=== PATIENT | male | born 1955 | race Caucasian/White ===

== ENCOUNTER 2019-04-21 07:30 | Day surgery (SDC) | payer MEDICARE ==
[2019-04-16 14:42] VITALS: BMI 31.6
[~2019-04-21 07:30] MED LIST: LACTATED RINGERS 1,000 ML IV SCH
[2019-04-21 07:46] VITALS: RESP 16; TEMP 97.2
[2019-04-21 08:01] LABS: Glucose,Whole Blood 162 mg/dL (75-99)
[2019-04-21] MEDS ORDERED: LIDOCAINE 1% 20 ML VIAL (10MG/ML) FOR IV START INTRADERMA ONE (08:01)
[2019-04-21] MEDS ORDERED: LIDOCAINE 1% INJ 10MG/ML (20 ML MDV) ONE (08:31)
[2019-04-21] MEDS ORDERED: PROPOFOL 10 MG/ML 20 ML VIAL IV ONE (08:31)
[2019-04-21 09:14] LABS: Glucose,Whole Blood 168 mg/dL (75-99)
[2019-04-21 09:20] VITALS: BP 135/84; PULSE 72
--- NOTE | 2019-04-21 09:45 | P.PCN ---
Date of Procedure: 04/21/19 Procedure(s) Performed: Procedure: Total colonoscopy. Preoperative diagnosis: Screening for neoplasia. Postoperative diagnosis: Poor preparation, otherwise, exam to the cecum within normal limits. Preparation: HalfLytely prep. Sedation: Was provided by anesthesia. Brief clinical history: The patient is a 64-year-old male who is scheduled for this evaluation for screening for neoplasia age being his risk factor. His last exam was in 2006 and he believes he may have had couple small polyps removed. The patient has no abdominal complaints, bleeding or anemia. Procedure: With the patient on his left lateral decubitus position and after informed consent and adequate sedation, the perianal area was inspected and it did not show any fissures or fistulas. There were no masses felt on digital rectal examination. The Olympus CFH 190L video colonoscope was then inserted in the rectum in the usual fashion and advanced to the cecum. Unfortunately, the preparation was less than ideal and there was significant amount of fecal material and fecal debris which I spent some time attempting to mobilize and clean. The mucosa appeared healthy. There were no obvious polyps or tumors seen, however, with his preparation, it is possible that small or medium-sized polyps or superficial pathology could have been missed. There was no obvious diverticular disease or other pathology. I retroflexed the endoscope in the rectum before the endoscope was withdrawn. The patient tolerated the procedure well. Plan: I summarized the findings to the patient. I suggested that he should have a repeat exam in 2-3 years after a two day preparation before going with a 5 year schedule because of the history of polyps. He will discuss that with you.
== END 2019-04-21 09:35 | disposition home or self-care (01) ==
LOC: ORWHC2ENDO 07:30
DX: Z12.11 Encounter for screening for malignant neoplasm of colon (principal); E11.9 Type 2 diabetes mellitus without complications; K21.9 Gastro-esophageal reflux disease without esophagitis; I10 Essential (primary) hypertension; E78.5 Hyperlipidemia, unspecified; G47.33 Obstructive sleep apnea (adult) (pediatric); G60.0 Hereditary motor and sensory neuropathy; N40.0 Benign prostatic hyperplasia without lower urinary tract symptoms; Z79.4 Long term (current) use of insulin; Z79.891 Long term (current) use of opiate analgesic; Z79.899 Other long term (current) drug therapy
CPT/HCPCS: J2001; J2704; G0121; 45378

== ENCOUNTER 2021-03-09 07:29 | Day surgery (SDC) | payer MEDICARE, OTHER ==
[2021-03-04 14:55] VITALS: BMI 32.8
[~2021-03-09 07:29] MED LIST changes: +ALPRAZolam 0.25 MG TAB PO PRN; +ALPRAZolam 0.5 MG TAB PO PRN; +ASPIRIN 325 MG TAB PO STA; +ATORVASTATIN 80 MG TAB PO STA; -LACTATED RINGERS 1,000 ML IV SCH; +NITROGLYCERIN SL TABS 0.4 MG TAB SUBLINGUAL PRN; +SODIUM CHLORIDE 0.9% 1,000 ML in EMPTY BAG 1 BAG IV ONE
[2021-03-09] MEDS ORDERED: ASPIRIN 81 MG ONE (08:13)
[2021-03-09 08:23] LABS: Glucose,Whole Blood 163 mg/dL (75-99)
[2021-03-09] MEDS ORDERED: ASPIRIN 81 MG PO ONE (08:30)
[2021-03-09 08:34] VITALS: RESP 18
[2021-03-09] MEDS ORDERED: VERAPAMIL 2.5 MG/ML 2 ML AMP ONE (09:00)
[2021-03-09] MEDS ORDERED: LIDOCAINE 1% INJ 10MG/ML (20 ML MDV) ONE (09:00)
[2021-03-09] MEDS ORDERED: HEPARIN SODIUM 1,000 UN/ML (10ML VL) ONE (09:01)
[2021-03-09] MEDS ORDERED: fentaNYL (PF) 50 MCG/ML 2 ML AMP ONE (09:01)
[2021-03-09] MEDS: MIDAZOLAM 2 MG/2 ML VIAL IVP ONE ×2 (09:19→09:24)
[2021-03-09] MEDS ORDERED: fentaNYL (PF) 50 MCG/ML 2 ML AMP IVP ONE (09:19)
[2021-03-09] MEDS ORDERED: LIDOCAINE 1% INJ 10MG/ML (20 ML MDV) SQ ONE (09:21)
[2021-03-09] MEDS ORDERED: VERAPAMIL SYRINGE (5 MG/10 ML) INTRAARTER ONE (09:30)
[2021-03-09] MEDS ORDERED: HEPARIN SODIUM 1,000 UN/ML (10ML VL) IVP ONE (09:31)
[2021-03-09] MEDS ORDERED: IOPAMIDOL-370 125ML BTL INJ ONE (09:45)
[2021-03-09] MEDS ORDERED: RX INFO: IV CONTRAST WAS GIVEN 1 EACH MISC MISCELLANE PRN (10:05)
--- NOTE | 2021-03-09 10:22 | P.CARDCATH ---
Description of Procedure: PROCEDURES PERFORMED: Bilateral coronary angiography INDICATION: Unstable angina HISTORY: Patient is a pleasant 66-year-old male with history of diabetes mellitus type 2, hypertension, hyperlipidemia who has been having new onset of chest pain worse with exertion and improved with rest which is worse over last 3 months and therefore heart catheterization was recommended. He was placed on metoprolol however did not start taking this medication. CONSENT:I have discussed the risks, benefits and alternative therapies for the above-mentioned procedure and for both sedation/analgesia as well as necessary blood product administration, if indicated, as they pertain to this patient. The patient has indicated understanding and acceptance of the risks and procedures discussed. PROCEDURE: After the risks, benefits and alternatives of the above mentioned procedure explained in detail with the patient, informed consent was obtained. Patient was taken to the catheterization lab and prepped and draped in usual fashion. 1% lidocaine was used to anesthetize the right radial artery. A 6- [place] sheath was placed in the right radial artery using modified Seldinger technique. Left coronary angiography was performed with a 5-[place] JL 3.5 catheter and right coronary angiography was performed with a 5-[place] JR5 catheter in various views. The right radial sheath was removed and a TR band was placed with hemostasis achieved. The patient tolerated the procedure well. Patient was transported back to the post catheterization holding area in stable condition. Conscious Sedation: Patient was monitored under the direct supervision of vision of myself for conscious sedation using Versed and fentanyl for a total duration of 33 minutes HEMODYNAMICS: Ao: 134/78 SELECTIVE CORONARY ARTERIOGRAPHY: LEFT MAIN: The left main is a large caliber vessel which trifurcates into the LAD, a very small caliber ramus and a circumflex. There is 20% left main stenosis. LEFT ANTERIOR DESCENDING CORONARY ARTERY: LAD is a large caliber vessel which wraps around to the apex. There is diffuse proximal 50% stenosis. There is a 95% mid LAD stenosis at the level of a moderate caliber diagonal 1 branch. There are tandem 95%, 90% stenosis of the mid to distal LAD. RAMUS INTERMEDIUS: The ramus intermedius is a very small caliber vessel without significant stenosis. LEFT CIRCUMFLEX CORONARY ARTERY: Left circumflex is a large caliber vessel which is codominant. There are 2 main aneurysmal portions of the circumflex with a 50% mid circucumflex and a 50-60% mid to distal circumflex stenosis. OM1 has a 60-70% ostial stenosis and is a moderate caliber vessel. OM2 is moderate caliber and splits into a superior and inferior branch. OM3 has no significant stenosis. RIGHT CORONARY ARTERY: The right coronary artery is a moderate caliber vessel which gives off a PDA codominant vessel. There is a proximal long 100% RCA stenosis. FINAL IMPRESSION: 1. CAD as described above with 20% left main, 50% proximal LAD, 95% mid LAD/ diagonal 1 bifurcation, mid to distal LAD 95%, circumflex 50-60% stenosis, OM1 60-70% stenosis and proximal RCA 100% stenosis. PLAN: 1. Aggressive risk factor modification per most recent ACC/AHA guidelines. 2. CABG evaluation. 3. Follow-up in the office in 1-2 weeks.
--- NOTE | 2021-03-09 13:11 | P.GSCN ---
History of Present Illness Consult date: 03/09/21 Reason for Consult: Coronary artery disease, recommendations for surgical revascularization Requesting physician: Diego Soni History of present illness: This is a 66-year-old gentleman who follows on an outpatient basis with Dr. Whitaker for primary care, as well as recently establishing cardiology care with Dr. Soni. He has a previous medical history of hypertension, hyperlipidemia, type 2 diabetes, obstructive sleep apnea with home CPAP use, Gvhlglu-Oyast-Fjxow disorder, previous tobacco dependence, occasional marijuana use, and family history of premature coronary artery disease with father having myocardial infarction in his early 60s and uncle having myocardial infarction in his early 50s. He reports 3 months symptomatology of chest tightness, shortness of breath, lightheadedness mostly with exertion and improved with rest, however upon further questioning the patient did state these symptoms occasionally occur at rest and resolve on their own. He states his symptoms have not gotten prog ressively worse, however he did establish a connection with cardiology for evaluation and treatment. He was recommended to undergo elective heart catheterization which was completed today and which demonstrated coronary artery disease with 20% left main stenosis, 50% proximal LAD stenosis, mid LAD stenosis 95% at that bifurcation of the first diagonal branch as well as 95% stenosis mid to distal LAD, circumflex stenosis 50-60%, first obtuse marginal stenosis 60- 70%, and proximal RCA stenosis 100%. Of note he did have a transthoracic echocardiogram completed at [facility] demonstrating normal systolic function and no regional wall motion abnormalities with ejection fraction 60%, moderate centrally directed aortic regurgitation, trace mitral regurgitation, and trace tricuspid regurgitation. Due to his heart catheterization findings consultation was placed to Dr. Shah for surgical revascularization recommendations. Review of Systems Review of systems was completed and was negative except as noted - Cardiovascular Reports as per HPI, Reports chest pain, Reports decreased exercise tolerance, Reports dyspnea on exertion, Reports lightheadedness, Reports shortness of breath Past Medical History Past Medical History: Coronary Artery Disease (CAD), Chest Pain / Angina, Diabetes Mellitus, GERD/Reflux, Hyperlipidemia, Hypertension, Musculoskeletal Disorder, Osteoarthritis (OA), Prostate Disorder, Sleep Apnea/CPAP/BIPAP Additional Past Medical History / Comment(s): [id number] SYNDROME, CAUSES PAIN, HAS NUMBNESS IN FEET, neuropathy, WEARS NICOLÁS LEG BRACES. USES CPAP., some recent chest pain & tightness @times History of Any Multi-Drug Resistant Organisms: None Reported Past Surgical History: No Surgical Hx Reported Additional Past Surgical History / Comment(s): COLONOSCOPY, lasik eye surg. Past Anesthesia/Blood Transfusion Reactions: No Reported Reaction Past Psychological History: No Psychological Hx Reported Smoking Status: Former smoker Past Alcohol Use History: None Reported Past Drug Use History: Marijuana Additional History: Quit smoking 25 years ago, rarely smoked prior to that; no alcohol for 22 years; occasional medical marijuana use - Past Family History Mother Family Medical History: Cancer Additional Family Medical History / Comment(s): BREAST CA Sister(s) Family Medical History: Cancer Additional Family Medical History / Comment(s): SKIN CA Father Family Medical History: Congestive Heart Failure (CHF), Coronary Artery Disease (CAD), Myocardial Infarction ([place]) Additional Family Medical History / Comment(s): Myocardial infarction in his early 60s, paternal uncle had myocardial infarction in his early 50s Medications and Allergies Home Medications Medication Instructions Recorded Confirmed Type DULoxetine HCL [Cymbalta] 60 mg PO DAILY 04/16/19 03/09/21 History Finasteride [Proscar] 5 mg PO DAILY 04/16/19 03/09/21 History Insulin Degludec [Tresiba] 64 units SQ AC-BRKFST 04/16/19 03/09/21 History Mirtazapine [Remeron] 15 mg PO DAILY 04/16/19 03/09/21 History Multivit-Min/FA/Lycopen/Lutein 1 each PO DAILY 04/16/19 03/09/21 History [Centrum Silver Tablet] Omeprazole 20 mg PO DAILY 04/16/19 03/09/21 History glipiZIDE [Glucotrol] 10 mg PO BID 04/16/19 03/09/21 History lisinopriL [Zestril] 20 mg PO DAILY 04/16/19 03/09/21 History metFORMIN HCL 1,000 mg PO BID 04/16/19 03/09/21 History Aspirin 81 mg PO DAILY 03/04/21 03/09/21 History Atorvastatin [Lipitor] 20 mg PO DAILY 03/04/21 03/09/21 History Cider Vinegar [Apple Cider Vinegar] 300 mg PO DAILY 03/04/21 03/09/21 History Diazepam [Valium] 10 mg PO DIRECTED PRN 03/04/21 03/09/21 History Pioglitazone [Actos] 30 mg PO DAILY 03/04/21 03/09/21 History Turmeric Root Extract [Turmeric] 500 mg PO DAILY 03/04/21 03/09/21 History oxyCODONE HCL/ACETAMINOPHEN 1 tab PO QID 03/04/21 03/09/21 History [Endocet 10-325 mg] Metoprolol Succinate (ER) [Toprol 25 mg PO DAILY #90 tab 03/09/21 Rx Xl] Allergies Allergy/AdvReac Type Severity Reaction Status Date / Time No Known Allergies Allergy Verified 03/04/21 14:49 Surgical - Exam Vital Signs Resp BP Pulse Ox 18 164/81 95 03/09/21 08:26 03/09/21 08:26 03/09/21 08:26 CONSTITUTIONAL: Awake and alert, appears comfortable, cooperative, well- developed, well-nourished, no pain, no acute distress EYES: Pupils equal, round, reactive to light, normal ocular movement ENT: Moist mucous membranes without oral lesions present NECK: No masses, no bruits, trachea midline RESPIRATORY: Lungs sounds clear to auscultation bilaterally. Respirations even, nonlabored. Currently on room air with oxygen saturation 97%. Strong cough. No chest wall deformities. No clubbing or cyanosis present CARDIOVASCULAR: S1, S2 present. Regular rate and rhythm, sinus rhythm on telemetry. Palpable peripheral pulses bilaterally. No edema present. No calf pain or tenderness noted. No significant lower extremity varicosities noted. GASTROINTESTINAL: Abdomen soft, nontender, nondistended without masses or organomegaly noted. There is no rebound or guarding present. Active bowel sounds present 4 quadrants. GENITOURINARY: Deferred INTEGUMENTARY: Skin is warm and dry with evidence of good perfusion. NEUROLOGIC: Cranial nerves II through XII intact, normal coordination, no obvious motor or sensory deficits, speech is normal MUSKULOSKELETAL: Able to move all extremities, strength equal bilaterally, normal posture PSYCHIATRIC: Alert and oriented to person place and time, appropriate affect, intact judgment and insight Results - Labs Abnormal Lab Results - Last 24 Hours (Table) 03/09/21 Range/Units 08:20 POC Glucose (mg/dL) 163 H (75-99) mg/dL - Imaging Chest x-ray: image reviewed Additional studies: Heart catheterization films were reviewed Assessment and Plan Assessment: 1. Triple-vessel coronary artery disease 2. Hypertension 3. Hyperlipidemia, treated 4. Type 2 diabetes 5. Obstructive sleep apnea with home CPAP use 6. Yzsapht-Bymck-Kukmf disorder 7. Previous tobacco dependence 8. Occasional marijuana use 9. Family history of premature coronary artery disease Plan: The patient was seen and examined in the extended stay unit. Chart/diagnostics reviewed. The case will be discussed in detail with Dr. Shah. The usual perioperative course of coronary artery bypass surgery was discussed in detail with the patient, risks and benefits were reviewed, all questions were answered. The patient is willing to consider surgery if that is deemed to be the best treatment option. Preoperative testing was initiated. Recommend continuing aspirin, statin, beta iesha therapy. Risk factor management encouraged. More recommendations to follow once testing completed and Dr. Shah has had the opportunity to review the patient's heart catheterization films. Thank you Dr. Soni for this consult. We will follow along with you Time with Patient: Greater than 30
[2021-03-09 13:22] LABS: ALT 39 U/L (4-49); AST 41 U/L (17-59); African American GFR (CKD) >90 (>60 ml/min/1.73 sqM); Alkaline Phosphatase 76 U/L (38-126); Anion Gap 8 mmol/L; Blood Urea Nitrogen 8 mg/dL (9-20); Calcium 9.6 mg/dL (8.4-10.2); Carbon Dioxide 27 mmol/L (22-30); Chloride 103 mmol/L (98-107); Glucose 148 mg/dL (74-99); Magnesium 1.6 mg/dL (1.6-2.3); Non-African American GFR(CKD) >90 (>60 ml/min/1.73 sqM); Potassium 4.6 mmol/L (3.5-5.1); Sodium 138 mmol/L (137-145); Total Bilirubin 0.5 mg/dL (0.2-1.3); Total Protein 6.8 g/dL (6.3-8.2)
[2021-03-09 13:35] LABS: HCT 43.9 % (39.0-53.0); HGB 14.4 gm/dL (13.0-17.5); MCH 30.2 pg (25.0-35.0); MCHC 32.8 g/dL (31.0-37.0); MCV 92.1 fL (80.0-100.0); Mean Platelet Volume 8.1; Platelet Count 190 k/uL (150-450); RBC 4.77 m/uL (4.30-5.90); RDW 13.4 % (11.5-15.5); WBC 6.8 k/uL (3.8-10.6)
[2021-03-09 14:00] LABS: Cholesterol 127 mg/dL (<200); HDL Cholesterol 38 mg/dL (40-60); LDL Cholesterol,Calculated 68 mg/dL (0-99); Triglycerides 104 mg/dL (<150)
[2021-03-09 14:09] LABS: Basophils # (M) 0.07 k/uL (0-0.2); Eosinophils # (M) 0.07 k/uL (0-0.7); Lymphocytes # (M) 1.77 k/uL (1.0-4.8); Monocytes # (M) 0.54 k/uL (0-1.0); Neutrophils # (M) 4.35 k/uL (1.3-7.7); Neutrophils % (M) 64 %; Nucleated Red Blood Cells 0 /100 WBC (0-0); Total Cells Counted 100
[2021-03-09 14:42] VITALS: BP 167/79; PULSE 80
--- NOTE | 2021-03-09 23:59 | US ---
EXAMINATION TYPE: US carotid duplex BILAT DATE OF EXAM: 03/09/2021 COMPARISON: 12/20/2011 CLINICAL HISTORY: preop cabg. PRE OP, NO H/O STROKE EXAM MEASUREMENTS: RIGHT: Peak Systolic Velocity (PSV) cm/sec ----- Right CCA: 70.2 ----- Right ICA: 83.6 ----- Right ECA: 69.8 ICA/CCA ratio: 1.1 RIGHT: End Diastole cm/sec ----- Right CCA: 7.1 ----- Right ICA: 17.4 ----- Right ECA: 0.0 LEFT: Peak Systolic Velocity (PSV) cm/sec ----- Left CCA: 108 ----- Left ICA: 78.7 ----- Left ECA: 184 ICA/CCA ratio: 0.7 LEFT: End Diastole cm/sec ----- Left CCA: 7.3 ----- Left ICA: 12.7 ----- Left ECA: 0.0 VERTEBRALS (direction of flow): Right Vertebral: Antegrade Left Vertebral: Antegrade Rhythm: Normal Mild heterogeneous plaque bilaterally with no significant stenosis IMPRESSION: There is antegrade flow in the vertebral arteries. The images and measurements suggest less than 20% stenosis in both internal carotid arteries. No adverse change compared to old exam. Criteria for Assigning % of Stenosis / Diameter reduction (Estimation based on the indirect measurements of the internal carotid artery velocities (ICA PSV). 1. Normal (no stenosis)=ICA PSV < 125 cm/s: ratio < 2.0: ICA EDV<40 cm/s. 2. Less than 50% stenosis=ICA PSV < 125 cm/s: ratio < 2.0: ICA EDV<40 cm/s. 3. 50 to 69% stenosis=ICA PSV of 125 to 230 cm/s: ration 2.0 ? 4.0: ICA EDV 40-100 cm/s. 4. Greater than 70% stenosis to near occlusion= ICA PSV > 230 cm/s: ratio > 4.0: ICA EDV > 100 cm/s. 5. Near occlusion= ICA PSV velocities may be low or undetectable: variable ratio and ICA EDV. 6. Total occlusion=unable to detect flow.
--- NOTE | 2021-03-10 | XR ---
EXAMINATION TYPE: XR chest 1V portable DATE OF EXAM: 03/09/2021 COMPARISON: NONE HISTORY: Preop heart surgery TECHNIQUE: Single view FINDINGS: There is no heart failure nor confluent pneumonic infiltrate. There is small linear density left midlung consistent with scarring or subsegmental atelectasis. There are no hilar masses. Thorac ic aorta is atheromatous. There is slight elevated left diaphragm. IMPRESSION: Mild subsegmental atelectasis left midlung field. Normal heart.
[2021-03-10 00:21] LABS: Hemoglobin A1C 8.1 % (4.0-6.0)
[2021-03-10 10:59] LABS: Hepatitis A Antibody IgM Non-Reactive (Non-Reactive); Hepatitis B Core IgM Non-Reactive (Non-Reactive); Hepatitis B Surface Antigen Non-Reactive (Non-Reactive); Hepatitis C IgG Antibody Non-Reactive (Non-Reactive)
== END 2021-03-09 14:58 | disposition home or self-care (01) ==
LOC: CATHCVL 07:29
PROVIDERS: ATTEND Internal Medicine
DX: I25.110 Atherosclerotic heart disease of native coronary artery with unstable angina pectoris (principal); I10 Essential (primary) hypertension; R94.31 Abnormal electrocardiogram [ECG] [EKG]; E78.5 Hyperlipidemia, unspecified; E11.9 Type 2 diabetes mellitus without complications; Z82.49 Family history of ischemic heart disease and other diseases of the circulatory system; Z72.0 Tobacco use; G60.0 Hereditary motor and sensory neuropathy; Z79.84 Long term (current) use of oral hypoglycemic drugs; Z79.899 Other long term (current) drug therapy
CPT/HCPCS: 93454; 80061; 80053; 80074; 84443; 83735; 85025; 85610; 83036; 87635; 71045; 93970; 93880; J2250; J2001; J3010; J1644; Q9967

== ENCOUNTER → 2021-04-06 | Outpatient (CLI) | payer MEDICARE, OTHER ==
[2021-04-06 14:18] LABS: HCT 42.9 % (39.0-53.0); MCH 30.3 pg (25.0-35.0); MCHC 32.7 g/dL (31.0-37.0); MCV 92.8 fL (80.0-100.0); Platelet Count 234 k/uL (150-450); RBC 4.62 m/uL (4.30-5.90); RDW 13.6 % (11.5-15.5); WBC 7.3 k/uL (3.8-10.6)
[2021-04-06 14:26] LABS: ALT 32 U/L (4-49); AST 35 U/L (17-59); African American GFR (CKD) >90 (>60 ml/min/1.73 sqM); Albumin 4.1 g/dL (3.5-5.0); Alkaline Phosphatase 81 U/L (38-126); Anion Gap 9 mmol/L; Blood Urea Nitrogen 10 mg/dL (9-20); Calcium 9.4 mg/dL (8.4-10.2); Carbon Dioxide 25 mmol/L (22-30); Chloride 101 mmol/L (98-107); Glucose 210 mg/dL (74-99); Non-African American GFR(CKD) >90 (>60 ml/min/1.73 sqM); Potassium 4.7 mmol/L (3.5-5.1); Sodium 135 mmol/L (137-145); Total Bilirubin 0.2 mg/dL (0.2-1.3)
[2021-04-06 14:27] LABS: INR 0.9 (<1.2); Partial Thromboplastin Time 24.6 sec (22.0-30.0); Prothrombin Time 10.2 sec (9.0-12.0)
[2021-04-06 14:35] LABS: Appearance,Urine Clear (Clear); Bilirubin,Urine Negative (Negative); Blood,Urine Negative (Negative); Color,Urine Light Yellow; Glucose,Urine (UA) Trace (Negative); Ketones,Urine Negative (Negative); Leukocyte Esterase,Urine Negative (Negative); Nitrite,Urine Negative (Negative); Protein,Urine Negative (Negative); Specific Gravity,Urine 1.006 (1.001-1.035); Urobilinogen,Urine <2.0 mg/dL (<2.0)
== END | disposition home or self-care (01) ==
LOC: LABPAT 09:48
PROVIDERS: ATTEND Surgery
DX: Z01.810 Encounter for preprocedural cardiovascular examination (principal); I25.10 Atherosclerotic heart disease of native coronary artery without angina pectoris; E11.9 Type 2 diabetes mellitus without complications; I44.0 Atrioventricular block, first degree; Z79.01 Long term (current) use of anticoagulants; Z79.899 Other long term (current) drug therapy
CPT/HCPCS: 36415; 80053; 81003; 85027; 85610; 85730; 87070; 87086; 93005

== ENCOUNTER 2021-04-13 05:32 | Inpatient (IN) | payer MEDICARE, OTHER ==
[2021-04-06 14:42] VITALS: BMI 34.2
--- NOTE | 2021-04-12 11:10 | P.PN ---
Progress Note - Text Progress Note Date: 04/06/21 5 meter walk test completed without difficulty: #1 6.88 sec #2 6.79 sec #3 5.87 sec STS risk score was calculated and discussed with the patient
[~2021-04-13 05:32] MED LIST changes: +ALBUMIN HUMAN 25% 50 ML IV ONE; +ALBUMIN HUMAN 5% 500 ML IVPB ONE; -ALPRAZolam 0.25 MG TAB PO PRN; -ALPRAZolam 0.5 MG TAB PO PRN; +ASPIRIN 325 MG TAB PO ONE; -ASPIRIN 325 MG TAB PO STA; +ATORVASTATIN 10 MG TAB PO ONE; -ATORVASTATIN 80 MG TAB PO STA; +CALCIUM CHLORIDE 100 MG/ML 10 ML SYRINGE IV ONE; +CHLORHEXIDINE GLUCONATE 15 ML CUP MUCOUS MEM ONE; +CLEVIDIPINE BUTYRATE 25 MG in EMPTY BAG 1 BAG IV ONE; +ELECTROLYTE-A SOLUTION 1,000 ML with POTASSIUM CHLORIDE 100 MEQ, MAGNESIUM SULFATE 16 M... IV ONE; +ELECTROLYTE-A SOLUTION 1,000 ML with POTASSIUM CHLORIDE 40 MEQ, MAGNESIUM SULFATE 16 ME... IV ONE; +HEPARIN SODIUM 1,000 UN/ML (10ML VL) IV ONE; +HEPARIN SODIUM,PORCINE 5,000 UNIT in SODIUM CHLORIDE 0.9% 500 ML 500 ML IV ONE; +INSULIN REGULAR 100 UNIT in SODIUM CHLORIDE 0.9% 100 ML IV ONE; +LACTATED RINGERS 1,000 ML IV ONE; +MAGNESIUM SULFATE MG 500 MG/ML IV ONE; +MANNITOL 25% 12.5 GM/50 ML VIAL IV ONE; +METOPROLOL TARTRATE 12.5 MG TAB PO ONE; +NITROGLYCERIN SL TABS 0.4 MG TAB SUBLINGUAL ONE; -NITROGLYCERIN SL TABS 0.4 MG TAB SUBLINGUAL PRN; +NITROGLYCERIN-D5W PMX 25 MG/250 ML BTL IV ONE; +NITROGLYCERIN-D5W PMX 50 MG in DEXTROSE/WATER 1 250ML.BAG IV ONE; +NOREPINEPHRINE 4 MG in SODIUM CHLORIDE 0.9% 250 ML IV ONE; +PAPAVERINE 360 MG in SODIUM CHLORIDE 0.9% 90 ML IV ONE; +PHENYLEPHRINE 10 MG/ML VIAL IV ONE; +PHENYLEPHRINE 40 MG in SODIUM CHLORIDE 0.9% 250 ML IV ONE; +PROTAMINE SULFATE 10 MG/ML 25 ML VIAL IV ONE; +PROTAMINE SULFATE 250 MG in EMPTY BAG 1 BAG IV ONE; +SODIUM BICARB 8.4% 50 ML SYR (1 MEQ/ML) IV ONE; +SODIUM CHLORIDE 0.9% 1,000 ML IV ONE; -SODIUM CHLORIDE 0.9% 1,000 ML in EMPTY BAG 1 BAG IV ONE; +TRANEXAMIC ACID 2,000 MG in SODIUM CHLORIDE 0.9% 80 ML IV ONE; +ceFAZolin 1,000 MG in SODIUM CHLORIDE 0.9% IRRIGATIO 1,000 ML IRRIGATION ONE; +ceFAZolin 3 GM in SODIUM CHLORIDE 0.9% 100 ML IVPB ONE; +propofoL 1,000 MG/100 ML VIAL IV ONE
[2021-04-13] MEDS ORDERED: LACTATED RINGERS 1,000 ML IV ONE (05:51)
[2021-04-13] MEDS ORDERED: LIDOCAINE 1% (10MG/ML) FOR IV START INTRADERMA ONE (06:15)
[2021-04-13 06:34] LABS: Glucose,Whole Blood 149 mg/dL (75-99)
[2021-04-13] MEDS ORDERED: SODIUM CHLORIDE 0.9% IRRIG 1,000 ML BTL IRRIGATION ONE (07:41)
[2021-04-13] MEDS ORDERED: VECURONIUM 10 MG VIAL IV ONE (07:41)
[2021-04-13] MEDS ORDERED: MAGNESIUM SULFATE 4 MEQ/ML 10ML VIAL ONE (07:41)
[2021-04-13] MEDS ORDERED: PROPOFOL 10 MG/ML 20 ML VIAL IV ONE (07:41)
[2021-04-13] MEDS ORDERED: fentaNYL (PF) 50 MCG/ML 50 ML VIAL ONE (07:41)
[2021-04-13] MEDS ORDERED: TRANEXAMIC ACID 1,000 MG/10 ML VIAL ONE (07:41)
[2021-04-13] MEDS ORDERED: NITROGLYCERIN-D5W PMX 50 MG/250 ML BOTTLE IV ONE (07:41)
[2021-04-13] MEDS ORDERED: SODIUM CHLORIDE 0.9% 250 ML BAG ONE (07:41)
[2021-04-13] MEDS ORDERED: HEPARIN SODIUM,PORCINE 10,000 UNIT/ML 1 ML VIAL ONE (07:41)
[2021-04-13] MEDS ORDERED: fentaNYL (PF) 50 MCG/ML 2 ML AMP ONE (07:41)
[2021-04-13] MEDS ORDERED: PROTAMINE SULFATE 10 MG/ML 25 ML VIAL IV ONE (07:41)
[2021-04-13] MEDS ORDERED: LIDOCAINE 2% SYG (PF) 100 MG/5 ML ONE (07:41)
[2021-04-13] MEDS ORDERED: INSULIN REGULAR 100 UNIT/ML VIAL ONE (07:41)
[2021-04-13] MEDS ORDERED: MIDAZOLAM 2 MG/2 ML VIAL ONE (07:41)
[2021-04-13] MEDS ORDERED: ELECTROLYTE-R (PH 7.4) 1,000 ML IV.SOLN IV ONE (07:41)
[2021-04-13 08:41] LABS: ABG Base Excess 1.9 mmol/L; ABG Glucose Whole Blood 138 mg/dL (75-99); ABG HCO3 27 mmol/L (21-25); ABG Hematocrit 40 % (34.0-46.0); ABG Ionized Calcium 4.7 mg/dL (4.5-5.3); ABG Lactic Acid Whole Blood 0.8 mmol/L (0.5-1.6); ABG Oxygen Saturation 99.7 % (94-97); ABG PCO2 43 mmHg (35-45); ABG PH 7.41 (7.35-7.45); ABG PO2 188 mmHg (83-108); ABG Potassium Whole Blood 4.1 mmol/L (3.4-4.5); ABG Sodium Whole Blood 139 mmol/L (135-146); ABG TCO2 28 mmol/L (19-24)
[2021-04-13 10:51] LABS: ABG Base Excess 0.8 mmol/L; ABG Glucose Whole Blood 132 mg/dL (75-99); ABG HCO3 27 mmol/L (21-25); ABG Hematocrit 37 % (34.0-46.0); ABG Ionized Calcium 4.8 mg/dL (4.5-5.3); ABG Lactic Acid Whole Blood 1.2 mmol/L (0.5-1.6); ABG Oxygen Saturation 99.3 % (94-97); ABG PCO2 50 mmHg (35-45); ABG PH 7.34 (7.35-7.45); ABG PO2 158 mmHg (83-108); ABG Potassium Whole Blood 4.3 mmol/L (3.4-4.5); ABG Sodium Whole Blood 139 mmol/L (135-146); ABG TCO2 29 mmol/L (19-24)
[2021-04-13 11:43] LABS: ABG Base Excess -0.9 mmol/L; ABG Glucose Whole Blood 111 mg/dL (75-99); ABG HCO3 25 mmol/L (21-25); ABG Hematocrit 29 % (34.0-46.0); ABG Ionized Calcium 4.1 mg/dL (4.5-5.3); ABG Lactic Acid Whole Blood 1.1 mmol/L (0.5-1.6); ABG PCO2 48 mmHg (35-45); ABG PH 7.33 (7.35-7.45); ABG PO2 355 mmHg (83-108); ABG Potassium Whole Blood 3.9 mmol/L (3.4-4.5); ABG Sodium Whole Blood 136 mmol/L (135-146); ABG TCO2 27 mmol/L (19-24)
[2021-04-13 12:13] LABS: ABG Base Excess 0.7 mmol/L; ABG Glucose Whole Blood 111 mg/dL (75-99); ABG HCO3 26 mmol/L (21-25); ABG Ionized Calcium 4.1 mg/dL (4.5-5.3); ABG PCO2 46 mmHg (35-45); ABG PH 7.36 (7.35-7.45); ABG PO2 419 mmHg (83-108); ABG Potassium Whole Blood 4.6 mmol/L (3.4-4.5); ABG Sodium Whole Blood 139 mmol/L (135-146); ABG TCO2 28 mmol/L (19-24)
[2021-04-13 12:50] LABS: ABG Base Excess 1.4 mmol/L; ABG Glucose Whole Blood 140 mg/dL (75-99); ABG HCO3 27 mmol/L (21-25); ABG Ionized Calcium 4.1 mg/dL (4.5-5.3); ABG Lactic Acid Whole Blood 0.8 mmol/L (0.5-1.6); ABG PCO2 45 mmHg (35-45); ABG PH 7.38 (7.35-7.45); ABG PO2 322 mmHg (83-108); ABG Potassium Whole Blood 4.7 mmol/L (3.4-4.5); ABG Sodium Whole Blood 139 mmol/L (135-146); ABG TCO2 28 mmol/L (19-24)
[2021-04-13 13:34] LABS: ABG Base Excess -0.3 mmol/L; ABG Glucose Whole Blood 172 mg/dL (75-99); ABG HCO3 25 mmol/L (21-25); ABG Hematocrit 25 % (34.0-46.0); ABG Lactic Acid Whole Blood 0.9 mmol/L (0.5-1.6); ABG PCO2 46 mmHg (35-45); ABG PH 7.35 (7.35-7.45); ABG PO2 321 mmHg (83-108); ABG Potassium Whole Blood 4.7 mmol/L (3.4-4.5); ABG Sodium Whole Blood 140 mmol/L (135-146); ABG TCO2 27 mmol/L (19-24)
[2021-04-13 13:56] LABS: ABG Hematocrit 24 % (34.0-46.0)
[2021-04-13 13:56] LABS: ABG Hematocrit 24 % (34.0-46.0)
[2021-04-13 14:25] LABS: ABG Base Excess -0.7 mmol/L; ABG Glucose Whole Blood 141 mg/dL (75-99); ABG HCO3 26 mmol/L (21-25); ABG Hematocrit 25 % (34.0-46.0); ABG Lactic Acid Whole Blood 1.2 mmol/L (0.5-1.6); ABG Oxygen Saturation 99.7 % (94-97); ABG PCO2 52 mmHg (35-45); ABG PH 7.31 (7.35-7.45); ABG PO2 188 mmHg (83-108); ABG Potassium Whole Blood 4.8 mmol/L (3.4-4.5); ABG Sodium Whole Blood 140 mmol/L (135-146); ABG TCO2 27 mmol/L (19-24)
[2021-04-13 15:19] LABS: ABG Base Excess 0.4 mmol/L; ABG Glucose Whole Blood 132 mg/dL (75-99); ABG HCO3 25 mmol/L (21-25); ABG Hematocrit 33 % (34.0-46.0); ABG Ionized Calcium 4.2 mg/dL (4.5-5.3); ABG Lactic Acid Whole Blood 1.1 mmol/L (0.5-1.6); ABG Oxygen Saturation 97.7 % (94-97); ABG PCO2 42 mmHg (35-45); ABG PH 7.39 (7.35-7.45); ABG PO2 95 mmHg (83-108); ABG Potassium Whole Blood 4.4 mmol/L (3.4-4.5); ABG Sodium Whole Blood 140 mmol/L (135-146); ABG TCO2 27 mmol/L (19-24)
[2021-04-13] MEDS ORDERED: DEXTROSE 5% IN WATER 100 ML with AMIODARONE 150 MG IV PRN (15:51)
[2021-04-13] MEDS ORDERED: CLEVIDIPINE BUTYRATE 25 MG in EMPTY BAG 1 BAG IV SCH (15:51)
[2021-04-13] MEDS ORDERED: ONDANSETRON 4 MG/2 ML VIAL IVP PRN (15:51)
[2021-04-13] MEDS ORDERED: METOCLOPRAMIDE 5 MG/ML 2 ML VIAL IVP PRN (15:51)
[2021-04-13] MEDS ORDERED: ALBUMIN HUMAN 5% 250 ML in EMPTY BAG 1 BAG IVPB PRN (15:51)
[2021-04-13] MEDS ORDERED: CALCIUM GLUCONATE 2 GM in SODIUM CHLORIDE 0.9% 100 ML IVPB PRN (15:51)
[2021-04-13] MEDS ORDERED: BENZOCAINE/MENTHOL LOZENG 1 EACH LOZENGE MUCOUS MEM PRN (15:51)
[2021-04-13] MEDS ORDERED: Phosphorus Replacement Protoco 1 EACH MISC MISCELLANE PRN (15:51)
[2021-04-13] MEDS ORDERED: AMIODARONE 360 MG in DEXTROSE 5% IN WATER 200 ML IV PRN ×2 (15:51)
[2021-04-13] MEDS ORDERED: MORPHINE SULFATE 2 MG/ML SYRINGE IVP PRN (15:51)
[2021-04-13] MEDS ORDERED: NITROGLYCERIN-D5W PMX 50 MG in DEXTROSE/WATER 1 250ML.BAG IV SCH (15:51)
[2021-04-13] MEDS ORDERED: IPRATROPIUM-ALBUTEROL 3 ML NEB INHALATION PRN (15:51)
[2021-04-13] MEDS ORDERED: AMIODARONE 450 MG in DEXTROSE 5% IN WATER 250 ML IV PRN ×2 (15:51)
[2021-04-13] MEDS ORDERED: Magnesium Replacement Protocol 1 EACH MISC MISCELLANE PRN (15:51)
[2021-04-13] MEDS ORDERED: hydrALAZINE HCL 20 MG/ML 1 ML VIAL IVP PRN (15:51)
[2021-04-13] MEDS ORDERED: Potassium Replacement Protocol 1 EACH MISC MISCELLANE PRN (15:51)
[2021-04-13 16:07] LABS: Glucose,Whole Blood 137 mg/dL (75-99)
[2021-04-13 16:30] LABS: ABG Base Excess 0.6 mmol/L; ABG HCO3 27 mmol/L (21-25); ABG Oxygen Saturation 99.5 % (94-97); ABG PCO2 54 mmHg (35-45); ABG PH 7.31 (7.35-7.45); ABG PO2 348 mmHg (83-108); ABG TCO2 29 mmol/L (19-24)
[2021-04-13] MEDS ORDERED: DEXMEDETOMIDINE/0.9% NACL(PMX) 400 MCG in EMPTY BAG 1 BAG IV SCH (16:30)
[2021-04-13 16:31] LABS: Ionized Calcium 4.7 mg/dL (4.5-5.3)
[2021-04-13 16:32] LABS: Basophils % (A) 0 %; Eosinophils # (A) 0.1 k/uL (0-0.7); Eosinophils % (A) 0 %; HCT 31.5 % (39.0-53.0); Lymphocytes # (A) 1.5 k/uL (1.0-4.8); Lymphocytes % (A) 11 %; MCH 31.9 pg (25.0-35.0); MCHC 34.5 g/dL (31.0-37.0); MCV 92.4 fL (80.0-100.0); Mean Platelet Volume 8.4; Monocytes # (A) 1.5 k/uL (0-1.0); Monocytes % (A) 11 %; Neutrophils # (A) 9.9 k/uL (1.3-7.7); Neutrophils % (A) 73 %; Platelet Count 122 k/uL (150-450); RDW 13.1 % (11.5-15.5); WBC 13.6 k/uL (3.8-10.6)
[2021-04-13 16:33] LABS: HGB 10.9 gm/dL (13.0-17.5)
[2021-04-13 16:33] LABS: Allen Test Performed? No
[2021-04-13] MEDS: IPRATROPIUM-ALBUTEROL 3 ML NEB INHALATION SCH ×2 (16:34→21:07)
[2021-04-13 16:38] LABS: ALT 17 U/L (4-49); AST 46 U/L (17-59); African American GFR (CKD) >90 (>60 ml/min/1.73 sqM); Alkaline Phosphatase 36 U/L (38-126); Anion Gap 5 mmol/L; Blood Urea Nitrogen 10 mg/dL (9-20); Calcium 7.5 mg/dL (8.4-10.2); Carbon Dioxide 26 mmol/L (22-30); Chloride 109 mmol/L (98-107); Glucose 126 mg/dL (74-99); Magnesium 2.3 mg/dL (1.6-2.3); Non-African American GFR(CKD) >90 (>60 ml/min/1.73 sqM); Potassium 4.4 mmol/L (3.5-5.1); Sodium 140 mmol/L (137-145); Total Bilirubin 0.7 mg/dL (0.2-1.3); Total Protein 3.8 g/dL (6.3-8.2)
[2021-04-13] MEDS: SODIUM CHLORIDE 0.9% 1,000 ML IV SCH (16:39)
--- NOTE | 2021-04-13 16:39 | P.CNPUL ---
History of Present Illness Consult date: 04/13/21 Requesting physician: Homar Alberto Reason for consult: other Chief complaint: ICU management, ventilator management. History of present illness: Pulmonary consultation dated 04/13/2021. 66-year-old male, status post five-vessel bypass grafting. The patient's procedure was done by Dr. Alberto. The patient has just arrived back to the intensive care unit. The patient's on the ventilator. Ventilator settings include the volume assist control mode, rate of 12, tidal volume 550, FiO2 100%, and 10. Blood gases are pending. The patient has an endotracheal tube in place, a [place] catheter, [place] catheter, and orogastric tube in place, as well as mediastinal and pleural chest tubes. Chest x-ray has yet to be done. The patient is quite large and very obese. He apparently has history of hypertension, diabetes, coronary artery disease, gastroesophageal reflux disease, hyperlipidemia, and Rtgxjeq-Aivzg-Yvzqx disease. I do not see an H&P consultation in the medical record as yet. The operative report is not yet back on the medical record. Arterial blood gases as mentioned, are pending. Review of Systems A review of systems cannot be obtained. The patient is currently sedated and intubated with mechanical ventilation. Past Medical History Past Medical History: Coronary Artery Disease (CAD), Chest Pain / Angina, Diabetes Mellitus, GERD/Reflux, Hyperlipidemia, Hypertension, Musculoskeletal Disorder, Osteoarthritis (OA), Prostate Disorder, Sleep Apnea/CPAP/BIPAP Additional Past Medical History / Comment(s): [id number] SYNDROME, CAUSES PAIN, HAS NUMBNESS IN FEET, neuropathy, WEARS NICOLÁS LEG BRACES. USES CPAP., some recent chest pain & tightness @times, fully vaccinated for covid History of Any Multi-Drug Resistant Organisms: None Reported Past Surgical History: Heart Catheterization Additional Past Surgical History / Comment(s): COLONOSCOPY, lasik eye surg. Past Anesthesia/Blood Transfusion Reactions: No Reported Reaction Smoking Status: Former smoker - Past Family History Mother Family Medical History: Cancer Additional Family Medical History / Comment(s): BREAST CA Sister(s) Family Medical History: Cancer Additional Family Medical History / Comment(s): SKIN CA Father Family Medical History: Congestive Heart Failure (CHF), Coronary Artery Disease (CAD), Myocardial Infarction ([place]) Additional Family Medical History / Comment(s): Myocardial infarction in his early 60s, paternal uncle had myocardial infarction in his early 50s Medications and Allergies Home Medications Medication Instructions Recorded Confirmed Type DULoxetine HCL [Cymbalta] 60 mg PO DAILY 04/16/19 04/13/21 History Finasteride [Proscar] 5 mg PO DAILY 04/16/19 04/13/21 History Insulin Degludec [Tresiba] 64 units SQ AC-BRKFST 04/16/19 04/13/21 History Mirtazapine [Remeron] 15 mg PO DAILY 04/16/19 04/13/21 History Multivit-Min/FA/Lycopen/Lutein 1 each PO DAILY 04/16/19 04/13/21 History [Centrum Silver Tablet] Omeprazole 20 mg PO DAILY 04/16/19 04/13/21 History glipiZIDE [Glucotrol] 10 mg PO BID 04/16/19 04/13/21 History lisinopriL [Zestril] 20 mg PO DAILY 04/16/19 04/13/21 History metFORMIN HCL 1,000 mg PO BID 04/16/19 04/13/21 History Aspirin 325 mg PO DAILY 03/04/21 04/13/21 History Atorvastatin [Lipitor] 20 mg PO DAILY 03/04/21 04/13/21 History Diazepam [Valium] 10 mg PO DIRECTED PRN 03/04/21 04/13/21 History Pioglitazone [Actos] 30 mg PO DAILY 03/04/21 04/13/21 History oxyCODONE HCL/ACETAMINOPHEN 1 tab PO QID 03/04/21 04/13/21 History [Endocet 10-325 mg] Metoprolol Succinate (ER) [Toprol 50 mg PO DAILY 04/06/21 04/13/21 History Xl] Allergies Allergy/AdvReac Type Severity Reaction Status Date / Time No Known Allergies Allergy Verified 04/13/21 06:27 Physical Exam Osteopathic Statement: *. No significant issues noted on an osteopathic structural exam other than those noted in the History and Physical/Consult. Vitals: Vital Signs Temp Pulse Resp BP BP Pulse Ox 04/13/21 06:15 97.1 F L 73 16 154/84 159/91 96 Intake and Output 04/13/21 04/13/21 04/13/21 06:59 14:59 22:59 Intake Total 100 103 Output Total 5250 Balance 100 103 -5250 Intake: IV 100 103 Output: Urine 750 Estimated Blood Loss 4500 Other: Weight 127.4 kg No acute distress, sedated, with an orally placed endotracheal tube and orogastric tube. HEENT examination is grossly unremarkable. Neck supple. Full range of motion. No adenopathy thyromegaly or neck vein distention. Cardiovascular examination reveals regular rhythm rate. S1-S2 normal. No S3 or S4. No discernible murmur noted. Heart rate 92 bpm. Lungs reveal equal bilateral breath sounds. Scattered rhonchi noted. No wheezes or crackles. Abdomen soft, without bowel sounds or masses. Extremities are intact. No cyanosis clubbing or edema. Skin is without rash or lesion. Neurologic examination cannot be adequately assessed. Results - Laboratory Findings ABG ABG pH 7.39 (7.35-7.45) 04/13/21 15:21 ABG pCO2 42 mmHg (35-45) 04/13/21 15: ABG pO2 95 mmHg (83-108) 04/13/21 15:21 ABG O2 Saturation 97.7 % (94-97) H 04/13/21 15:21 Abnormal lab findings: Abnormal Labs 04/06/21 04/13/21 04/13/21 13:00 06:23 08:43 ABG pH ABG pCO2 ABG pO2 188 H ABG HCO3 27 H ABG Total CO2 28 H ABG O2 Saturation 99.7 H ABG Hematocrit ABG Potassium ABG Ionized Calcium ABG Glucose 138 H Hemoglobin POC Glucose (mg/dL) 149 H Arterial Blood Potassium Arterial Blood Glucose 138 H Crossmatch See Detail 04/13/21 04/13/21 04/13/21 10:53 11:45 12:15 ABG pH 7.34 L 7.33 L ABG pCO2 50 H 48 H 46 H ABG pO2 158 H 355 H 419 H ABG HCO3 27 H 26 H ABG Total CO2 29 H 27 H 28 H ABG O2 Saturation 99.3 H 100.0 H 100.0 H ABG Hematocrit 29 L 24 L ABG Potassium 4.6 H ABG Ionized Calcium 4.1 L 4.1 L ABG Glucose 132 H 111 H 111 H Hemoglobin 11.9 L 9.4 L 8.0 L POC Glucose (mg/dL) Arterial Blood Potassium 4.6 H Arterial Blood Glucose 132 H 111 H 111 H Crossmatch 04/13/21 04/13/21 04/13/21 12:52 13:36 14:10 ABG pH 7.31 L ABG pCO2 46 H 52 H ABG pO2 322 H 321 H 188 H ABG HCO3 27 H 26 H ABG Total CO2 28 H 27 H 27 H ABG O2 Saturation 100.0 H 100.0 H 99.7 H ABG Hematocrit 24 L 25 L 25 L ABG Potassium 4.7 H 4.7 H 4.8 H ABG Ionized Calcium 4.1 L 4.0 L 4.0 L ABG Glucose 140 H 172 H 141 H Hemoglobin 7.9 L 8.1 L 8.2 L POC Glucose (mg/dL) Arterial Blood Potassium 4.7 H 4.7 H 4.8 H Arterial Blood Glucose 140 H 172 H 141 H Crossmatch 04/13/21 04/13/21 15:21 16:05 ABG pH ABG pCO2 ABG pO2 ABG HCO3 ABG Total CO2 27 H ABG O2 Saturation 97.7 H ABG Hematocrit 33 L ABG Potassium ABG Ionized Calcium 4.2 L ABG Glucose 132 H Hemoglobin 10.6 L POC Glucose (mg/dL) 137 H Arterial Blood Potassium Arterial Blood Glucose 132 H Crossmatch - Diagnostic Findings Chest x-ray: image reviewed Assessment and Plan Assessment: Postop day #0, status post 5 vessel bypass grafting. Routine postoperative ventilator management. History of diabetes mellitus. History of hypertension. Obstructive sleep apnea syndrome, currently on CPAP. History of gastroesophageal reflux disease. History of Bnzatyx-Suzaq-Ijxqa disease. History of hyperlipidemia. Morbid obesity. Plan: Plan dated 04/13/2021. The patient be placed on bronchodilators. We will attempt to wean the patient tonight. I did speak to the surgeon. Additional recommendations and suggestions are forthcoming. Arterial blood gases and chest x-ray currently pending. We'll adjust ventilator based on the blood gases. We will continue to follow the patient and make recommendations where appropriate. Time with Patient: Greater than 30
[2021-04-13] MEDS: INSULIN REGULAR 100 UNIT in SODIUM CHLORIDE 0.9% 100 ML IV SCH (16:40)
--- NOTE | 2021-04-13 16:41 | XR ---
EXAMINATION TYPE: XR chest 1V portable DATE OF EXAM: 04/13/2021 COMPARISON: 03/09/2021 INDICATION: Postop cardiac surgery TECHNIQUE: Single frontal view of the chest is obtained. FINDINGS: The heart size is upper limits of normal. The pulmonary vasculature is normal. Mild left lower lobe infiltrate may be present. Endotracheal tube tip is above the tobias. Nasogastric tube transverses the thorax and: Within the le ft upper quadrant of the abdomen. Right sided [place] catheter has its tip within the main pulmonar y artery. Less likely this would be within the ventricle, correlate with the waveforms. Mediastinal t ubes are present. IMPRESSION: 1. There may be a mild left lower lobe infiltrate. 2. Multiple lines and catheters discussed above
[2021-04-13 16:43] LABS: INR 1.2 (<1.2); Partial Thromboplastin Time 31.7 sec (22.0-30.0); Prothrombin Time 12.3 sec (9.0-12.0)
[2021-04-13 16:59] LABS: Glucose,Whole Blood 147 mg/dL (75-99)
[2021-04-13 18:01] LABS: Glucose,Whole Blood 159 mg/dL (75-99)
[2021-04-13] MEDS: ceFAZolin 3 GM in SODIUM CHLORIDE 0.9% 100 ML IVPB SCH ×2 (18:06→23:14)
[2021-04-13] MEDS: ACETAMINOPHEN IV (For NPO) 1,000 MG in EMPTY BAG 1 BAG IVPB SCH ×2 (18:08→23:30)
[2021-04-13 18:57] LABS: Glucose,Whole Blood 187 mg/dL (75-99)
[2021-04-13 19:19] LABS: Basophils % (A) 0 %; Eosinophils % (A) 0 %; HCT 33.3 % (39.0-53.0); HGB 10.9 gm/dL (13.0-17.5); Lymphocytes # (A) 1.6 k/uL (1.0-4.8); Lymphocytes % (A) 10 %; MCH 30.2 pg (25.0-35.0); MCHC 32.6 g/dL (31.0-37.0); MCV 92.6 fL (80.0-100.0); Mean Platelet Volume 8.7; Monocytes # (A) 1.1 k/uL (0-1.0); Monocytes % (A) 7 %; Neutrophils # (A) 12.4 k/uL (1.3-7.7); Platelet Count 165 k/uL (150-450); RDW 13.7 % (11.5-15.5); WBC 15.9 k/uL (3.8-10.6)
[2021-04-13 19:53] LABS: Neutrophils % (M) 88 %; Nucleated Red Blood Cells 0 /100 WBC (0-0); Total Cells Counted 100
[2021-04-13 19:57] LABS: Glucose,Whole Blood 167 mg/dL (75-99)
[2021-04-13 20:33] LABS: ABG Base Excess 0.6 mmol/L; ABG HCO3 25 mmol/L (21-25); ABG Oxygen Saturation 98.7 % (94-97); ABG PCO2 36 mmHg (35-45); ABG PH 7.44 (7.35-7.45); ABG PO2 118 mmHg (83-108); ABG TCO2 26 mmol/L (19-24); Allen Test Performed? Yes
[2021-04-13 21:04] LABS: Glucose,Whole Blood 152 mg/dL (75-99)
[2021-04-13] MEDS: HEPARIN SODIUM,PORCINE/PF 5,000 UNIT/0.5 ML SYRINGE SQ SCH (21:30)
[2021-04-13] MEDS ORDERED: METOPROLOL TARTRATE 12.5 MG TAB PO STA (21:49)
[2021-04-13] MEDS ORDERED: MUPIROCIN 2% OINT 22 GM TUBE NASAL ONE (22:00)
[2021-04-13 22:11] LABS: Glucose,Whole Blood 148 mg/dL (75-99)
[2021-04-13 22:33] LABS: HCT 31.5 % (39.0-53.0); HGB 10.3 gm/dL (13.0-17.5); MCH 29.9 pg (25.0-35.0); MCHC 32.7 g/dL (31.0-37.0); MCV 91.3 fL (80.0-100.0); Mean Platelet Volume 8.5; Platelet Count 158 k/uL (150-450); RBC 3.45 m/uL (4.30-5.90); RDW 13.8 % (11.5-15.5); WBC 14.3 k/uL (3.8-10.6)
--- NOTE | 2021-04-13 22:37 | CONS ---
CONSULTATION REASON FOR CONSULTATION: Advice regarding diabetes mellitus and other multiple medical issues requested by Dr. Alberto. HISTORY OF PRESENT ILLNESS: This 66-year-old gentleman with a past history of CAD, history of diabetes, GERD, hypertension, hyperlipidemia, history of Tjljjmq-Hhfpb-Vtunk, history of anxiety and depression being followed by Dr. Whitaker in the outpatient setting, underwent CABG x5 and the patient is on mechanical ventilation. The patient is sedated. The vent setting is 550 tidal volume and PEEP of 10, FiO2 100%. The patient is being closely monitored at this time. The blood sugar has been controlled by insulin 2 units/hour. PAST MEDICAL HISTORY: History of CAD, history of diabetes, history of GERD, hypertension, hyperlipidemia, history of DJD. MEDICATIONS: Home medications are reviewed and include oxycodone, metformin, Zestril, Glucotrol, Actos, omeprazole, multivitamins, Remeron, Toprol-XL, ,Proscar, Valium, Cymbalta, Lipitor and aspirin. ALLERGIES: None. FAMILY HISTORY: History of breast cancer in the family. SOCIAL HISTORY: No history of smoking. History of THC per chart. REVIEW OF SYSTEMS: Could not be taken because the patient is mechanically sedated. PHYSICAL EXAMINATION: Pulse is 73, blood pressure 150/84, respirations 16, temperature 97.2, pulse ox 98% on mechanical ventilation. Vent settings noted. HEENT: Conjunctivae normal. NECK: No jugular venous distention. CARDIOVASCULAR SYSTEM: S1, S2 muffled. RESPIRATORY SYSTEM: Breath sounds diminished at the bases. A few scattered rhonchi. ABDOMEN: Soft, nontender. NERVOUS SYSTEM: The patient is mechanically sedated. SKIN: No ulcer, rashes or bleeding. JOINTS: No active deforming arthropathy. MUSCULOSKELETAL: Right foot minimal ulcers present. LABS: WBC 13.7, hemoglobin 10.9. INR at 1.2. ABGs noted. Otherwise glucose 126. ASSESSMENT: 1. Coronary artery disease, coronary artery bypass grafting. 2. History of diabetes type 2. 3. Gastroesophageal reflux disease. 4. Hypertension. 5. Hyperlipidemia. 6. History of degenerative joint disease. 8. Sleep apnea. 9. History of Pxbtfhn-Xrbyz-Ctyxo syndrome. 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 11.Anxiety, depression. 12.History of nicotine dependence. 13.Obesity, body mass 34.2. 14.History of THC. 15.Full code. RECOMMENDATIONS AND DISCUSSION: This 66-year-old gentleman presented after surgery. At this time, I recommend to continue current management and continue insulin drip and monitor blood sugars closely. Otherwise, mechanical ventilation and other ICU management per Dr. Morales. I would also recommend to resume the p.o. home medications once the patient is p.o., and depending upon insulin requirement the patient can also be on additional insulin once the patient is stabilized on p.o. fluids. Otherwise, we will follow the patient closely. DVT prophylaxis. The patient may be asked to follow with Dr. Whitaker closely after discharge. Thank you, Dr. Alberto for letting us participate in the care of this patient. MMSURAJL / ARELYN: [id number] / MTDD
[2021-04-13 22:59] LABS: Band Neutrophils % 6 %; Monocytes # (M) 0.72 k/uL (0-1.0); Neutrophils % (M) 82 %; Nucleated Red Blood Cells 0 /100 WBC (0-0); Total Cells Counted 100
[2021-04-13 23:11] LABS: Glucose,Whole Blood 150 mg/dL (75-99)
[2021-04-14 00:28] LABS: Glucose,Whole Blood 147 mg/dL (75-99)
[2021-04-14] MEDS: HEPARIN SODIUM,PORCINE/PF 5,000 UNIT/0.5 ML SYRINGE SQ SCH ×4 (01:55→23:03)
[2021-04-14 02:02] LABS: Glucose,Whole Blood 136 mg/dL (75-99)
[2021-04-14] MEDS ORDERED: HYDROcodone/APAP 5-325MG 1 EACH TAB PO PRN (03:42)
[2021-04-14] MEDS: HYDROcodone/APAP 5-325MG 1 EACH TAB PO PRN ×5 (03:55→23:03)
[2021-04-14 04:14] LABS: Glucose,Whole Blood 126 mg/dL (75-99)
[2021-04-14 04:59] LABS: Ionized Calcium 4.6 mg/dL (4.5-5.3)
[2021-04-14 05:11] LABS: HCT 29.2 % (39.0-53.0); HGB 10.1 gm/dL (13.0-17.5); MCH 31.8 pg (25.0-35.0); MCHC 34.6 g/dL (31.0-37.0); MCV 91.8 fL (80.0-100.0); Mean Platelet Volume 8.5; Platelet Count 150 k/uL (150-450); RBC 3.18 m/uL (4.30-5.90); RDW 14.1 % (11.5-15.5); WBC 12.1 k/uL (3.8-10.6)
[2021-04-14 05:13] LABS: ALT 17 U/L (4-49); AST 43 U/L (17-59); African American GFR (CKD) >90 (>60 ml/min/1.73 sqM); Albumin 2.3 g/dL (3.5-5.0); Alkaline Phosphatase 41 U/L (38-126); Anion Gap 3 mmol/L; Blood Urea Nitrogen 13 mg/dL (9-20); Calcium 7.6 mg/dL (8.4-10.2); Carbon Dioxide 25 mmol/L (22-30); Chloride 108 mmol/L (98-107); Glucose 111 mg/dL (74-99); Magnesium 2.1 mg/dL (1.6-2.3); Non-African American GFR(CKD) >90 (>60 ml/min/1.73 sqM); Potassium 3.9 mmol/L (3.5-5.1); Sodium 136 mmol/L (137-145); Total Bilirubin 0.3 mg/dL (0.2-1.3); Total Protein 4.3 g/dL (6.3-8.2)
[2021-04-14 06:01] LABS: Band Neutrophils % 7 %; Lymphocytes # (M) 1.45 k/uL (1.0-4.8); Monocytes # (M) 0.97 k/uL (0-1.0); Neutrophils % (M) 73 %; Nucleated Red Blood Cells 0 /100 WBC (0-0); Total Cells Counted 100
[2021-04-14 06:03] LABS: Glucose,Whole Blood 123 mg/dL (75-99)
[2021-04-14 07:03] LABS: Glucose,Whole Blood 131 mg/dL (75-99)
[2021-04-14] MEDS: IPRATROPIUM-ALBUTEROL 3 ML NEB INHALATION SCH ×4 (08:08→20:51)
[2021-04-14] MEDS: ceFAZolin 3 GM in SODIUM CHLORIDE 0.9% 100 ML IVPB SCH (08:17)
[2021-04-14] MEDS: CLOPIDOGREL 75 MG TAB PO SCH (08:17)
[2021-04-14] MEDS: ATORVASTATIN 40 MG TAB PO SCH (08:17)
[2021-04-14] MEDS: ASPIRIN 325 MG TAB PO SCH (08:17)
[2021-04-14] MEDS: KETOROLAC 15 MG/ML 1 ML VIAL IVP SCH ×3 (08:18→18:18)
[2021-04-14] MEDS: DULoxetine HCL 60 MG CAPSULE.DR PO SCH (08:19)
[2021-04-14 08:36] LABS: Glucose,Whole Blood 127 mg/dL (75-99)
--- NOTE | 2021-04-14 08:57 | P.PN ---
Subjective Progress Note Date: 04/14/21 Principal diagnosis: Artery disease status post coronary artery bypass grafting 5 66-year-old male, status post five-vessel bypass grafting. The patient's procedure was done by Dr. Alberto. The patient has just arrived back to the intensive care unit. The patient's on the ventilator. Ventilator settings include the volume assist control mode, rate of 12, tidal volume 550, FiO2 100%, and 10. Blood gases are pending. The patient has an endotracheal tube in place, a Ac[place] catheter, [place] catheter, and orogastric tube in place, as well as mediastinal and pleural chest tubes. Chest x-ray has yet to be done. The patient is quite large and very obese. He apparently has history of hypertension, diabetes, coronary artery disease, gastroesophageal reflux disease, hyperlipidemia, and Vmvlrpy-Gnsfu-Evhez disease. I do not see an H&P consultation in the medical record as yet. The operative report is not yet back on the medical record. Arterial blood gases as mentioned, are pending. The patient is seen today 04/14/2021 in follow-up in the intensive care unit. This is postoperative day #1. He had undergone coronary artery bypass grafting 5 utilizing a SCOTT to the diagonal and LAD, saphenous vein grafts to the OM1, OM 2 and RCA. He was extubated at 4 hours and 40 minutes. Presently he is sitting up in bed. Awake and alert in no acute distress. Pale. He is maintaining O2 saturations in the 90s on 5 L high flow nasal cannula. Chest x- ray showing some evidence of pulmonary vascular congestion. Mediastinal and left pleural chest tubes are in place. He is pulling approximate 750 ML's on the incentive spirometer. Left calf DESIRE drainage sanguinous. He has a right sided [place] catheter in place. PA pressure 34/24 with a PA mean of 27. Cardiac output 7.5. Cardiac index 2.9. His 0.9 normal saline at 20 ML's per hour. Insulin drip at 2.5 units per hour. White count 12.1. Hemoglobin 10.1. Platelets 150,000. Sodium 136. Potassium 3.9. Creatinine 0.51. AST 43. ALT 17. He did receive albumin last evening. On cefazolin. Heparin for DVT prophylaxis. Protonix for GI prophylaxis. Objective - Vital Signs Vital signs: Vital Signs Temp 100.8 F H 04/14/21 00:00 Pulse 85 04/14/21 08:15 Resp 25 H 04/14/21 07:00 BP 118/57 04/14/21 07:00 Pulse Ox 95 04/14/21 07:00 Intake & Output 04/13/21 04/14/21 04/14/21 18:59 06:59 18:59 Intake Total 786.167 9157.235 564.055 Output Total 5820 922 20 Balance -5483.648 403.235 544.055 Intake: IV 281 1288 59 ACETAMINOPHEN IV (For NPO 100 ) 1,000 mg In Empty Bag 1 bag @ 400 mls/hr IVPB Q6HR SUE Rx#:[id number] Albumin Human 5% 250 ml 250 In Empty Bag 1 bag @ 250 mls/hr IVPB Q1HR PRN Rx#: [id number] Cardiac Index 60 160 Pressure bags 18 108 9 Sodium Chloride 0.9% 1, 100 570 50 000 ml @ 50 mls/hr IV . Q20H SUE Rx#:[id number] ceFAZolin 3 gm In Sodium 100 Chloride 0.9% 100 ml @ 100 mls/hr IVPB Q8HR SUE Rx#:[id number] Intake, IV Titration 55.352 37.235 25.055 Amount Insulin Regular 100 unit 5.538 37.235 2.155 In Sodium Chloride 0.9% 100 ml @ Per Protocol IV .Q0M SUE Rx#:[id number] Nitroglycerin-D5w Pmx 50 22.9 mg In Dextrose/Water 1 250ml.bag @ 5 MCG/MIN 1.5 mls/hr IV .Q24H SUE Rx#: [id number] propofoL 1,000 mg In 49.814 Empty Bag 1 bag @ Titrate IV .Q0M SUE Rx#: [id number] Oral 480 Output: Chest Tube Drainage 275 257 Chest Tube Left 45 37 Chest Tube Mediastinal 230 220 Drainage 50 20 Left Calf 50 20 Urine 995 645 20 Estimated Blood Loss 4500 Other: Voiding Method Indwelling Catheter Indwelling Catheter ABP, PAP, CO, CI - Last Documented Arterial Blood Pressure 101/52 Pulmonary Artery Pressure 24/12 Cardiac Output 7.5 Cardiac Index 2.9 - Exam GENERAL EXAM: Alert, pale, very pleasant 58-year-old gentleman, on 5 L nasal cannula, fairly comfortable in no apparent distress. HEAD: Normocephalic. EYES: Normal reaction of pupils, equal size. NOSE: Clear with pink turbinates. THROAT: No erythema or exudates. NECK: Right [place] catheter in place. No masses, no JVD. CHEST: Sternal dressing dry and intact. Heart hugger in place. Mediastinal and left pleural chest tubes in place LUNGS: Equal air entry with crackles in the bilateral posterior bases CVS: S1 and S2 normal with no audible murmur, regular rhythm. ABDOMEN: No hepatosplenomegaly, normal bowel sounds, no guarding or rigidity. SPINE: No scoliosis or deformity SKIN: No rashes CENTRAL NERVOUS SYSTEM: No focal deficits, tone is normal in all 4 extremities. EXTREMITIES: YULISSA hose, SCDs in place. Left lower extremity DESIRE drain in place with sanguinous fluid return. There is trace peripheral edema. No clubbing, no cyanosis. Peripheral pulses are intact. - Labs CBC & Chem 7: 04/14/21 04:10 04/14/21 04:10 Labs: Abnormal Lab Results - Last 24 Hours (Table) 04/06/21 04/13/21 04/13/21 Range/Units 13:00 08:43 10:53 WBC (3.8-10.6) k/uL RBC (4.30-5.90) m/uL Hgb (13.0-17.5) gm/dL Hct (39.0-53.0) % Plt Count (150-450) k/uL Neutrophils # (1.3-7.7) k/uL Neutrophils # (Manual) (1.3-7.7) k/uL Monocytes # (0-1.0) k/uL PT (9.0-12.0) sec INR (<1.2) APTT (22.0-30.0) sec ABG pH 7.34 L (7.35-7.45) ABG pCO2 50 H (35-45) mmHg ABG pO2 188 H 158 H (83-108) mmHg ABG HCO3 27 H 27 H (21-25) mmol/L ABG Total CO2 28 H 29 H (19-24) mmol/L ABG O2 Saturation 99.7 H 99.3 H (94-97) % ABG Hematocrit (34.0-46.0) % ABG Potassium (3.4-4.5) mmol/L ABG Ionized Calcium (4.5-5.3) mg/dL ABG Glucose 138 H 132 H (75-99) mg/dL Hemoglobin 11.9 L (13.0-17.5) gm/dL Sodium (137-145) mmol/L Chloride (98-107) mmol/L Creatinine (0.66-1.25) mg/dL Glucose (74-99) mg/dL POC Glucose (mg/dL) (75-99) mg/dL Calcium (8.4-10.2) mg/dL Alkaline Phosphatase (38-126) U/L Total Protein (6.3-8.2) g/dL Albumin (3.5-5.0) g/dL Arterial Blood Potassium (3.4-4.5) mmol/L Arterial Blood Glucose 138 H 132 H (75-99) mg/dL Crossmatch See Detail 04/13/21 04/13/21 04/13/21 Range/Units 11:45 12:15 12:52 WBC (3.8-10.6) k/uL RBC (4.30-5.90) m/uL Hgb (13.0-17.5) gm/dL Hct (39.0-53.0) % Plt Count (150-450) k/uL Neutrophils # (1.3-7.7) k/uL Neutrophils # (Manual) (1.3-7.7) k/uL Monocytes # (0-1.0) k/uL PT (9.0-12.0) sec INR (<1.2) APTT (22.0-30.0) sec ABG pH 7.33 L (7.35-7.45) ABG pCO2 48 H 46 H (35-45) mmHg ABG pO2 355 H 419 H 322 H (83-108) mmHg ABG HCO3 26 H 27 H (21-25) mmol/L ABG Total CO2 27 H 28 H 28 H (19-24) mmol/L ABG O2 Saturation 100.0 H 100.0 H 100.0 H (94-97) % ABG Hematocrit 29 L 24 L 24 L (34.0-46.0) % ABG Potassium 4.6 H 4.7 H (3.4-4.5) mmol/L ABG Ionized Calcium 4.1 L 4.1 L 4.1 L (4.5-5.3) mg/dL ABG Glucose 111 H 111 H 140 H (75-99) mg/dL Hemoglobin 9.4 L 8.0 L 7.9 L (13.0-17.5) gm/dL Sodium (137-145) mmol/L Chloride (98-107) mmol/L Creatinine (0.66-1.25) mg/dL Glucose (74-99) mg/dL POC Glucose (mg/dL) (75-99) mg/dL Calcium (8.4-10.2) mg/dL Alkaline Phosphatase (38-126) U/L Total Protein (6.3-8.2) g/dL Albumin (3.5-5.0) g/dL Arterial Blood Potassium 4.6 H 4.7 H (3.4-4.5) mmol/L Arterial Blood Glucose 111 H 111 H 140 H (75-99) mg/dL Crossmatch 04/13/21 04/13/21 04/13/21 Range/Units 13:36 14:10 15:21 WBC (3.8-10.6) k/uL RBC (4.30-5.90) m/uL Hgb (13.0-17.5) gm/dL Hct (39.0-53.0) % Plt Count (150-450) k/uL Neutrophils # (1.3-7.7) k/uL Neutrophils # (Manual) (1.3-7.7) k/uL Monocytes # (0-1.0) k/uL PT (9.0-12.0) sec INR (<1.2) APTT (22.0-30.0) sec ABG pH 7.31 L (7.35-7.45) ABG pCO2 46 H 52 H (35-45) mmHg ABG pO2 321 H 188 H (83-108) mmHg ABG HCO3 26 H (21-25) mmol/L ABG Total CO2 27 H 27 H 27 H (19-24) mmol/L ABG O2 Saturation 100.0 H 99.7 H 97.7 H (94-97) % ABG Hematocrit 25 L 25 L 33 L (34.0-46.0) % ABG Potassium 4.7 H 4.8 H (3.4-4.5) mmol/L ABG Ionized Calcium 4.0 L 4.0 L 4.2 L (4.5-5.3) mg/dL ABG Glucose 172 H 141 H 132 H (75-99) mg/dL Hemoglobin 8.1 L 8.2 L 10.6 L (13.0-17.5) gm/dL Sodium (137-145) mmol/L Chloride (98-107) mmol/L Creatinine (0.66-1.25) mg/dL Glucose (74-99) mg/dL POC Glucose (mg/dL) (75-99) mg/dL Calcium (8.4-10.2) mg/dL Alkaline Phosphatase (38-126) U/L Total Protein (6.3-8.2) g/dL Albumin (3.5-5.0) g/dL Arterial Blood Potassium 4.7 H 4.8 H (3.4-4.5) mmol/L Arterial Blood Glucose 172 H 141 H 132 H (75-99) mg/dL Crossmatch 04/13/21 04/13/21 04/13/21 Range/Units 16:00 16:00 16:00 WBC 13.6 H (3.8-10.6) k/uL RBC 3.40 L (4.30-5.90) m/uL Hgb 10.9 L D (13.0-17.5) gm/dL Hct 31.5 L (39.0-53.0) % Plt Count 122 L (150-450) k/uL Neutrophils # 9.9 H (1.3-7.7) k/uL Neutrophils # (Manual) (1.3-7.7) k/uL Monocytes # 1.5 H (0-1.0) k/uL PT 12.3 H (9.0-12.0) sec INR 1.2 H (<1.2) APTT 31.7 H (22.0-30.0) sec ABG pH (7.35-7.45) ABG pCO2 (35-45) mmHg ABG pO2 (83-108) mmHg ABG HCO3 (21-25) mmol/L ABG Total CO2 (19-24) mmol/L ABG O2 Saturation (94-97) % ABG Hematocrit (34.0-46.0) % ABG Potassium (3.4-4.5) mmol/L ABG Ionized Calcium (4.5-5.3) mg/dL ABG Glucose (75-99) mg/dL Hemoglobin (13.0-17.5) gm/dL Sodium (137-145) mmol/L Chloride 109 H (98-107) mmol/L Creatinine 0.44 L (0.66-1.25) mg/dL Glucose 126 H (74-99) mg/dL POC Glucose (mg/dL) (75-99) mg/dL Calcium 7.5 L (8.4-10.2) mg/dL Alkaline Phosphatase 36 L (38-126) U/L Total Protein 3.8 L (6.3-8.2) g/dL Albumin 2.0 L (3.5-5.0) g/dL Arterial Blood Potassium (3.4-4.5) mmol/L Arterial Blood Glucose (75-99) mg/dL Crossmatch 04/13/21 04/13/21 04/13/21 Range/Units 16:05 16:28 16:57 WBC (3.8-10.6) k/uL RBC (4.30-5.90) m/uL Hgb (13.0-17.5) gm/dL Hct (39.0-53.0) % Plt Count (150-450) k/uL Neutrophils # (1.3-7.7) k/uL Neutrophils # (Manual) (1.3-7.7) k/uL Monocytes # (0-1.0) k/uL PT (9.0-12.0) sec INR (<1.2) APTT (22.0-30.0) sec ABG pH 7.31 L (7.35-7.45) ABG pCO2 54 H (35-45) mmHg ABG pO2 348 H (83-108) mmHg ABG HCO3 27 H (21-25) mmol/L ABG Total CO2 29 H (19-24) mmol/L ABG O2 Saturation 99.5 H (94-97) % ABG Hematocrit (34.0-46.0) % ABG Potassium (3.4-4.5) mmol/L ABG Ionized Calcium (4.5-5.3) mg/dL ABG Glucose (75-99) mg/dL Hemoglobin (13.0-17.5) gm/dL Sodium (137-145) mmol/L Chloride (98-107) mmol/L Creatinine (0.66-1.25) mg/dL Glucose (74-99) mg/dL POC Glucose (mg/dL) 137 H 147 H (75-99) mg/dL Calcium (8.4-10.2) mg/dL Alkaline Phosphatase (38-126) U/L Total Protein (6.3-8.2) g/dL Albumin (3.5-5.0) g/dL Arterial Blood Potassium (3.4-4.5) mmol/L Arterial Blood Glucose (75-99) mg/dL Crossmatch 04/13/21 04/13/21 04/13/21 Range/Units 17:59 18:52 18:56 WBC 15.9 H (3.8-10.6) k/uL RBC 3.60 L (4.30-5.90) m/uL Hgb 10.9 L (13.0-17.5) gm/dL Hct 33.3 L (39.0-53.0) % Plt Count (150-450) k/uL Neutrophils # 12.4 H (1.3-7.7) k/uL Neutrophils # (Manual) (1.3-7.7) k/uL Monocytes # 1.1 H (0-1.0) k/uL PT (9.0-12.0) sec INR (<1.2) APTT (22.0-30.0) sec ABG pH (7.35-7.45) ABG pCO2 (35-45) mmHg ABG pO2 (83-108) mmHg ABG HCO3 (21-25) mmol/L ABG Total CO2 (19-24) mmol/L ABG O2 Saturation (94-97) % ABG Hematocrit (34.0-46.0) % ABG Potassium (3.4-4.5) mmol/L ABG Ionized Calcium (4.5-5.3) mg/dL ABG Glucose (75-99) mg/dL Hemoglobin (13.0-17.5) gm/dL Sodium (137-145) mmol/L Chloride (98-107) mmol/L Creatinine (0.66-1.25) mg/dL Glucose (74-99) mg/dL POC Glucose (mg/dL) 159 H 187 H (75-99) mg/dL Calcium (8.4-10.2) mg/dL Alkaline Phosphatase (38-126) U/L Total Protein (6.3-8.2) g/dL Albumin (3.5-5.0) g/dL Arterial Blood Potassium (3.4-4.5) mmol/L Arterial Blood Glucose (75-99) mg/dL Crossmatch 04/13/21 04/13/21 04/13/21 Range/Units 19:57 20:28 21:02 WBC (3.8-10.6) k/uL RBC (4.30-5.90) m/uL Hgb (13.0-17.5) gm/dL Hct (39.0-53.0) % Plt Count (150-450) k/uL Neutrophils # (1.3-7.7) k/uL Neutrophils # (Manual) (1.3-7.7) k/uL Monocytes # (0-1.0) k/uL PT (9.0-12.0) sec INR (<1.2) APTT (22.0-30.0) sec ABG pH (7.35-7.45) ABG pCO2 (35-45) mmHg ABG pO2 118 H (83-108) mmHg ABG HCO3 (21-25) mmol/L ABG Total CO2 26 H (19-24) mmol/L ABG O2 Saturation 98.7 H (94-97) % ABG Hematocrit (34.0-46.0) % ABG Potassium (3.4-4.5) mmol/L ABG Ionized Calcium (4.5-5.3) mg/dL ABG Glucose (75-99) mg/dL Hemoglobin (13.0-17.5) gm/dL Sodium (137-145) mmol/L Chloride (98-107) mmol/L Creatinine (0.66-1.25) mg/dL Glucose (74-99) mg/dL POC Glucose (mg/dL) 167 H 152 H (75-99) mg/dL Calcium (8.4-10.2) mg/dL Alkaline Phosphatase (38-126) U/L Total Protein (6.3-8.2) g/dL Albumin (3.5-5.0) g/dL Arterial Blood Potassium (3.4-4.5) mmol/L Arterial Blood Glucose (75-99) mg/dL Crossmatch 04/13/21 04/13/21 04/13/21 Range/Units 22:08 22:10 23:07 WBC 14.3 H (3.8-10.6) k/uL RBC 3.45 L (4.30-5.90) m/uL Hgb 10.3 L (13.0-17.5) gm/dL Hct 31.5 L (39.0-53.0) % Plt Count (150-450) k/uL Neutrophils # (1.3-7.7) k/uL Neutrophils # (Manual) 12.50 H (1.3-7.7) k/uL Monocytes # (0-1.0) k/uL PT (9.0-12.0) sec INR (<1.2) APTT (22.0-30.0) sec ABG pH (7.35-7.45) ABG pCO2 (35-45) mmHg ABG pO2 (83-108) mmHg ABG HCO3 (21-25) mmol/L ABG Total CO2 (19-24) mmol/L ABG O2 Saturation (94-97) % ABG Hematocrit (34.0-46.0) % ABG Potassium (3.4-4.5) mmol/L ABG Ionized Calcium (4.5-5.3) mg/dL ABG Glucose (75-99) mg/dL Hemoglobin (13.0-17.5) gm/dL Sodium (137-145) mmol/L Chloride (98-107) mmol/L Creatinine (0.66-1.25) mg/dL Glucose (74-99) mg/dL POC Glucose (mg/dL) 148 H 150 H (75-99) mg/dL Calcium (8.4-10.2) mg/dL Alkaline Phosphatase (38-126) U/L Total Protein (6.3-8.2) g/dL Albumin (3.5-5.0) g/dL Arterial Blood Potassium (3.4-4.5) mmol/L Arterial Blood Glucose (75-99) mg/dL Crossmatch 04/14/21 04/14/21 04/14/21 Range/Units 00:27 02:01 04:10 WBC 12.1 H (3.8-10.6) k/uL RBC 3.18 L (4.30-5.90) m/uL Hgb 10.1 L (13.0-17.5) gm/dL Hct 29.2 L (39.0-53.0) % Plt Count (150-450) k/uL Neutrophils # (1.3-7.7) k/uL Neutrophils # (Manual) 9.60 H (1.3-7.7) k/uL Monocytes # (0-1.0) k/uL PT (9.0-12.0) sec INR (<1.2) APTT (22.0-30.0) sec ABG pH (7.35-7.45) ABG pCO2 (35-45) mmHg ABG pO2 (83-108) mmHg ABG HCO3 (21-25) mmol/L ABG Total CO2 (19-24) mmol/L ABG O2 Saturation (94-97) % ABG Hematocrit (34.0-46.0) % ABG Potassium (3.4-4.5) mmol/L ABG Ionized Calcium (4.5-5.3) mg/dL ABG Glucose (75-99) mg/dL Hemoglobin (13.0-17.5) gm/dL Sodium (137-145) mmol/L Chloride (98-107) mmol/L Creatinine (0.66-1.25) mg/dL Glucose (74-99) mg/dL POC Glucose (mg/dL) 147 H 136 H (75-99) mg/dL Calcium (8.4-10.2) mg/dL Alkaline Phosphatase (38-126) U/L Total Protein (6.3-8.2) g/dL Albumin (3.5-5.0) g/dL Arterial Blood Potassium (3.4-4.5) mmol/L Arterial Blood Glucose (75-99) mg/dL Crossmatch 04/14/21 04/14/21 04/14/21 Range/Units 04:10 04:13 06:02 WBC (3.8-10.6) k/uL RBC (4.30-5.90) m/uL Hgb (13.0-17.5) gm/dL Hct (39.0-53.0) % Plt Count (150-450) k/uL Neutrophils # (1.3-7.7) k/uL Neutrophils # (Manual) (1.3-7.7) k/uL Monocytes # (0-1.0) k/uL PT (9.0-12.0) sec INR (<1.2) APTT (22.0-30.0) sec ABG pH (7.35-7.45) ABG pCO2 (35-45) mmHg ABG pO2 (83-108) mmHg ABG HCO3 (21-25) mmol/L ABG Total CO2 (19-24) mmol/L ABG O2 Saturation (94-97) % ABG Hematocrit (34.0-46.0) % ABG Potassium (3.4-4.5) mmol/L ABG Ionized Calcium (4.5-5.3) mg/dL ABG Glucose (75-99) mg/dL Hemoglobin (13.0-17.5) gm/dL Sodium 136 L (137-145) mmol/L Chloride 108 H (98-107) mmol/L Creatinine 0.51 L (0.66-1.25) mg/dL Glucose 111 H (74-99) mg/dL POC Glucose (mg/dL) 126 H 123 H (75-99) mg/dL Calcium 7.6 L (8.4-10.2) mg/dL Alkaline Phosphatase (38-126) U/L Total Protein 4.3 L (6.3-8.2) g/dL Albumin 2.3 L (3.5-5.0) g/dL Arterial Blood Potassium (3.4-4.5) mmol/L Arterial Blood Glucose (75-99) mg/dL Crossmatch 04/14/21 04/14/21 Range/Units 07:02 08:35 WBC (3.8-10.6) k/uL RBC (4.30-5.90) m/uL Hgb (13.0-17.5) gm/dL Hct (39.0-53.0) % Plt Count (150-450) k/uL Neutrophils # (1.3-7.7) k/uL Neutrophils # (Manual) (1.3-7.7) k/uL Monocytes # (0-1.0) k/uL PT (9.0-12.0) sec INR (<1.2) APTT (22.0-30.0) sec ABG pH (7.35-7.45) ABG pCO2 (35-45) mmHg ABG pO2 (83-108) mmHg ABG HCO3 (21-25) mmol/L ABG Total CO2 (19-24) mmol/L ABG O2 Saturation (94-97) % ABG Hematocrit (34.0-46.0) % ABG Potassium (3.4-4.5) mmol/L ABG Ionized Calcium (4.5-5.3) mg/dL ABG Glucose (75-99) mg/dL Hemoglobin (13.0-17.5) gm/dL Sodium (137-145) mmol/L Chloride (98-107) mmol/L Creatinine (0.66-1.25) mg/dL Glucose (74-99) mg/dL POC Glucose (mg/dL) 131 H 127 H (75-99) mg/dL Calcium (8.4-10.2) mg/dL Alkaline Phosphatase (38-126) U/L Total Protein (6.3-8.2) g/dL Albumin (3.5-5.0) g/dL Arterial Blood Potassium (3.4-4.5) mmol/L Arterial Blood Glucose (75-99) mg/dL Crossmatch Assessment and Plan Assessment: 1 Coronary artery disease status post coronary artery bypass grafting 5 ut ilizing a SCOTT to the diagonal, LAD. Saphenous vein grafts to the OM1, OM 2, RCA. Postoperative day #1 2 Routine postoperative ventilator management, extubated within 4 hours and 40 minutes 04/13/2021 3 Diabetes mellitus, type II 4 Obstructive sleep apnea utilizing CPAP the outpatient setting 5 History of hypertension 6 Gastroesophageal reflux disease 7 History of Chatjsy-Twzpd-Yoihg disease 8 Hyperlipidemia 9 Obesity Plan: The patient was seen and evaluated by Dr. Morales Chest x-ray, labs reviewed Encourage increased use of the incentive spirometer Increase his activity as tolerated Titrate down the FiO2 as tolerated We'll continue to follow and make further recommendations based on his clinical status I, the cosigning physician, performed a history & physical examination of the patient. Lungs sounds with crackles in the bilateral posterior bases. Maintain ing good O2 saturations in the 90s on 5 L/m per nasal cannula I discussed the assessment and plan of care with my nurse practitioner, Gabriela Castaneda. I attest to the above note as dictated by her.
[2021-04-14] MEDS ORDERED: MAGNESIUM HYDROXIDE 2,400 MG/10 ML CUP PO PRN (09:00)
[2021-04-14] MEDS ORDERED: METOPROLOL TARTRATE 12.5 MG TAB PO SCH (09:00)
[2021-04-14] MEDS ORDERED: bisacodyL 10 MG SUPP RECTAL PRN (09:00)
[2021-04-14] MEDS ORDERED: PANTOPRAZOLE 40 MG/10 ML VIAL IVP SCH (09:00)
[2021-04-14] MEDS ORDERED: METOPROLOL TARTRATE 12.5 MG TAB PO STA (09:40)
[2021-04-14] MEDS ORDERED: FUROSEMIDE 10 MG/ML 2 ML VIAL IV STA (09:41)
[2021-04-14] MEDS ORDERED: POTASSIUM CHLORIDE ER 10 MEQ TAB.ER.PRT PO STA (09:41)
--- NOTE | 2021-04-14 10:02 | XR ---
EXAMINATION TYPE: XR chest 1V portable DATE OF EXAM: 04/14/2021 COMPARISON: 04/13/2021 HISTORY: Postop cardiac surgery TECHNIQUE: Single frontal view of the chest is obtained. FINDINGS: ET and NG tube have been removed. Telferner-Troy catheter stable. Mediastinal drain and postsur gical changes noted. Diffuse interstitial pattern with bilateral infiltrate and small effusion. IMPRESSION: 1. Correlate for mild CHF with bilateral infiltrate and small effusion.
[2021-04-14 10:12] LABS: Glucose,Whole Blood 122 mg/dL (75-99)
[2021-04-14] MEDS ORDERED: CALCIUM GLUCONATE 1 GM in SODIUM CHLORIDE 0.9% 100 ML IVPB ONE (10:30)
--- NOTE | 2021-04-14 10:46 | P.PN ---
Subjective Progress Note Date: 04/14/21 Principal diagnosis: Symptomatic multivessel coronary artery disease. Past medical history significant for hypertension, hyperlipidemia, type 2 diabetes mellitus, obstructive sleep apnea with home CPAP use, Lwgaupy-Zquxa-mnkyi disorder, remote history of nicotine dependence, occasional marijuana use and family history of premature coronary artery disease with his father having a myocardial infarction in his early 60s and an uncle having myocardial infarction in his early 50s. POD #1 coronary artery bypass grafting surgery 5 vessels with his left internal mammary artery with a sequential graft to his diagonal coronary artery and to his left anterior descending coronary artery, a reverse greater saphenous vein graft off the aorta with a sequential graft to his obtuse marginal #1 coronary artery and to his obtuse marginal #2 coronary artery, and a reverse greater saph enous vein graft off the aorta to his right coronary artery. Exclusion of his left atrial appendage with a 35 mm Atriclip, endoscopic harvesting of his left greater saphenous vein, intraoperative transesophageal echocardiogram and epi- aortic scanning. Intraoperative graft flow measurements using the [employer] system. Postoperative acute blood loss anemia, expected due to cardiopulmonary bypass a nd hemodilution. The patient is seen in follow-up today at his bedside in the intensive care unit. Currently he is lying in bed, is awake, alert and oriented 3 and is in no acute apparent distress. He denies any complaints of shortness of breath although is complaining of some surgical type pain to his chest tube insertion sites rating his pain 6 out of 10 on the pain scale. He was successfully extubated at 8:45 PM and is currently on 5 L nasal cannula with oxygen saturations 96%. He is achieving 500 mL on his incentive spirometry with much encouragement. He is complaining of generalized weakness, although he says this is normal for him as he has Vcilxim-Wdtmt-Hvpti disorder. He remains hemodynamically stable and is currently on no inotropic or pressor support. Bedside telemetry showing normal sinus rhythm heart rate 84 BPM. Right IJ Cordis and [place] catheter remains in place with current hemodynamic showing cardiac output 7.5, cardiac index 2.9, PA pressures 2411 and CVP 9 mmHg. Mediastinal and left pleural chest tubes remain in place to low continuous wall suction -20 cm H2O. No air leak is present. Mediastinal chest tubes drained 100 mL output in the last 8 hours and 470 mL output since surgery. Left pleural chest tube drained 25 mL output in the last 8 hours and 120 mL output since surgery. Left lower extremity DESIRE drain remains in place draining thin sero sanguineous drainage with 5 mL output in the last 8 hours. Insulin drip infusing at 2.5 units per hour. Objective - Vital Signs Vital signs: Vital Signs Temp 101.1 F H 04/14/21 08:00 Pulse 85 04/14/21 08:15 Resp 24 04/14/21 08:00 BP 118/57 04/14/21 07:00 Pulse Ox 93 L 04/14/21 08:00 Intake & Output 04/13/21 04/14/21 04/14/21 18:59 06:59 18:59 Intake Total 865.079 5991.235 564.055 Output Total 5820 922 50 Balance -5483.648 403.235 514.055 Weight 127.4 kg Intake: IV 281 1288 59 ACETAMINOPHEN IV (For NPO 100 ) 1,000 mg In Empty Bag 1 bag @ 400 mls/hr IVPB Q6HR SUE Rx#:[id number] Albumin Human 5% 250 ml 250 In Empty Bag 1 bag @ 250 mls/hr IVPB Q1HR PRN Rx#: [id number] Cardiac Index 60 160 Pressure bags 18 108 9 Sodium Chloride 0.9% 1, 100 570 50 000 ml @ 50 mls/hr IV . Q20H SUE Rx#:[id number] ceFAZolin 3 gm In Sodium 100 Chloride 0.9% 100 ml @ 100 mls/hr IVPB Q8HR SUE Rx#:[id number] Intake, IV Titration 55.352 37.235 25.055 Amount Insulin Regular 100 unit 5.538 37.235 2.155 In Sodium Chloride 0.9% 100 ml @ Per Protocol IV .Q0M SUE Rx#:[id number] Nitroglycerin-D5w Pmx 50 22.9 mg In Dextrose/Water 1 250ml.bag @ 5 MCG/MIN 1.5 mls/hr IV .Q24H SUE Rx#: [id number] propofoL 1,000 mg In 49.814 Empty Bag 1 bag @ Titrate IV .Q0M SUE Rx#: [id number] Oral 480 Output: Chest Tube Drainage 275 257 30 Chest Tube Left 45 37 10 Chest Tube Mediastinal 230 220 20 Drainage 50 20 Left Calf 50 20 Urine 995 645 20 Estimated Blood Loss 4500 Other: Voiding Method Indwelling Catheter Indwelling Catheter Indwelling Catheter ABP, PAP, CO, CI - Last Documented Arterial Blood Pressure 110/53 Pulmonary Artery Pressure 34/24 Cardiac Output 7.5 Cardiac Index 2.9 - Exam CONSTITUTIONAL: Laying in bed in the intensive care unit, appears comfortable, cooperative, no apparent acute distress. HEENT: Neck is supple, no JVD, no lymphadenopathy. Right IJ Cordis and [place]- [place] catheter in place and functioning. RESPIRATORY: Lungs sounds essentially clear throughout, diminished to his bilateral bases. No wheezes, rhonchi or crackles. Respirations are symmetrical and nonlabored. Currently on 5 L nasal cannula with oxygen saturations 96%. Able to achieve 500 mL on his incentive spirometry. Strong cough. CARDIOVASCULAR: Regular rhythm and rate. S1 and S2 present, negative for S3, gallop or murmur. Sternum is stable. Palpable peripheral pulses bilaterally. Heart hugger in place with patient demonstrating appropriate use. Knee-high YULISSA hose and sequential compression devices in place to his bilateral lower extr emities. GASTROINTESTINAL: Abdomen soft, nontender, nondistended. Hypoactive bowel sounds present 4 quadrants. Tolerating diet. Passing flatus. No guarding or rigidity. GENITOURINARY: Acosta present draining clear, yellow urine. Output 415 mL in the last 8 hours INTEGUMENTARY: Skin is warm and dry, no clubbing or cyanosis is present. Midline sternal incision clean dry and well approximated, covered with dry intact dressing. Left lower extremity EVH sites well approximated without redn ess or drainage. NEUROLOGIC: Cranial nerves II through XII intact. No focal deficits. MUSKULOSKELETAL: Able to move all extremities, strength equal bilaterally, generalized weakness. PSYCHIATRIC: Alert and oriented to person place and time, appropriate affect, intact judgment and insight. INVASIVE LINES AND TUBES: Mediastinal/left pleural chest tubes present and connected to low continuous wall suction, no air leaks present. Mediastinal chest tubes drained 100 mL output in the last 8 hours and 470 mL output since surgery. Left pleural chest tube drained 25 mL output in the last 8 hours and 120 mL output since surgery. Left lower extremity DESIRE drain remains in place draining thin serosanguineous drainage with 5 mL output in the last 8 hours. Atrial and ventricular epicardial pacemaker wires present, connected to generator, VVI backup rate 50 bpm. Right internal jugular [place]/Cordis, right radial arterial line present. Last CO 7.5 , CI 2.9, PA 24/11 and CVP 9 mmHg. - Labs CBC & Chem 7: 04/14/21 04:10 04/14/21 04:10 Labs: Abnormal Lab Results - Last 24 Hours (Table) 04/06/21 04/13/21 04/13/21 Range/Units 13:00 08:43 10:53 WBC (3.8-10.6) k/uL RBC (4.30-5.90) m/uL Hgb (13.0-17.5) gm/dL Hct (39.0-53.0) % Plt Count (150-450) k/uL Neutrophils # (1.3-7.7) k/uL Neutrophils # (Manual) (1.3-7.7) k/uL Monocytes # (0-1.0) k/uL PT (9.0-12.0) sec INR (<1.2) APTT (22.0-30.0) sec ABG pH 7.34 L (7.35-7.45) ABG pCO2 50 H (35-45) mmHg ABG pO2 188 H 158 H (83-108) mmHg ABG HCO3 27 H 27 H (21-25) mmol/L ABG Total CO2 28 H 29 H (19-24) mmol/L ABG O2 Saturation 99.7 H 99.3 H (94-97) % ABG Hematocrit (34.0-46.0) % ABG Potassium (3.4-4.5) mmol/L ABG Ionized Calcium (4.5-5.3) mg/dL ABG Glucose 138 H 132 H (75-99) mg/dL Hemoglobin 11.9 L (13.0-17.5) gm/dL Sodium (137-145) mmol/L Chloride (98-107) mmol/L Creatinine (0.66-1.25) mg/dL Glucose (74-99) mg/dL POC Glucose (mg/dL) (75-99) mg/dL Calcium (8.4-10.2) mg/dL Alkaline Phosphatase (38-126) U/L Total Protein (6.3-8.2) g/dL Albumin (3.5-5.0) g/dL Arterial Blood Potassium (3.4-4.5) mmol/L Arterial Blood Glucose 138 H 132 H (75-99) mg/dL Crossmatch See Detail 04/13/21 04/13/21 04/13/21 Range/Units 11:45 12:15 12:52 WBC (3.8-10.6) k/uL RBC (4.30-5.90) m/uL Hgb (13.0-17.5) gm/dL Hct (39.0-53.0) % Plt Count (150-450) k/uL Neutrophils # (1.3-7.7) k/uL Neutrophils # (Manual) (1.3-7.7) k/uL Monocytes # (0-1.0) k/uL PT (9.0-12.0) sec INR (<1.2) APTT (22.0-30.0) sec ABG pH 7.33 L (7.35-7.45) ABG pCO2 48 H 46 H (35-45) mmHg ABG pO2 355 H 419 H 322 H (83-108) mmHg ABG HCO3 26 H 27 H (21-25) mmol/L ABG Total CO2 27 H 28 H 28 H (19-24) mmol/L ABG O2 Saturation 100.0 H 100.0 H 100.0 H (94-97) % ABG Hematocrit 29 L 24 L 24 L (34.0-46.0) % ABG Potassium 4.6 H 4.7 H (3.4-4.5) mmol/L ABG Ionized Calcium 4.1 L 4.1 L 4.1 L (4.5-5.3) mg/dL ABG Glucose 111 H 111 H 140 H (75-99) mg/dL Hemoglobin 9.4 L 8.0 L 7.9 L (13.0-17.5) gm/dL Sodium (137-145) mmol/L Chloride (98-107) mmol/L Creatinine (0.66-1.25) mg/dL Glucose (74-99) mg/dL POC Glucose (mg/dL) (75-99) mg/dL Calcium (8.4-10.2) mg/dL Alkaline Phosphatase (38-126) U/L Total Protein (6.3-8.2) g/dL Albumin (3.5-5.0) g/dL Arterial Blood Potassium 4.6 H 4.7 H (3.4-4.5) mmol/L Arterial Blood Glucose 111 H 111 H 140 H (75-99) mg/dL Crossmatch 04/13/21 04/13/21 04/13/21 Range/Units 13:36 14:10 15:21 WBC (3.8-10.6) k/uL RBC (4.30-5.90) m/uL Hgb (13.0-17.5) gm/dL Hct (39.0-53.0) % Plt Count (150-450) k/uL Neutrophils # (1.3-7.7) k/uL Neutrophils # (Manual) (1.3-7.7) k/uL Monocytes # (0-1.0) k/uL PT (9.0-12.0) sec INR (<1.2) APTT (22.0-30.0) sec ABG pH 7.31 L (7.35-7.45) ABG pCO2 46 H 52 H (35-45) mmHg ABG pO2 321 H 188 H (83-108) mmHg ABG HCO3 26 H (21-25) mmol/L ABG Total CO2 27 H 27 H 27 H (19-24) mmol/L ABG O2 Saturation 100.0 H 99.7 H 97.7 H (94-97) % ABG Hematocrit 25 L 25 L 33 L (34.0-46.0) % ABG Potassium 4.7 H 4.8 H (3.4-4.5) mmol/L ABG Ionized Calcium 4.0 L 4.0 L 4.2 L (4.5-5.3) mg/dL ABG Glucose 172 H 141 H 132 H (75-99) mg/dL Hemoglobin 8.1 L 8.2 L 10.6 L (13.0-17.5) gm/dL Sodium (137-145) mmol/L Chloride (98-107) mmol/L Creatinine (0.66-1.25) mg/dL Glucose (74-99) mg/dL POC Glucose (mg/dL) (75-99) mg/dL Calcium (8.4-10.2) mg/dL Alkaline Phosphatase (38-126) U/L Total Protein (6.3-8.2) g/dL Albumin (3.5-5.0) g/dL Arterial Blood Potassium 4.7 H 4.8 H (3.4-4.5) mmol/L Arterial Blood Glucose 172 H 141 H 132 H (75-99) mg/dL Crossmatch 04/13/21 04/13/21 04/13/21 Range/Units 16:00 16:00 16:00 WBC 13.6 H (3.8-10.6) k/uL RBC 3.40 L (4.30-5.90) m/uL Hgb 10.9 L D (13.0-17.5) gm/dL Hct 31.5 L (39.0-53.0) % Plt Count 122 L (150-450) k/uL Neutrophils # 9.9 H (1.3-7.7) k/uL Neutrophils # (Manual) (1.3-7.7) k/uL Monocytes # 1.5 H (0-1.0) k/uL PT 12.3 H (9.0-12.0) sec INR 1.2 H (<1.2) APTT 31.7 H (22.0-30.0) sec ABG pH (7.35-7.45) ABG pCO2 (35-45) mmHg ABG pO2 (83-108) mmHg ABG HCO3 (21-25) mmol/L ABG Total CO2 (19-24) mmol/L ABG O2 Saturation (94-97) % ABG Hematocrit (34.0-46.0) % ABG Potassium (3.4-4.5) mmol/L ABG Ionized Calcium (4.5-5.3) mg/dL ABG Glucose (75-99) mg/dL Hemoglobin (13.0-17.5) gm/dL Sodium (137-145) mmol/L Chloride 109 H (98-107) mmol/L Creatinine 0.44 L (0.66-1.25) mg/dL Glucose 126 H (74-99) mg/dL POC Glucose (mg/dL) (75-99) mg/dL Calcium 7.5 L (8.4-10.2) mg/dL Alkaline Phosphatase 36 L (38-126) U/L Total Protein 3.8 L (6.3-8.2) g/dL Albumin 2.0 L (3.5-5.0) g/dL Arterial Blood Potassium (3.4-4.5) mmol/L Arterial Blood Glucose (75-99) mg/dL Crossmatch 04/13/21 04/13/21 04/13/21 Range/Units 16:05 16:28 16:57 WBC (3.8-10.6) k/uL RBC (4.30-5.90) m/uL Hgb (13.0-17.5) gm/dL Hct (39.0-53.0) % Plt Count (150-450) k/uL Neutrophils # (1.3-7.7) k/uL Neutrophils # (Manual) (1.3-7.7) k/uL Monocytes # (0-1.0) k/uL PT (9.0-12.0) sec INR (<1.2) APTT (22.0-30.0) sec ABG pH 7.31 L (7.35-7.45) ABG pCO2 54 H (35-45) mmHg ABG pO2 348 H (83-108) mmHg ABG HCO3 27 H (21-25) mmol/L ABG Total CO2 29 H (19-24) mmol/L ABG O2 Saturation 99.5 H (94-97) % ABG Hematocrit (34.0-46.0) % ABG Potassium (3.4-4.5) mmol/L ABG Ionized Calcium (4.5-5.3) mg/dL ABG Glucose (75-99) mg/dL Hemoglobin (13.0-17.5) gm/dL Sodium (137-145) mmol/L Chloride (98-107) mmol/L Creatinine (0.66-1.25) mg/dL Glucose (74-99) mg/dL POC Glucose (mg/dL) 137 H 147 H (75-99) mg/dL Calcium (8.4-10.2) mg/dL Alkaline Phosphatase (38-126) U/L Total Protein (6.3-8.2) g/dL Albumin (3.5-5.0) g/dL Arterial Blood Potassium (3.4-4.5) mmol/L Arterial Blood Glucose (75-99) mg/dL Crossmatch 04/13/21 04/13/21 04/13/21 Range/Units 17:59 18:52 18:56 WBC 15.9 H (3.8-10.6) k/uL RBC 3.60 L (4.30-5.90) m/uL Hgb 10.9 L (13.0-17.5) gm/dL Hct 33.3 L (39.0-53.0) % Plt Count (150-450) k/uL Neutrophils # 12.4 H (1.3-7.7) k/uL Neutrophils # (Manual) (1.3-7.7) k/uL Monocytes # 1.1 H (0-1.0) k/uL PT (9.0-12.0) sec INR (<1.2) APTT (22.0-30.0) sec ABG pH (7.35-7.45) ABG pCO2 (35-45) mmHg ABG pO2 (83-108) mmHg ABG HCO3 (21-25) mmol/L ABG Total CO2 (19-24) mmol/L ABG O2 Saturation (94-97) % ABG Hematocrit (34.0-46.0) % ABG Potassium (3.4-4.5) mmol/L ABG Ionized Calcium (4.5-5.3) mg/dL ABG Glucose (75-99) mg/dL Hemoglobin (13.0-17.5) gm/dL Sodium (137-145) mmol/L Chloride (98-107) mmol/L Creatinine (0.66-1.25) mg/dL Glucose (74-99) mg/dL POC Glucose (mg/dL) 159 H 187 H (75-99) mg/dL Calcium (8.4-10.2) mg/dL Alkaline Phosphatase (38-126) U/L Total Protein (6.3-8.2) g/dL Albumin (3.5-5.0) g/dL Arterial Blood Potassium (3.4-4.5) mmol/L Arterial Blood Glucose (75-99) mg/dL Crossmatch 04/13/21 04/13/21 04/13/21 Range/Units 19:57 20:28 21:02 WBC (3.8-10.6) k/uL RBC (4.30-5.90) m/uL Hgb (13.0-17.5) gm/dL Hct (39.0-53.0) % Plt Count (150-450) k/uL Neutrophils # (1.3-7.7) k/uL Neutrophils # (Manual) (1.3-7.7) k/uL Monocytes # (0-1.0) k/uL PT (9.0-12.0) sec INR (<1.2) APTT (22.0-30.0) sec ABG pH (7.35-7.45) ABG pCO2 (35-45) mmHg ABG pO2 118 H (83-108) mmHg ABG HCO3 (21-25) mmol/L ABG Total CO2 26 H (19-24) mmol/L ABG O2 Saturation 98.7 H (94-97) % ABG Hematocrit (34.0-46.0) % ABG Potassium (3.4-4.5) mmol/L ABG Ionized Calcium (4.5-5.3) mg/dL ABG Glucose (75-99) mg/dL Hemoglobin (13.0-17.5) gm/dL Sodium (137-145) mmol/L Chloride (98-107) mmol/L Creatinine (0.66-1.25) mg/dL Glucose (74-99) mg/dL POC Glucose (mg/dL) 167 H 152 H (75-99) mg/dL Calcium (8.4-10.2) mg/dL Alkaline Phosphatase (38-126) U/L Total Protein (6.3-8.2) g/dL Albumin (3.5-5.0) g/dL Arterial Blood Potassium (3.4-4.5) mmol/L Arterial Blood Glucose (75-99) mg/dL Crossmatch 04/13/21 04/13/21 04/13/21 Range/Units 22:08 22:10 23:07 WBC 14.3 H (3.8-10.6) k/uL RBC 3.45 L (4.30-5.90) m/uL Hgb 10.3 L (13.0-17.5) gm/dL Hct 31.5 L (39.0-53.0) % Plt Count (150-450) k/uL Neutrophils # (1.3-7.7) k/uL Neutrophils # (Manual) 12.50 H (1.3-7.7) k/uL Monocytes # (0-1.0) k/uL PT (9.0-12.0) sec INR (<1.2) APTT (22.0-30.0) sec ABG pH (7.35-7.45) ABG pCO2 (35-45) mmHg ABG pO2 (83-108) mmHg ABG HCO3 (21-25) mmol/L ABG Total CO2 (19-24) mmol/L ABG O2 Saturation (94-97) % ABG Hematocrit (34.0-46.0) % ABG Potassium (3.4-4.5) mmol/L ABG Ionized Calcium (4.5-5.3) mg/dL ABG Glucose (75-99) mg/dL Hemoglobin (13.0-17.5) gm/dL Sodium (137-145) mmol/L Chloride (98-107) mmol/L Creatinine (0.66-1.25) mg/dL Glucose (74-99) mg/dL POC Glucose (mg/dL) 148 H 150 H (75-99) mg/dL Calcium (8.4-10.2) mg/dL Alkaline Phosphatase (38-126) U/L Total Protein (6.3-8.2) g/dL Albumin (3.5-5.0) g/dL Arterial Blood Potassium (3.4-4.5) mmol/L Arterial Blood Glucose (75-99) mg/dL Crossmatch 04/14/21 04/14/21 04/14/21 Range/Units 00:27 02:01 04:10 WBC 12.1 H (3.8-10.6) k/uL RBC 3.18 L (4.30-5.90) m/uL Hgb 10.1 L (13.0-17.5) gm/dL Hct 29.2 L (39.0-53.0) % Plt Count (150-450) k/uL Neutrophils # (1.3-7.7) k/uL Neutrophils # (Manual) 9.60 H (1.3-7.7) k/uL Monocytes # (0-1.0) k/uL PT (9.0-12.0) sec INR (<1.2) APTT (22.0-30.0) sec ABG pH (7.35-7.45) ABG pCO2 (35-45) mmHg ABG pO2 (83-108) mmHg ABG HCO3 (21-25) mmol/L ABG Total CO2 (19-24) mmol/L ABG O2 Saturation (94-97) % ABG Hematocrit (34.0-46.0) % ABG Potassium (3.4-4.5) mmol/L ABG Ionized Calcium (4.5-5.3) mg/dL ABG Glucose (75-99) mg/dL Hemoglobin (13.0-17.5) gm/dL Sodium (137-145) mmol/L Chloride (98-107) mmol/L Creatinine (0.66-1.25) mg/dL Glucose (74-99) mg/dL POC Glucose (mg/dL) 147 H 136 H (75-99) mg/dL Calcium (8.4-10.2) mg/dL Alkaline Phosphatase (38-126) U/L Total Protein (6.3-8.2) g/dL Albumin (3.5-5.0) g/dL Arterial Blood Potassium (3.4-4.5) mmol/L Arterial Blood Glucose (75-99) mg/dL Crossmatch 04/14/21 04/14/21 04/14/21 Range/Units 04:10 04:13 06:02 WBC (3.8-10.6) k/uL RBC (4.30-5.90) m/uL Hgb (13.0-17.5) gm/dL Hct (39.0-53.0) % Plt Count (150-450) k/uL Neutrophils # (1.3-7.7) k/uL Neutrophils # (Manual) (1.3-7.7) k/uL Monocytes # (0-1.0) k/uL PT (9.0-12.0) sec INR (<1.2) APTT (22.0-30.0) sec ABG pH (7.35-7.45) ABG pCO2 (35-45) mmHg ABG pO2 (83-108) mmHg ABG HCO3 (21-25) mmol/L ABG Total CO2 (19-24) mmol/L ABG O2 Saturation (94-97) % ABG Hematocrit (34.0-46.0) % ABG Potassium (3.4-4.5) mmol/L ABG Ionized Calcium (4.5-5.3) mg/dL ABG Glucose (75-99) mg/dL Hemoglobin (13.0-17.5) gm/dL Sodium 136 L (137-145) mmol/L Chloride 108 H (98-107) mmol/L Creatinine 0.51 L (0.66-1.25) mg/dL Glucose 111 H (74-99) mg/dL POC Glucose (mg/dL) 126 H 123 H (75-99) mg/dL Calcium 7.6 L (8.4-10.2) mg/dL Alkaline Phosphatase (38-126) U/L Total Protein 4.3 L (6.3-8.2) g/dL Albumin 2.3 L (3.5-5.0) g/dL Arterial Blood Potassium (3.4-4.5) mmol/L Arterial Blood Glucose (75-99) mg/dL Crossmatch 04/14/21 04/14/21 Range/Units 07:02 08:35 WBC (3.8-10.6) k/uL RBC (4.30-5.90) m/uL Hgb (13.0-17.5) gm/dL Hct (39.0-53.0) % Plt Count (150-450) k/uL Neutrophils # (1.3-7.7) k/uL Neutrophils # (Manual) (1.3-7.7) k/uL Monocytes # (0-1.0) k/uL PT (9.0-12.0) sec INR (<1.2) APTT (22.0-30.0) sec ABG pH (7.35-7.45) ABG pCO2 (35-45) mmHg ABG pO2 (83-108) mmHg ABG HCO3 (21-25) mmol/L ABG Total CO2 (19-24) mmol/L ABG O2 Saturation (94-97) % ABG Hematocrit (34.0-46.0) % ABG Potassium (3.4-4.5) mmol/L ABG Ionized Calcium (4.5-5.3) mg/dL ABG Glucose (75-99) mg/dL Hemoglobin (13.0-17.5) gm/dL Sodium (137-145) mmol/L Chloride (98-107) mmol/L Creatinine (0.66-1.25) mg/dL Glucose (74-99) mg/dL POC Glucose (mg/dL) 131 H 127 H (75-99) mg/dL Calcium (8.4-10.2) mg/dL Alkaline Phosphatase (38-126) U/L Total Protein (6.3-8.2) g/dL Albumin (3.5-5.0) g/dL Arterial Blood Potassium (3.4-4.5) mmol/L Arterial Blood Glucose (75-99) mg/dL Crossmatch Assessment and Plan Assessment: 1. Symptomatic multivessel coronary artery disease, status post 5 vessel coronary artery bypass grafting surgery 2. History of hypertension 3. History of hyperlipidemia 4. Type 2 diabetes mellitus, with a preoperative hemoglobin A1c of 8.1% 5. Obstructive sleep apnea with home CPAP use 6. 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 Remote history of nicotine dependence 8. Occasional marijuana use 9. History of premature coronary artery disease 10. Obesity with a BMI of 32.2 kg/m 11. GERD on omeprazole at home 12. Postoperative acute blood loss anemia, expected due to cardiopulmonary bypass and hemodilution Plan: 1. Continue aspirin, statin, Plavix, beta iesha. Will increase metoprolol ta rtrate to 25 mg by mouth twice a day. 2. Wean O2 as tolerated. Encourage incentive spirometry use 10 times every hour while awake. Bronchodilators per pulmonology. 3. Increase activity, ambulate as tolerated. PT/OT/cardiac rehab consulted. 4. Will monitor daily labs and chest x-rays. Electrolyte replacement per protocol. 5. GI/DVT prophylaxis. 6. Pain control with current medication regimen. Toradol was added for additional pain control. 7. Insulin management per primary care service. Patient is a diabetic with a Hemoglobin A1c preoperative 8.1 %, patient needs tight blood sugar control to promote's sternal union and prevent infection. 8. Discontinue [place] catheter. Connect Cordis to continuous CVP monitoring. 9. Continue mediastinal, left and right pleural chest tubes, left leg DESIRE drain, arterial line for another 24 hours. 10. Continue Acosta catheter for another 24 hours for strict accurate intake and output. Daily weights. 11. Discontinue nitroglycerin drip. 12. We will restart his lisinopril for afterload reduction been able to tolerate. 13. Cymbalta and his Proscar home medications restarted. 14. Lasix 20 mg IV 1 now. Potassium 10 mEq by mouth 1 now. 15. Calcium gluconate 1 g IV piggyback 1 now. 16. More recommendations to follow based on patient's clinical course. Time with Patient: Greater than 30
[2021-04-14] MEDS: FINASTERIDE 5 MG TAB PO SCH (11:38)
[2021-04-14] MEDS: SODIUM CHLORIDE 0.9% 1,000 ML IV SCH (11:47)
--- NOTE | 2021-04-14 11:55 | P.CRDCN ---
History of Present Illness History of present illness: HISTORY OF PRESENTING ILLNESS This is a pleasant 58-year-old male past medical history significant for hypertension, hyperlipidemia, type 2 diabetes, Indrgqt-Tezfm-vrvno disorder, obstructive sleep apnea on home CPAP, and family history of coronary disease. He follows in the office with Dr. Soni. We have been asked to see in consultation for postoperative management. Echocardiogram 03/02/2021 showing normal ejection fraction 60%, moderate LVH, moderate aortic regurgitation, trace mitral regurgitation. Left heart catheterization showed 20% left main stenosis, 50% proximal LAD, 95% mid LAD and diagonal 1 per dictation, 95% mid to distal LAD, circumflex 50-60% stenosis, OM1 and 60-70% stenosis and proximal RCA 100% stenosis. Patient was evaluated by cardiothoracic surgery and he was scheduled for CABG. 04/13/2021: Patient underwent coronary artery bypass grafting surgery 5 vessels, exclusion of his left atrial appendage, endoscopic harvesting of his left greater saphenous vein. Patient is POD #1, seen in the intensive care unit. He is sitting up in bed in no acute distress. He was extubated last night. He denies any chest pain or shortness of breath. Has some incitional pain. Also states she has a cough but feels he cannot cough up his phlegm. He is hemodynamically stable. He is using his incentive spirometer with 500mL volumes. Telemetry tracings indicate sinus mechanism HR 80s. He has a Right IJ Cordis/ Melvin-Troy catheter in place. His CVP is 9. Mediastinal chest tubes with serosangenious drainage. Left pleural chest tube. He has a tello in place. Left lower extremity DESIRE drain with serosanguineous drainage. Current drips include Insulin drip infusing at 2.5 units per hour. Currently being maintained on aspirin 325 mg daily, atorvastatin 40 mg daily, Plavix 75 mg daily, metoprolol titrate 25 mg twice a day. Laboratory reviewed W6.1, hemoglobin 10.1, platelets 150, sodium 136, potassium 3.9, BUN 13, serum creatinine 0.51, magnesium 2.1 REVIEW OF SYSTEMS At the time of my exam: CONSTITUTIONAL: Denies fever or chills. CARDIOVASCULAR: +surgical pain Denies chest pain, shortness of breath, orthopnea, PND or palpitations. RESPIRATORY: Denies cough. GASTROINTESTINAL: Denies abdominal pain, diarrhea, constipation, nausea or vomiting. MUSCULOSKELETAL: Denies myalgias. NEUROLOGIC: +some generalized weakness Denies numbness, tingling, headacbe ENDOCRINE: Denies fatigue, weight change, polydipsia or polyurina. GENITOURINARY: Denies burning, hematuria or urgency with micturation. HEMATOLOGIC: Denies history of anemia or bleeding. PHYSICAL EXAMINATION Blood pressure 143/58 heart rate 78 afebrile and maintaining oxygen saturation 96% on 5L high flow nasal cannula CONSTITUTIONAL: No apparent distress. HEENT: Head is normocephalic. Pupils are equal, round. Sclerae anicteric. Mucous membranes of the mouth are moist. No JVD. No carotid bruit. R IJ IJ Cordis/ Melvin-Troy catheter noted CHEST EXAMINATION: Lungs are clear to auscultation diminished in the bases. No chest wall tenderness is noted on palpation or with deep breathing. HEART EXAMINATION: Regular rate and rhythm. S1, S2 heard. No murmurs, gallops or rub. Mediastinal chest tubes with serosanguineous drainage. Pleural chest tubes. Epicardial pacemaker wires present ABDOMEN: Soft, nontender. Positive bowel sounds. : Tello in place with clear yellow urine EXTREMITIES: 2+ peripheral pulses, no lower extremity edema and no calf tenderness. Bilateral compression stockings and YULISSA hose in place Left lower extremity DESIRE drain with serosanguineous drainage. Right radial arterial line present NEUROLOGIC EXAMINATION: Patient is awake, alert and oriented x3. ASSESSMENT Coronary artery disease Status Post 5 vessel CABG 04/13/21 History of Hypertension History of Hyperlipidemia Type 2 diabetes Vcbofpu-Ekhcv-hgccs disorder Obstructive sleep apnea on home CPAP Anemia postoperatively Obesity BMI 34 PLAN Continue medical therapy with aspirin, statin, plavix, beta iesha Post operative management per CT surgery Encourage Incentive spirometer use every hour Increase activity as tolerated Wean O2 as tolerated Will continue to follow Nurse Practitioner note has been reviewed, I agree with a documented findings and plan of care. Patient was seen and examined. Past Medical History Past Medical History: Coronary Artery Disease (CAD), Chest Pain / Angina, Diabetes Mellitus, GERD/Reflux, Hyperlipidemia, Hypertension, Musculoskeletal Disorder, Osteoarthritis (OA), Prostate Disorder, Sleep Apnea/CPAP/BIPAP Additional Past Medical History / Comment(s): [id number] SYNDROME, CAUSES PAIN, HAS NUMBNESS IN FEET, neuropathy, WEARS NICOLÁS LEG BRACES. USES CPAP., some recent chest pain & tightness @times, fully vaccinated for covid History of Any Multi-Drug Resistant Organisms: None Reported Past Surgical History: Heart Catheterization Additional Past Surgical History / Comment(s): COLONOSCOPY, lasik eye surg. Past Anesthesia/Blood Transfusion Reactions: No Reported Reaction Smoking Status: Former smoker - Past Family History Mother Family Medical History: Cancer Additional Family Medical History / Comment(s): BREAST CA Sister(s) Family Medical History: Cancer Additional Family Medical History / Comment(s): SKIN CA Father Family Medical History: Congestive Heart Failure (CHF), Coronary Artery Disease (CAD), Myocardial Infarction ([place]) Additional Family Medical History / Comment(s): Myocardial infarction in his early 60s, paternal uncle had myocardial infarction in his early 50s Medications and Allergies Home Medications Medication Instructions Recorded Confirmed Type DULoxetine HCL [Cymbalta] 60 mg PO DAILY 04/16/19 04/13/21 History Finasteride [Proscar] 5 mg PO DAILY 04/16/19 04/13/21 History Insulin Degludec [Tresiba] 64 units SQ AC-BRKFST 04/16/19 04/13/21 History Mirtazapine [Remeron] 15 mg PO DAILY 04/16/19 04/13/21 History Multivit-Min/FA/Lycopen/Lutein 1 each PO DAILY 04/16/19 04/13/21 History [Centrum Silver Tablet] Omeprazole 20 mg PO DAILY 04/16/19 04/13/21 History glipiZIDE [Glucotrol] 10 mg PO BID 04/16/19 04/13/21 History lisinopriL [Zestril] 20 mg PO DAILY 04/16/19 04/13/21 History metFORMIN HCL 1,000 mg PO BID 04/16/19 04/13/21 History Aspirin 325 mg PO DAILY 03/04/21 04/13/21 History Atorvastatin [Lipitor] 20 mg PO DAILY 03/04/21 04/13/21 History Diazepam [Valium] 10 mg PO DIRECTED PRN 03/04/21 04/13/21 History Pioglitazone [Actos] 30 mg PO DAILY 03/04/21 04/13/21 History oxyCODONE HCL/ACETAMINOPHEN 1 tab PO QID 03/04/21 04/13/21 History [Endocet 10-325 mg] Metoprolol Succinate (ER) [Toprol 50 mg PO DAILY 04/06/21 04/13/21 History Xl] Allergies Allergy/AdvReac Type Severity Reaction Status Date / Time No Known Allergies Allergy Verified 04/13/21 06:27 Physical Exam Vitals: Vital Signs Temp Pulse Pulse Resp BP Pulse Ox 04/14/21 10:00 78 21 96 04/14/21 09:00 85 23 96 04/14/21 08:15 85 04/14/21 08:10 84 04/14/21 08:00 101.1 F H 84 73 24 93 L 04/14/21 07:00 83 25 H 118/57 95 04/14/21 06:00 82 19 91 L 04/14/21 05:00 81 23 118/57 93 L 04/14/21 04:00 87 24 93 L 04/14/21 03:00 90 23 101/64 92 L 04/14/21 02:30 89 22 101/64 93 L 04/14/21 02:00 88 15 95 04/14/21 01:30 90 21 94 L 04/14/21 01:00 89 22 94 L 04/14/21 00:30 87 21 119/62 96 04/14/21 00:00 100.8 F H 89 24 95 04/13/21 23:30 88 23 97 04/13/21 23:00 88 22 96 04/13/21 22:30 89 17 97 04/13/21 22:00 86 21 133/65 97 04/13/21 21:30 84 28 H 128/68 98 04/13/21 21:25 84 04/13/21 21:11 99 04/13/21 21:07 85 04/13/21 21:00 81 24 126/71 100 04/13/21 20:30 82 20 96 04/13/21 20:00 81 15 126/71 98 04/13/21 19:30 80 24 98 04/13/21 19:00 80 26 H 98 04/13/21 18:30 80 21 99 04/13/21 18:15 80 23 98 04/13/21 18:00 80 24 98 04/13/21 17:45 80 24 98 04/13/21 17:30 80 16 98 04/13/21 17:15 80 14 98 04/13/21 17:00 80 12 97 04/13/21 16:50 86 04/13/21 16:45 80 12 100/68 100 04/13/21 16:37 80 04/13/21 16:30 80 12 100 04/13/21 16:15 80 12 100 Intake and Output 04/13/21 04/14/21 04/14/21 22:59 06:59 14:59 Intake Total 558.863 561.834 7876.055 Output Total 6198 544 130 Balance -5639.137 029.015 9085.055 Intake: IV 494 972 346 ACETAMINOPHEN IV (For NPO 100 ) 1,000 mg In Empty Bag 1 bag @ 400 mls/hr IVPB Q6HR [facility] Rx#:[id number] Albumin Human 5% 250 ml 250 In Empty Bag 1 bag @ 250 mls/hr IVPB Q1HR PRN Rx#: [id number] Cardiac Index 140 80 10 Pressure bags 54 72 36 Sodium Chloride 0.9% 1, 300 370 200 000 ml @ 50 mls/hr IV . Q20H [facility] Rx#:[id number] ceFAZolin 3 gm In Sodium 100 100 Chloride 0.9% 100 ml @ 100 mls/hr IVPB Q8HR [facility] Rx#:[id number] Intake, IV Titration 64.863 27.724 25.055 Amount Insulin Regular 100 unit 15.049 27.724 2.155 In Sodium Chloride 0.9% 100 ml @ Per Protocol IV .Q0M [facility] Rx#:[id number] Nitroglycerin-D5w Pmx 50 22.9 mg In Dextrose/Water 1 250ml.bag @ 5 MCG/MIN 1.5 mls/hr IV .Q24H [facility] Rx#: [id number] propofoL 1,000 mg In 49.814 Empty Bag 1 bag @ Titrate IV .Q0M [facility] Rx#: [id number] Oral 840 Output: Chest Tube Drainage 408 124 30 Chest Tube Left 58 24 10 Chest Tube Mediastinal 350 100 20 Drainage 65 5 Left Calf 65 5 Urine 1225 415 100 Estimated Blood Loss 4500 Other: Voiding Method Indwelling Catheter Indwelling Catheter Indwelling Catheter Weight 127.4 kg ABP, PAP, CO, CI - Last 8 Hours Arterial Blood Pressure 130/48 Arterial Blood Pressure 143/58 Arterial Blood Pressure 110/53 Arterial Blood Pressure 101/52 Arterial Blood Pressure 107/56 Arterial Blood Pressure 146/54 Arterial Blood Pressure 119/52 Pulmonary Artery Pressure 27/12 Pulmonary Artery Pressure 31/19 Pulmonary Artery Pressure 34/24 Pulmonary Artery Pressure 24/12 Pulmonary Artery Pressure 34/19 Pulmonary Artery Pressure 27/13 Pulmonary Artery Pressure 28/14 Cardiac Output 5.6 Cardiac Output 5.6 Cardiac Output 7.5 Cardiac Output 7.5 Cardiac Output 6.5 Cardiac Index 2.2 Cardiac Index 2.2 Cardiac Index 2.9 Cardiac Index 2.9 Cardiac Index 2.5 Results 04/14/21 04:10 04/14/21 04:10 Cardiac Enzymes 04/13/21 04/14/21 Range/Units 16:00 04:10 AST 46 43 (17-59) U/L Coagulation 04/13/21 Range/Units 16:00 PT 12.3 H (9.0-12.0) sec APTT 31.7 H (22.0-30.0) sec CBC 04/13/21 04/13/21 04/13/21 Range/Units 16:00 18:52 22:10 WBC 13.6 H 15.9 H 14.3 H (3.8-10.6) k/uL RBC 3.40 L 3.60 L 3.45 L (4.30-5.90) m/uL Hgb 10.9 L D 10.9 L 10.3 L (13.0-17.5) gm/dL Hct 31.5 L 33.3 L 31.5 L (39.0-53.0) % Plt Count 122 L 165 158 (150-450) k/uL 04/14/21 Range/Units 04:10 WBC 12.1 H (3.8-10.6) k/uL RBC 3.18 L (4.30-5.90) m/uL Hgb 10.1 L (13.0-17.5) gm/dL Hct 29.2 L (39.0-53.0) % Plt Count 150 (150-450) k/uL Comprehensive Metabolic Panel 04/13/21 04/14/21 Range/Units 16:00 04:10 Sodium 140 136 L (137-145) mmol/L Potassium 4.4 3.9 (3.5-5.1) mmol/L Chloride 109 H 108 H (98-107) mmol/L Carbon Dioxide 26 25 (22-30) mmol/L BUN 10 13 (9-20) mg/dL Creatinine 0.44 L 0.51 L (0.66-1.25) mg/dL Glucose 126 H 111 H (74-99) mg/dL Calcium 7.5 L 7.6 L (8.4-10.2) mg/dL AST 46 43 (17-59) U/L ALT 17 17 (4-49) U/L Alkaline Phosphatase 36 L 41 (38-126) U/L Total Protein 3.8 L 4.3 L (6.3-8.2) g/dL Albumin 2.0 L 2.3 L (3.5-5.0) g/dL Current Medications Generic Name Dose Route Start Last Admin Trade Name Freq PRN Reason Stop Dose Admin Hydrocodone Bitart/Acetaminophen 2 each 04/14/21 03:42 04/14/21 08:18 Hydrocodone/Apap 5-325mg 1 Each Tab PO 2 each Q4HR PRN Administration Severe Pain Hydrocodone Bitart/Acetaminophen 1 each 04/14/21 03:42 Hydrocodone/Apap 5-325mg 1 Each Tab PO Q4HR PRN Moderate Pain Albuterol/Ipratropium 3 ml 04/13/21 15:51 Ipratropium-Albuterol 3 Ml Neb INHALATION RT-Q2H PRN Shortness Of Breath Or Wheezing Albuterol/Ipratropium 3 ml 04/14/21 08:00 04/14/21 08:08 Ipratropium-Albuterol 3 Ml Neb INHALATION 3 ml RT-QID SUE Administration Aspirin 325 mg 04/14/21 09:00 04/14/21 08:17 Aspirin 325 Mg Tab PO 325 mg DAILY SUE Administration Atorvastatin Calcium 40 mg 04/14/21 09:00 04/14/21 08:17 Atorvastatin 40 Mg Tab PO 40 mg DAILY SUE Administration Benzocaine/Menthol 1 each 04/13/21 15:51 Benzocaine/Menthol Lozeng 1 Each Lozenge MUCOUS MEM Q2H PRN Sore Throat Bisacodyl 10 mg 04/14/21 09:00 Bisacodyl 10 Mg Supp RECTAL DAILY PRN Constipation Clopidogrel Bisulfate 75 mg 04/14/21 09:00 04/14/21 08:17 Clopidogrel 75 Mg Tab PO 75 mg DAILY SUE Administration Duloxetine HCl 60 mg 04/14/21 09:00 04/14/21 08:19 Duloxetine Hcl 60 Mg Capsule.Dr PO 60 mg DAILY SUE Administration Finasteride 5 mg 04/14/21 09:00 Finasteride 5 Mg Tab PO DAILY SUE Heparin Sodium (Porcine) 5,000 unit 04/13/21 17:00 04/14/21 08:17 Heparin Sodium,Porcine/Pf 5,000 Unit/0.5 Ml Syringe SQ 5,000 unit Q8HR SUE Administration Amiodarone HCl 150 mg/ 103 mls @ 618 mls/hr 04/13/21 15:51 Dextrose/Water IV .Q10M PRN A.FIB/FLUTTER Protocol Amiodarone HCl 360 mg/ 207.2 mls @ 34.533 mls/hr 04/13/21 15:51 Dextrose/Water IV .Q6H PRN A.FIB/FLUTTER Protocol 1 MG/MIN Amiodarone HCl 450 mg/ 250 mls @ 16.667 mls/hr 04/13/21 15:51 Dextrose/Water IV .Q15H PRN A.FIB/FLUTTER Protocol 0.5 MG/MIN Albumin Human 250 ml/ IV 250 mls @ 250 mls/hr 04/13/21 15:51 04/13/21 21:21 Solution IVPB 04/15/21 15:52 250 mls/hr Q1HR PRN Administration For Volume Calcium Gluconate 2 gm/ Sodium 120 mls @ 100 mls/hr 04/13/21 15:51 Chloride IVPB 04/14/21 23:00 ONCE PRN Ionized Calcium less than 4.4 Sodium Chloride 1,000 mls @ 20 mls/hr 04/13/21 15:51 04/13/21 16:39 Saline 0.9% IV 50 mls/hr .Q24H SUE Administration Insulin Human Regular 100 unit 101 mls @ 0 mls/hr 04/13/21 16:45 04/14/21 07:08 / Sodium Chloride IV 2.5 units/hr .Q0M SUE 2.525 mls/hr Titration Protocol Per Protocol Calcium Gluconate 1 gm/ Sodium 110 mls @ 100 mls/hr 04/14/21 10:30 Chloride IVPB 04/14/21 11:35 ONCE ONE Ketorolac Tromethamine 15 mg 04/14/21 07:00 04/14/21 08:18 Ketorolac 15 Mg/Ml 1 Ml Vial IVP 04/19/21 07:01 15 mg Q6H SUE Administration Magnesium Hydroxide 2,400 mg 04/14/21 09:00 Magnesium Hydroxide 2,400 Mg/10 Ml Cup PO BID PRN Constipation Metoclopramide HCl 10 mg 04/13/21 15:51 Metoclopramide 5 Mg/Ml 2 Ml Vial IVP Q4H PRN Nausea And Vomiting Metoprolol Tartrate 25 mg 04/14/21 21:00 Metoprolol Tartrate 25 Mg Tab PO BID SUE Miscellaneous Information 1 each 04/13/21 15:51 Potassium Replacement Protocol 1 Each Misc MISCELLANE DAILY PRN Per Protocol Protocol Miscellaneous Information 1 each 04/13/21 15:51 Magnesium Replacement Protocol 1 Each Misc MISCELLANE DAILY PRN Per Protocol Protocol Miscellaneous Information 1 each 04/13/21 15:51 Phosphorus Replacement Protoco 1 Each Misc MISCELLANE DAILY PRN Per Protocol Protocol Ondansetron HCl 4 mg 04/13/21 15:51 Ondansetron 4 Mg/2 Ml Vial IVP Q6HR PRN Nausea And Vomiting Pantoprazole Sodium 40 mg 04/15/21 07:30 Pantoprazole 40 Mg Tablet PO AC-BRKFST SUE Senna/Docusate Sodium 2 each 04/14/21 21:00 Sennosides-Docusate Sodium 1 Each Tab PO HS SUE Sodium Chloride 10 ml 04/13/21 21:00 04/13/21 21:28 Sodium Chloride 0.9% Flush 10 Ml Syringe IV 10 ml BID SUE Administration Intake and Output 04/13/21 04/14/21 04/14/21 22:59 06:59 14:59 Intake Total 558.863 561.460 6455.055 Output Total 6198 544 130 Balance -5639.137 809.562 5496.055 Intake: IV 494 972 346 ACETAMINOPHEN IV (For NPO 100 ) 1,000 mg In Empty Bag 1 bag @ 400 mls/hr IVPB Q6HR SUE Rx#:[id number] Albumin Human 5% 250 ml 250 In Empty Bag 1 bag @ 250 mls/hr IVPB Q1HR PRN Rx#: [id number] Cardiac Index 140 80 10 Pressure bags 54 72 36 Sodium Chloride 0.9% 1, 300 370 200 000 ml @ 50 mls/hr IV . Q20H [facility] Rx#:[id number] ceFAZolin 3 gm In Sodium 100 100 Chloride 0.9% 100 ml @ 100 mls/hr IVPB Q8HR SUE Rx#:[id number] Intake, IV Titration 64.863 27.724 25.055 Amount Insulin Regular 100 unit 15.049 27.724 2.155 In Sodium Chloride 0.9% 100 ml @ Per Protocol IV .Q0M [facility] Rx#:[id number] Nitroglycerin-D5w Pmx 50 22.9 mg In Dextrose/Water 1 250ml.bag @ 5 MCG/MIN 1.5 mls/hr IV .Q24H [facility] Rx#: [id number] propofoL 1,000 mg In 49.814 Empty Bag 1 bag @ Titrate IV .Q0M [facility] Rx#: [id number] Oral 840 Output: Chest Tube Drainage 408 124 30 Chest Tube Left 58 24 10 Chest Tube Mediastinal 350 100 20 Drainage 65 5 Left Calf 65 5 Urine 1225 415 100 Estimated Blood Loss 4500 Other: Voiding Method Indwelling Catheter Indwelling Catheter Indwelling Catheter Weight 127.4 kg Patient Weight 04/15/21 06:59 Weight 127.4 kg 04/14/21 04:10 04/14/21 04:10
[2021-04-14 12:58] LABS: Glucose,Whole Blood 105 mg/dL (75-99)
[2021-04-14 15:03] LABS: Glucose,Whole Blood 123 mg/dL (75-99)
[2021-04-14 16:59] LABS: Glucose,Whole Blood 111 mg/dL (75-99)
--- NOTE | 2021-04-14 17:28 | PN ---
PROGRESS NOTE DATE OF SERVICE: 04/14/2021 This 66-year-old gentleman who was admitted after CAD, CABG is improving significantly. Patient extubated. The blood sugars are running between 131 and 123. No chest pain. No palpitations. No fever. PHYSICAL EXAMINATION: Alert and oriented x3. Pulse is 76, blood pressure 96/54, respiration 20, temperature 98.1, pulse ox 94% on 5 L nasal cannula. HEENT: Conjunctivae normal. Oral mucosa moist. NECK: No jugular venous distention. No lymph node enlargement. CARDIOVASCULAR: S1, S2, muffled. No S3, no S4, RESPIRATORY: Diminished breath sounds at the bases. A few scattered rhonchi. ABDOMEN: Soft. NERVOUS SYSTEM: No focal deficits. LABS: Accu-Cheks noted. Other labs are WBC 12.2, hemoglobin 10.1, sodium 136. ASSESSMENT: 1. Coronary artery disease, status post CABG. 2. History of diabetes mellitus type 2. 3. Gastroesophageal reflux disease. 4. Hypertension. 5. Hyperlipidemia. 6. History of degenerative joint disease. 7. History of sleep apnea. 8. History of Qwvbeua-Vbqnm-Fhejk syndrome. 9. 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 10.Anxiety, depression. 11.History of nicotine dependence. 12.Obesity with body mass index of 34.2. 13.History of THC. 14.FULL CODE. RECOMMENDATIONS AND DISCUSSION: I recommend to continue current management and symptomatic treatment. Otherwise, monitor blood sugars closely. The patient will be started on the p.o. medications and home medication for diabetes mellitus once the patient is p.o. in addition to the sliding scale also. Further recommendations to follow. MMODL / IJN: [id number] /
[2021-04-14 18:40] LABS: Glucose,Whole Blood 166 mg/dL (75-99)
[2021-04-14] MEDS: SENNOSIDES-DOCUSATE SODIUM 1 EACH TAB PO SCH (20:04)
[2021-04-14] MEDS: METOPROLOL TARTRATE 25 MG TAB PO SCH (20:05)
[2021-04-14 20:10] LABS: Glucose,Whole Blood 200 mg/dL (75-99)
[2021-04-14 21:52] LABS: Glucose,Whole Blood 161 mg/dL (75-99)
[2021-04-14 23:59] LABS: Glucose,Whole Blood 145 mg/dL (75-99)
[2021-04-15] MEDS: KETOROLAC 15 MG/ML 1 ML VIAL IVP SCH ×4 (01:00→19:10)
[2021-04-15] MEDS ORDERED: ACETAMINOPHEN TAB 325 MG TAB PO PRN (01:45)
[2021-04-15 01:56] LABS: Glucose,Whole Blood 117 mg/dL (75-99)
[2021-04-15] MEDS: INSULIN REGULAR 100 UNIT in SODIUM CHLORIDE 0.9% 100 ML IV SCH (03:30)
[2021-04-15 03:42] LABS: Glucose,Whole Blood 104 mg/dL (75-99)
[2021-04-15 05:11] LABS: Glucose,Whole Blood 131 mg/dL (75-99)
[2021-04-15] MEDS: HYDROcodone/APAP 5-325MG 1 EACH TAB PO PRN (05:20)
[2021-04-15 05:59] LABS: Ionized Calcium 4.8 mg/dL (4.5-5.3)
[2021-04-15 06:06] LABS: ALT 15 U/L (4-49); AST 35 U/L (17-59); African American GFR (CKD) >90 (>60 ml/min/1.73 sqM); Albumin 2.2 g/dL (3.5-5.0); Alkaline Phosphatase 47 U/L (38-126); Anion Gap 3 mmol/L; Blood Urea Nitrogen 24 mg/dL (9-20); Calcium 7.8 mg/dL (8.4-10.2); Carbon Dioxide 26 mmol/L (22-30); Chloride 107 mmol/L (98-107); Glucose 116 mg/dL (74-99); Non-African American GFR(CKD) >90 (>60 ml/min/1.73 sqM); Potassium 4.3 mmol/L (3.5-5.1); Sodium 136 mmol/L (137-145); Total Bilirubin 0.4 mg/dL (0.2-1.3); Total Protein 4.2 g/dL (6.3-8.2)
--- NOTE | 2021-04-15 06:40 | P.PN ---
Subjective Progress Note Date: 04/15/21 Principal diagnosis: Status post bypass grafting. CAD, status post coronary artery bypass grafting 5 66-year-old male, status post five-vessel bypass grafting. The patient's p rocedure was done by Dr. Alberto. The patient has just arrived back to the intensive care unit. The patient's on the ventilator. Ventilator settings include the volume assist control mode, rate of 12, tidal volume 550, FiO2 100%, and 10. Blood gases are pending. The patient has an endotracheal tube in place, a Acosta catheter, [place] catheter, and orogastric tube in place, as well as mediastinal and pleural chest tubes. Chest x-ray has yet to be done. The patient is quite large and very obese. He apparently has history of hypertension, diabetes, coronary artery disease, gastroesophageal reflux disease, hyperlipidemia, and Xocuvxc-Nvyyp-Lktqs disease. I do not see an H&P consultation in the medical record as yet. The operative report is not yet back on the medical record. Arterial blood gases as mentioned, are pending. The patient is seen today 04/14/2021 in follow-up in the intensive care unit. This is postoperative day #1. He had undergone coronary artery bypass grafting 5 utilizing a SCOTT to the diagonal and LAD, saphenous vein grafts to the OM1, OM 2 and RCA. He was extubated at 4 hours and 40 minutes. Presently he is sitting up in bed. Awake and alert in no acute distress. Pale. He is maintaining O2 saturations in the 90s on 5 L high flow nasal cannula. Chest x- ray showing some evidence of pulmonary vascular congestion. Mediastinal and left pleural chest tubes are in place. He is pulling approximate 750 ML's on the incentive spirometer. Left calf DESIRE drainage sanguinous. He has a right sided [place] catheter in place. PA pressure 34/24 with a PA mean of 27. Cardiac output 7.5. Cardiac index 2.9. His 0.9 normal saline at 20 ML's per hour. Insulin drip at 2.5 units per hour. White count 12.1. Hemoglobin 10.1. Platelets 150,000. Sodium 136. Potassium 3.9. Creatinine 0.51. AST 43. ALT 17. He did receive albumin last evening. On cefazolin. Heparin for DVT prophylaxis. Protonix for GI prophylaxis. Progress note dated 04/15/2021. Currently, the patient seemed be doing relatively well. He is again seen in room 267. He is on 3 L nasal cannula. He has no respiratory issues. He is getting saline at 30 mL an hour. He is also on insulin drip at 2 units per hour. Sodium 136, potassium 4.3, chlorides 107, CO2 26, anion gap 3, BUN 24, and creatinine 0.78. Chest x-ray show some postoperative changes. There is some atelectasis particularly at the left base. In addition to CAD, the patient has a history of hypertension, diabetes, gastroesophageal reflux disease, hyperlipidemia, and Xdxztif-Dgtme-Ogvlq disease. Objective - Vital Signs Vital signs: Vital Signs Temp 97.6 F 04/15/21 04:00 Pulse 75 04/15/21 06:00 Resp 20 04/15/21 06:00 BP 117/51 04/15/21 06:00 Pulse Ox 92 L 04/15/21 06:00 Intake & Output 04/14/21 04/14/21 04/15/21 06:59 18:59 06:59 Intake Total 3588.153 7086.231 666.401 Output Total 922 520 430 Balance 926.231 6829.231 236.401 Weight 127.4 kg 112.8 kg Intake: IV 1288 697 396 ACETAMINOPHEN IV (For NPO 100 ) 1,000 mg In Empty Bag 1 bag @ 400 mls/hr IVPB Q6HR SUE Rx#:[id number] Albumin Human 5% 250 ml 250 In Empty Bag 1 bag @ 250 mls/hr IVPB Q1HR PRN Rx#: [id number] Cardiac Index 160 10 Pressure bags 108 117 66 Sodium Chloride 0.9% 1, 570 470 330 000 ml @ 20 mls/hr IV . Q24H SUE Rx#:[id number] ceFAZolin 3 gm In Sodium 100 100 Chloride 0.9% 100 ml @ 100 mls/hr IVPB Q8HR SUE Rx#:[id number] Intake, IV Titration 37.235 151.231 30.401 Amount Calcium Gluconate 1 gm In 100 Sodium Chloride 0.9% 100 ml @ 100 mls/hr IVPB ONCE ONE Rx#:[id number] Insulin Regular 100 unit 37.235 28.331 30.401 In Sodium Chloride 0.9% 100 ml @ Per Protocol IV .Q0M SUE Rx#:[id number] Nitroglycerin-D5w Pmx 50 22.9 mg In Dextrose/Water 1 250ml.bag @ 5 MCG/MIN 1.5 mls/hr IV .Q24H SUE Rx#: [id number] Oral 1320 240 Output: Chest Tube Drainage 257 130 120 Chest Tube Left 37 60 60 Chest Tube Mediastinal 220 70 60 Drainage 20 20 20 Left Calf 20 20 20 Urine 645 370 290 Other: Voiding Method Indwelling Catheter Indwelling Catheter Indwelling Catheter ABP, PAP, CO, CI - Last Documented Arterial Blood Pressure 144/57 Pulmonary Artery Pressure 27/12 Cardiac Output 5.6 Cardiac Index 2.2 - Exam No acute distress, oriented 3. Currently on 3 L nasal cannula. No evidence of any respiratory distress, use of accessory muscles, or conversational dyspnea. HEENT examination is grossly unremarkable. Neck supple. Full range of motion. No adenopathy thyromegaly or neck vein distention. Cardiovascular examination reveals regular rhythm rate. S1-S2 normal. No S3 or S4. No discernible murmur noted. Heart sounds are distant. Heart rate 75 bpm. Lungs reveal scattered bilateral rhonchi. No wheezes or crackles. Breath sounds equal bilaterally. Abdomen soft bowel sounds are heard. No masses or tenderness. Extremities are intact. No cyanosis clubbing or edema. Skin is without rash or lesion. Neurologic examination is brief but nonfocal. - Labs CBC & Chem 7: 04/14/21 04:10 04/15/21 05:12 Labs: Abnormal Lab Results - Last 24 Hours (Table) 04/14/21 04/14/21 04/14/21 Range/Units 07:02 08:35 10:11 Sodium (137-145) mmol/L BUN (9-20) mg/dL Glucose (74-99) mg/dL POC Glucose (mg/dL) 131 H 127 H 122 H (75-99) mg/dL Calcium (8.4-10.2) mg/dL Total Protein (6.3-8.2) g/dL Albumin (3.5-5.0) g/dL 04/14/21 04/14/21 04/14/21 Range/Units 12:56 15:01 16:57 Sodium (137-145) mmol/L BUN (9-20) mg/dL Glucose (74-99) mg/dL POC Glucose (mg/dL) 105 H 123 H 111 H (75-99) mg/dL Calcium (8.4-10.2) mg/dL Total Protein (6.3-8.2) g/dL Albumin (3.5-5.0) g/dL 04/14/21 04/14/21 04/14/21 Range/Units 18:39 20:09 21:51 Sodium (137-145) mmol/L BUN (9-20) mg/dL Glucose (74-99) mg/dL POC Glucose (mg/dL) 166 H 200 H 161 H (75-99) mg/dL Calcium (8.4-10.2) mg/dL Total Protein (6.3-8.2) g/dL Albumin (3.5-5.0) g/dL 04/14/21 04/15/21 04/15/21 Range/Units 23:58 01:54 03:40 Sodium (137-145) mmol/L BUN (9-20) mg/dL Glucose (74-99) mg/dL POC Glucose (mg/dL) 145 H 117 H 104 H (75-99) mg/dL Calcium (8.4-10.2) mg/dL Total Protein (6.3-8.2) g/dL Albumin (3.5-5.0) g/dL 04/15/21 04/15/21 Range/Units 05:10 05:12 Sodium 136 L (137-145) mmol/L BUN 24 H (9-20) mg/dL Glucose 116 H (74-99) mg/dL POC Glucose (mg/dL) 131 H (75-99) mg/dL Calcium 7.8 L (8.4-10.2) mg/dL Total Protein 4.2 L (6.3-8.2) g/dL Albumin 2.2 L (3.5-5.0) g/dL Assessment and Plan Assessment: Postop day #2, status post 5 vessel bypass grafting. Routine postoperative ventilator management, with extubation and 4 hours and 40 minutes, on 04/13/2021. History of diabetes mellitus. History of hypertension. Obstructive sleep apnea syndrome, currently on CPAP. History of gastroesophageal reflux disease. History of Hrgodzs-Hsxix-Cmqxo disease. History of hyperlipidemia. Morbid obesity. Plan: Plan dated 04/13/2021. The patient be placed on bronchodilators. We will attempt to wean the patient tonight. I did speak to the surgeon. Additional recommendations and suggestions are forthcoming. Arterial blood gases and chest x-ray currently pe nding. We'll adjust ventilator based on the blood gases. We will continue to follow the patient and make recommendations where appropriate. Plan dated 04/15/2021. Currently, the patient's doing well. The patient is on 3 L nasal cannula. The patient's getting saline at 30 mL an hour. In addition, the patient remains on an insulin drip at 2 units an hour. We encourage deep breathing, coughing, clearing of secretions. We also recommend the patient use incentive spirometer every hour while awake. We will continue to follow make recommendations were appropriate. Prognosis is thought to be generally good. Time with Patient: Less than 30
[2021-04-15 06:41] LABS: HCT 23.6 % (39.0-53.0); HGB 7.4 gm/dL (13.0-17.5); MCH 29.4 pg (25.0-35.0); MCHC 31.5 g/dL (31.0-37.0); MCV 93.4 fL (80.0-100.0); Mean Platelet Volume 8.5; Platelet Count 123 k/uL (150-450); RBC 2.52 m/uL (4.30-5.90); RDW 13.9 % (11.5-15.5)
[2021-04-15] MEDS: PANTOPRAZOLE 40 MG TABLET PO SCH (07:06)
[2021-04-15 07:12] LABS: Glucose,Whole Blood 118 mg/dL (75-99)
[2021-04-15 08:03] LABS: Glucose,Whole Blood 243 mg/dL (75-99)
--- NOTE | 2021-04-15 08:18 | OP ---
OPERATIVE REPORT DATE OF SURGERY: 04/13/2021. SURGEON: Dr. Homar Alberto. 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 PROCEDURE: 1. Quintuple coronary artery bypass grafting using the left internal mammary artery in a sequential fashion to the diagonal artery, then to the left anterior descending artery, reverse saphenous vein graft from the aorta in a sequential fashion to the first obtuse marginal artery, then to the second obtuse marginal artery, reverse saphenous vein graft from the aorta to the right coronary artery. 2. Exclusion of left atrial appendage using a 35 mm AtriClip. 3. Endoscopic harvesting the left greater saphenous vein. 4. Intraoperative transesophageal echocardiogram and epiaortic scanning. 5. Intraoperative graft flow measurements using the link bird-Stim system. INDICATION FOR SURGERY: The patient is a 66-year-old gentleman with the above comorbidities who was seen in the hospital after a routine cardiac catheterization, in view of positive stress test, that showed triple-vessel disease. He is brought in today for elective coronary artery bypass grafting. The STS risk was discussed with him and his family. They understood it and agreed to proceed. Patient has large vessel and for that reason, a radial artery would not be used fearing a competitive flow situation. DESCRIPTION OF THE PROCEDURE: The patient had a right internal jugular [place] catheter and right radial arterial line placed in the preoperative holding area. He had normal PA pressure and good cardiac index. Subsequently he was brought to the operating room where general endotracheal anesthesia was induced uneventfully. Acosta catheter was inserted. The chest, abdomen and both lower extremities were prepped and draped using ChloraPrep. Ioban was used to cover the skin. Patient received 2 g of cefazolin intravenously. Transesophageal echocardiogram confirmed the preoperative finding of mild aortic valve regurgitation and preserved systolic function. Midline sternotomy was performed and Ostene was used. The left hemisternum was elevated and left internal mammary artery was harvested in a somewhat skeletonized fashion. The left pleura was intentionally opened in this process and was drained with a 19-[place] John drain. The right pleura remained grossly intact. In the same setting, the left greater saphenous vein was harvested endoscopically from groin to above ankle level after administration of 2500 units of heparin. The vein appeared to be of reasonable quality with 2 good segments. The leg incisions were closed over a drain, which was profusely bleeding. That blood had been sent to the Cell Saver as soon as the bulb filled up throughout the case and a total of around 1.2 L were recovered from the leg. The very thick mediastinal fat was transected between several silk ties. Epiaortic scanning revealed no protruding atheroma in the ascending aorta. Pericardium was opened in an inverted T-fashion and a pericardial cradle was created. Findings included a short soft aorta and good size heart. However, there was obviously visible and palpable calcific coronary artery disease. The mid to distal left anterior descending artery was severely calcified and diseased as predicted from his cardiac catheterization. Cardiopulmonary bypass was initiated and with the heart empty and beating we looked at the target. The mid LAD before the distal disease segment was selected for bypass. The 1st, the 2nd obtuse marginal artery and the right coronary artery would be the other site for bypass. Looking at the diagonal artery it also appeared to be suitable for bypass. Aorta was clamped and during aortic clamping myocardial protection was achieved with initial dose of 1 L of antegrade cold blood cardioplegia followed by 300 cc of retrograde cold blood cardioplegia. All subsequent doses were given retrograde at 15 minute intervals. We started by excluding the left atrial appendage by deploying a 35 mm AtriClip deployed at its base. The 1st distal anastomosis was between a good segment of vein and the 2nd obtuse marginal artery which was around 1.75 mm in diameter had diffuse disease, however, in a soft spot using Prolene 7-0 in continuous fashion. That same vein graft was anastomosed in a liaj-zx-hjix Sequential Parallel fashion to the 1st obtuse marginal artery which was also around 1.75 mm in diameter diffusely diseased using Prolene 7-0 in a continuous fashion. The 3rd distal anastomosis was between a segment of vein of reasonable quality and the main right coronary artery before its bifurcation in a soft spot between 2 diseased segments. That artery was around 2 mm in diameter and the anastomosis was completed using Prolene 7-0 in a continuous fashion. The 4th distal anastomosis was between the in situ left internal mammary artery that had been clipped and transected distally and had an excellent flow in it and the diagonal artery in a lyhe-ia-gxqq parallel fashion using Prolene 7-0 in continuous fashion. The distal end of the mammary artery was anastomosed in an end-to-side fashion to the mid aspect of the LAD before the diseased distal segment where it was around 1.7 mm in diameter with a posterior plaque using Prolene 7-0 in continuous fashion. Satisfied with the distal anastomosis, rewarming was started as we punched out 2 buttons of the ascending aorta and performed the 2 proximal anastomosis of the 2 vein grafts using Prolene 6-0 in a continuous fashion. Patient was given lidocaine and magnesium and de-airing maneuvers were done. He was given around 1 L of warm blood via the retrograde route before unclamping the aorta. The patient regained spontaneous sinus rhythm on his own. Preliminary graft flow measurements revealed excellent signal. After a period of reperfusion, we were able to wean off cardiac bypass without the need of any inotropic or vasopressor support. At this point, we selected a 4 mm probe and proceeded at a formal graft flow measurement. The flow into the vein to the RCA was 88 mL/minute, pulsatility index of 1.1, diastolic filling of 60% showing excellent functioning graft. The flow into the vein graft going to the 1st and the 2nd obtuse marginal artery in a sequential fashion was 94 mL/minute, pulsatility index of 1.6, diastolic filling of 70%, showing excellent functioning graft. The flow into the mammary artery that is going to the diagonal artery and the left anterior descending artery was 81 mL/minute, pulsatility index of 1.5, diastolic filling of 72% showing excellent functioning graft. With that, all pump suckers were stopped. Test dose and full dose protamine was given. Decannulation followed. Two monopolar atrial pacing wires were affixed to the respective pursestring on the right atrium and one ventricular pacing wires, bipolar, was driven via the inferior aspect of the right ventricle. Two 19-[place] John drains were left substernally. A groove was made in the left pleuropericardial fat to accommodate the mammary artery medial to the lung and away from the posterior sternal table. Pericardial fat was approximated over the heart and the aorta and the graft. After ensuring adequate hemostasis and hemodynamics and after correct sponge, instrument, and needle count, the sternum was closed using 5 joitag-bg-zfihp [place] cable. The bone was of good quality and we had a wide sternum precluding the need in my mind for sternal plating in this large BSA gentleman. The rest of the incision was closed in layers. Skin glue was applied. Patient did not receive any blood bank product but received 1.5 L of Cell Saver and as mentioned above, mainly from the drain in the lower extremity. After wrapping the leg and with reversal of the anticoagulation, the drain output was dramatically improved. The patient was transferred to the ICU in stable condition on low-dose nitroglycerin with excellent hemodynamics and normal EKG. GREGORIA / GENEVIEVE: [id number] / MTDD
[2021-04-15] MEDS ORDERED: INSULN ASP PRT/INSULIN ASPART 100 UNIT/ML 10 ML VIAL SQ SCH (08:30)
[2021-04-15] MEDS: DULoxetine HCL 60 MG CAPSULE.DR PO SCH (08:39)
[2021-04-15] MEDS: ATORVASTATIN 40 MG TAB PO SCH (08:39)
[2021-04-15] MEDS: FINASTERIDE 5 MG TAB PO SCH (08:39)
[2021-04-15] MEDS: ASPIRIN 325 MG TAB PO SCH (08:39)
[2021-04-15] MEDS: CLOPIDOGREL 75 MG TAB PO SCH (08:39)
[2021-04-15] MEDS: HEPARIN SODIUM,PORCINE/PF 5,000 UNIT/0.5 ML SYRINGE SQ SCH ×3 (08:39→23:37)
[2021-04-15] MEDS: METOPROLOL TARTRATE 25 MG TAB PO SCH ×2 (08:39→20:25)
[2021-04-15] MEDS: INSULIN ASPART (NovoLOG) 100 UNIT/ML VIAL SQ SCH ×4 (08:44→20:25)
--- NOTE | 2021-04-15 09:01 | XR ---
EXAMINATION TYPE: XR chest 1V portable DATE OF EXAM: 04/15/2021 COMPARISON: 04/14/2021 HISTORY: Postop cardiac surgery TECHNIQUE: Single frontal view of the chest is obtained. FINDINGS: Postsurgical changes. Left-sided chest tube noted there is bilateral infiltrate and small effusion. No sizable pneumothorax. Heart size stable. [place] catheter has been removed. IMPRESSION: Bilateral infiltrate stable.
[2021-04-15] MEDS ORDERED: FUROSEMIDE 10 MG/ML 2 ML VIAL IV STA (09:03)
[2021-04-15] MEDS: IPRATROPIUM-ALBUTEROL 3 ML NEB INHALATION SCH ×4 (09:06→20:47)
[2021-04-15] MEDS: oxyCODONE-APAP 10-325MG 1 EACH TAB PO PRN ×4 (10:17→23:37)
--- NOTE | 2021-04-15 11:26 | P.PN ---
Subjective Progress Note Date: 04/15/21 Principal diagnosis: Symptomatic multivessel coronary artery disease. Previous medical history of hypertension, hyperlipidemia, type 2 diabetes mellitus, obstructive sleep apnea with home CPAP use, Tyyxkhs-Pdeqx-vvidy disorder, previous tobacco dependence, occasional marijuana use and family history of premature coronary artery disease with his father having a myocardial infarction in his early 60s and an uncle having myocardial infarction in his early 50s. POD #2 coronary artery bypass grafting surgery 5 vessels with his left internal mammary artery with a sequential graft to his diagonal coronary artery and to his left anterior descending coronary artery, a reverse greater saphenous vein graft off the aorta with a sequential graft to his obtuse marginal #1 coronary artery and to his obtuse marginal #2 coronary artery, and a reverse greater saphenous vein graft off the aorta to his right coronary artery. Exclusion of his left atrial appendage with a 35 mm Atriclip, endoscopic harvesting of his left greater saphenous vein, intraoperative transesophageal echocardiogram and epi-aortic scanning. Intraoperative graft flow measurements using the [employer] display [employer]stim system. Postoperative acute blood loss anemia, expected due to cardiopulmonary bypass and hemodilution. The patient's currently sitting up in a recliner in the intensive care unit in no acute distress. He states pain is controlled on current medication regimen, denies shortness of breath. He has been ambulatory with his leg braces on, however he does require much assistance. Epicardial pacemaker wires and mediastinal/left pleural chest tubes all discontinued, Acosta catheter to be discontinued soon. Remains in normal sinus rhythm and hemodynamically stable on no inotropes or pressors. He is oxygenating well on 3 L nasal cannula and is able to pull 1000 mL on his incentive spirometry. No other new concerns. Objective - Vital Signs Vital signs: Vital Signs Temp 98.5 F 04/15/21 08:00 Pulse 75 04/15/21 11:00 Resp 21 04/15/21 11:00 BP 120/61 04/15/21 11:00 Pulse Ox 96 04/15/21 11:00 Intake & Output 04/14/21 04/15/21 04/15/21 18:59 06:59 18:59 Intake Total 2168.231 666.401 360.347 Output Total 520 430 170 Balance 1648.231 236.401 190.347 Weight 127.4 kg 112.8 kg Intake: IV 697 396 114 Cardiac Index 10 Pressure bags 117 66 24 Sodium Chloride 0.9% 1, 470 330 90 000 ml @ 20 mls/hr IV . Q24H [facility] Rx#:[id number] ceFAZolin 3 gm In Sodium 100 Chloride 0.9% 100 ml @ 100 mls/hr IVPB Q8HR [facility] Rx#:[id number] Intake, IV Titration 151.231 30.401 6.347 Amount Calcium Gluconate 1 gm In 100 Sodium Chloride 0.9% 100 ml @ 100 mls/hr IVPB ONCE ONE Rx#:[id number] Insulin Regular 100 unit 28.331 30.401 6.347 In Sodium Chloride 0.9% 100 ml @ Per Protocol IV .Q0M [facility] Rx#:[id number] Nitroglycerin-D5w Pmx 50 22.9 mg In Dextrose/Water 1 250ml.bag @ 5 MCG/MIN 1.5 mls/hr IV .Q24H [facility] Rx#: [id number] Oral 1320 240 240 Output: Chest Tube Drainage 130 120 0 Chest Tube Left 60 60 0 Chest Tube Mediastinal 70 60 0 Drainage 20 20 Left Calf 20 20 Urine 370 290 170 Other: Voiding Method Indwelling Catheter Indwelling Catheter Indwelling Catheter ABP, PAP, CO, CI - Last Documented Arterial Blood Pressure 120/42 Pulmonary Artery Pressure 27/12 Cardiac Output 5.6 Cardiac Index 2.2 - Exam CONSTITUTIONAL: Appears comfortable, cooperative, no acute distress RESPIRATORY: Lungs sounds diminished bilaterally. Respirations even, nonlabored. Currently on 3 L nasal cannula with oxygen saturation 93%. Able to achieve 1000 mL on incentive spirometry. Strong cough. CARDIOVASCULAR: S1, S2 present. Regular rate and rhythm, sinus rhythm on telemetry. Sternum stable. Palpable peripheral pulses bilaterally. No edema present. No calf pain or tenderness noted. Heart hugger in place with patient demonstrating appropriate use. Antiembolism stockings, SCDs present. GASTROINTESTINAL: Abdomen soft, nontender, nondistended. Active bowel sounds present 4 quadrants. Tolerating diet. Positive bowel movement. GENITOURINARY: Acosta present draining clear, yellow urine. Output overnight 1 5-40 mL per hour, currently diuresing well after IV Lasix INTEGUMENTARY: Skin is warm and dry with evidence of good perfusion. Anterior chest incision well approximated and covered with dry intact dressing. EVH site well approximated without redness or drainage. NEUROLOGIC: Cranial nerves II through XII intact MUSKULOSKELETAL: Able to move all extremities, strength equal bilaterally, gait normal PSYCHIATRIC: Alert and oriented to person place and time, appropriate affect, intact judgment and insight INVASIVE LINES AND TUBES: Right internal jugular Cordis, right radial arterial line present. - Allied health notes Allied health notes reviewed: nursing - Labs CBC & Chem 7: 04/15/21 05:12 04/15/21 05:12 Labs: Abnormal Lab Results - Last 24 Hours (Table) 04/14/21 04/14/21 04/14/21 Range/Units 12:56 15:01 16:57 WBC (3.8-10.6) k/uL RBC (4.30-5.90) m/uL Hgb (13.0-17.5) gm/dL Hct (39.0-53.0) % Plt Count (150-450) k/uL Sodium (137-145) mmol/L BUN (9-20) mg/dL Glucose (74-99) mg/dL POC Glucose (mg/dL) 105 H 123 H 111 H (75-99) mg/dL Calcium (8.4-10.2) mg/dL Total Protein (6.3-8.2) g/dL Albumin (3.5-5.0) g/dL 04/14/21 04/14/21 04/14/21 Range/Units 18:39 20:09 21:51 WBC (3.8-10.6) k/uL RBC (4.30-5.90) m/uL Hgb (13.0-17.5) gm/dL Hct (39.0-53.0) % Plt Count (150-450) k/uL Sodium (137-145) mmol/L BUN (9-20) mg/dL Glucose (74-99) mg/dL POC Glucose (mg/dL) 166 H 200 H 161 H (75-99) mg/dL Calcium (8.4-10.2) mg/dL Total Protein (6.3-8.2) g/dL Albumin (3.5-5.0) g/dL 04/14/21 04/15/21 04/15/21 Range/Units 23:58 01:54 03:40 WBC (3.8-10.6) k/uL RBC (4.30-5.90) m/uL Hgb (13.0-17.5) gm/dL Hct (39.0-53.0) % Plt Count (150-450) k/uL Sodium (137-145) mmol/L BUN (9-20) mg/dL Glucose (74-99) mg/dL POC Glucose (mg/dL) 145 H 117 H 104 H (75-99) mg/dL Calcium (8.4-10.2) mg/dL Total Protein (6.3-8.2) g/dL Albumin (3.5-5.0) g/dL 04/15/21 04/15/21 04/15/21 Range/Units 05:10 05:12 05:12 WBC 11.0 H (3.8-10.6) k/uL RBC 2.52 L (4.30-5.90) m/uL Hgb 7.4 L D (13.0-17.5) gm/dL Hct 23.6 L (39.0-53.0) % Plt Count 123 L (150-450) k/uL Sodium 136 L (137-145) mmol/L BUN 24 H (9-20) mg/dL Glucose 116 H (74-99) mg/dL POC Glucose (mg/dL) 131 H (75-99) mg/dL Calcium 7.8 L (8.4-10.2) mg/dL Total Protein 4.2 L (6.3-8.2) g/dL Albumin 2.2 L (3.5-5.0) g/dL 04/15/21 04/15/21 Range/Units 07:11 08:02 WBC (3.8-10.6) k/uL RBC (4.30-5.90) m/uL Hgb (13.0-17.5) gm/dL Hct (39.0-53.0) % Plt Count (150-450) k/uL Sodium (137-145) mmol/L BUN (9-20) mg/dL Glucose (74-99) mg/dL POC Glucose (mg/dL) 118 H 243 H (75-99) mg/dL Calcium (8.4-10.2) mg/dL Total Protein (6.3-8.2) g/dL Albumin (3.5-5.0) g/dL - Imaging and Cardiology Chest x-ray: report reviewed, image reviewed Assessment and Plan Assessment: 1. Symptomatic multivessel coronary artery disease, status post 5 vessel CABG 2. Hypertension 3. Hyperlipidemia 4. Type 2 diabetes mellitus, with a preoperative hemoglobin A1c of 8.1% 5. 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 Previous tobacco dependence 8. Occasional marijuana use 9. History of premature coronary artery disease 10. Obesity with a BMI of 32.2 kg/m 11. GERD 12. Postoperative acute blood loss anemia, expected due to cardiopulmonary bypass and hemodilution Plan: 1. Continue aspirin, statin, Plavix, beta iesha. Will increase beta iesha therapy as tolerated. Will restart EVERARDO inhibitor for afterload reduction when able to tolerate 2. Wean O2 as tolerated. Encourage incentive spirometry use 10 times every hour while awake. Bronchodilators per pulmonology. 3. Increase activity, ambulate as tolerated. PT/OT/cardiac rehab consulted. Patient needs to wear leg braces when ambulating 4. Will monitor daily labs and chest x-rays. Electrolyte replacement per protocol. 20 mg IV push Lasix given today 5. GI/DVT prophylaxis. 6. Pain control with current medication regimen. 7. Insulin management per primary care service. Patient is a diabetic with a Hemoglobin A1c preoperative 8.1 %, patient needs tight blood sugar control to promote's sternal union and prevent infection. 8. Discontinue Cordis 9. Discontinue Acosta. May bladder scan and straight cath for greater then 300 mL residual 10. Strict accurate intake and output, daily weights 11. Transfer orders placed for 3 S. cardiac stepdown unit. May discontinue arterial line and transfer when bed available 12. Will consult Dr. Padilla. Anticipate discharge to [facility] Sunday for close monitoring and aggressive physical therapy 13. More recommendations to follow based on patient's clinical course. Time with Patient: Greater than 30
--- NOTE | 2021-04-15 11:40 | PN ---
PROGRESS NOTE HISTORY: This is a 66-year-old gentleman who is status post CABG with SCOTT to LAD and diag, venous graft to OM and 2nd OM and RCA with exclusion of the left atrial appendage with 35 mm atrial clip. Today is postop day #1. Patient is awake, alert, sitting up and is free of significant symptoms. PHYSICAL EXAMINATION: On exam heart rate 74 beats a minute, blood pressure is 110/50. Respiratory rate is 18, O2 saturation is 95% on 3 L. Chest exam reveals diminished air entry at the bases. Heart exam reveals first and second heart sounds. No gallop. Examination of extremities did not reveal any edema. Peripheral pulses are palpable. LABORATORY DATA: Lab show a hemoglobin of 7.4, platelet count is 123. Creatinine is 0.78. ASSESSMENT: 1. Coronary artery disease status post coronary artery bypass grafting. 2. Anemia. 3. Chronic obstructive pulmonary disease. PLAN: Continue aspirin, Lipitor, Plavix, Lopressor. MMODL / IJN: [id number] /
[2021-04-15 12:25] LABS: Glucose,Whole Blood 310 mg/dL (75-99)
[2021-04-15 13:43] LABS: Band Neutrophils % 1 %; Basophils # (M) 0.11 k/uL (0-0.2); Eosinophils # (M) 0.11 k/uL (0-0.7); Lymphocytes # (M) 1.43 k/uL (1.0-4.8); Neutrophils % (M) 74 %; Nucleated Red Blood Cells 0 /100 WBC (0-0); Total Cells Counted 100
[2021-04-15] MEDS: INSULN ASP PRT/INSULIN ASPART 100 UNIT/ML 10 ML VIAL SQ SCH (13:59)
--- NOTE | 2021-04-15 14:33 | P.CONS ---
History of Present Illness - Chief Complaint Cardiac debility - History of Present Illness I had the opportunity to see patient for inpatient rehab consultation with regard to cardiac debility. Patient admitted to [facility] April 13 for CABG 5 vessel, Dr. Alberto. Seen in ICU by Dr. Morales and cardiology. Chest x-rays followed for bilateral infiltrate. PT reports two-person total assistance for standing and unable take steps. OT reports total assistance for upper dressing and 3 person total assistance for lower dressing and bathing and two-person total assistance for toileting. Previous functional history as elicited from patient: 66-year-old right-handed white male who is single lives in one floor home alone. Retired. Describes independent with own cooking, laundry, driving, sitdown shower and gait without device. He said out frequently. PCP Dr. Whitaker. Denies tobacco or alcohol. Patient known to me chronic pain management for CMT. Review of Systems Review of systems: ENT: Denies sneezes or discharge. Eyes: Denies discharge or photophobia. Cardiac: Mild sternal discomfort. Pulmonary: Mild shortness of breath. Gastrointestinal: Denies nausea, emesis, constipation, diarrhea. Genitourinary: Denies discharge or frequency. Musculoskeletal: Denies muscle or bone aches. Neurologic: General weakness that is long-standing but made worse acutely. Endocrine: Denies shakes or sweats. Oncology: Denies cancers. Dermatologic: Denies rash, itching, pruritus. ALLERGY/immunology: Denies sneezes, rashes. Past Medical History Past Medical History: Coronary Artery Disease (CAD), Chest Pain / Angina, Diabetes Mellitus, GERD/Reflux, Hyperlipidemia, Hypertension, Musculoskeletal Disorder, Osteoarthritis (OA), Prostate Disorder, Sleep Apnea/CPAP/BIPAP Additional Past Medical History / Comment(s): [id number] SYNDROME, CAUSES PAIN, HAS NUMBNESS IN FEET, neuropathy, WEARS NICOLÁS LEG BRACES. USES CPAP., some recent chest pain & tightness @times, fully vaccinated for covid History of Any Multi-Drug Resistant Organisms: None Reported Past Surgical History: Heart Catheterization Additional Past Surgical History / Comment(s): COLONOSCOPY, lasik eye surg. Past Anesthesia/Blood Transfusion Reactions: No Reported Reaction Smoking Status: Former smoker - Past Family History Mother Family Medical History: Cancer Additional Family Medical History / Comment(s): BREAST CA Sister(s) Family Medical History: Cancer Additional Family Medical History / Comment(s): SKIN CA Father Family Medical History: Congestive Heart Failure (CHF), Coronary Artery Disease (CAD), Myocardial Infarction ([place]) Additional Family Medical History / Comment(s): Myocardial infarction in his early 60s, paternal uncle had myocardial infarction in his early 50s Medications and Allergies Home Medications Medication Instructions Recorded Confirmed Type DULoxetine HCL [Cymbalta] 60 mg PO DAILY 04/16/19 04/13/21 History Finasteride [Proscar] 5 mg PO DAILY 04/16/19 04/13/21 History Insulin Degludec [Tresiba] 64 units SQ AC-BRKFST 04/16/19 04/13/21 History Mirtazapine [Remeron] 15 mg PO DAILY 04/16/19 04/13/21 History Multivit-Min/FA/Lycopen/Lutein 1 each PO DAILY 04/16/19 04/13/21 History [Centrum Silver Tablet] Omeprazole 20 mg PO DAILY 04/16/19 04/13/21 History glipiZIDE [Glucotrol] 10 mg PO BID 04/16/19 04/13/21 History lisinopriL [Zestril] 20 mg PO DAILY 04/16/19 04/13/21 History metFORMIN HCL 1,000 mg PO BID 04/16/19 04/13/21 History Aspirin 325 mg PO DAILY 03/04/21 04/13/21 History Atorvastatin [Lipitor] 20 mg PO DAILY 03/04/21 04/13/21 History Diazepam [Valium] 10 mg PO DIRECTED PRN 03/04/21 04/13/21 History Pioglitazone [Actos] 30 mg PO DAILY 03/04/21 04/13/21 History oxyCODONE HCL/ACETAMINOPHEN 1 tab PO QID 03/04/21 04/13/21 History [Endocet 10-325 mg] Metoprolol Succinate (ER) [Toprol 50 mg PO DAILY 04/06/21 04/13/21 History Xl] Allergies Allergy/AdvReac Type Severity Reaction Status Date / Time No Known Allergies Allergy Verified 04/13/21 06:27 Physical Exam Vitals: Vital Signs Temp Pulse Resp BP Pulse Ox 04/15/21 12:00 80 20 120/61 95 04/15/21 11:43 80 04/15/21 11:30 79 04/15/21 11:00 75 21 120/61 96 04/15/21 10:00 74 26 H 109/59 95 04/15/21 09:14 82 04/15/21 09:06 80 04/15/21 09:00 84 22 109/59 93 L 04/15/21 08:00 98.5 F 86 16 117/51 94 L 04/15/21 07:00 76 20 117/51 93 L 04/15/21 06:00 75 20 117/51 92 L 04/15/21 05:29 96 04/15/21 05:00 68 18 97 04/15/21 04:00 97.6 F 69 18 83/50 97 04/15/21 03:00 67 17 83/50 98 04/15/21 02:00 72 12 100/48 96 04/15/21 01:00 75 14 100/48 92 L 04/15/21 00:00 98.5 F 73 22 113/51 95 04/14/21 23:02 73 23 97 04/14/21 23:00 73 22 113/51 98 04/14/21 22:00 84 12 121/61 94 L 04/14/21 21:10 83 04/14/21 21:00 81 21 121/61 98 04/14/21 20:51 84 92 L 04/14/21 20:00 98.5 F 80 21 98/42 95 04/14/21 19:00 82 27 H 98/42 92 L 04/14/21 18:00 85 23 99/60 91 L 04/14/21 17:00 79 19 99/60 95 04/14/21 16:00 98.5 F 80 22 97/50 94 L 04/14/21 15:39 75 04/14/21 15:32 76 04/14/21 15:00 77 7 L 97/50 94 L Intake and Output 04/14/21 04/15/21 04/15/21 22:59 06:59 14:59 Intake Total 572.803 543.075 612.347 Output Total 370 270 370 Balance 202.803 273.075 242.347 Intake: IV 303 288 126 Pressure bags 63 48 36 Sodium Chloride 0.9% 1, 240 240 90 000 ml @ 20 mls/hr IV . Q24H [facility] Rx#:[id number] Intake, IV Titration 29.803 15.075 6.347 Amount Insulin Regular 100 unit 29.803 15.075 6.347 In Sodium Chloride 0.9% 100 ml @ Per Protocol IV .Q0M [facility] Rx#:[id number] Oral 240 240 480 Output: Chest Tube Drainage 100 50 0 Chest Tube Left 60 20 0 Chest Tube Mediastinal 40 30 0 Drainage 20 20 Left Calf 20 20 Urine 250 200 370 Other: Voiding Method Indwelling Catheter Indwelling Catheter Indwelling Catheter Weight 112.8 kg ABP, PAP, CO, CI - Last 8 Hours Arterial Blood Pressure 113/51 Arterial Blood Pressure 120/42 Arterial Blood Pressure 129/47 Arterial Blood Pressure 133/43 Arterial Blood Pressure 111/41 Arterial Blood Pressure 133/45 Skin: Mildly atrophic, intact. General: Medium build and comfortable appearance. Head: Normocephalic, atraumatic. Eyes: Symmetric. Pupils equal round. Ears: Symmetric. Hearing within normal limits. Mouth: Clear. Neck: Supple. Carotid without bruit. Cardiac: Regular rate and rhythm. Lungs: Clear anteriorly and posteriorly. Abdomen: Soft active nontender. Extremities: Normal tone. Neurological: Mental status: Alert, cooperative, pleasant. Cranial nerves: Symmetric facial tone and trapezius. Motor: Active movement all 4 limbs but arms are at best antigravity in legs are less than antigravity. Sensation: Intact throughout. DTRs: Symmetric and equal throughout. Mobility: Did not attempt to sit up or stand on my own. Sitting in Perlita chair.. Results CBC & Chem 7: 04/15/21 05:12 04/15/21 05:12 Labs: Abnormal Lab Results - Last 24 Hours (Table) 04/14/21 04/14/21 04/14/21 Range/Units 15:01 16:57 18:39 WBC (3.8-10.6) k/uL RBC (4.30-5.90) m/uL Hgb (13.0-17.5) gm/dL Hct (39.0-53.0) % Plt Count (150-450) k/uL Neutrophils # (Manual) (1.3-7.7) k/uL Monocytes # (Manual) (0-1.0) k/uL Sodium (137-145) mmol/L BUN (9-20) mg/dL Glucose (74-99) mg/dL POC Glucose (mg/dL) 123 H 111 H 166 H (75-99) mg/dL Calcium (8.4-10.2) mg/dL Total Protein (6.3-8.2) g/dL Albumin (3.5-5.0) g/dL 04/14/21 04/14/21 04/14/21 Range/Units 20:09 21:51 23:58 WBC (3.8-10.6) k/uL RBC (4.30-5.90) m/uL Hgb (13.0-17.5) gm/dL Hct (39.0-53.0) % Plt Count (150-450) k/uL Neutrophils # (Manual) (1.3-7.7) k/uL Monocytes # (Manual) (0-1.0) k/uL Sodium (137-145) mmol/L BUN (9-20) mg/dL Glucose (74-99) mg/dL POC Glucose (mg/dL) 200 H 161 H 145 H (75-99) mg/dL Calcium (8.4-10.2) mg/dL Total Protein (6.3-8.2) g/dL Albumin (3.5-5.0) g/dL 04/15/21 04/15/21 04/15/21 Range/Units 01:54 03:40 05:10 WBC (3.8-10.6) k/uL RBC (4.30-5.90) m/uL Hgb (13.0-17.5) gm/dL Hct (39.0-53.0) % Plt Count (150-450) k/uL Neutrophils # (Manual) (1.3-7.7) k/uL Monocytes # (Manual) (0-1.0) k/uL Sodium (137-145) mmol/L BUN (9-20) mg/dL Glucose (74-99) mg/dL POC Glucose (mg/dL) 117 H 104 H 131 H (75-99) mg/dL Calcium (8.4-10.2) mg/dL Total Protein (6.3-8.2) g/dL Albumin (3.5-5.0) g/dL 04/15/21 04/15/21 04/15/21 Range/Units 05:12 05:12 07:11 WBC 11.0 H (3.8-10.6) k/uL RBC 2.52 L (4.30-5.90) m/uL Hgb 7.4 L D (13.0-17.5) gm/dL Hct 23.6 L (39.0-53.0) % Plt Count 123 L (150-450) k/uL Neutrophils # (Manual) 8.20 H (1.3-7.7) k/uL Monocytes # (Manual) 1.10 H (0-1.0) k/uL Sodium 136 L (137-145) mmol/L BUN 24 H (9-20) mg/dL Glucose 116 H (74-99) mg/dL POC Glucose (mg/dL) 118 H (75-99) mg/dL Calcium 7.8 L (8.4-10.2) mg/dL Total Protein 4.2 L (6.3-8.2) g/dL Albumin 2.2 L (3.5-5.0) g/dL 04/15/21 04/15/21 Range/Units 08:02 12:23 WBC (3.8-10.6) k/uL RBC (4.30-5.90) m/uL Hgb (13.0-17.5) gm/dL Hct (39.0-53.0) % Plt Count (150-450) k/uL Neutrophils # (Manual) (1.3-7.7) k/uL Monocytes # (Manual) (0-1.0) k/uL Sodium (137-145) mmol/L BUN (9-20) mg/dL Glucose (74-99) mg/dL POC Glucose (mg/dL) 243 H 310 H (75-99) mg/dL Calcium (8.4-10.2) mg/dL Total Protein (6.3-8.2) g/dL Albumin (3.5-5.0) g/dL Assessment and Plan Plan: Impression: 1. Cardiac debility with CAD and recent 5 vessel CABG. 2. [place]-Cyxmv-[id number] 3. Chronic pain syndrome. 4. Katia arthritis. 5. Hypertension. 6. Dyslipidemia. 7. Diabetes. 8. Sleep apnea. 9. Reflux. Comments and plan: At this time safety concerns noted. Note patient does a little alone but has some support available intermittently of for discharge. Have discussed patient not ready to return to home and should begin to consider inpatient rehab placement. The patient willing to consider this.
[2021-04-15 17:02] LABS: Glucose,Whole Blood 249 mg/dL (75-99)
[2021-04-15 19:46] LABS: Glucose,Whole Blood 303 mg/dL (75-99)
[2021-04-15] MEDS: SENNOSIDES-DOCUSATE SODIUM 1 EACH TAB PO SCH (20:25)
[2021-04-15] MEDS ORDERED: INSULIN NPH 300 UNIT/3 ML VIAL SQ SCH (21:00)
[2021-04-16] MEDS: KETOROLAC 15 MG/ML 1 ML VIAL IVP SCH ×4 (03:14→19:14)
[2021-04-16] MEDS: oxyCODONE-APAP 10-325MG 1 EACH TAB PO PRN ×4 (03:51→21:15)
--- NOTE | 2021-04-16 05:39 | P.PN ---
Subjective Progress Note Date: 04/16/21 Principal diagnosis: Status post bypass grafting. CAD, status post coronary artery bypass grafting 5 66-year-old male, status post five-vessel bypass grafting. The patient's p rocedure was done by Dr. Alberto. The patient has just arrived back to the intensive care unit. The patient's on the ventilator. Ventilator settings include the volume assist control mode, rate of 12, tidal volume 550, FiO2 100%, and 10. Blood gases are pending. The patient has an endotracheal tube in place, a Acosta catheter, [place]-T[place] catheter, and orogastric tube in place, as well as mediastinal and pleural chest tubes. Chest x-ray has yet to be done. The patient is quite large and very obese. He apparently has history of hypertension, diabetes, coronary artery disease, gastroesophageal reflux disease, hyperlipidemia, and Koawtuz-Elsdk-Vfwcv disease. I do not see an H&P consultation in the medical record as yet. The operative report is not yet back on the medical record. Arterial blood gases as mentioned, are pending. The patient is seen today 04/14/2021 in follow-up in the intensive care unit. This is postoperative day #1. He had undergone coronary artery bypass grafting 5 utilizing a SCOTT to the diagonal and LAD, saphenous vein grafts to the OM1, OM 2 and RCA. He was extubated at 4 hours and 40 minutes. Presently he is sitting up in bed. Awake and alert in no acute distress. Pale. He is maintaining O2 saturations in the 90s on 5 L high flow nasal cannula. Chest x- ray showing some evidence of pulmonary vascular congestion. Mediastinal and left pleural chest tubes are in place. He is pulling approximate 750 ML's on the incentive spirometer. Left calf DESIRE drainage sanguinous. He has a right sided [place]-T[place] catheter in place. PA pressure 34/24 with a PA mean of 27. Cardiac output 7.5. Cardiac index 2.9. His 0.9 normal saline at 20 ML's per hour. Insulin drip at 2.5 units per hour. White count 12.1. Hemoglobin 10.1. Platelets 150,000. Sodium 136. Potassium 3.9. Creatinine 0.51. AST 43. ALT 17. He did receive albumin last evening. On cefazolin. Heparin for DVT prophylaxis. Protonix for GI prophylaxis. Progress note dated 04/15/2021. Currently, the patient seemed be doing relatively well. He is again seen in room 267. He is on 3 L nasal cannula. He has no respiratory issues. He is getting saline at 30 mL an hour. He is also on insulin drip at 2 units per hour. Sodium 136, potassium 4.3, chlorides 107, CO2 26, anion gap 3, BUN 24, and creatinine 0.78. Chest x-ray show some postoperative changes. There is some atelectasis particularly at the left base. In addition to CAD, the patient has a history of hypertension, diabetes, gastroesophageal reflux disease, hyperlipidemia, and Afhcard-Etlie-Wjvsq disease. Progress note dated 04/16/2021. 66-year-old male, doing well. Currently, he's on 2 L nasal cannula. Is not receiving any IV fluids. He is postop day #3, status post five-vessel bypass grafting. He was extubated in 4 hours and 40 minutes from exiting the operating room. He has no major complaints today. He feels well. He denies any chest pain or chest discomfort. He's not having any shortness of breath. He is not coughing. There is no fever or chills. He's not receiving any IV fluids. C urrently labs are pending. From yesterday, his white count was 11, hemoglobin 7.4, and sodium 136. Chest x-ray from yesterday showed bilateral atelectasis or infiltrates at the bases. Objective - Vital Signs Vital signs: Vital Signs Temp 97.7 F 04/16/21 04:00 Pulse 75 04/16/21 04:00 Resp 18 04/16/21 04:00 BP 136/67 04/16/21 04:00 Pulse Ox 91 L 04/16/21 04:00 Intake & Output 04/15/21 04/15/21 04/16/21 06:59 18:59 06:59 Intake Total 666.401 864.347 3 Output Total 430 390 48 Balance 236.401 474.347 -45 Weight 112.8 kg Intake: IV 396 138 3 Pressure bags 66 48 3 Sodium Chloride 0.9% 1, 330 90 000 ml @ 20 mls/hr IV . Q24H [facility] Rx#:[id number] Intake, IV Titration 30.401 6.347 Amount Insulin Regular 100 unit 30.401 6.347 In Sodium Chloride 0.9% 100 ml @ Per Protocol IV .Q0M [facility] Rx#:[id number] Oral 240 720 Output: Chest Tube Drainage 120 0 Chest Tube Left 60 0 Chest Tube Mediastinal 60 0 Drainage 20 20 Left Calf 20 20 Urine 290 370 0 Post Void Residual 48 Other: Voiding Method Indwelling Catheter Indwelling Catheter Indwelling Catheter ABP, PAP, CO, CI - Last Documented Arterial Blood Pressure 117/46 Pulmonary Artery Pressure 27/12 Cardiac Output 5.6 Cardiac Index 2.2 - Exam No acute distress, oriented 3. Currently on 3 L nasal cannula. No evidence of any respiratory distress, use of accessory muscles, or conversational dyspnea. Saturations are 92-93%. HEENT examination is grossly unremarkable. Neck supple. Full range of motion. No adenopathy thyromegaly or neck vein distention. Cardiovascular examination reveals regular rhythm rate. S1-S2 normal. No S3 or S4. No discernible murmur noted. Heart sounds are distant. Heart rate 73 bpm. Lungs reveal scattered bilateral rhonchi. No wheezes or crackles. Breath sounds equal bilaterally. Abdomen soft bowel sounds are heard. No masses or tenderness. Extremities are intact. No cyanosis clubbing or edema. Skin is without rash or lesion. Neurologic examination is brief but nonfocal. - Labs CBC & Chem 7: 04/15/21 05:12 04/15/21 05:12 Labs: Abnormal Lab Results - Last 24 Hours (Table) 04/15/21 04/15/21 04/15/21 Range/Units 05:12 05:12 07:11 WBC 11.0 H (3.8-10.6) k/uL RBC 2.52 L (4.30-5.90) m/uL Hgb 7.4 L D (13.0-17.5) gm/dL Hct 23.6 L (39.0-53.0) % Plt Count 123 L (150-450) k/uL Neutrophils # (Manual) 8.20 H (1.3-7.7) k/uL Monocytes # (Manual) 1.10 H (0-1.0) k/uL Sodium 136 L (137-145) mmol/L BUN 24 H (9-20) mg/dL Glucose 116 H (74-99) mg/dL POC Glucose (mg/dL) 118 H (75-99) mg/dL Calcium 7.8 L (8.4-10.2) mg/dL Total Protein 4.2 L (6.3-8.2) g/dL Albumin 2.2 L (3.5-5.0) g/dL 04/15/21 04/15/21 04/15/21 Range/Units 08:02 12:23 17:01 WBC (3.8-10.6) k/uL RBC (4.30-5.90) m/uL Hgb (13.0-17.5) gm/dL Hct (39.0-53.0) % Plt Count (150-450) k/uL Neutrophils # (Manual) (1.3-7.7) k/uL Monocytes # (Manual) (0-1.0) k/uL Sodium (137-145) mmol/L BUN (9-20) mg/dL Glucose (74-99) mg/dL POC Glucose (mg/dL) 243 H 310 H 249 H (75-99) mg/dL Calcium (8.4-10.2) mg/dL Total Protein (6.3-8.2) g/dL Albumin (3.5-5.0) g/dL 04/15/21 Range/Units 19:45 WBC (3.8-10.6) k/uL RBC (4.30-5.90) m/uL Hgb (13.0-17.5) gm/dL Hct (39.0-53.0) % Plt Count (150-450) k/uL Neutrophils # (Manual) (1.3-7.7) k/uL Monocytes # (Manual) (0-1.0) k/uL Sodium (137-145) mmol/L BUN (9-20) mg/dL Glucose (74-99) mg/dL POC Glucose (mg/dL) 303 H (75-99) mg/dL Calcium (8.4-10.2) mg/dL Total Protein (6.3-8.2) g/dL Albumin (3.5-5.0) g/dL Assessment and Plan Assessment: Postop day #3, status post 5 vessel bypass grafting. Routine postoperative ventilator management, with extubation and 4 hours and 40 minutes, on 04/13/2021. History of diabetes mellitus. History of hypertension. Obstructive sleep apnea syndrome, currently on CPAP. History of gastroesophageal reflux disease. History of Bfosvri-Dvdhf-Tbkro disease. History of hyperlipidemia. Morbid obesity. Plan: Plan dated 04/13/2021. The patient be placed on bronchodilators. We will attempt to wean the patient tonight. I did speak to the surgeon. Additional recommendations and suggestions are forthcoming. Arterial blood gases and chest x-ray currently pending. We'll adjust ventilator based on the blood gases. We will continue to follow the patient and make recommendations where appropriate. Plan dated 04/15/2021. Currently, the patient's doing well. The patient is on 3 L nasal cannula. The patient's getting saline at 30 mL an hour. In addition, the patient remains on an insulin drip at 2 units an hour. We encourage deep breathing, coughing, clearing of secretions. We also recommend the patient use incentive spirometer every hour while awake. We will continue to follow make recommendations were appropriate. Prognosis is thought to be generally good. Plan dated 04/16/2021. The patient's doing well. He remains on 3 L nasal cannula. He's not receiving any IV fluids. Labs from today and chest x-ray from today, have yet to be done. Labs and x-rays from yesterday are reviewed. The patient continues to do well on incentive spirometer. Deep breathing, coughing, and clearing of secretions. We will continue to follow and make recommendations where appropriate. Time with Patient: Less than 30
[2021-04-16 06:40] LABS: Glucose,Whole Blood 211 mg/dL (75-99)
[2021-04-16] MEDS: INSULN ASP PRT/INSULIN ASPART 100 UNIT/ML 10 ML VIAL SQ SCH (07:06)
[2021-04-16] MEDS: INSULIN ASPART (NovoLOG) 100 UNIT/ML VIAL SQ SCH ×4 (07:06→21:14)
[2021-04-16] MEDS: PANTOPRAZOLE 40 MG TABLET PO SCH (07:07)
--- NOTE | 2021-04-16 08:07 | XR ---
EXAMINATION TYPE: XR chest 1V portable DATE OF EXAM: 04/16/2021 Comparison: 04/15/2021 Clinical History: 66-year-old male post open heart Findings: Median sternotomy wires with post CABG clips. Low lung volumes. Heart mildly enlarged. Interstitial p rominence. Some patchy retrocardiac left basilar opacity. Left chest tube removed. Impression: Hypoventilatory changes. Mild cardiomegaly. There is similar volume loss and opacity at the left base , probably atelectasis.
[2021-04-16] MEDS: IPRATROPIUM-ALBUTEROL 3 ML NEB INHALATION SCH ×4 (08:29→19:09)
[2021-04-16 08:48] LABS: HCT 23.2 % (39.0-53.0); HGB 7.8 gm/dL (13.0-17.5); MCH 31.9 pg (25.0-35.0); MCHC 33.7 g/dL (31.0-37.0); MCV 94.6 fL (80.0-100.0); Mean Platelet Volume 9.4; Platelet Count 141 k/uL (150-450); RBC 2.46 m/uL (4.30-5.90); RDW 13.2 % (11.5-15.5); WBC 8.6 k/uL (3.8-10.6)
[2021-04-16] MEDS: CLOPIDOGREL 75 MG TAB PO SCH (08:59)
[2021-04-16] MEDS: DULoxetine HCL 60 MG CAPSULE.DR PO SCH (08:59)
[2021-04-16] MEDS: FINASTERIDE 5 MG TAB PO SCH (08:59)
[2021-04-16] MEDS: METOPROLOL TARTRATE 25 MG TAB PO SCH ×2 (08:59→21:14)
[2021-04-16] MEDS: HEPARIN SODIUM,PORCINE/PF 5,000 UNIT/0.5 ML SYRINGE SQ SCH ×3 (08:59→23:36)
[2021-04-16] MEDS: ASPIRIN 325 MG TAB PO SCH (08:59)
[2021-04-16] MEDS: ATORVASTATIN 40 MG TAB PO SCH (08:59)
[2021-04-16 09:00] LABS: African American GFR (CKD) >90 (>60 ml/min/1.73 sqM); Anion Gap 3 mmol/L; Blood Urea Nitrogen 29 mg/dL (9-20); Calcium 7.9 mg/dL (8.4-10.2); Carbon Dioxide 29 mmol/L (22-30); Chloride 104 mmol/L (98-107); Glucose 181 mg/dL (74-99); Non-African American GFR(CKD) >90 (>60 ml/min/1.73 sqM); Potassium 4.3 mmol/L (3.5-5.1); Sodium 136 mmol/L (137-145)
--- NOTE | 2021-04-16 11:58 | P.PN ---
Subjective Progress Note Date: 04/15/21 Principal diagnosis: CAD, status post coronary artery bypass grafting 5 History of diabetes mellitus. History of hypertension History of hyperlipidemia 66-year-old male, status post five-vessel bypass grafting. The patient's procedure was done by Dr. Alberto; POD # 2 04/15/2021 Patient is seen and evaluated in room at bedside; remains in ICU; denies any specific complaints at this time He is on 3 L nasal cannula. He has no respiratory issues. He is getting saline at 30 mL an hour. He is also on insulin drip at 2 units per hour. Sodium 136, potassium 4.3, chlorides 107, CO2 26, anion gap 3, BUN 24, and creatinine 0.78. Chest x-ray show some postoperative changes. There is some atelectasis particularly at the left base. In addition to CAD, the patient has a history of hypertension, diabetes, gastroesophageal reflux disease, hyperlipidemia, and Uqwedkd-Oicyf-Zkdrr disease. [employer] service is following along with cardiothoracic surgery; blood glucose remains elevated; patient is currently on IV insulin infusion at 2 units per hour Patient is encouraged to continue with deep breathing and coughing, incentive spirometry every 1 hour while awake and aggressive clearing of secretions Patient is to be transferred to selective care unit if remains stable Objective - Vital Signs Vital signs: Vital Signs Temp 98.5 F 04/15/21 08:00 Pulse 74 04/15/21 10:00 Resp 26 H 04/15/21 10:00 BP 109/59 04/15/21 10:00 Pulse Ox 95 04/15/21 10:00 Intake & Output 04/14/21 04/15/21 04/15/21 18:59 06:59 18:59 Intake Total 2168.231 666.401 360.347 Output Total 520 430 170 Balance 1648.231 236.401 190.347 Weight 127.4 kg 112.8 kg Intake: IV 697 396 114 Cardiac Index 10 Pressure bags 117 66 24 Sodium Chloride 0.9% 1, 470 330 90 000 ml @ 20 mls/hr IV . Q24H [facility] Rx#:[id number] ceFAZolin 3 gm In Sodium 100 Chloride 0.9% 100 ml @ 100 mls/hr IVPB Q8HR [facility] Rx#:[id number] Intake, IV Titration 151.231 30.401 6.347 Amount Calcium Gluconate 1 gm In 100 Sodium Chloride 0.9% 100 ml @ 100 mls/hr IVPB ONCE ONE Rx#:[id number] Insulin Regular 100 unit 28.331 30.401 6.347 In Sodium Chloride 0.9% 100 ml @ Per Protocol IV .Q0M [facility] Rx#:[id number] Nitroglycerin-D5w Pmx 50 22.9 mg In Dextrose/Water 1 250ml.bag @ 5 MCG/MIN 1.5 mls/hr IV .Q24H [facility] Rx#: [id number] Oral 1320 240 240 Output: Chest Tube Drainage 130 120 0 Chest Tube Left 60 60 0 Chest Tube Mediastinal 70 60 0 Drainage 20 20 Left Calf 20 20 Urine 370 290 170 Other: Voiding Method Indwelling Catheter Indwelling Catheter Indwelling Catheter ABP, PAP, CO, CI - Last Documented Arterial Blood Pressure 129/47 Pulmonary Artery Pressure 27/12 Cardiac Output 5.6 Cardiac Index 2.2 - Exam General appearance: Present: average body habitus, cooperative, no acute distress Neck: Present: normal ROM. Absent: lymphadenopathy, rigidity, thyromegaly Carotids: negative: bruit present Thyroid: bilateral: normal size, negative: enlarged, nodule Respiratory: bilateral: CTA, negative: rales, rhonchi, wheezing - Cardiovascular Rhythm: regular Heart sounds: normal: S1, S2 Abnormal Heart Sounds: Absent: systolic murmur, diastolic murmur General gastrointestinal: Present: normal bowel sounds, soft. Absent: distended, organomegaly, tenderness Neurologic: Present: CNII-XII intact. Absent: focal deficits Musculoskeletal: Present: gait normal, strength equal bilaterally Psychiatric: Present: A&O x's 3, appropriate affect, intact judgment & insight - Labs CBC & Chem 7: 04/16/21 08:30 04/16/21 08:30 Labs: Abnormal Lab Results - Last 24 Hours (Table) 04/14/21 04/14/21 04/14/21 Range/Units 12:56 15:01 16:57 WBC (3.8-10.6) k/uL RBC (4.30-5.90) m/uL Hgb (13.0-17.5) gm/dL Hct (39.0-53.0) % Plt Count (150-450) k/uL Sodium (137-145) mmol/L BUN (9-20) mg/dL Glucose (74-99) mg/dL POC Glucose (mg/dL) 105 H 123 H 111 H (75-99) mg/dL Calcium (8.4-10.2) mg/dL Total Protein (6.3-8.2) g/dL Albumin (3.5-5.0) g/dL 04/14/21 04/14/21 04/14/21 Range/Units 18:39 20:09 21:51 WBC (3.8-10.6) k/uL RBC (4.30-5.90) m/uL Hgb (13.0-17.5) gm/dL Hct (39.0-53.0) % Plt Count (150-450) k/uL Sodium (137-145) mmol/L BUN (9-20) mg/dL Glucose (74-99) mg/dL POC Glucose (mg/dL) 166 H 200 H 161 H (75-99) mg/dL Calcium (8.4-10.2) mg/dL Total Protein (6.3-8.2) g/dL Albumin (3.5-5.0) g/dL 04/14/21 04/15/21 04/15/21 Range/Units 23:58 01:54 03:40 WBC (3.8-10.6) k/uL RBC (4.30-5.90) m/uL Hgb (13.0-17.5) gm/dL Hct (39.0-53.0) % Plt Count (150-450) k/uL Sodium (137-145) mmol/L BUN (9-20) mg/dL Glucose (74-99) mg/dL POC Glucose (mg/dL) 145 H 117 H 104 H (75-99) mg/dL Calcium (8.4-10.2) mg/dL Total Protein (6.3-8.2) g/dL Albumin (3.5-5.0) g/dL 04/15/21 04/15/21 04/15/21 Range/Units 05:10 05:12 05:12 WBC 11.0 H (3.8-10.6) k/uL RBC 2.52 L (4.30-5.90) m/uL Hgb 7.4 L D (13.0-17.5) gm/dL Hct 23.6 L (39.0-53.0) % Plt Count 123 L (150-450) k/uL Sodium 136 L (137-145) mmol/L BUN 24 H (9-20) mg/dL Glucose 116 H (74-99) mg/dL POC Glucose (mg/dL) 131 H (75-99) mg/dL Calcium 7.8 L (8.4-10.2) mg/dL Total Protein 4.2 L (6.3-8.2) g/dL Albumin 2.2 L (3.5-5.0) g/dL 04/15/21 04/15/21 Range/Units 07:11 08:02 WBC (3.8-10.6) k/uL RBC (4.30-5.90) m/uL Hgb (13.0-17.5) gm/dL Hct (39.0-53.0) % Plt Count (150-450) k/uL Sodium (137-145) mmol/L BUN (9-20) mg/dL Glucose (74-99) mg/dL POC Glucose (mg/dL) 118 H 243 H (75-99) mg/dL Calcium (8.4-10.2) mg/dL Total Protein (6.3-8.2) g/dL Albumin (3.5-5.0) g/dL Assessment and Plan Assessment: 1. CAD; Postop 5 vessel bypass grafting with routine postoperative ventilator management, with extubation and 4 hours and 40 minutes, on 04/13/2021. Pulmonary service is following and recommending to continue with deep breathing, coughing, and clearing secretions; incentive spirometry every hour while awake - Remains on aspirin, Plavix and statin therapy 2. Atrial fibrillation/flutter; patient remains on IV amiodarone infusion and metoprolol 25 mg twice a day; Plavix 75 mg daily; heparin 5000 units subcu every 8 hours 3. History of diabetes mellitus; monitor Accu-Cheks before meals and at bedtime with insulin sliding scale; patient is currently on insulin 7030 at 23 units subcu before meals breakfast. 4. History of hypertension; metoprolol 25 mg twice a day. 5. Obstructive sleep apnea syndrome, currently on CPAP. 6. History of gastroesophageal reflux disease; 40 mg by mouth daily. 7. History of hyperlipidemia; remains on Protonix 40 mg daily 8. Morbid obesity; counseling done. 9. Charcot Jennyfer tooth disease DVT prophylaxis; SCDs/subcu heparin CODE STATUS; full code
[2021-04-16 12:02] LABS: Glucose,Whole Blood 230 mg/dL (75-99)
--- NOTE | 2021-04-16 12:16 | P.PN ---
Subjective Progress Note Date: 04/16/21 HISTORY OF PRESENT ILLNESS: 66-year-old male, patient Dr. Soni, who underwent CABG 5: left internal mammary artery with a sequential graft to his diagonal coronary artery and to his left anterior descending coronary artery, a reverse greater saphenous vein graft off the aorta with a sequential graft to his obtuse marginal #1 coronary artery and to his obtuse marginal #2 coronary artery, and a reverse greater saphenous vein graft off the aorta to his right coronary artery. Patient examined this morning. Patient is sitting in the chair. Patient denies chest pain or pressure. He denies shortness of breath. He states he has been using his incentive spirometer. He reports he is tired this morning because he was transferred from the ICU to the cardiac stepdown unit in the middle of the night. Vital signs stable. PHYSICAL EXAM: VITAL SIGNS: Reviewed. GENERAL: Well-developed in no acute distress. NECK: Supple. No JVD or thyromegaly LUNGS: Respirations even and unlabored. Lungs diminished bilaterally. HEART: Regular rate and rhythm. S1 and S2 heard. Heart hugger noted. EXTREMITIES: Normal range of motion. No clubbing or cyanosis. Peripheral pulses intact. 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 Signing provider agrees with the documented findings, assessment, and plan of care. Objective - Vital Signs Vital signs: Vital Signs Temp 98.3 F 04/16/21 08:55 Pulse 72 04/16/21 12:03 Resp 18 04/16/21 08:55 BP 130/71 04/16/21 08:55 Pulse Ox 92 L 04/16/21 08:55 Intake & Output 04/15/21 04/16/21 04/16/21 18:59 06:59 18:59 Intake Total 864.347 3 118 Output Total 390 48 Balance 474.347 -45 118 Weight 139.5 kg Intake: IV 138 3 Pressure bags 48 3 Sodium Chloride 0.9% 1, 90 000 ml @ 20 mls/hr IV . Q24H [facility] Rx#:[id number] Intake, IV Titration 6.347 Amount Insulin Regular 100 unit 6.347 In Sodium Chloride 0.9% 100 ml @ Per Protocol IV .Q0M [facility] Rx#:[id number] Oral 720 118 Output: Chest Tube Drainage 0 Chest Tube Left 0 Chest Tube Mediastinal 0 Drainage 20 Left Calf 20 Urine 370 0 Post Void Residual 48 Other: Voiding Method Indwelling Catheter Indwelling Catheter Urinal ABP, PAP, CO, CI - Last Documented Arterial Blood Pressure 117/46 Pulmonary Artery Pressure 27/12 Cardiac Output 5.6 Cardiac Index 2.2 - Labs CBC & Chem 7: 04/16/21 08:30 04/16/21 08:30 Labs: Abnormal Lab Results - Last 24 Hours (Table) 04/15/21 04/15/21 04/15/21 Range/Units 05:12 12:23 17:01 RBC (4.30-5.90) m/uL Hgb (13.0-17.5) gm/dL Hct (39.0-53.0) % Plt Count (150-450) k/uL Neutrophils # (Manual) 8.20 H (1.3-7.7) k/uL Monocytes # (Manual) 1.10 H (0-1.0) k/uL Sodium (137-145) mmol/L BUN (9-20) mg/dL Glucose (74-99) mg/dL POC Glucose (mg/dL) 310 H 249 H (75-99) mg/dL Calcium (8.4-10.2) mg/dL 04/15/21 04/16/21 04/16/21 Range/Units 19:45 06:38 08:30 RBC 2.46 L (4.30-5.90) m/uL Hgb 7.8 L (13.0-17.5) gm/dL Hct 23.2 L (39.0-53.0) % Plt Count 141 L (150-450) k/uL Neutrophils # (Manual) (1.3-7.7) k/uL Monocytes # (Manual) (0-1.0) k/uL Sodium (137-145) mmol/L BUN (9-20) mg/dL Glucose (74-99) mg/dL POC Glucose (mg/dL) 303 H 211 H (75-99) mg/dL Calcium (8.4-10.2) mg/dL 04/16/21 04/16/21 Range/Units 08:30 12:01 RBC (4.30-5.90) m/uL Hgb (13.0-17.5) gm/dL Hct (39.0-53.0) % Plt Count (150-450) k/uL Neutrophils # (Manual) (1.3-7.7) k/uL Monocytes # (Manual) (0-1.0) k/uL Sodium 136 L (137-145) mmol/L BUN 29 H (9-20) mg/dL Glucose 181 H (74-99) mg/dL POC Glucose (mg/dL) 230 H (75-99) mg/dL Calcium 7.9 L (8.4-10.2) mg/dL
--- NOTE | 2021-04-16 12:59 | P.PN ---
Subjective Progress Note Date: 04/16/21 Principal diagnosis: Symptomatic multivessel coronary artery disease. Past medical history significant for hypertension, hyperlipidemia, type 2 diabetes mellitus, obstructive sleep apnea with home CPAP use, Ivvjyuj-Kjsct-tbrwu disorder, remote history of nicotine dependence, occasional marijuana use and family history of premature coronary artery disease with his father having a myocardial infarction in his early 60s and an uncle having myocardial infarction in his early 50s. POD #3 coronary artery bypass grafting surgery 5 vessels with his left internal mammary artery with a sequential graft to his diagonal coronary artery and to his left anterior descending coronary artery, a reverse greater saphenous vein graft off the aorta with a sequential graft to his obtuse marginal #1 coronary artery and to his obtuse marginal #2 coronary artery, and a reverse greater saph enous vein graft off the aorta to his right coronary artery. Exclusion of his left atrial appendage with a 35 mm Atriclip, endoscopic harvesting of his left greater saphenous vein, intraoperative transesophageal echocardiogram and epi- aortic scanning. Intraoperative graft flow measurements using the [employer] system. Postoperative acute blood loss anemia, expected due to cardiopulmonary bypass a nd hemodilution. The patient is seen in follow-up today 04/16/2021 at his bedside on the cardiac stepdown unit. Currently sitting up to the bedside chair, is awake, alert and oriented 3. He is in no acute apparent distress. Denies any complaints of shortness of breath at this time although is complaining of some surgical type pain rating his pain 3 out of 10 on pain scale. Epicardial pacemaker wires and chest tubes were removed yesterday without incident. Oxygen saturation are 92% on room air and he is achieving 1500 mL on his incentive spirometry with encouragement. Remote telemetry showing normal sinus rhythm heart rate 63 BPM. Laboratory results this morning show hemoglobin 7.8, platelets 141, BUN 29 and creatinine 0.81. He has been afebrile the last 24 hours. Objective - Vital Signs Vital signs: Vital Signs Temp 98.3 F 04/16/21 08:55 Pulse 66 04/16/21 08:55 Resp 18 04/16/21 08:55 BP 130/71 04/16/21 08:55 Pulse Ox 92 L 04/16/21 08:55 Intake & Output 04/15/21 04/16/21 04/16/21 18:59 06:59 18:59 Intake Total 864.347 3 118 Output Total 390 48 Balance 474.347 -45 118 Weight 139.5 kg Intake: IV 138 3 Pressure bags 48 3 Sodium Chloride 0.9% 1, 90 000 ml @ 20 mls/hr IV . Q24H SUE Rx#:[id number] Intake, IV Titration 6.347 Amount Insulin Regular 100 unit 6.347 In Sodium Chloride 0.9% 100 ml @ Per Protocol IV .Q0M SUE Rx#:[id number] Oral 720 118 Output: Chest Tube Drainage 0 Chest Tube Left 0 Chest Tube Mediastinal 0 Drainage 20 Left Calf 20 Urine 370 0 Post Void Residual 48 Other: Voiding Method Indwelling Catheter Indwelling Catheter Urinal ABP, PAP, CO, CI - Last Documented Arterial Blood Pressure 117/46 Pulmonary Artery Pressure 27/12 Cardiac Output 5.6 Cardiac Index 2.2 - Exam CONSTITUTIONAL: Currently sitting up to the bedside chair on the cardiac stepdown unit, appears comfortable, cooperative, no apparent acute distress. HEENT: Neck is supple, no JVD, no lymphadenopathy. RESPIRATORY: Lungs sounds essentially clear throughout, diminished to his bilateral bases. No wheezes, rhonchi or crackles. Respirations are symmetrical and nonlabored. Currently on room air with oxygen saturations 92%. Able to achieve 1500 mL on his incentive spirometry. Strong cough. CARDIOVASCULAR: Regular rhythm and rate. S1 and S2 present, negative for S3, gallop or murmur. Sternum is stable. Remote telemetry showing normal sinus rhythm heart rate 63 BPM. Palpable peripheral pulses bilaterally. Heart hugger in place with patient demonstrating appropriate use. Knee-high YULISSA hose and sequential compression devices in place to his bilateral lower extremities. GASTROINTESTINAL: Abdomen soft, nontender, nondistended. Active bowel sounds present 4 quadrants. Tolerating diet. Passing flatus. No guarding or rigidity. GENITOURINARY: Urine retention with bladder scan this morning showing 430 mL of urine. INTEGUMENTARY: Skin is warm and dry, no clubbing or cyanosis is present. Midline sternal incision clean dry and well approximated, covered with dry intact dressing. Left lower extremity EVH sites well approximated without redness or drainage. NEUROLOGIC: Cranial nerves II through XII intact. No focal deficits. MUSKULOSKELETAL: Able to move all extremities, strength equal bilaterally, generalized weakness. Bilateral lower extremity leg braces in place. PSYCHIATRIC: Alert and oriented to person place and time, appropriate affect, intact judgment and insight. - Labs CBC & Chem 7: 04/16/21 08:30 04/16/21 08:30 Labs: Abnormal Lab Results - Last 24 Hours (Table) 04/15/21 04/15/21 04/15/21 Range/Units 05:12 12:23 17:01 RBC (4.30-5.90) m/uL Hgb (13.0-17.5) gm/dL Hct (39.0-53.0) % Plt Count (150-450) k/uL Neutrophils # (Manual) 8.20 H (1.3-7.7) k/uL Monocytes # (Manual) 1.10 H (0-1.0) k/uL Sodium (137-145) mmol/L BUN (9-20) mg/dL Glucose (74-99) mg/dL POC Glucose (mg/dL) 310 H 249 H (75-99) mg/dL Calcium (8.4-10.2) mg/dL 04/15/21 04/16/21 04/16/21 Range/Units 19:45 06:38 08:30 RBC 2.46 L (4.30-5.90) m/uL Hgb 7.8 L (13.0-17.5) gm/dL Hct 23.2 L (39.0-53.0) % Plt Count 141 L (150-450) k/uL Neutrophils # (Manual) (1.3-7.7) k/uL Monocytes # (Manual) (0-1.0) k/uL Sodium (137-145) mmol/L BUN (9-20) mg/dL Glucose (74-99) mg/dL POC Glucose (mg/dL) 303 H 211 H (75-99) mg/dL Calcium (8.4-10.2) mg/dL 04/16/21 Range/Units 08:30 RBC (4.30-5.90) m/uL Hgb (13.0-17.5) gm/dL Hct (39.0-53.0) % Plt Count (150-450) k/uL Neutrophils # (Manual) (1.3-7.7) k/uL Monocytes # (Manual) (0-1.0) k/uL Sodium 136 L (137-145) mmol/L BUN 29 H (9-20) mg/dL Glucose 181 H (74-99) mg/dL POC Glucose (mg/dL) (75-99) mg/dL Calcium 7.9 L (8.4-10.2) mg/dL Assessment and Plan Assessment: 1. Symptomatic multivessel coronary artery disease, status post 5 vessel era nary artery bypass grafting surgery 2. History of hypertension 3. History of hyperlipidemia 4. Type 2 diabetes mellitus, with a preoperative hemoglobin A1c of 8.1% 5. Obstructive sleep apnea with home CPAP use 6. 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 Remote history of nicotine dependence 8. Occasional marijuana use 9. History of premature coronary artery disease 10. Obesity with a BMI of 32.2 kg/m 11. GERD on omeprazole at home 12. Postoperative acute blood loss anemia, expected due to cardiopulmonary bypass and hemodilution Plan: 1. Continue aspirin, statin, Plavix, beta iesha. Will increase metoprolol as tolerated. 2. Encourage incentive spirometry use 10 times every hour while awake. Bronchodilators per pulmonology. 3. Increase activity, ambulate as tolerated. PT/OT/cardiac rehab following. Patient needs to continue to wear his leg braces when ambulating. 4. Will monitor daily labs and chest x-rays. Electrolyte replacement per protocol. 5. GI/DVT prophylaxis. 6. Pain control with current medication regimen. 7. Insulin management per primary care service. Patient is a diabetic with a Hemoglobin A1c preoperative 8.1 %, patient needs tight blood sugar control to promote's sternal union and prevent infection. 8. Continue to bladder scan every 6 hours and when necessary for urinary retention and postvoid residual. May straight cath for greater than 300 mL of residual. Continue home dose of Proscar. 9. We will restart his lisinopril for afterload reduction been able to tolerate. 10. Will start Flomax 0.4 mg by mouth daily. 11. Dr. Padilla's consult noted and appreciated. Anticipate the need for inpatient rehab upon discharge. 12. More recommendations to follow based on patient's clinical course. Time with Patient: Greater than 30
[2021-04-16] MEDS: TAMSULOSIN 0.4 MG CAP.ER.24H PO SCH (16:20)
[2021-04-16 17:12] LABS: Glucose,Whole Blood 249 mg/dL (75-99)
--- NOTE | 2021-04-16 18:24 | P.PN ---
Subjective Progress Note Date: 04/16/21 Principal diagnosis: CAD, status post coronary artery bypass grafting 5 History of diabetes mellitus. History of hypertension History of hyperlipidemia 66-year-old male, status post five-vessel bypass grafting. The patient's procedure was done by Dr. Alberto; POD # 2 04/15/2021 Patient is seen and evaluated in room at bedside; remains in ICU; denies any specific complaints at this time He is on 3 L nasal cannula. He has no respiratory issues. He is getting saline at 30 mL an hour. He is also on insulin drip at 2 units per hour. Sodium 136, potassium 4.3, chlorides 107, CO2 26, anion gap 3, BUN 24, and creatinine 0.78. Chest x-ray show some postoperative changes. There is some atelectasis particularly at the left base. In addition to CAD, the patient has a history of hypertension, diabetes, gastroesophageal reflux disease, hyperlipidemia, and Jzjeirf-Abebe-Yjrtf disease. [facility] service is following along with cardiothoracic surgery; blood glucose remains elevated; patient is currently on IV insulin infusion at 2 units per hour Patient is encouraged to continue with deep breathing and coughing, incentive spirometry every 1 hour while awake and aggressive clearing of secretions Patient is to be transferred to selective care unit if remains stable 04/16/2021 Patient is seen and evaluated in room at bedside sitting comfortably in bed; 66-year-old male patient underwent CABG 5; denies any complaint of chest pain or shortness of breath Vital signs are reviewed and stable with a temperature of 98.3 pulse 72, respiration 18, blood pressure 130/71 with O2 saturation 92% Postop management per cardiothoracic surgery; cardiology on board and recommending to continue current cardiac medications; patient has been evaluated by inpatient rehab; patient will continue with aspirin, statin, Plavix and beta blockers with PT/OT/cardiac rehab and clinically stable Objective - Vital Signs Vital signs: Vital Signs Temp 98.3 F 04/16/21 08:55 Pulse 66 04/16/21 08:55 Resp 18 04/16/21 08:55 BP 130/71 04/16/21 08:55 Pulse Ox 92 L 04/16/21 08:55 Intake & Output 04/15/21 04/16/21 04/16/21 18:59 06:59 18:59 Intake Total 864.347 3 118 Output Total 390 48 Balance 474.347 -45 118 Weight 139.5 kg Intake: IV 138 3 Pressure bags 48 3 Sodium Chloride 0.9% 1, 90 000 ml @ 20 mls/hr IV . Q24H SUE Rx#:[id number] Intake, IV Titration 6.347 Amount Insulin Regular 100 unit 6.347 In Sodium Chloride 0.9% 100 ml @ Per Protocol IV .Q0M SUE Rx#:[id number] Oral 720 118 Output: Chest Tube Drainage 0 Chest Tube Left 0 Chest Tube Mediastinal 0 Drainage 20 Left Calf 20 Urine 370 0 Post Void Residual 48 Other: Voiding Method Indwelling Catheter Indwelling Catheter Urinal ABP, PAP, CO, CI - Last Documented Arterial Blood Pressure 117/46 Pulmonary Artery Pressure 27/12 Cardiac Output 5.6 Cardiac Index 2.2 - Exam General appearance: Present: average body habitus, cooperative, no acute distress Neck: Present: normal ROM. Absent: lymphadenopathy, rigidity, thyromegaly Carotids: negative: bruit present Thyroid: bilateral: normal size, negative: enlarged, nodule Respiratory: bilateral: CTA, negative: rales, rhonchi, wheezing - Cardiovascular Rhythm: regular Heart sounds: normal: S1, S2 Abnormal Heart Sounds: Absent: systolic murmur, diastolic murmur General gastrointestinal: Present: normal bowel sounds, soft. Absent: distended, organomegaly, tenderness Neurologic: Present: CNII-XII intact. Absent: focal deficits Musculoskeletal: Present: gait normal, strength equal bilaterally Psychiatric: Present: A&O x's 3, appropriate affect, intact judgment & insight - Labs CBC & Chem 7: 04/16/21 08:30 04/16/21 08:30 Labs: Abnormal Lab Results - Last 24 Hours (Table) 04/15/21 04/15/21 04/15/21 Range/Units 05:12 12:23 17:01 RBC (4.30-5.90) m/uL Hgb (13.0-17.5) gm/dL Hct (39.0-53.0) % Plt Count (150-450) k/uL Neutrophils # (Manual) 8.20 H (1.3-7.7) k/uL Monocytes # (Manual) 1.10 H (0-1.0) k/uL Sodium (137-145) mmol/L BUN (9-20) mg/dL Glucose (74-99) mg/dL POC Glucose (mg/dL) 310 H 249 H (75-99) mg/dL Calcium (8.4-10.2) mg/dL 04/15/21 04/16/21 04/16/21 Range/Units 19:45 06:38 08:30 RBC 2.46 L (4.30-5.90) m/uL Hgb 7.8 L (13.0-17.5) gm/dL Hct 23.2 L (39.0-53.0) % Plt Count 141 L (150-450) k/uL Neutrophils # (Manual) (1.3-7.7) k/uL Monocytes # (Manual) (0-1.0) k/uL Sodium (137-145) mmol/L BUN (9-20) mg/dL Glucose (74-99) mg/dL POC Glucose (mg/dL) 303 H 211 H (75-99) mg/dL Calcium (8.4-10.2) mg/dL 04/16/21 Range/Units 08:30 RBC (4.30-5.90) m/uL Hgb (13.0-17.5) gm/dL Hct (39.0-53.0) % Plt Count (150-450) k/uL Neutrophils # (Manual) (1.3-7.7) k/uL Monocytes # (Manual) (0-1.0) k/uL Sodium 136 L (137-145) mmol/L BUN 29 H (9-20) mg/dL Glucose 181 H (74-99) mg/dL POC Glucose (mg/dL) (75-99) mg/dL Calcium 7.9 L (8.4-10.2) mg/dL Assessment and Plan Assessment: 1. CAD; Postop 5 vessel bypass grafting with routine postoperative ventilator management, with extubation and 4 hours and 40 minutes, on 04/13/2021. Pulmonary service is following and recommending to continue with deep breathing, coughing, and clearing secretions; incentive spirometry every hour while awake - Remains on aspirin, Plavix and statin therapy 2. Atrial fibrillation/flutter; patient remains on IV amiodarone infusion and metoprolol 25 mg twice a day; Plavix 75 mg daily; heparin 5000 units subcu every 8 hours 3. History of diabetes mellitus; monitor Accu-Cheks before meals and at bedtime with insulin sliding scale; patient is currently on insulin 7030 at 23 units subcu before meals breakfast. 4. History of hypertension; metoprolol 25 mg twice a day. 5. Obstructive sleep apnea syndrome, currently on CPAP. 6. History of gastroesophageal reflux disease; 40 mg by mouth daily. 7. History of hyperlipidemia; remains on Protonix 40 mg daily 8. Morbid obesity; counseling done. 9. Charcot Jennyfer tooth disease DVT prophylaxis; SCDs/subcu heparin CODE STATUS; full code
[2021-04-16 20:23] LABS: Glucose,Whole Blood 209 mg/dL (75-99)
[2021-04-16] MEDS: SENNOSIDES-DOCUSATE SODIUM 1 EACH TAB PO SCH (21:14)
[2021-04-17] MEDS: oxyCODONE-APAP 10-325MG 1 EACH TAB PO PRN ×5 (01:48→22:55)
[2021-04-17 06:38] LABS: Glucose,Whole Blood 214 mg/dL (75-99)
[2021-04-17] MEDS: INSULIN ASPART (NovoLOG) 100 UNIT/ML VIAL SQ SCH ×4 (06:38→21:45)
[2021-04-17] MEDS: INSULN ASP PRT/INSULIN ASPART 100 UNIT/ML 10 ML VIAL SQ SCH (06:39)
[2021-04-17] MEDS: PANTOPRAZOLE 40 MG TABLET PO SCH (06:40)
[2021-04-17] MEDS: IPRATROPIUM-ALBUTEROL 3 ML NEB INHALATION SCH ×4 (07:55→20:02)
--- NOTE | 2021-04-17 08:45 | XR ---
EXAMINATION TYPE: XR chest 2V DATE OF EXAM: 04/17/2021 COMPARISON: 04/16/2021 and 03/30/2021 HISTORY: 66-year-old male postoperative CABG TECHNIQUE: AP and lateral views FINDINGS: Median sternotomy wires. Patient is decentered casting hazy density preferentially over the left murtaza thorax. Asymmetrical elevated left hemidiaphragm. Patchy left basilar opacity. Heart remains mildly e nlarged. Small effusions suggested on lateral view. IMPRESSION: 1. Mild cardiomegaly. Median sternotomy wires. 2. Limited, decentered exam. Left basilar atelectasis. Small effusions on the lateral view. Focal rou nded density posterior base on the lateral view probably combination of effusion and atelectasis. Charmaine ssess at follow-up.
[2021-04-17] MEDS: KETOROLAC 15 MG/ML 1 ML VIAL IVP SCH ×4 (08:55→17:55)
[2021-04-17] MEDS: HEPARIN SODIUM,PORCINE/PF 5,000 UNIT/0.5 ML SYRINGE SQ SCH ×3 (08:56→22:55)
[2021-04-17] MEDS: METOPROLOL TARTRATE 25 MG TAB PO SCH ×2 (08:57→21:45)
[2021-04-17] MEDS: FINASTERIDE 5 MG TAB PO SCH (08:57)
[2021-04-17] MEDS: DULoxetine HCL 60 MG CAPSULE.DR PO SCH (08:57)
[2021-04-17] MEDS: ASPIRIN 325 MG TAB PO SCH (08:57)
[2021-04-17] MEDS: ATORVASTATIN 40 MG TAB PO SCH (08:57)
[2021-04-17] MEDS: TAMSULOSIN 0.4 MG CAP.ER.24H PO SCH (08:57)
[2021-04-17] MEDS: CLOPIDOGREL 75 MG TAB PO SCH (08:57)
[2021-04-17 08:58] LABS: HCT 23.1 % (39.0-53.0); HGB 7.8 gm/dL (13.0-17.5); MCHC 33.8 g/dL (31.0-37.0); MCV 94.7 fL (80.0-100.0); Mean Platelet Volume 8.2; Platelet Count 194 k/uL (150-450); RBC 2.44 m/uL (4.30-5.90); RDW 13.2 % (11.5-15.5); WBC 7.3 k/uL (3.8-10.6)
[2021-04-17 09:09] LABS: African American GFR (CKD) >90 (>60 ml/min/1.73 sqM); Anion Gap 4 mmol/L; Blood Urea Nitrogen 21 mg/dL (9-20); Carbon Dioxide 29 mmol/L (22-30); Chloride 102 mmol/L (98-107); Glucose 206 mg/dL (74-99); Non-African American GFR(CKD) >90 (>60 ml/min/1.73 sqM); Potassium 4.1 mmol/L (3.5-5.1); Sodium 135 mmol/L (137-145)
--- NOTE | 2021-04-17 09:42 | P.PN ---
Subjective Progress Note Date: 04/17/21 HISTORY OF PRESENT ILLNESS: 66-year-old male, patient Dr. Soni, who underwent CABG 5: left internal mammary artery with a sequential graft to his diagonal coronary artery and to his left anterior descending coronary artery, a reverse greater saphenous vein graft off the aorta with a sequential graft to his obtuse marginal #1 coronary artery and to his obtuse marginal #2 coronary artery, and a reverse greater saphenous vein graft off the aorta to his right coronary artery. Patient examined this morning. Patient is sitting in the chair. Patient denies chest pain or pressure. He denies shortness of breath. He states he has been using his incentive spirometer. He reports he is tired this morning because he was transferred from the ICU to the cardiac stepdown unit in the middle of the night. Vital signs stable. 04/17/2021 Patient examined this morning. He is sitting up in the chair. He reports he is using his incentive spirometer. He denies chest pain or pressure. He denies shortness of breath. Patient did ambulate yesterday to the door and back with his braces on. Telemetry reveals sinus mechanism. Vital signs are stable. PHYSICAL EXAM: VITAL SIGNS: Reviewed. GENERAL: Well-developed in no acute distress. NECK: Supple. No JVD or thyromegaly LUNGS: Respirations even and unlabored. Lungs diminished bilaterally. HEART: Regular rate and rhythm. S1 and S2 heard. Heart hugger noted. EXTREMITIES: Normal range of motion. No clubbing or cyanosis. Peripheral pulses intact. 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 Signing provider agrees with the documented findings, assessment, and plan of care. Objective - Vital Signs Vital signs: Vital Signs Temp 98.5 F 04/17/21 08:55 Pulse 78 04/17/21 08:55 Resp 18 04/17/21 08:55 BP 138/73 04/17/21 08:55 Pulse Ox 95 04/17/21 08:55 Intake & Output 04/16/21 04/17/21 04/17/21 18:59 06:59 18:59 Intake Total 838 Output Total 550 2250 Balance 288 -2250 Weight 137.8 kg Intake: Oral 838 Output: Urine 550 2250 Other: Voiding Method Urinal Urinal # Voids 1 1 ABP, PAP, CO, CI - Last Documented Arterial Blood Pressure 117/46 Pulmonary Artery Pressure 27/12 Cardiac Output 5.6 Cardiac Index 2.2 - Labs CBC & Chem 7: 04/17/21 07:45 04/17/21 07:45 Labs: Abnormal Lab Results - Last 24 Hours (Table) 04/16/21 04/16/21 04/16/21 Range/Units 12:01 17:10 20:21 RBC (4.30-5.90) m/uL Hgb (13.0-17.5) gm/dL Hct (39.0-53.0) % Sodium (137-145) mmol/L BUN (9-20) mg/dL Creatinine (0.66-1.25) mg/dL Glucose (74-99) mg/dL POC Glucose (mg/dL) 230 H 249 H 209 H (75-99) mg/dL Calcium (8.4-10.2) mg/dL 04/17/21 04/17/21 04/17/21 Range/Units 06:26 07:45 07:45 RBC 2.44 L (4.30-5.90) m/uL Hgb 7.8 L (13.0-17.5) gm/dL Hct 23.1 L (39.0-53.0) % Sodium 135 L (137-145) mmol/L BUN 21 H (9-20) mg/dL Creatinine 0.64 L (0.66-1.25) mg/dL Glucose 206 H (74-99) mg/dL POC Glucose (mg/dL) 214 H (75-99) mg/dL Calcium 8.0 L (8.4-10.2) mg/dL
--- NOTE | 2021-04-17 10:34 | P.PN ---
Subjective Progress Note Date: 04/17/21 Principal diagnosis: Symptomatic multivessel coronary artery disease. Past medical history significant for hypertension, hyperlipidemia, type 2 diabetes mellitus, obstructive sleep apnea with home CPAP use, Iagdhdp-Bicdd-orfts disorder, remote history of nicotine dependence, occasional marijuana use and family history of premature coronary artery disease with his father having a myocardial infarction in his early 60s and an uncle having myocardial infarction in his early 50s. POD #4 coronary artery bypass grafting surgery 5 vessels with his left internal mammary artery with a sequential graft to his diagonal coronary artery and to his left anterior descending coronary artery, a reverse greater saphenous vein graft off the aorta with a sequential graft to his obtuse marginal #1 coronary artery and to his obtuse marginal #2 coronary artery, and a reverse greater saph enous vein graft off the aorta to his right coronary artery. Exclusion of his left atrial appendage with a 35 mm Atriclip, endoscopic harvesting of his left greater saphenous vein, intraoperative transesophageal echocardiogram and epi- aortic scanning. Intraoperative graft flow measurements using the Kadientstim system. Postoperative acute blood loss anemia, expected due to cardiopulmonary bypass a nd hemodilution. The patient is seen in follow-up today 04/17/2021 at his bedside on the cardiac stepdown unit. Currently sitting up to the bedside chair, is awake, alert and oriented 3. He is in no acute apparent distress. Denies any complaints of shortness of breath or pain at this time. No further complaints of urinary retention, he was started on Flomax 0.4 mg by mouth daily yesterday and has had 900 mL of urine output in the last 8 hours. Oxygen saturations are 95% on 2 L nasal cannula and he is achieving 1500 mL on his incentive spirometry. The patient reports he ambulated once with nursing staff yesterday up to the doorway of his room and back to his chair. He is complaining of some generalized weakness and related due to his medical history of CharcotMarietooth disorder. He received a first postoperative shower yesterday. Remote telemetry showing normal sinus rhythm heart rate 73 BPM. He remains hemodynamically stable and is currently no inotropic or pressor support. Laboratory results this morning show a WBC count 7.3, hemoglobin 7.8, hematocrit 23.1, platelets 194, BUN 21, and creatinine 0.64. His sister Polina was updated on his care yesterday and her questions were answered to the best of my ability. Objective - Vital Signs Vital signs: Vital Signs Temp 98.5 F 04/17/21 08:55 Pulse 78 04/17/21 08:55 Resp 18 04/17/21 08:55 BP 138/73 04/17/21 08:55 Pulse Ox 95 04/17/21 08:55 Intake & Output 04/16/21 04/17/21 04/17/21 18:59 06:59 18:59 Intake Total 838 Output Total 550 2250 Balance 288 -2250 Weight 137.8 kg Intake: Oral 838 Output: Urine 550 2250 Other: Voiding Method Urinal Urinal # Voids 1 1 ABP, PAP, CO, CI - Last Documented Arterial Blood Pressure 117/46 Pulmonary Artery Pressure 27/12 Cardiac Output 5.6 Cardiac Index 2.2 - Exam CONSTITUTIONAL: Currently sitting up to the bedside chair on the cardiac stepdown unit, appears comfortable, cooperative, no apparent acute distress. HEENT: Neck is supple, no JVD, no lymphadenopathy. RESPIRATORY: Lungs sounds essentially clear throughout, diminished to his bilateral bases. No wheezes, rhonchi or crackles. Respirations are symmetrical and nonlabored. Currently on 2 L nasal cannula oxygen saturations 95%. Able to achieve 1500 mL on his incentive spirometry. Strong cough. CARDIOVASCULAR: Regular rhythm and rate. S1 and S2 present, negative for S3, gallop or murmur. Sternum is stable. Remote telemetry showing normal sinus rhythm heart rate 73 BPM. Palpable peripheral pulses bilaterally. Heart hugger in place with patient demonstrating appropriate use. Knee-high YULISSA hose and sequential compression devices in place to his bilateral lower extremities. GASTROINTESTINAL: Abdomen soft, nontender, nondistended. Active bowel sounds present 4 quadrants. Tolerating diet. Passing flatus. No guarding or rigidity. GENITOURINARY: Continues to void. 900 mL of urine output in the last 8 hours. INTEGUMENTARY: Skin is warm and dry, no clubbing or cyanosis is present. Midline sternal incision clean dry and well approximated, covered with dry intact dressing. Left lower extremity EVH sites well approximated without redness or drainage. NEUROLOGIC: Cranial nerves II through XII intact. No focal deficits. MUSKULOSKELETAL: Able to move all extremities, strength equal bilaterally, generalized weakness. Bilateral lower extremity leg braces in place. PSYCHIATRIC: Alert and oriented to person place and time, appropriate affect, intact judgment and insight. - Labs CBC & Chem 7: 04/17/21 07:45 04/17/21 07:45 Labs: Abnormal Lab Results - Last 24 Hours (Table) 04/16/21 04/16/21 04/16/21 Range/Units 12:01 17:10 20:21 RBC (4.30-5.90) m/uL Hgb (13.0-17.5) gm/dL Hct (39.0-53.0) % Sodium (137-145) mmol/L BUN (9-20) mg/dL Creatinine (0.66-1.25) mg/dL Glucose (74-99) mg/dL POC Glucose (mg/dL) 230 H 249 H 209 H (75-99) mg/dL Calcium (8.4-10.2) mg/dL 04/17/21 04/17/21 04/17/21 Range/Units 06:26 07:45 07:45 RBC 2.44 L (4.30-5.90) m/uL Hgb 7.8 L (13.0-17.5) gm/dL Hct 23.1 L (39.0-53.0) % Sodium 135 L (137-145) mmol/L BUN 21 H (9-20) mg/dL Creatinine 0.64 L (0.66-1.25) mg/dL Glucose 206 H (74-99) mg/dL POC Glucose (mg/dL) 214 H (75-99) mg/dL Calcium 8.0 L (8.4-10.2) mg/dL Assessment and Plan Assessment: 1. Symptomatic multivessel coronary artery disease, status post 5 vessel coronary artery bypass grafting surgery 2. History of hypertension 3. History of hyperlipidemia 4. Type 2 diabetes mellitus, with a preoperative hemoglobin A1c of 8.1% 5. Obstructive sleep apnea with home CPAP use 6. 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 Remote history of nicotine dependence 8. Occasional marijuana use 9. History of premature coronary artery disease 10. Obesity with a BMI of 32.2 kg/m 11. GERD on omeprazole at home 12. Postoperative acute blood loss anemia, expected due to cardiopulmonary bypass and hemodilution Plan: 1. Continue aspirin, statin, Plavix, beta iesha. Will increase metoprolol as tolerated. 2. Wean oxygen as tolerated. Encourage incentive spirometry use 10 times every hour while awake. Bronchodilators per pulmonology. 3. Increase activity, ambulate as tolerated. PT/OT/cardiac rehab following. Patient needs to continue to wear his leg braces when ambulating. 4. Will monitor daily labs and chest x-rays. Electrolyte replacement per protocol. 5. GI/DVT prophylaxis. 6. Pain control with current medication regimen. 7. Insulin management per primary care service. Patient is a diabetic with a Hemoglobin A1c preoperative 8.1 %, patient needs tight blood sugar control to promote's sternal union and prevent infection. 8. Continue to bladder scan every 6 hours and when necessary for urinary retention and postvoid residual. May straight cath for greater than 300 mL of residual. Continue home dose of Proscar. 9. We will lisinopril 5 mg by mouth daily at noon for afterload reduction. His home dose of lisinopril is 20 mg by mouth daily. 10. Continue Flomax 0.4 mg by mouth daily. 11. Dr. Padilla's consult noted and appreciated. Anticipate the need for inpatient rehab upon discharge, possible discharged within the next 24-48 hours. 12. More recommendations to follow based on patient's clinical course. Time with Patient: Greater than 30
--- NOTE | 2021-04-17 11:43 | P.PN ---
Subjective Progress Note Date: 04/17/21 Principal diagnosis: Artery disease status post coronary artery bypass grafting 5 66-year-old male, status post five-vessel bypass grafting. The patient's procedure was done by Dr. Alberto. The patient has just arrived back to the intensive care unit. The patient's on the ventilator. Ventilator settings include the volume assist control mode, rate of 12, tidal volume 550, FiO2 100%, and 10. Blood gases are pending. The patient has an endotracheal tube in place, a Acosta catheter, [place] catheter, and orogastric tube in place, as well as mediastinal and pleural chest tubes. Chest x-ray has yet to be done. The patient is quite large and very obese. He apparently has history of hypertension, diabetes, coronary artery disease, gastroesophageal reflux disease, hyperlipidemia, and Lrsxzmo-Hektm-Bjhvf disease. I do not see an H&P consultation in the medical record as yet. The operative report is not yet back on the medical record. Arterial blood gases as mentioned, are pending. The patient is seen today 04/14/2021 in follow-up in the intensive care unit. This is postoperative day #1. He had undergone coronary artery bypass grafting 5 utilizing a SCOTT to the diagonal and LAD, saphenous vein grafts to the OM1, OM 2 and RCA. He was extubated at 4 hours and 40 minutes. Presently he is sitting up in bed. Awake and alert in no acute distress. Pale. He is maintaining O2 saturations in the 90s on 5 L high flow nasal cannula. Chest x- ray showing some evidence of pulmonary vascular congestion. Mediastinal and left pleural chest tubes are in place. He is pulling approximate 750 ML's on the incentive spirometer. Left calf DESIRE drainage sanguinous. He has a right sided [place] catheter in place. PA pressure 34/24 with a PA mean of 27. Cardiac output 7.5. Cardiac index 2.9. His 0.9 normal saline at 20 ML's per hour. Insulin drip at 2.5 units per hour. White count 12.1. Hemoglobin 10.1. Platelets 150,000. Sodium 136. Potassium 3.9. Creatinine 0.51. AST 43. ALT 17. He did receive albumin last evening. On cefazolin. Heparin for DVT prophylaxis. Protonix for GI prophylaxis. Progress note dated 04/15/2021. Currently, the patient seemed be doing relatively well. He is again seen in room 267. He is on 3 L nasal cannula. He has no respiratory issues. He is getting saline at 30 mL an hour. He is also on insulin drip at 2 units per hour. Sodium 136, potassium 4.3, chlorides 107, CO2 26, anion gap 3, BUN 24, and creatinine 0.78. Chest x-ray show some postoperative changes. There is some atelectasis particularly at the left base. In addition to CAD, the patient has a history of hypertension, diabetes, gastroesophageal reflux disease, hyperlipidemia, and Upnkqht-Lvoll-Wmreb disease. Progress note dated 04/16/2021. 66-year-old male, doing well. Currently, he's on 2 L nasal cannula. Is not receiving any IV fluids. He is postop day #3, status post five-vessel bypass grafting. He was extubated in 4 hours and 40 minutes from exiting the operating room. He has no major complaints today. He feels well. He denies any chest pain or chest discomfort. He's not having any shortness of breath. He is not coughing. There is no fever or chills. He's not receiving any IV fluids. Currently labs are pending. From yesterday, his white count was 11, hemoglobin 7.4, and sodium 136. Chest x-ray from yesterday showed bilateral atelectasis or infiltrates at the bases. The patient is seen today 04/17/2021 in follow-up on the selective care unit. He is currently sitting up in a chair at the bedside. Awake and alert in no acute distress. Maintaining good O2 saturations in the mid 90s on 2 L/m per n maulik cannula. He is afebrile. Hemodynamically stable. White count 7.3. Hemoglobin 7.8. Sodium 135. Potassium 4.1. Creatinine 0.64. Glucose 206. Chest x-ray shows mild cardiomegaly. Left basilar atelectasis. Small effusions. He continues to work well with the incentive spirometer. Remains on bronchodilators. No further issues with urinary retention. Objective - Vital Signs Vital signs: Vital Signs Temp 98.5 F 04/17/21 08:55 Pulse 78 04/17/21 08:55 Resp 18 04/17/21 08:55 BP 138/73 04/17/21 08:55 Pulse Ox 95 04/17/21 08:55 Intake & Output 04/16/21 04/17/21 04/17/21 18:59 06:59 18:59 Intake Total 838 Output Total 550 2250 Balance 288 -2250 Weight 137.8 kg Intake: Oral 838 Output: Urine 550 2250 Other: Voiding Method Urinal Urinal Urinal # Voids 1 1 ABP, PAP, CO, CI - Last Documented Arterial Blood Pressure 117/46 Pulmonary Artery Pressure 27/12 Cardiac Output 5.6 Cardiac Index 2.2 - Exam GENERAL EXAM: Alert, very pleasant 58-year-old gentleman, on 2 L nasal cannula, fairly comfortable in no apparent distress. HEAD: Normocephalic. EYES: Normal reaction of pupils, equal size. NOSE: Clear with pink turbinates. THROAT: No erythema or exudates. NECK: No masses, no JVD. CHEST: Sternal dressing dry and intact. Heart hugger in place. Mediastinal and left pleural chest tubes in place LUNGS: Equal air entry with crackles in the left base CVS: S1 and S2 normal with no audible murmur, regular rhythm. ABDOMEN: No hepatosplenomegaly, normal bowel sounds, no guarding or rigidity. SPINE: No scoliosis or deformity SKIN: No rashes CENTRAL NERVOUS SYSTEM: No focal deficits, tone is normal in all 4 extremities. EXTREMITIES: YULISSA hose, SCDs in place. There is trace peripheral edema. No clubbing, no cyanosis. Peripheral pulses are intact. - Labs CBC & Chem 7: 04/17/21 07:45 04/17/21 07:45 Labs: Abnormal Lab Results - Last 24 Hours (Table) 04/16/21 04/16/21 04/16/21 Range/Units 12:01 17:10 20:21 RBC (4.30-5.90) m/uL Hgb (13.0-17.5) gm/dL Hct (39.0-53.0) % Sodium (137-145) mmol/L BUN (9-20) mg/dL Creatinine (0.66-1.25) mg/dL Glucose (74-99) mg/dL POC Glucose (mg/dL) 230 H 249 H 209 H (75-99) mg/dL Calcium (8.4-10.2) mg/dL 04/17/21 04/17/21 04/17/21 Range/Units 06:26 07:45 07:45 RBC 2.44 L (4.30-5.90) m/uL Hgb 7.8 L (13.0-17.5) gm/dL Hct 23.1 L (39.0-53.0) % Sodium 135 L (137-145) mmol/L BUN 21 H (9-20) mg/dL Creatinine 0.64 L (0.66-1.25) mg/dL Glucose 206 H (74-99) mg/dL POC Glucose (mg/dL) 214 H (75-99) mg/dL Calcium 8.0 L (8.4-10.2) mg/dL Assessment and Plan Assessment: 1 Coronary artery disease status post coronary artery bypass grafting 5 utilizing a SCOTT to the diagonal, LAD. Saphenous vein grafts to the OM1, OM 2, RCA. 2 Routine postoperative ventilator management, extubated within 4 hours and 40 minutes 04/13/2021 3 Diabetes mellitus, type II 4 Obstructive sleep apnea utilizing CPAP the outpatient setting 5 History of hypertension 6 Gastroesophageal reflux disease 7 History of Kyrsvnt-Icjqe-Cnmzc disease 8 Hyperlipidemia 9 Obesity Plan: The patient was seen and evaluated by Dr. Morales Chest x-ray, labs reviewed Encourage increased use of the incentive spirometer Increase his activity as tolerated Titrate down the FiO2 as tolerated Plan is for possible inpatient rehabilitation upon discharge We'll continue to follow I, the cosigning physician, performed a history & physical examination of the patient. Lungs sounds with crackles in the left base. Maintaining good O2 saturations in the 90s on 2 L/m per nasal cannula I discussed the assessment and plan of care with my nurse practitioner, Gabriela Castaneda. I attest to the above note as dictated by her.
[2021-04-17] MEDS ORDERED: lisinopriL 5 MG TAB PO SCH ×2 (12:00)
[2021-04-17 12:11] LABS: Glucose,Whole Blood 252 mg/dL (75-99)
[2021-04-17 17:14] LABS: Glucose,Whole Blood 253 mg/dL (75-99)
[2021-04-17] MEDS ORDERED: diazePAM 5 MG TAB PO PRN (20:58)
[2021-04-17 21:20] LABS: Glucose,Whole Blood 131 mg/dL (75-99)
[2021-04-17] MEDS: SENNOSIDES-DOCUSATE SODIUM 1 EACH TAB PO SCH (21:45)
--- NOTE | 2021-04-18 00:28 | P.PN ---
Subjective Progress Note Date: 04/17/21 Principal diagnosis: CAD, status post coronary artery bypass grafting 5 History of diabetes mellitus. History of hypertension History of hyperlipidemia 66-year-old male, status post five-vessel bypass grafting. The patient's procedure was done by Dr. Alberto; POD # 2 04/15/2021 Patient is seen and evaluated in room at bedside; remains in ICU; denies any specific complaints at this time He is on 3 L nasal cannula. He has no respiratory issues. He is getting saline at 30 mL an hour. He is also on insulin drip at 2 units per hour. Sodium 136, potassium 4.3, chlorides 107, CO2 26, anion gap 3, BUN 24, and creatinine 0.78. Chest x-ray show some postoperative changes. There is some atelectasis particularly at the left base. In addition to CAD, the patient has a history of hypertension, diabetes, gastroesophageal reflux disease, hyperlipidemia, and Zqtrtlo-Arqto-Jpqgl disease. Tier Over service is following along with cardiothoracic surgery; blood glucose remains elevated; patient is currently on IV insulin infusion at 2 units per hour Patient is encouraged to continue with deep breathing and coughing, incentive spirometry every 1 hour while awake and aggressive clearing of secretions Patient is to be transferred to selective care unit if remains stable 04/16/2021 Patient is seen and evaluated in room at bedside sitting comfortably in bed; 66-year-old male patient underwent CABG 5; denies any complaint of chest pain or shortness of breath Vital signs are reviewed and stable with a temperature of 98.3 pulse 72, respiration 18, blood pressure 130/71 with O2 saturation 92% Postop management per cardiothoracic surgery; cardiology on board and recommending to continue current cardiac medications; patient has been evaluated by inpatient rehab; patient will continue with aspirin, statin, Plavix and beta blockers with PT/OT/cardiac rehab and clinically stable 04/17/2021 Patient is seen and evaluated in follow-up on the selective care unit. He is currently sitting up in a chair at the bedside. Awake and alert in no acute distress. Maintaining good O2 saturations in the mid 90s on 2 L/m per nasal cannula. He is afebrile. Hemodynamically stable. Lab review reveals White count 7.3. Hemoglobin 7.8. Sodium 135. Potassium 4.1. Creatinine 0.64. Glucose 206. Chest x-ray shows mild cardiomegaly. Left basilar atelectasis. Small effusions. He continues to work well with the incentive spirometer. Remains on bronchodilators. No further issues with urinary retention Encourage increased use of the incentive spirometer; Increase his activity as tolerated; Titrate down the FiO2 as tolerated Plan is for possible inpatient rehabilitation upon discharge Objective - Vital Signs Vital signs: Vital Signs Temp 98.5 F 04/17/21 08:55 Pulse 78 04/17/21 08:55 Resp 18 04/17/21 08:55 BP 138/73 04/17/21 08:55 Pulse Ox 95 04/17/21 08:55 Intake & Output 04/16/21 04/17/21 04/17/21 18:59 06:59 18:59 Intake Total 838 Output Total 550 2250 Balance 288 -2250 Weight 137.8 kg Intake: Oral 838 Output: Urine 550 2250 Other: Voiding Method Urinal Urinal # Voids 1 1 ABP, PAP, CO, CI - Last Documented Arterial Blood Pressure 117/46 Pulmonary Artery Pressure 27/12 Cardiac Output 5.6 Cardiac Index 2.2 - Exam General appearance: Present: average body habitus, cooperative, no acute distress Neck: Present: normal ROM. Absent: lymphadenopathy, rigidity, thyromegaly Carotids: negative: bruit present Thyroid: bilateral: normal size, negative: enlarged, nodule Respiratory: bilateral: CTA, negative: rales, rhonchi, wheezing - Cardiovascular Rhythm: regular Heart sounds: normal: S1, S2 Abnormal Heart Sounds: Absent: systolic murmur, diastolic murmur General gastrointestinal: Present: normal bowel sounds, soft. Absent: distended, organomegaly, tenderness Neurologic: Present: CNII-XII intact. Absent: focal deficits Musculoskeletal: Present: gait normal, strength equal bilaterally Psychiatric: Present: A&O x's 3, appropriate affect, intact judgment & insight - Labs CBC & Chem 7: 04/17/21 07:45 04/17/21 07:45 Labs: Abnormal Lab Results - Last 24 Hours (Table) 04/16/21 04/16/21 04/16/21 Range/Units 12:01 17:10 20:21 RBC (4.30-5.90) m/uL Hgb (13.0-17.5) gm/dL Hct (39.0-53.0) % Sodium (137-145) mmol/L BUN (9-20) mg/dL Creatinine (0.66-1.25) mg/dL Glucose (74-99) mg/dL POC Glucose (mg/dL) 230 H 249 H 209 H (75-99) mg/dL Calcium (8.4-10.2) mg/dL 04/17/21 04/17/21 04/17/21 Range/Units 06:26 07:45 07:45 RBC 2.44 L (4.30-5.90) m/uL Hgb 7.8 L (13.0-17.5) gm/dL Hct 23.1 L (39.0-53.0) % Sodium 135 L (137-145) mmol/L BUN 21 H (9-20) mg/dL Creatinine 0.64 L (0.66-1.25) mg/dL Glucose 206 H (74-99) mg/dL POC Glucose (mg/dL) 214 H (75-99) mg/dL Calcium 8.0 L (8.4-10.2) mg/dL Assessment and Plan Assessment: 1. CAD; Postop 5 vessel bypass grafting with routine postoperative ventilator management, with extubation and 4 hours and 40 minutes, on 04/13/2021. Pulmonary service is following and recommending to continue with deep breathing, coughing, and clearing secretions; incentive spirometry every hour while awake - Remains on aspirin, Plavix and statin therapy 2. Atrial fibrillation/flutter; patient remains on IV amiodarone infusion and metoprolol 25 mg twice a day; Plavix 75 mg daily; heparin 5000 units subcu every 8 hours 3. History of diabetes mellitus; monitor Accu-Cheks before meals and at bedtime with insulin sliding scale; patient is currently on insulin 7030 at 23 units subcu before meals breakfast. 4. History of hypertension; metoprolol 25 mg twice a day. 5. Obstructive sleep apnea syndrome, currently on CPAP. 6. History of gastroesophageal reflux disease; 40 mg by mouth daily. 7. History of hyperlipidemia; remains on Protonix 40 mg daily 8. Morbid obesity; counseling done. 9. Charcot Jennyfer tooth disease DVT prophylaxis; SCDs/subcu heparin CODE STATUS; full code
[2021-04-18] MEDS: KETOROLAC 15 MG/ML 1 ML VIAL IVP SCH ×3 (01:38→12:19)
[2021-04-18] MEDS: oxyCODONE-APAP 10-325MG 1 EACH TAB PO PRN ×2 (05:11→12:17)
[2021-04-18 06:36] LABS: Glucose,Whole Blood 264 mg/dL (75-99)
[2021-04-18] MEDS: INSULIN ASPART (NovoLOG) 100 UNIT/ML VIAL SQ SCH ×2 (06:55→12:19)
[2021-04-18] MEDS: PANTOPRAZOLE 40 MG TABLET PO SCH (06:55)
[2021-04-18] MEDS: INSULN ASP PRT/INSULIN ASPART 100 UNIT/ML 10 ML VIAL SQ SCH (06:56)
[2021-04-18 08:13] LABS: HCT 20.8 % (39.0-53.0); MCH 31.8 pg (25.0-35.0); MCHC 33.5 g/dL (31.0-37.0); MCV 94.9 fL (80.0-100.0); Mean Platelet Volume 7.5; Platelet Count 221 k/uL (150-450); RBC 2.19 m/uL (4.30-5.90); RDW 13.4 % (11.5-15.5); WBC 5.7 k/uL (3.8-10.6)
[2021-04-18 08:18] LABS: African American GFR (CKD) >90 (>60 ml/min/1.73 sqM); Anion Gap 3 mmol/L; Blood Urea Nitrogen 20 mg/dL (9-20); Carbon Dioxide 28 mmol/L (22-30); Chloride 103 mmol/L (98-107); Glucose 229 mg/dL (74-99); Non-African American GFR(CKD) >90 (>60 ml/min/1.73 sqM); Potassium 4.7 mmol/L (3.5-5.1); Sodium 134 mmol/L (137-145)
[2021-04-18] MEDS ORDERED: FUROSEMIDE 10 MG/ML 2 ML VIAL IV ONE (08:50)
[2021-04-18] MEDS: ASPIRIN 325 MG TAB PO SCH (08:52)
[2021-04-18] MEDS: DULoxetine HCL 60 MG CAPSULE.DR PO SCH (08:52)
[2021-04-18] MEDS: HEPARIN SODIUM,PORCINE/PF 5,000 UNIT/0.5 ML SYRINGE SQ SCH (08:52)
[2021-04-18] MEDS: CLOPIDOGREL 75 MG TAB PO SCH (08:52)
[2021-04-18] MEDS: METOPROLOL TARTRATE 25 MG TAB PO SCH (08:52)
[2021-04-18] MEDS: FINASTERIDE 5 MG TAB PO SCH (08:52)
[2021-04-18] MEDS: TAMSULOSIN 0.4 MG CAP.ER.24H PO SCH (08:52)
[2021-04-18] MEDS: ATORVASTATIN 40 MG TAB PO SCH (08:52)
[2021-04-18] MEDS: IPRATROPIUM-ALBUTEROL 3 ML NEB INHALATION SCH ×2 (08:59→11:46)
[2021-04-18] MEDS ORDERED: bisacodyL 10 MG SUPP RECTAL SCH (09:00)
[2021-04-18] MEDS ORDERED: polyethylene glycoL 3350 17 GM POWD.PACK PO SCH (09:00)
--- NOTE | 2021-04-18 09:01 | XR ---
EXAMINATION TYPE: XR chest 1V portable DATE OF EXAM: 04/18/2021 COMPARISON: 04/17/2021 HISTORY: Postop CABG TECHNIQUE: Single frontal view of the chest is obtained. FINDINGS: Heart is enlarged and there is postsurgical change with lower lobe infiltrate. No pneumoth orax. Hyperinflation suggests COPD. No interstitial edema. IMPRESSION: Lower lobe infiltrate stable. Correlate for COPD.
--- NOTE | 2021-04-18 11:36 | P.PN ---
Subjective Progress Note Date: 04/18/21 On today's evaluation of 04/18/2021, seeing the patient for a follow-up. The patient continues to use the incentive spirometer. The patient has postop day #5 following coronary artery bypass surgery. The patient underwent 5 vessel bypass surgery. The patient is doing well and the patient remains on oxygen at 2 L per minute nasal cannula. 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 He is using incentive spirometer. He was having issues with urinary retention and the patient is currently on Flomax 0.4 mg on a daily basis. Adequate urine output. Chest x- ray showing some atelectatic changes in the lung bases bilaterally. Sternum is stable clean and intact. Atelectasis is more so on the left. Nevertheless, the patient is not having any major stroke distress. Pain is under good control. He is known to have hypertension and hyperlipidemia and diabetes mellitus and obstructive sleep apnea and uses CPAP machine at home. Creatinine stable at 0.7. Hb is down to 7.0. No signs of any acute bleeding. Objective - Vital Signs Vital signs: Vital Signs Temp 97.8 F 04/18/21 08:10 Pulse 74 04/18/21 09:08 Resp 16 04/18/21 09:08 BP 161/81 04/18/21 08:10 Pulse Ox 97 04/18/21 08:59 Intake & Output 04/17/21 04/18/21 04/18/21 18:59 06:59 18:59 Intake Total 480 118 120 Output Total 650 250 Balance -170 -132 120 Weight 137.9 kg Intake: Oral 480 118 120 Output: Urine 650 250 Other: Voiding Method Urinal Urinal Urinal # Voids 1 1 # Bowel Movements 1 ABP, PAP, CO, CI - Last Documented Arterial Blood Pressure 117/46 Pulmonary Artery Pressure 27/12 Cardiac Output 5.6 Cardiac Index 2.2 - Exam GENERAL EXAM: Alert, very pleasant 58-year-old gentleman, on 2 L nasal cannula, fairly comfortable in no apparent distress. HEAD: Normocephalic. EYES: Normal reaction of pupils, equal size. NOSE: Clear with pink turbinates. THROAT: No erythema or exudates. NECK: No masses, no JVD. CHEST: Sternal dressing dry and intact. Heart hugger in place. Mediastinal and left pleural chest tubes in place LUNGS: Equal air entry with crackles in the left base CVS: S1 and S2 normal with no audible murmur, regular rhythm. ABDOMEN: No hepatosplenomegaly, normal bowel sounds, no guarding or rigidity. SPINE: No scoliosis or deformity SKIN: No rashes CENTRAL NERVOUS SYSTEM: No focal deficits, the patient has muscle weakness and atrophy in all 4 extremities related to his underlying neuropathic disease. EXTREMITIES: YULISSA hose, SCDs in place. There is trace peripheral edema. No clubbing, no cyanosis. Peripheral pulses are intact. - Labs CBC & Chem 7: 04/18/21 06:56 04/18/21 06:56 Labs: Abnormal Lab Results - Last 24 Hours (Table) 04/17/21 04/17/21 04/17/21 Range/Units 12:09 17:12 21:18 RBC (4.30-5.90) m/uL Hgb (13.0-17.5) gm/dL Hct (39.0-53.0) % Sodium (137-145) mmol/L Glucose (74-99) mg/dL POC Glucose (mg/dL) 252 H 253 H 131 H (75-99) mg/dL Calcium (8.4-10.2) mg/dL 04/18/21 04/18/21 04/18/21 Range/Units 06:33 06:56 06:56 RBC 2.19 L (4.30-5.90) m/uL Hgb 7.0 L (13.0-17.5) gm/dL Hct 20.8 L (39.0-53.0) % Sodium 134 L (137-145) mmol/L Glucose 229 H (74-99) mg/dL POC Glucose (mg/dL) 264 H (75-99) mg/dL Calcium 8.0 L (8.4-10.2) mg/dL Assessment and Plan Plan: 1 Coronary artery disease status post coronary artery bypass grafting 5 utilizing a SCOTT to the diagonal, LAD. Saphenous vein grafts to the OM1, OM 2, RCA. Patient is postop day #5. The patient is doing well. Hemodynamically stable. 2 Routine postoperative ventilator management, extubated within 4 hours and 40 minutes 04/13/2021, currently has some atelectatic changes and left lung base. 3 Diabetes mellitus, type II 4 Obstructive sleep apnea utilizing CPAP the outpatient setting 5 History of hypertension 6 Gastroesophageal reflux disease 7 History of Ginmwoc-Jhpmu-Mnady disease 8 Hyperlipidemia 9 Obesity Plan: Aggressive pulmonary toileting Wean down the FiO2 as tolerated to maintain a saturation above 90%. Allow the patient utilizes CPAP machine from home. He does have an underlying obstructive sleep apnea and he has a CPAP machine. Encourage increased use of the incentive spirometer Increase his activity as tolerated Titrate down the FiO2 as tolerated Plan is for possible inpatient rehabilitation upon discharge, the patient is looking to go to [facility] We'll continue to follow
[2021-04-18] MEDS ORDERED: lisinopriL 10 MG TAB PO SCH (12:00)
[2021-04-18 12:08] LABS: Glucose,Whole Blood 220 mg/dL (75-99)
[2021-04-18 12:31] VITALS: BP 156/70; PULSE 76; RESP 18; TEMP 96.4
--- NOTE | 2021-04-18 13:14 | P.PN ---
Subjective This is a pleasant 58-year-old male past medical history significant for hypertension, hyperlipidemia, type 2 diabetes, Ayzhurq-Btgvk-ixiny disorder, obstructive sleep apnea on home CPAP, and family history of coronary disease. He follows in the office with Dr. Soni. We have been asked to see in consultation for postoperative management. Echocardiogram 03/02/2021 showing normal ejection fraction 60%, moderate LVH, moderate aortic regurgitation, trace mitral regurgitation. Left heart catheterization showed 20% left main stenosis, 50% proximal LAD, 95% mid LAD and diagonal 1 per dictation, 95% mid to distal LAD, circumflex 50-60% stenosis, OM1 and 60-70% stenosis and proximal RCA 100% stenosis. Patient was evaluated by cardiothoracic surgery and he was scheduled for CABG. 04/13/2021: Patient underwent coronary artery bypass grafting surgery 5 vessels, exclusion of his left atrial appendage, endoscopic harvesting of his left great er saphenous vein. 04/18/2021: Patient is seen and examined at bedside. No acute distress. He is sitting in the bedside chair. Hemodynamically stable. He has been constipated, has not had a bowel movement since 04/12. He is passing flatus. He is using his incentive spirometer with 2500mL volumes. Telemetry tracings indicate sinus mechanism 70- 80s. Currently being maintained on aspirin 325 mg daily, atorvastatin 40 mg daily, Plavix 75 mg daily, metoprolol titrate 25 mg twice a day, lisinopril 5mg daily. Laboratory reviewed WBC 5.7, hemoglobin 7.0, platelets 221, sodium 134, potassium 4.7, BUN 20, serum creatinine 0.67, Denies blood in urine, no BM today. PHYSICAL EXAMINATION Blood pressure 156/70 heart rate 76 afebrile and maintaining oxygen saturation 98% on 3L high flow nasal cannula CONSTITUTIONAL: No apparent distress. HEENT: Head is normocephalic. Neck supple No JVD. No carotid bruit. CHEST EXAMINATION: Lungs are clear to auscultation diminished in the bases. No chest wall tenderness is noted on palpation or with deep breathing. HEART EXAMINATION: Regular rate and rhythm. S1, S2 heard. No murmurs, gallops or rub. ABDOMEN: Soft, nontender. Positive bowel sounds. : Acosta in place with clear yellow urine EXTREMITIES: 2+ peripheral pulses, no lower extremity edema and no calf tenderness. Bilateral compression stockings and YULISSA hose NEUROLOGIC EXAMINATION: Patient is awake, alert and oriented x3. ASSESSMENT Coronary artery disease Status Post 5 vessel CABG 04/13/21 History of Hypertension History of Hyperlipidemia Type 2 diabetes Pvnczdi-Fcwca-xngbg disorder Obstructive sleep apnea on home CPAP Anemia postoperatively Obesity BMI 34 PLAN Continue medical therapy with aspirin, statin, plavix, beta iesha Will increase lisinopril 10mg daily Post operative management per CT surgery Encourage Incentive spirometer use every hour Bowel regimen - patient on miralax and senna Wean O2 as tolerated Increase activity as tolerated Will continue to follow Plan for discharge in the next 24-48 hours to inpatient rehab Nurse Practitioner note has been reviewed, I agree with a documented findings and plan of care. Patient was seen and examined. Objective - Vital Signs Vital signs: Vital Signs Temp 96.4 F L 04/18/21 11:50 Pulse 76 04/18/21 11:50 Resp 18 04/18/21 11:50 BP 156/70 04/18/21 11:50 Pulse Ox 98 04/18/21 11:50 Intake & Output 04/17/21 04/18/21 04/18/21 18:59 06:59 18:59 Intake Total 480 118 120 Output Total 650 250 Balance -170 -132 120 Weight 137.9 kg Intake: Oral 480 118 120 Output: Urine 650 250 Other: Voiding Method Urinal Urinal Urinal # Voids 1 1 # Bowel Movements 1 ABP, PAP, CO, CI - Last Documented Arterial Blood Pressure 117/46 Pulmonary Artery Pressure 27/12 Cardiac Output 5.6 Cardiac Index 2.2 - Labs CBC & Chem 7: 04/18/21 06:56 04/18/21 06:56 Labs: Abnormal Lab Results - Last 24 Hours (Table) 04/17/21 04/17/21 04/18/21 Range/Units 17:12 21:18 06:33 RBC (4.30-5.90) m/uL Hgb (13.0-17.5) gm/dL Hct (39.0-53.0) % Sodium (137-145) mmol/L Glucose (74-99) mg/dL POC Glucose (mg/dL) 253 H 131 H 264 H (75-99) mg/dL Calcium (8.4-10.2) mg/dL 04/18/21 04/18/2121 Range/Units 06:56 06:56 12:07 RBC 2.19 L (4.30-5.90) m/uL Hgb 7.0 L (13.0-17.5) gm/dL Hct 20.8 L (39.0-53.0) % Sodium 134 L (137-145) mmol/L Glucose 229 H (74-99) mg/dL POC Glucose (mg/dL) 220 H (75-99) mg/dL Calcium 8.0 L (8.4-10.2) mg/dL
--- NOTE | 2021-04-18 13:35 | P.PN ---
Subjective Progress Note Date: 04/18/21 Principal diagnosis: Symptomatic multivessel coronary artery disease. Previous medical history of hypertension, hyperlipidemia, type 2 diabetes mellitus, obstructive sleep apnea with home CPAP use, Zvkwuzj-Dakal-njkqx disorder, previous tobacco dependence, occasional marijuana use and family history of premature coronary artery disease with his father having a myocardial infarction in his early 60s and an uncle having myocardial infarction in his early 50s. POD #5 coronary artery bypass grafting surgery 5 vessels with his left internal mammary artery with a sequential graft to his diagonal coronary artery and to his left anterior descending coronary artery, a reverse greater saphenous vein graft off the aorta with a sequential graft to his obtuse marginal #1 coronary artery and to his obtuse marginal #2 coronary artery, and a reverse greater saphenous vein graft off the aorta to his right coronary artery. Exclusion of his left atrial appendage with a 35 mm Atriclip, endoscopic harvesting of his left greater saphenous vein, intraoperative transesophageal echocardiogram and epi-aortic scanning. Intraoperative graft flow measurements using the [employer] system. Postoperative acute blood loss anemia, expected due to cardiopulmonary bypass and hemodilution. Patient's currently sitting up in a recliner on the cardiac stepdown unit in no acute distress. Does complain of post surgical pain mostly controlled on current medication regimen, denies shortness of breath. Remains in normal sinus rhythm and hemodynamically stable. Able to pull 2000 mL on his incentive spirometry. He has been ambulatory with assist 2, even while wearing his leg braces. He was seen this morning by Dr. Alberto with plans for discharge this afternoon to inpatient rehab. Objective - Vital Signs Vital signs: Vital Signs Temp 96.4 F L 04/18/21 11:50 Pulse 76 04/18/21 11:50 Resp 18 04/18/21 11:50 BP 156/70 04/18/21 11:50 Pulse Ox 98 04/18/21 11:50 Intake & Output 04/17/21 04/18/21 04/18/21 18:59 06:59 18:59 Intake Total 480 118 120 Output Total 650 250 Balance -170 -132 120 Weight 137.9 kg Intake: Oral 480 118 120 Output: Urine 650 250 Other: Voiding Method Urinal Urinal Urinal # Voids 1 1 # Bowel Movements 1 ABP, PAP, CO, CI - Last Documented Arterial Blood Pressure 117/46 Pulmonary Artery Pressure 27/12 Cardiac Output 5.6 Cardiac Index 2.2 - Exam CONSTITUTIONAL: Appears comfortable, cooperative, no acute distress RESPIRATORY: Lungs sounds diminished bilaterally. Respirations even, nonlabored. Currently on 3 L nasal cannula with oxygen saturation 93%. Able to achieve 2000 mL on incentive spirometry. Strong cough. CARDIOVASCULAR: S1, S2 present. Regular rate and rhythm, sinus rhythm on telemetry. Sternum stable. Palpable peripheral pulses bilaterally. No edema present. No calf pain or tenderness noted. Heart hugger in place with patient demonstrating appropriate use. Antiembolism stockings, SCDs present. GASTROINTESTINAL: Abdomen soft, nontender, nondistended. Active bowel sounds present 4 quadrants. Tolerating diet. Positive bowel movement. GENITOURINARY: Continues to void INTEGUMENTARY: Skin is warm and dry with evidence of good perfusion. Anterior chest incision well approximated and covered with dry intact dressing. EVH site well approximated without redness or drainage. NEUROLOGIC: Cranial nerves II through XII intact MUSKULOSKELETAL: Able to move all extremities, strength equal bilaterally, gait normal PSYCHIATRIC: Alert and oriented to person place and time, appropriate affect, intact judgment and insight - Allied health notes Allied health notes reviewed: nursing - Labs CBC & Chem 7: 04/18/21 06:56 04/18/21 06:56 Labs: Abnormal Lab Results - Last 24 Hours (Table) 04/17/21 04/17/21 04/18/21 Range/Units 17:12 21:18 06:33 RBC (4.30-5.90) m/uL Hgb (13.0-17.5) gm/dL Hct (39.0-53.0) % Sodium (137-145) mmol/L Glucose (74-99) mg/dL POC Glucose (mg/dL) 253 H 131 H 264 H (75-99) mg/dL Calcium (8.4-10.2) mg/dL 04/18/21 04/18/21 04/18/21 Range/Units 06:56 06:56 12:07 RBC 2.19 L (4.30-5.90) m/uL Hgb 7.0 L (13.0-17.5) gm/dL Hct 20.8 L (39.0-53.0) % Sodium 134 L (137-145) mmol/L Glucose 229 H (74-99) mg/dL POC Glucose (mg/dL) 220 H (75-99) mg/dL Calcium 8.0 L (8.4-10.2) mg/dL - Imaging and Cardiology Chest x-ray: report reviewed, image reviewed Assessment and Plan Assessment: 1. Symptomatic multivessel coronary artery disease, status post 5 vessel CABG 2. Hypertension 3. Hyperlipidemia 4. Type 2 diabetes mellitus, with a preoperative hemoglobin A1c of 8.1% 5. 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 Previous tobacco dependence 8. Occasional marijuana use 9. History of premature coronary artery disease 10. Obesity with a BMI of 32.2 kg/m 11. GERD 12. Postoperative acute blood loss anemia, expected due to cardiopulmonary bypass and hemodilution Plan: 1. Continue aspirin, statin, Plavix, EVERARDO inhibitor, beta iesha. 2. Wean O2 as tolerated. Encourage incentive spirometry use 10 times every hour while awake. Bronchodilators per pulmonology. 3. Increase activity, ambulate as tolerated. PT/OT/cardiac rehab consulted. Patient needs to wear leg braces when ambulating 4. Will monitor labs and chest x-rays. Electrolyte replacement per protocol. 20 mg IV push Lasix given today 5. GI/DVT prophylaxis. 6. Pain control with current medication regimen. 7. Insulin management per primary care service. Patient is a diabetic with a Hemoglobin A1c preoperative 8.1 %, patient needs tight blood sugar control to promote's sternal union and prevent infection. 8. Strict accurate intake and output, daily weights 9. Discharge planning in progress. Anticipate discharge to inpatient rehab this afternoon 10. More recommendations to follow based on patient's clinical course. Time with Patient: Greater than 30
--- NOTE | 2021-04-18 13:51 | P.DS ---
Providers Date of admission: 04/13/21 05:32 Expected date of discharge: 04/18/21 Attending physician: Homar Alberto Consults: 04/13/21 15:51 Consult Physician Routine Consulting Provider: Sebas Morales Consult Reason/Comments: Secondary Art Teacher Consult: post cardiac surgery Do you want consulting provider notified?: Yes Consult Physician Routine Consulting Provider: Diego Soni Consult Reason/Comments: Hairspring Setter Consult: post cardiac surgery Do you want consulting provider notified?: Yes Consult Physician Routine Consulting Provider: Homer Katz Consult Reason/Comments: med mgmt; Julianne patient Do you want consulting provider notified?: Yes 04/15/21 11:25 Consult Physician Routine Consulting Provider: Markus Padilla Consult Reason/Comments: IPR at discharge Do you want consulting provider notified?: Yes Primary care physician: Ilsa Whitaker [facility] Course: FINAL DIAGNOSIS: 1. Symptomatic multivessel coronary artery disease 2. Hypertension 3. Hyperlipidemia 4. Type 2 diabetes mellitus, preoperative hemoglobin A1c 8.1% 5. Obstructive sleep apnea with home CPAP use 6. Ifpuqod-Cojwk-Ozrfz disorder with history of drop foot and frequent falls at home, wears leg braces 7. Previous tobacco dependence 8. Occasional marijuana use 9. Family history of premature coronary artery disease 10. Obesity 11. GERD 12. Postoperative acute blood loss anemia, expected to cardiopulmonary bypass pump and hemodilution PRINCIPAL PROCEDURE: 1. Coronary artery bypass grafting 5 vessels with left internal mammary artery sequentialled graft to diagonal artery and to left anterior descending coronary artery, reverse greater saphenous vein graft off the aorta with sequential graft to first obtuse marginal coronary artery and second obtuse marginal coronary artery, and reverse greater saphenous vein graft off the aorta to the right coronary artery 2. Exclusion of the left atrial appendage with 35 mm AtriClip 3. Endoscopic harvesting of the left greater saphenous vein 4. Intraoperative transesophageal echocardiogram and epi-aortic scanning 5. Intraoperative graft flow measurements using the [employer] system HISTORY OF PRESENT ILLNESS: This is a 66-year-old gentleman who follows an outpatient basis with Dr. Whitaker for primary care as well as Dr. Soni for cardiology. He reported a 3 month symptomatology of chest tightness, shortness of breath, and exertional lightheadedness. His symptoms were not getting significantly worse, however he did establish connection with cardiology for evaluation and treatment. Due to his symptoms he was recommended to undergo heart catheterization which demonstrated coronary artery disease with 20% left main stenosis, 50% proximal LAD stenosis, 95% mid LAD stenosis at the bifur cation of the first diagonal branch as well as 95% stenosis mid to distal LAD, 50-60% circumflex stenosis, first obtuse marginal artery stenosis 60s 100%, and proximal RCA stenosis 100%. Transthoracic echocardiogram demonstrated normal systolic function and no regional wall motion abnormalities, ejection fraction 60%, moderate centrally directed aortic regurgitation, trace mitral regurgitation, and trace tricuspid regurgitation. The patient was referred to Dr. Alberto from cardiothoracic surgery. He was recommended to undergo coronary artery bypass surgery. The usual perioperative course was discussed in detail with the patient, all risks and benefits were explained, all questions were answered, and consent was obtained to proceed with surgery. The patient was scheduled for elective surgery at the earliest possible date. HOSPITAL COURSE: The patient was brought to the hospital on 04/13/2021, taken to the preoperative area, prepared in the usual fashion, and subsequently taken to the operating room where Dr. Alberto performed 5 vessel CABG. Upon completion of surgery the patient was transferred to the cardiovascular intensive care unit where he was recovered and monitored hemodynamically. He was extubated, all lines, tubes, and drips were discontinued when appropriate, and he was transferred to 3 S cardiac stepdown unit for further monitoring and rehabilitation. His oxygen was titrated down although he will be discharged on 3 L nasal cannula as he is 88% on room air while sleeping, he continued to work with physical and occupational therapy, he was tolerating oral diet, his pain was controlled, and he was ready to be discharged to [facility] inpatient rehab on postoperative day #5. He received written and verbal instruction regarding his medications, activity restrictions, signs and symptoms requiring physician notification, and follow-up appointments. COMPLICATIONS: The patient experienced no postoperative complications. Patient Condition at Discharge: Stable Plan - Discharge Summary Discharge Rx Participant: Yes New Discharge Prescriptions: New Aspirin 325 mg PO DAILY tab Benzocaine/Menthol Lozeng [Cepacol lozenge] 1 each MUCOUS MEM Q2H PRN lozenge PRN Reason: Sore Throat Ipratropium-Albuterol Nebulize [Duoneb 0.5 mg-3 mg/3 ml Soln] 3 ml INHALATION RT-QID ml Tamsulosin [Flomax] 0.4 mg PO PC-BRKFST cap.er.24h Atorvastatin [Lipitor] 40 mg PO DAILY tab Magnesium Hydroxide [Milk of Magnesia Concentrate] 2,400 mg PO BID PRN ml PRN Reason: Constipation INSULIN ASPART (NovoLOG) [NovoLOG (formulary)] 0 unit SQ ACHS vial Pantoprazole [Protonix] 40 mg PO AC-BRKFST tablet.dr lisinopriL [Zestril] 10 mg PO DAILY@1200 tab Ipratropium-Albuterol Nebulize [Duoneb 0.5 mg-3 mg/3 ml Soln] 3 ml INHALATION RT-Q2H PRN ml PRN Reason: Shortness Of Breath Or Wheezing Metoprolol Tartrate [Lopressor] 25 mg PO BID tab Clopidogrel [Plavix] 75 mg PO DAILY tab Sennosides-Docusate Sodium [Senokot-S] 2 each PO HS tab Acetaminophen Tab [Tylenol] 650 mg PO Q6HR PRN tab PRN Reason: Fever And/ Or Pain diazePAM [Valium] 10 mg PO TID PRN tab PRN Reason: Anxiety Continue Multivit-Min/FA/Lycopen/Lutein [Centrum Silver Tablet] 1 each PO DAILY Insulin Degludec [Tresiba] 64 units SQ AC-BRKFST DULoxetine HCL [Cymbalta] 60 mg PO DAILY metFORMIN HCL 1,000 mg PO BID Mirtazapine [Remeron] 15 mg PO DAILY Finasteride [Proscar] 5 mg PO DAILY glipiZIDE [Glucotrol] 10 mg PO BID Pioglitazone [Actos] 30 mg PO DAILY Changed oxyCODONE HCL/ACETAMINOPHEN [Endocet 10-325 mg] 1 tab PO Q4HR #0 Discontinued lisinopriL [Zestril] 20 mg PO DAILY Omeprazole 20 mg PO DAILY Atorvastatin [Lipitor] 20 mg PO DAILY Metoprolol Succinate (ER) [Toprol Xl] 50 mg PO DAILY Diazepam [Valium] 10 mg PO DIRECTED PRN PRN Reason: Anxiety Aspirin 325 mg PO DAILY Discharge Medication List DULoxetine HCL [Cymbalta] 60 mg PO DAILY 04/16/19 [History] Finasteride [Proscar] 5 mg PO DAILY 04/16/19 [History] Insulin Degludec [Tresiba] 64 units SQ AC-BRKFST 04/16/19 [History] Mirtazapine [Remeron] 15 mg PO DAILY 04/16/19 [History] Multivit-Min/FA/Lycopen/Lutein [Centrum Silver Tablet] 1 each PO DAILY 04/16/19 [History] glipiZIDE [Glucotrol] 10 mg PO BID 04/16/19 [History] metFORMIN HCL 1,000 mg PO BID 04/16/19 [History] Pioglitazone [Actos] 30 mg PO DAILY 03/04/21 [History] Acetaminophen Tab [Tylenol] 650 mg PO Q6HR PRN tab 04/18/21 [Rx] Aspirin 325 mg PO DAILY tab 04/18/21 [Rx] Atorvastatin [Lipitor] 40 mg PO DAILY tab 04/18/21 [Rx] Benzocaine/Menthol Lozeng [Cepacol lozenge] 1 each MUCOUS MEM Q2H PRN lozenge 04/18/21 [Rx] Clopidogrel [Plavix] 75 mg PO DAILY tab 04/18/21 [Rx] INSULIN ASPART (NovoLOG) [NovoLOG (formulary)] 0 unit SQ ACHS vial 04/18/21 [Rx] Ipratropium-Albuterol Nebulize [Duoneb 0.5 mg-3 mg/3 ml Soln] 3 ml INHALATION RT-Q2H PRN ml 04/18/21 [Rx] Ipratropium-Albuterol Nebulize [Duoneb 0.5 mg-3 mg/3 ml Soln] 3 ml INHALATION RT-QID ml 04/18/21 [Rx] Magnesium Hydroxide [Milk of Magnesia Concentrate] 2,400 mg PO BID PRN ml 04/18/21 [Rx] Metoprolol Tartrate [Lopressor] 25 mg PO BID tab 04/18/21 [Rx] Pantoprazole [Protonix] 40 mg PO AC-BRKFST tablet. 04/18/21 [Rx] Sennosides-Docusate Sodium [Senokot-S] 2 each PO HS tab 04/18/21 [Rx] Tamsulosin [Flomax] 0.4 mg PO PC-BRKFST cap.er.24h 04/18/21 [Rx] diazePAM [Valium] 10 mg PO TID PRN tab 04/18/21 [Rx] lisinopriL [Zestril] 10 mg PO DAILY@1200 tab 04/18/21 [Rx] oxyCODONE HCL/ACETAMINOPHEN [Endocet 10-325 mg] 1 tab PO Q4HR #0 04/18/21 [Rx] Follow up Appointment(s)/Referral(s): Song Rico MD [STAFF PHYSICIAN] - 1 Week (Please call to make a follow-up appointment upon discharge from inpatient rehab) [facility],Cardiac [NON-STAFF] - 4 Weeks (You will be called in 4-6 weeks for evaluation for cardiac rehab) A[facility],[place] [NON-STAFF] - As Needed Homar Alberto MD [STAFF PHYSICIAN] - 05/13/21 10:30 am Diego Soni DO [STAFF PHYSICIAN] - 1 Week (Please call to make a follow-up appointment upon discharge from inpatient rehab) Ilsa Whitaker III, MD [Primary Care Provider] - 1 Week (Please call to make a follow-up appointment upon discharge from inpatient rehab) Ambulatory/Diagnostic Orders: Complete Blood Count w/diff [LAB.AMB] Time Frame: 3 Days, Location: None Selected Comprehensive Metabolic Panel [LAB.AMB] Time Frame: 3 Days, Location: None Selected Activity/Diet/Wound Care/Special Instructions: CONSULTS AT IPR: Dr. Soni for cardiology Dr. Rico for pulmonology DISCHARGE INSTRUCTIONS: 1. No driving for 4 weeks, or until physician gives their ok. 2. The patient should sleep in their own bed, no medical bed needed. 3. Stairs are not an issue. If the bedroom is upstairs, it is advised that the patient go up at night and down in the morning for the first week. Go slowly, using handrail and take 1 step at a time. 4. YULISSA hose are to be worn for 30 days or until physician discontinues. 5. Heart hugger is to be worn 100% of the time until physician discontinues.(except when showering) 6. No lifting, pushing, or pulling more than 10 pounds for 12 weeks. The physician will advise of any restriction changes. 7. The patient is expected to continue the prescribed walking program. 8. Continue pain control per as needed orders. 9. Continue with incentive spirometry and splinting/heart hugger until otherwise directed by the physician. 10. Must shower daily using liquid antibacterial soap and a separate white washcloth for each individual incision. 11. Routine sternal incision care. No powders, lotions, ointments on incisions. No dressings are necessary on incisions unless they are draining. Dermabond tape is to remain on sternal incision until surgeon follow-up. 12. Please call surgeon/OPTICAL MANUFACTURING TECHNICIAN for temp greater than 101 F or purulent drainage from incisions. 13. A Red armband has been placed on the patient. It should be worn for 30 days post surgery and will be removed by the cardiac surgeons. If an ER visit is necessary, please make sure the number on the Red armband is called. 14. You have been referred to and are expected to begin Cardiac Rehab in approximately 4-6 weeks. HOME HEALTH SERVICES TO PROVIDE: RN SKILLED HOME CARE SERVICES FOR POST-OP SURGICAL PATIENTS WITH THE FOLLOW ING: Coronary Artery Bypass Surgery (CABG), Mitral Valve Replacement/Repair ( MVR), Aortic Valve Replacement/Repair (AVR) RN TO CONTINUE EDUCATION FROM ``ROAD TO A [facility] HEART PATIENT EDUCATION MAN UAL (GIVEN TO PATIENT IN THE HOSPITAL) MEDICATION RECONCILIATION WITH EDUCATION NEEDED ON FIRST HOME VISIT EMPHASIZE IMPORTANCE OF WEARING BREAST SUPPORT/HEART HUGGER ENCOURAGE USE OF INCENTIVE SPIROMETER 10 X EVERY HOUR WHILE AWAKE ENCOURAGE UTILIZATION OF LOWER EXTREMITY COMPRESSION STOCKINGS/YULISSA HOSE and ELEVATE LEGS ABOVE LEVEL OF HEART WHILE AT REST. ENCOURAGE AMBULATION 3-5x/day INCREASING TOLERATES, WHILE AVOIDING EXTREMES IN TEMPERATURE FREQUENCY: RN TO OPEN THE PATIENT WITHIN 24 HOURS OF DISCHARGE FROM THE HOSPITAL WITH TELEHEALTH INSTALLED AT [facility], RN TO VISIT 2-3 X A WEEK FOR 4 WEEKS ESTABLISHED BY PATIENT NEEDS. LABORATORY: CBC, CMP TO BE DRAWN ON THE THIRD DAY HOME, (RAN STAT) FAX RESULTS TO [phone]. TELEHEALTH PARAMETERS: WEIGHT: NOTIFY MD OF WEIGHT GAIN OF 2 LBS IN 24 HOURS OR 5 LBS IN ONE WEEK HR: NOTIFY MD OF HR <55 BPM OR HR>100 BPM BP: NOTIFY MD IF BP <90/55 OR BP>140/100 O2 SAT: NOTIFY MD IF PO2<93% ON ROOM AIR SEND TELEHEALTH REPORT TO THIRD RIGGER AND CARDIOVASCULAR SURGEON THE FIRST WEEK OF CARE AND THEN BI-WEEKLY. PLEASE ADDITIONALLY COMMUNICATE ANY ABNORMALS AND NEW FINDINGS TO THE SURGEONS OFFICE. For any questions or concerns please call research biostatistician Nasreen @ or Perry @ Discharge/Stand Alone Forms: Who Do I Call?, Help In The Home Discharge Disposition: DC/TRNS INTERMEDIATE CARE FAC
--- NOTE | 2021-04-18 15:31 | P.PN ---
Subjective Progress Note Date: 04/18/21 CAD, status post coronary artery bypass grafting 5 History of diabetes mellitus. History of hypertension History of hyperlipidemia 66-year-old male, status post five-vessel bypass grafting. The patient's procedure was done by Dr. Alberto; POD # 2 04/15/2021 Patient is seen and evaluated in room at bedside; remains in ICU; denies any specific complaints at this time He is on 3 L nasal cannula. He has no respiratory issues. He is getting saline at 30 mL an hour. He is also on insulin drip at 2 units per hour. Sodium 136, potassium 4.3, chlorides 107, CO2 26, anion gap 3, BUN 24, and creatinine 0.78. Chest x-ray show some postoperative changes. There is some atelectasis particularly at the left base. In addition to CAD, the patient has a history of hypertension, diabetes, gastroesophageal reflux disease, hyperlipidemia, and Svplywe-Uhvup-Rckqc disease. Poultry Inseminator service is following along with cardiothoracic surgery; blood glucose remains elevated; patient is currently on IV insulin infusion at 2 units per hour Patient is encouraged to continue with deep breathing and coughing, incentive spirometry every 1 hour while awake and aggressive clearing of secretions Patient is to be transferred to selective care unit if remains stable 04/16/2021 Patient is seen and evaluated in room at bedside sitting comfortably in bed; 66-year-old male patient underwent CABG 5; denies any complaint of chest pain or shortness of breath Vital signs are reviewed and stable with a temperature of 98.3 pulse 72, respiration 18, blood pressure 130/71 with O2 saturation 92% Postop management per cardiothoracic surgery; cardiology on board and recommending to continue current cardiac medications; patient has been evaluated by inpatient rehab; patient will continue with aspirin, statin, Plavix and beta blockers with PT/OT/cardiac rehab and clinically stable 04/17/2021 Patient is seen and evaluated in follow-up on the selective care unit. He is currently sitting up in a chair at the bedside. Awake and alert in no acute distress. Maintaining good O2 saturations in the mid 90s on 2 L/m per nasal cannula. He is afebrile. Hemodynamically stable. Lab review reveals White count 7.3. Hemoglobin 7.8. Sodium 135. Potassium 4.1. Creatinine 0.64. Glucose 206. Chest x-ray shows mild cardiomegaly. Left basilar atelectasis. Small effusions. He continues to work well with the inc Prospectvision[employer] spirometer. Remains on bronchodilators. No further issues with urinary retention Encourage increased use of the incentive spirometer; Increase his activity as tolerated; Titrate down the FiO2 as tolerated Plan is for possible inpatient rehabilitation upon discharge 04/18/2021 Patient is seen in follow-up this morning currently up in the bathroom with assistance and has been using a walker. Patient's hemoglobin is 7.0 and this was discussed with vascular surgery most likely hemodilution and recent surgery and will monitor closely. No plans for PRBC transfusions today. Patient felipe ho using incentive spirometer and is tolerating diet with no reports of nausea or vomiting noted. Plan is for the patient to go to [facility] inpatient rehab today. Review of systems: Constitutional: No reports of fatigue, fever, or chills Cardiovascular: reports of chest wall pain and using heart hugger Respiratory: Reports mild shortness of breath with exertion GI: No reports of nausea, vomiting, or diarrhea : No reports of dysuria or retention Neurovascular: reports generalized weakness All medications have been reviewed Objective - Vital Signs Vital signs: Vital Signs Temp 98.3 F 04/18/21 04:00 Pulse 74 04/18/21 09:08 Resp 16 04/18/21 09:08 BP 151/76 04/18/21 04:00 Pulse Ox 97 04/18/21 08:59 Intake & Output 04/17/21 04/18/21 04/18/21 18:59 06:59 18:59 Intake Total 480 118 120 Output Total 650 250 Balance -170 -132 120 Weight 137.9 kg Intake: Oral 480 118 120 Output: Urine 650 250 Other: Voiding Method Urinal Urinal # Voids 1 ABP, PAP, CO, CI - Last Documented Arterial Blood Pressure 117/46 Pulmonary Artery Pressure 27/12 Cardiac Output 5.6 Cardiac Index 2.2 - Exam Gen: This is a 66-year-old male awake, alert and oriented 3, well-developed, well-nourished, obese. Currently up in the bathroom with help HEENT: Head is atraumatic, normocephalic. Pupils equal, round. Sclerae is anicteric. NECK: Supple. No JVD. No lymphadenopathy. No thyromegaly. LUNGS: Diminished breath sounds bilaterally with no wheezing or rhonchi noted. No intercostal retractions. HEART: S1, S2 are muffled ABDOMEN: Soft. Bowel sounds are present. No masses. No tenderness. EXTREMITIES: No pedal edema. No calf tenderness. NEUROLOGICAL: Patient is awake, alert and oriented x3. Diffusely weak - Labs CBC & Chem 7: 04/18/21 06:56 04/18/21 06:56 Labs: Abnormal Lab Results - Last 24 Hours (Table) 04/17/21 04/17/21 04/17/21 Range/Units 12:09 17:12 21:18 RBC (4.30-5.90) m/uL Hgb (13.0-17.5) gm/dL Hct (39.0-53.0) % Sodium (137-145) mmol/L Glucose (74-99) mg/dL POC Glucose (mg/dL) 252 H 253 H 131 H (75-99) mg/dL Calcium (8.4-10.2) mg/dL 04/18/21 04/18/21 04/18/21 Range/Units 06:33 06:56 06:56 RBC 2.19 L (4.30-5.90) m/uL Hgb 7.0 L (13.0-17.5) gm/dL Hct 20.8 L (39.0-53.0) % Sodium 134 L (137-145) mmol/L Glucose 229 H (74-99) mg/dL POC Glucose (mg/dL) 264 H (75-99) mg/dL Calcium 8.0 L (8.4-10.2) mg/dL Assessment and Plan Assessment: Coronary artery disease with 5 vessel bypass grafting postop day #6 Acute blood loss anemia secondary to recent surgery and hemodilution Atrial fibrillation/flutter History of diabetes mellitus History of hypertension Obstructive sleep apnea syndrome History of gastroesophageal reflux disease history of hyperlipidemia Morbid obesity Jvcvqhx-Hlfoz-Plmki disease DVT prophylaxis GI prophylaxis Full code Plan: Recommend to continue with current medications and current management. Multiple medical consultations including pulmonary and cardiology following closely. Patient was also seen and evaluated by Dr. Padilla is being accepted at [facility] for inpatient rehab and will be going today. Patient's hemoglobin was found to be 7.0 and asymptomatic which is most likely secondary to hemodilution and recent surgery. Cardio thoracic surgery is aware and no plans for PRBC transfusion at this time and will continue monitor closely. Encouraged and instructed the patient to continue using incentive spirometer and continue to increase activity as tolerated. Will continue to follow during hos pitalization. [facility] today.
--- NOTE | 2021-04-19 08:03 | CDI ---
Documentation Clarification Form Date: 04/18/2021 02:44:49 PM From: Taylor Marcum RN CCDS Admit Date: 04/13/2021 05:32:00 AM Patient Name: Cuate Gamez Visit Number: [id number] Discharge Date: ATTENTION: The Clinical Documentation Specialists (CDI) and [facility] Coding Staff appreciate your assistance in clarifying documentation. Please respond to the clarification below the line at the bottom and electronically sign. The CDI & [facility] Coding staff will review the response and follow-up if needed. Please note: Queries are made part of the Legal Health Record. If you have any questions, please contact the author of this message via ITS. Dr. Mercedez Morales, Atrial fibrillation/flutter is documented 04/15, 04/16, 04/17 Internal Medicine progress notes, which may lack sufficient clinical evidence/support in the medical record. Additional clarification is requested. History/Risk Factors: 66-year-old male presents to [facility] for elective CABG after having a three-month history of chest tightness, shortness of breath an exertional lightheadedness and getting worse. CTS 04/18 DCS Medical history: CAD, DM, GERD, HTN and HLD. Pulmonary consult 04/13 Clinical Indicators: Amiodarone HCL 450mg in Dextrose/Water 0.5MB/MIN Q15H PRN A.FIB/FLUTTER. Standard order, not administered. Remains in normal sinus rhythm and hemodynamically stable on no inotropes or pressors. Cardiothoracic Progress note 04/15 Remote telemetry showing normal sinus rhythm heart rate 63 bpm. Cardiothoracic progress note 04/16. Telemetry reveals sinus mechanism. Cardiology progress note 04/17. Remote telemetry showing normal sinus rhythm heart rate 73 BPM. He remains hemodynamically stable and is currently no inotropic or pressor support. Cardiothoracic progress note 04/17. Treatment: 04/13 Lopressor 12.5mg PO X 1; 04/13 Lopressor 12.5mg PO X 1; 04/14 Lopressor 12.5mg PO BID SUE D/C 04/14. 04/14 12.5mg PO X 1; 04/14 Lopressor 25mg PO BID SUE to current. Please clarify if [insert diagnosis] is a valid diagnosis? [ ] Yes, Atrial fibrillation/flutter is present as evidence by (additional clinical support): [ ] No, Atrial fibrillation/flutter is ruled out [ ] Other (please specify diagnosis) [ ] Unable to determine (Template Last Revised: January 2021) NO, Atrial fib/flutter is ruled out MTDD
== END 2021-04-18 15:20 | DRG 236 ==
LOC: 2ORMAIN 05:32 → 2SICU 16:17 → 3SCARD 04-16 00:24
PROVIDERS: ADMIT Surgery; ATTEND Surgery
PROC: 02L70CK Occlusion of Left Atrial Appendage with Extraluminal Device, Open Approach (ICD-10-PCS; 2021-04-13)
PROC: 5A1221Z Performance of Cardiac Output, Continuous (ICD-10-PCS; 2021-04-13)
PROC: B246ZZ4 Ultrasonography of Right and Left Heart, Transesophageal (ICD-10-PCS; 2021-04-13)
PROC: 02110Z9 Bypass Coronary Artery, Two Arteries from Left Internal Mammary, Open Approach (ICD-10-PCS; principal; 2021-04-13 08:00)
PROC: 021209W Bypass Coronary Artery, Three Arteries from Aorta with Autologous Venous Tissue, Open Approach (ICD-10-PCS; 2021-04-13 08:00)
PROC: 06BQ4ZZ Excision of Left Saphenous Vein, Percutaneous Endoscopic Approach (ICD-10-PCS; 2021-04-13 08:00)
DX: I25.10 Atherosclerotic heart disease of native coronary artery without angina pectoris (principal); D62 Acute posthemorrhagic anemia; J98.11 Atelectasis; E78.5 Hyperlipidemia, unspecified; G47.33 Obstructive sleep apnea (adult) (pediatric); G60.0 Hereditary motor and sensory neuropathy; Z87.891 Personal history of nicotine dependence; Z80.3 Family history of malignant neoplasm of breast; Z82.49 Family history of ischemic heart disease and other diseases of the circulatory system; Z80.8 Family history of malignant neoplasm of other organs or systems; I10 Essential (primary) hypertension; K21.9 Gastro-esophageal reflux disease without esophagitis; F41.9 Anxiety disorder, unspecified; F32.9 Major depressive disorder, single episode, unspecified; Z79.4 Long term (current) use of insulin; G89.4 Chronic pain syndrome; E11.42 Type 2 diabetes mellitus with diabetic polyneuropathy; R29.6 Repeated falls; M21.379 Foot drop, unspecified foot; Z79.02 Long term (current) use of antithrombotics/antiplatelets; Z79.82 Long term (current) use of aspirin; M19.90 Unspecified osteoarthritis, unspecified site; J44.9 Chronic obstructive pulmonary disease, unspecified; K59.00 Constipation, unspecified; Z79.899 Other long term (current) drug therapy; Z68.34 Body mass index [BMI] 34.0-34.9, adult; E66.9 Obesity, unspecified
CPT/HCPCS: 71045; 71046; 80048; 80053; 82330; 82805; 83735; 85025; 85027; 85520; 85610; 85730; 86850; 86891; 86900; 86901; 86920; 94002; 94640; 94760

== ENCOUNTER 2022-03-04 15:43 | Emergency (ER) | payer MEDICARE, OTHER ==
[2022-03-04 15:49] VITALS: RESP 18; TEMP 98
[2022-03-04] MEDS ORDERED: DIPH,PERTUS(ACELL)TETVAC-LF 0.5 ML VIAL IM ONE (15:58)
--- NOTE | 2022-03-04 16:01 | ED ---
General Adult HPI - General Chief complaint: Fall Stated complaint: Fall-Arm/leg lac Time Seen by Provider: 03/04/22 15:54 Source: patient, RN notes reviewed Mode of arrival: ambulatory Limitations: no limitations - History of Present Illness Initial comments: Patient is a pleasant [age]-year-old male presenting to the emergency department following a fall. Incident occurred prior to arrival. Patient was outside doing some yard work when he tripped. Patient sustained multiple skin abrasions/tears. Patient complains of some discomfort of his right wrist as well. No head injury or loss of consciousness. No neck or back pain. No chest pain or dyspnea. No abdominal pain. Unclear last tetanus history - Related Data Home Medications Medication Instructions Recorded Confirmed DULoxetine HCL [Cymbalta] 60 mg PO DAILY 04/16/19 04/13/21 Finasteride [Proscar] 5 mg PO DAILY 04/16/19 04/13/21 Insulin Degludec [Tresiba] 64 units SQ AC-BRKFST 04/16/19 04/13/21 Mirtazapine [Remeron] 15 mg PO DAILY 04/16/19 04/13/21 Multivit-Min/FA/Lycopen/Lutein 1 each PO DAILY 04/16/19 04/13/21 [Centrum Silver Tablet] glipiZIDE [Glucotrol] 10 mg PO BID 04/16/19 04/13/21 metFORMIN HCL [Glucophage] 1,000 mg PO BID 04/16/19 04/13/21 Pioglitazone [Actos] 30 mg PO DAILY 03/04/21 04/13/21 Previous Rx's Medication Instructions Recorded Acetaminophen Tab [Tylenol] 650 mg PO Q6HR PRN tab 04/18/21 Aspirin 325 mg PO DAILY tab 04/18/21 Atorvastatin [Lipitor] 40 mg PO DAILY tab 04/18/21 Benzocaine/Menthol Lozeng [Cepacol 1 each MUCOUS MEM Q2H PRN lozenge 04/18/21 lozenge] Clopidogrel [Plavix] 75 mg PO DAILY tab 04/18/21 INSULIN ASPART (NovoLOG) [NovoLOG 0 unit SQ ACHS vial 04/18/21 (formulary)] Ipratropium-Albuterol Nebulize 3 ml INHALATION RT-Q2H PRN ml 04/18/21 [Duoneb 0.5 mg-3 mg/3 ml Soln] Ipratropium-Albuterol Nebulize 3 ml INHALATION RT-QID ml 04/18/21 [Duoneb 0.5 mg-3 mg/3 ml Soln] Magnesium Hydroxide [Milk of 2,400 mg PO BID PRN ml 04/18/21 Magnesia Concentrate] Metoprolol Tartrate [Lopressor] 25 mg PO BID tab 04/18/21 Pantoprazole [Protonix] 40 mg PO AC-BRKFST tablet. 04/18/21 Sennosides-Docusate Sodium 2 each PO HS tab 04/18/21 [Senokot-S] Tamsulosin [Flomax] 0.4 mg PO PC-BRKFST cap.er.24h 04/18/21 diazePAM [Valium] 10 mg PO TID PRN tab 04/18/21 lisinopriL [Zestril] 10 mg PO DAILY@1200 tab 04/18/21 oxyCODONE HCL/ACETAMINOPHEN 1 tab PO Q4HR #0 04/18/21 [Endocet 10-325 mg] Allergies Allergy/AdvReac Type Severity Reaction Status Date / Time No Known Allergies Allergy Verified 03/04/22 15:45 Review of Systems ROS Statement: Those systems with pertinent positive or pertinent negative responses have been documented in the HPI. ROS Other: All systems not noted in ROS Statement are negative. Constitutional: Denies: fever Eyes: Denies: eye pain ENT: Denies: ear pain Respiratory: Denies: cough Cardiovascular: Denies: chest pain Endocrine: Denies: fatigue Gastrointestinal: Denies: abdominal pain Genitourinary: Denies: dysuria Musculoskeletal: Denies: back pain Skin: Reports: as per HPI Neurological: Denies: weakness Past Medical History Past Medical History: Coronary Artery Disease (CAD), Chest Pain / Angina, Diabetes Mellitus, GERD/Reflux, Hyperlipidemia, Hypertension, Musculoskeletal Disorder, Osteoarthritis (OA), Prostate Disorder, Sleep Apnea/CPAP/BIPAP Additional Past Medical History / Comment(s): [id number] SYNDROME, CAUSES PAIN, HAS NUMBNESS IN FEET, neuropathy, WEARS NICOLÁS LEG BRACES. USES CPAP., some recent chest pain & tightness @times History of Any Multi-Drug Resistant Organisms: None Reported Past Surgical History: No Surgical Hx Reported Additional Past Surgical History / Comment(s): open heart Past Anesthesia/Blood Transfusion Reactions: No Reported Reaction Past Psychological History: No Psychological Hx Reported Smoking Status: Former smoker Past Alcohol Use History: None Reported Past Drug Use History: None Reported - Past Family History Mother Family Medical History: Cancer Additional Family Medical History / Comment(s): BREAST CA Sister(s) Family Medical History: Cancer Additional Family Medical History / Comment(s): SKIN CA Father Family Medical History: Congestive Heart Failure (CHF), Coronary Artery Disease (CAD), Myocardial Infarction ([place]) Additional Family Medical History / Comment(s): Myocardial infarction in his early 60s, paternal uncle had myocardial infarction in his early 50s General Exam Limitations: no limitations General appearance: alert, in no apparent distress Head exam: Present: atraumatic, normocephalic Eye exam: Present: normal appearance Neck exam: Present: normal inspection. Absent: tenderness Respiratory exam: Present: normal lung sounds bilaterally Cardiovascular Exam: Present: regular rate, normal rhythm GI/Abdominal exam: Present: soft. Absent: tenderness Extremities exam: Present: tenderness (Right wrist tenderness and swelling. Right anterior tibia mid region with swelling and tenderness) Back exam: Present: normal inspection. Absent: tenderness, vertebral tenderness Neurological exam: Present: alert. Absent: motor sensory deficit Psychiatric exam: Present: normal affect, normal mood Skin exam: Present: abrasion (Multiple skin tears and abrasions. No significant laceration needing suturing) Course Vital Signs 03/04/22 15:45 Temperature 98 F Pulse Rate 103 H Respiratory 18 Rate Blood Pressure 187/89 O2 Sat by Pulse 96 Oximetry Procedures - Orthopedic Splinting/Casting Injury #1 Side: right Upper Extremity Injury Location: short arm, wrist Upper Extremity Immobilizer: volar splint Medical Decision Making - Radiology Data Radiology results: image reviewed (X-ray right tib-fib and right wrist do not reveal acute abnormality) Disposition Clinical Impression: Fall, Wrist injury, Abrasion Disposition: HOME SELF-CARE Condition: Stable Instructions (If sedation given, give patient instructions): Fall Prevention (ED), Abrasion (ED) Additional Instructions: Please follow-up with primary care physician or orthopedic doctor within the next week for recheck. If pain or swelling continue you will need repeat x- rays. Please wash all abrasions with soap and water and apply bandages for the next week. Ice to affected area, rest and leg as needed. [id number] Tylenol as needed. Is patient prescribed a controlled substance at d/c from ED?: No Referrals: Ilsa Whitaker III, MD [Primary Care Provider] - 1-2 days Lauri Beebe MD [STAFF PHYSICIAN] - 1-2 days Time of Disposition: 17:03
--- NOTE | 2022-03-04 16:52 | XR ---
Right wrist. HISTORY: Pain following trauma. COMPARISON: None TECHNIQUE: 4 views the right wrist are obtained. FINDINGS: There is diffuse osteopenia. No acute fracture or dislocation. There is mild reticular change of the first metacarpophalangeal joint. There is marked degenerative c hange of the capitate/lunate articulation with marked narrowing. There is an increased density of the lunate raising the question of lunate necrosis. There are small osseous loose bodies in the ulnar as pect of the wrist as well. MRI of the wrist be useful for further evaluation. IMPRESSION: 1. No evidence of acute trauma or dislocation. 2. Moderate diffuse osteopenia. 3. Marked degenerative changes as described above. MRI of the wrist be useful for further evaluation.
--- NOTE | 2022-03-04 16:53 | XR ---
Right tibia-fibula HISTORY: Pain following trauma. COMPARISON: None. TECHNIQUE: 4 views the right tibia and fibula were obtained FINDINGS: Tibia and fibula are intact without evidence of fracture or focal intraosseous abnormality. There is no cortical destruction or periosteal reaction. There are no abnormal soft tissue calcifications. IMPRESSION: Intact right tibia and fibula.
[2022-03-04 17:26] VITALS: BP 181/106; PULSE 98
== END 2022-03-04 17:24 | disposition home or self-care (01) ==
LOC: EC 15:43
DX: S69.91XA Unspecified injury of right wrist, hand and finger(s), initial encounter (principal); S80.811A Abrasion, right lower leg, initial encounter; S40.812A Abrasion of left upper arm, initial encounter; S40.811A Abrasion of right upper arm, initial encounter; E11.9 Type 2 diabetes mellitus without complications; I10 Essential (primary) hypertension; I25.10 Atherosclerotic heart disease of native coronary artery without angina pectoris; K21.9 Gastro-esophageal reflux disease without esophagitis; E78.5 Hyperlipidemia, unspecified; Z79.4 Long term (current) use of insulin; Z79.02 Long term (current) use of antithrombotics/antiplatelets; Z79.82 Long term (current) use of aspirin; Z87.891 Personal history of nicotine dependence; Z79.899 Other long term (current) drug therapy; W01.0XXA Fall on same level from slipping, tripping and stumbling without subsequent striking against object, initial encounter; Y92.096 Garden or yard of other non-institutional residence as the place of occurrence of the external cause
CPT/HCPCS: 29125; 90471; 90715; 99284

== ENCOUNTER 2023-06-26 15:50 | Inpatient (IN) | payer MEDICARE, OTHER ==
--- NOTE | 2023-06-26 16:11 | ED ---
General Adult HPI - General Chief complaint: Syncope Stated complaint: Syncope Time Seen by Provider: 06/26/23 15:57 Source: patient, EMS, RN notes reviewed Mode of arrival: EMS Limitations: no limitations - History of Present Illness Initial comments: Patient is a pleasant 68-year-old male presenting to the emergency department following syncopal episode. Episode occurred at the doctor's office. Patient did have his blood drawn and just following this study up. Patient then had a syncopal episode. Patient did tell nursing staff that he has been feeling a little bit dizzy with standing up recently. Patient otherwise feels normal. No chest pain. No dyspnea. Patient has [id number]-Osgwo-Bjjkp with chronic weakness, no new weakness or change in this. No abdominal or back pain. No confusion. - Related Data Home Medications Medication Instructions Recorded Confirmed DULoxetine HCL [Cymbalta] 60 mg PO DAILY 04/16/19 04/13/21 Finasteride [Proscar] 5 mg PO DAILY 04/16/19 04/13/21 Insulin Degludec [Tresiba] 64 units SQ AC-BRKFST 04/16/19 04/13/21 Mirtazapine [Remeron] 15 mg PO DAILY 04/16/19 04/13/21 Multivit-Min/FA/Lycopen/Lutein 1 each PO DAILY 04/16/19 04/13/21 [Centrum Silver Tablet] glipiZIDE [Glucotrol] 10 mg PO BID 04/16/19 04/13/21 metFORMIN HCL [Glucophage] 1,000 mg PO BID 04/16/19 04/13/21 Pioglitazone [Actos] 30 mg PO DAILY 03/04/21 04/13/21 Previous Rx's Medication Instructions Recorded Acetaminophen Tab [Tylenol] 650 mg PO Q6HR PRN tab 04/18/21 Aspirin 325 mg PO DAILY tab 04/18/21 Atorvastatin [Lipitor] 40 mg PO DAILY tab 04/18/21 Benzocaine/Menthol Lozeng [Cepacol 1 each MUCOUS MEM Q2H PRN lozenge 04/18/21 lozenge] Clopidogrel [Plavix] 75 mg PO DAILY tab 04/18/21 INSULIN ASPART (NovoLOG) [NovoLOG 0 unit SQ ACHS vial 04/18/21 (formulary)] Ipratropium-Albuterol Nebulize 3 ml INHALATION RT-Q2H PRN ml 04/18/21 [Duoneb 0.5 mg-3 mg/3 ml Soln] Ipratropium-Albuterol Nebulize 3 ml INHALATION RT-QID ml 04/18/21 [Duoneb 0.5 mg-3 mg/3 ml Soln] Magnesium Hydroxide [Milk of 2,400 mg PO BID PRN ml 04/18/21 Magnesia Concentrate] Metoprolol Tartrate [Lopressor] 25 mg PO BID tab 04/18/21 Pantoprazole [Protonix] 40 mg PO AC-BRKFST tablet. 04/18/21 Sennosides-Docusate Sodium 2 each PO HS tab 04/18/21 [Senokot-S] Tamsulosin [Flomax] 0.4 mg PO PC-BRKFST cap.er.24h 04/18/21 diazePAM [Valium] 10 mg PO TID PRN tab 04/18/21 lisinopriL [Zestril] 10 mg PO DAILY@1200 tab 04/18/21 oxyCODONE HCL/ACETAMINOPHEN 1 tab PO Q4HR #0 04/18/21 [Endocet 10-325 mg] Allergies Allergy/AdvReac Type Severity Reaction Status Date / Time No Known Allergies Allergy Verified 03/04/22 15:45 Review of Systems ROS Statement: Those systems with pertinent positive or pertinent negative responses have been documented in the HPI. ROS Other: All systems not noted in ROS Statement are negative. Constitutional: Denies: fever Eyes: Denies: eye pain ENT: Denies: ear pain Respiratory: Denies: cough Cardiovascular: Denies: chest pain Endocrine: Denies: fatigue Gastrointestinal: Denies: abdominal pain Musculoskeletal: Denies: back pain Neurological: Reports: as per HPI Past Medical History Past Medical History: Coronary Artery Disease (CAD), Chest Pain / Angina, Diabetes Mellitus, GERD/Reflux, Hyperlipidemia, Hypertension, Musculoskeletal Disorder, Osteoarthritis (OA), Prostate Disorder, Sleep Apnea/CPAP/BIPAP Additional Past Medical History / Comment(s): [id number] SYNDROME, CAUSES PAIN, HAS NUMBNESS IN FEET, neuropathy, WEARS NICOLÁS LEG BRACES. USES CPAP., some recent chest pain & tightness @times History of Any Multi-Drug Resistant Organisms: None Reported Past Surgical History: No Surgical Hx Reported, Cardiac Valve Replacement Additional Past Surgical History / Comment(s): open heart Past Anesthesia/Blood Transfusion Reactions: No Reported Reaction Past Psychological History: No Psychological Hx Reported Smoking Status: Former smoker Past Alcohol Use History: None Reported Past Drug Use History: None Reported - Past Family History Mother Family Medical History: Cancer Additional Family Medical History / Comment(s): BREAST CA Sister(s) Family Medical History: Cancer Additional Family Medical History / Comment(s): SKIN CA Father Family Medical History: Congestive Heart Failure (CHF), Coronary Artery Disease (CAD), Myocardial Infarction ([place]) Additional Family Medical History / Comment(s): Myocardial infarction in his early 60s, paternal uncle had myocardial infarction in his early 50s General Exam Limitations: no limitations General appearance: alert, in no apparent distress Head exam: Present: atraumatic Eye exam: Present: normal appearance, PERRL, EOMI Neck exam: Present: normal inspection. Absent: tenderness Respiratory exam: Present: normal lung sounds bilaterally Cardiovascular Exam: Present: regular rate, normal rhythm GI/Abdominal exam: Present: soft. Absent: tenderness Extremities exam: Present: other (Contracted extremities. Braces on the legs.) Neurological exam: Present: alert, oriented X3, CN II-XII intact Expanded Motor strength exam: RUE: 4, LUE: 4, RLE: 4, LLE: 4 Eye Response: (4) open spontaneously Motor Response: (6) obeys commands Verbal Response: (5) oriented Psychiatric exam: Present: normal affect, normal mood Skin exam: Present: normal color Course Vital Signs 06/26/23 06/26/23 15:52 18:22 Temperature 98.1 F Pulse Rate 86 Pulse Rate [ 88 Bilateral Sitting Early Childhood Specialist] Pulse Rate [ 102 H Bilateral Standing Early Childhood Specialist ] Pulse Rate [ 87 Bilateral Supine Early Childhood Specialist] Respiratory 16 Rate Blood Pressure 135/104 Blood Pressure 141/78 [Right Arm Sitting] Blood Pressure 103/39 [Right Arm Standing] Blood Pressure 162/84 [Right Arm Supine] O2 Sat by Pulse 96 Oximetry EKG Findings - EKG Results: EKG: interpreted by DEMI (First degree AV block), sinus rhythm, normal axis, normal QRS, normal ST/T Medical Decision Making - Medical Decision Making Was pt. sent in by a medical professional or institution (, PA, GUEST RELATIONS OFFICER, urgent care, hospital, or group home...) When possible be specific @ -Patient was sent in by Dr. Kasper office Did you speak to anyone other than the patient for history (EMS, parent, family, police, friend...)? What history was obtained from this source @ -No Did you review nursing and triage notes (agree or disagree)? Why? @ -I reviewed and agree with nursing and triage notes Were old charts reviewed (outside hosp., previous admission, EMS record, old EKG, old radiological studies, urgent care reports/EKG's, group home records)? Report findings @ -No old charts were reviewed Differential Diagnosis (chest pain, altered mental status, abdominal pain women, abdominal pain men, vaginal bleeding, weakness, fever, dyspnea, syncope, headach e, dizziness, GI bleed, back pain, seizure, CVA, palpatations, mental health, musculoskeletal)? @ -Differential Syncope: Valvular disease, hypertrophic cardiomyopathy, pulmonary embolism, tamponade, tachycardia, bradycardia, [place], hypovolemia, hemorrhage, dissection, anemia, intra cranial hemorrhage, seizure, hypoglycemia, carbon monoxide poisoning, this is not meant to be an all-inclusive list. EKG interpreted by me (3pts min.). @ -As above X-rays interpreted by me (1pt min.). @ -Chest x-ray shows no acute process. Chronic changes CT interpreted by me (1pt min.). @ -Report reviewed showing no pulmonary embolism U/S interpreted by me (1pt. min.). @ -None done What testing was considered but not performed or refused? (CT, X-rays, U/S, labs)? Why? @ -None What meds were considered but not given or refused? Why? @ -None Did you discuss the management of the patient with other professionals (professionals i.e. , PA, GUEST RELATIONS OFFICER, lab, RT, psych nurse, social media project manager, music librarian, teacher, guest relations officer, manager case management)? Give summary @ -Case discussed with Dr. Kasper, who will admit his patient. Was smoking cessation discussed for >3mins.? @ -No Was critical care preformed (if so, how long)? @ -No Were there social determinants of health that impacted care today? How? (Homelessness, low income, unemployed, alcoholism, drug addiction, transportation, low edu. Level, literacy, decrease access to med. care, detention, rehab)? @ -No Was there de-escalation of care discussed even if they declined (Discuss DNR or withdrawal of care, Hospice)? DNR status @ -No What co-morbidities impacted this encounter? (DM, HTN, Smoking, COPD, CAD, Cancer, CVA, ARF, Chemo, Hep., AIDS, mental health diagnosis, sleep apnea, morbid obesity)? @ -None Was patient admitted / discharged? Hospital course, mention meds given and ro [place], prescriptions, significant lab abnormalities, going to OR and other pertinent info. @ -Patient reevaluated. Patient updated. Patient has positive orthostatics. Patient can benefit from IV fluids. Patient also has hyperglycemia. Serum acetone is positive. Clinically patient does not appear to have diabetic ketoacidosis and CO2 was within normal limits. Patient will receive fluids and supplemental insulin. Patient will be admitted. Admission orders written. Undiagnosed new problem with uncertain prognosis? @ -No Drug Therapy requiring intensive monitoring for toxicity (Heparin, Nitro, Insulin, Cardizem)? @ -No Were any procedures done? @ -No Diagnosis/symptom? @ -Syncope, orthostatic hypotension, hyperglycemia Acute, or Chronic, or Acute on Chronic? @ -Acute, acute, acute on chronic Uncomplicated (without systemic symptoms) or Complicated (systemic symptoms)? @ -default Side effects of treatment? @ -No Exacerbation, Progression, or Severe Exacerbation? @ -No Poses a threat to life or bodily function? How? (Chest pain, [place], [place], pneumonia, PE, COPD, DKA, ARF, appy, cholecystitis, CVA, Diverticulitis, Homicidal, Suicidal, threat to staff... and all critical care pts) @ -No - Lab Data Result diagrams: 06/26/23 16:38 06/26/23 16:10 Lab Results 06/26/23 06/26/23 06/26/23 Range/Units 16:10 16:10 16:10 WBC (3.8-10.6) k/uL RBC (4.30-5.90) m/uL Hgb (13.0-17.5) gm/dL Hct (39.0-53.0) % MCV (80.0-100.0) fL MCH (25.0-35.0) pg MCHC (31.0-37.0) g/dL RDW (11.5-15.5) % Plt Count (150-450) k/uL MPV Neutrophils % % Lymphocytes % % Monocytes % % Eosinophils % % Basophils % % Neutrophils # (1.3-7.7) k/uL Lymphocytes # (1.0-4.8) k/uL Monocytes # (0-1.0) k/uL Eosinophils # (0-0.7) k/uL Basophils # (0-0.2) k/uL PT 10.2 (9.0-12.0) sec INR 1.0 (<1.2) APTT 18.6 L (22.0-30.0) sec D-Dimer 2.46 H (<0.60) mg/L FEU Sodium 130 L (137-145) mmol/L Potassium 5.1 (3.5-5.1) mmol/L Chloride 96 L (98-107) mmol/L Carbon Dioxide 23 (22-30) mmol/L Anion Gap 11 mmol/L BUN 13 (9-20) mg/dL Creatinine 0.63 L (0.66-1.25) mg/dL Est GFR (CKD-EPI)AfAm >90 (>60 ml/min/1.73 sqM) Est GFR (CKD-EPI)NonAf >90 (>60 ml/min/1.73 sqM) Glucose 468 H (74-99) mg/dL POC Glucose (mg/dL) (70-110) mg/dL POC Glu Interlocking And Signal Mechanic ID Calcium 9.2 (8.4-10.2) mg/dL Magnesium 1.7 (1.6-2.3) mg/dL Total Bilirubin 0.9 (0.2-1.3) mg/dL AST 45 (17-59) U/L ALT 28 (4-49) U/L Alkaline Phosphatase 88 (38-126) U/L Troponin I <0.012 (0.000-0.034) ng/mL Total Protein 7.6 (6.3-8.2) g/dL Albumin 4.1 (3.5-5.0) g/dL Acetone, Qual Positive (Negative) 06/26/23 06/26/23 Range/Units 16:21 16:38 WBC 8.5 (3.8-10.6) k/uL RBC 4.81 (4.30-5.90) m/uL Hgb 14.6 (13.0-17.5) gm/dL Hct 43.7 (39.0-53.0) % MCV 90.9 (80.0-100.0) fL MCH 30.4 (25.0-35.0) pg MCHC 33.4 (31.0-37.0) g/dL RDW 13.1 (11.5-15.5) % Plt Count 204 (150-450) k/uL MPV 9.1 Neutrophils % 69 % Lymphocytes % 21 % Monocytes % 5 % Eosinophils % 1 % Basophils % 1 % Neutrophils # 5.8 (1.3-7.7) k/uL Lymphocytes # 1.8 (1.0-4.8) k/uL Monocytes # 0.4 (0-1.0) k/uL Eosinophils # 0.1 (0-0.7) k/uL Basophils # 0.0 (0-0.2) k/uL PT (9.0-12.0) sec INR (<1.2) APTT (22.0-30.0) sec D-Dimer (<0.60) mg/L FEU Sodium (137-145) mmol/L Potassium (3.5-5.1) mmol/L Chloride (98-107) mmol/L Carbon Dioxide (22-30) mmol/L Anion Gap mmol/L BUN (9-20) mg/dL Creatinine (0.66-1.25) mg/dL Est GFR (CKD-EPI)AfAm (>60 ml/min/1.73 sqM) Est GFR (CKD-EPI)NonAf (>60 ml/min/1.73 sqM) Glucose (74-99) mg/dL POC Glucose (mg/dL) 445 H (70-110) mg/dL POC Glu Interlocking And Signal Mechanic ID Aj, [facility] Calcium (8.4-10.2) mg/dL Magnesium (1.6-2.3) mg/dL Total Bilirubin (0.2-1.3) mg/dL AST (17-59) U/L ALT (4-49) U/L Alkaline Phosphatase (38-126) U/L Troponin I (0.000-0.034) ng/mL Total Protein (6.3-8.2) g/dL Albumin (3.5-5.0) g/dL Acetone, Qual (Negative) Disposition Clinical Impression: Syncope due to orthostatic hypotension, Hyperglycemia Disposition: ADMITTED IP TO THIS HOSP Is patient prescribed a controlled substance at d/c from ED?: No Referrals: Ilsa Whitaker III, MD [STAFF PHYSICIAN] - 1-2 days Time of Disposition: 19:30
[2023-06-26 16:23] LABS: Glucose,Whole Blood 445 mg/dL (70-110)
[2023-06-26 16:50] LABS: Basophils % (A) 1 %; Eosinophils # (A) 0.1 k/uL (0-0.7); Eosinophils % (A) 1 %; HCT 43.7 % (39.0-53.0); HGB 14.6 gm/dL (13.0-17.5); Lymphocytes # (A) 1.8 k/uL (1.0-4.8); Lymphocytes % (A) 21 %; MCH 30.4 pg (25.0-35.0); MCHC 33.4 g/dL (31.0-37.0); MCV 90.9 fL (80.0-100.0); Mean Platelet Volume 9.1; Monocytes # (A) 0.4 k/uL (0-1.0); Monocytes % (A) 5 %; Neutrophils # (A) 5.8 k/uL (1.3-7.7); Neutrophils % (A) 69 %; Platelet Count 204 k/uL (150-450); RBC 4.81 m/uL (4.30-5.90); RDW 13.1 % (11.5-15.5); WBC 8.5 k/uL (3.8-10.6)
[2023-06-26 17:06] LABS: ALT 28 U/L (4-49); AST 45 U/L (17-59); African American GFR (CKD) >90 (>60 ml/min/1.73 sqM); Albumin 4.1 g/dL (3.5-5.0); Alkaline Phosphatase 88 U/L (38-126); Anion Gap 11 mmol/L; Blood Urea Nitrogen 13 mg/dL (9-20); Calcium 9.2 mg/dL (8.4-10.2); Carbon Dioxide 23 mmol/L (22-30); Chloride 96 mmol/L (98-107); Glucose 468 mg/dL (74-99); Magnesium 1.7 mg/dL (1.6-2.3); Non-African American GFR(CKD) >90 (>60 ml/min/1.73 sqM); Sodium 130 mmol/L (137-145); Total Bilirubin 0.9 mg/dL (0.2-1.3); Total Protein 7.6 g/dL (6.3-8.2)
[2023-06-26] MEDS: SODIUM CHLORIDE 0.9% 1,000 ML IV SCH ×3 (17:06→21:36)
[2023-06-26 17:14] LABS: Prothrombin Time 10.2 sec (9.0-12.0)
--- NOTE | 2023-06-26 17:26 | XR ---
EXAMINATION TYPE: XR chest 2V DATE OF EXAM: 06/26/2023 COMPARISON: 04/18/2021 HISTORY: Shortness of breath TECHNIQUE: Frontal and lateral views of the chest are obtained. FINDINGS: Scattered senescent parenchymal changes noted. Chronic elevation left hemidiaphragm. No evidence for infiltrate. No evidence for atelectasis. Heart size is stable. Mediastinal structures are stable and grossly unremarkable. No evidence for hilar prominence. Degenerative changes dorsal spine. IMPRESSION: 1. No evidence for acute pulmonary disease.
[2023-06-26 17:27] LABS: Partial Thromboplastin Time 18.6 sec (22.0-30.0)
[2023-06-26 17:33] LABS: Potassium 5.1 mmol/L (3.5-5.1)
[2023-06-26] MEDS ORDERED: INSULIN REGULAR 100 UNIT/ML VIAL (IM/SQ) SQ ONE (17:42)
[2023-06-26] MEDS ORDERED: SODIUM CHLORIDE 0.9% 500 ML 500 ML IV STA (18:24)
--- NOTE | 2023-06-26 18:39 | CT ---
EXAMINATION TYPE: CT angio chest DATE OF EXAM: 06/26/2023 COMPARISON: None HISTORY: Syncopal episode. CT DLP: 738.3 mGycm CONTRAST: CT chest with contrast and 3D reconstruction with MIP imaging is performed with IV Contrast, patient injected with 100 ml mL of Isovue 370. Contrast-enhanced CT of the chest was performed through the course of the pulmonary arteries with catrina g and mediastinal window settings submitted. 3D reconstruction with MIP imaging was also performed. PULMONARY ARTERIES: The pulmonary arteries and their major tributaries are patent. I do not see ulysses dence for sizable filling defect to suggest pulmonary embolic process. LUNGS: The lungs are clear and free of infiltrate. No evidence for atelectasis. No pulmonary nodule or mass is detected. No pleural effusion. MEDIASTINUM: Thoracic aorta is of normal caliber.. Changes of CABG. Left atrial clip is noted to be in place. Elevation left hemidiaphragm. No evidence for mediastinal mass. No mediastinal lymph nodes greater than 1cm. HILAR STRUCTURES: No evidence for mass. No hilar lymph nodes greater than 1 cm. UPPER ABDOMEN: No significant abnormality is seen. IMPRESSION: 1. No evidence for Pulmonary embolism at this time.
[2023-06-26] MEDS ORDERED: ACETAMINOPHEN TAB 325 MG TAB PO PRN (19:30)
[2023-06-26] MEDS ORDERED: NALOXONE 0.4 MG/ML 1 ML VIAL IV PRN (19:30)
[2023-06-26] MEDS ORDERED: INSULIN REGULAR 100 UNIT in SODIUM CHLORIDE 0.9% 100 ML IV SCH (19:45)
[2023-06-26 20:10] LABS: Glucose,Whole Blood 375 mg/dL (70-110)
[2023-06-26 21:14] LABS: Glucose,Whole Blood 358 mg/dL (70-110)
[2023-06-26 22:38] LABS: Glucose,Whole Blood 220 mg/dL (70-110)
[2023-06-26] MEDS: D5-0.45% NACL WITH KCL 20MEQ/L 1,000 ML IV SCH (23:08)
[2023-06-26] MEDS ORDERED: diazePAM 5 MG TAB PO PRN (23:11)
[2023-06-27] MEDS: MIRTAZAPINE 15 MG TAB PO SCH ×2 (00:13→21:04)
[2023-06-27 00:38] LABS: Glucose,Whole Blood 158 mg/dL (70-110)
[2023-06-27] MEDS: SODIUM CHLORIDE 0.9% 1,000 ML IV SCH ×4 (01:02→06:34)
[2023-06-27] MEDS: D5-0.45% NACL WITH KCL 20MEQ/L 1,000 ML IV SCH (01:03)
[2023-06-27 01:32] LABS: African American GFR (CKD) >90 (>60 ml/min/1.73 sqM); Anion Gap 9 mmol/L; Blood Urea Nitrogen 11 mg/dL (9-20); Carbon Dioxide 23 mmol/L (22-30); Chloride 103 mmol/L (98-107); Glucose 136 mg/dL (74-99); Non-African American GFR(CKD) >90 (>60 ml/min/1.73 sqM); Phosphorus 2.8 mg/dL (2.5-4.5); Potassium 3.9 mmol/L (3.5-5.1); Sodium 135 mmol/L (137-145)
[2023-06-27 01:40] LABS: Glucose,Whole Blood 91 mg/dL (70-110)
[2023-06-27 02:50] LABS: Glucose,Whole Blood 111 mg/dL (70-110)
[2023-06-27 04:17] LABS: Glucose,Whole Blood 128 mg/dL (70-110)
[2023-06-27 05:00] LABS: ALT 22 U/L (4-49); AST 22 U/L (17-59); African American GFR (CKD) >90 (>60 ml/min/1.73 sqM); Albumin 3.4 g/dL (3.5-5.0); Alkaline Phosphatase 79 U/L (38-126); Anion Gap 8 mmol/L; Blood Urea Nitrogen 11 mg/dL (9-20); Calcium 8.8 mg/dL (8.4-10.2); Carbon Dioxide 23 mmol/L (22-30); Chloride 103 mmol/L (98-107); Glucose 132 mg/dL (74-99); Non-African American GFR(CKD) >90 (>60 ml/min/1.73 sqM); Phosphorus 3.6 mg/dL (2.5-4.5); Potassium 3.6 mmol/L (3.5-5.1); Sodium 134 mmol/L (137-145); Total Bilirubin 0.6 mg/dL (0.2-1.3); Total Protein 6.3 g/dL (6.3-8.2)
[2023-06-27 05:13] LABS: HCT 37.7 % (39.0-53.0); HGB 12.8 gm/dL (13.0-17.5); MCH 30.6 pg (25.0-35.0); MCHC 33.8 g/dL (31.0-37.0); MCV 90.5 fL (80.0-100.0); Platelet Count 180 k/uL (150-450); RBC 4.17 m/uL (4.30-5.90); RDW 13.2 % (11.5-15.5); WBC 8.2 k/uL (3.8-10.6)
[2023-06-27 06:05] LABS: Glucose,Whole Blood 139 mg/dL (70-110)
[2023-06-27] MEDS ORDERED: SODIUM CHLORIDE 0.9% 1,000 ML IV STA (06:30)
[2023-06-27] MEDS ORDERED: NON FORMULARY DRUG (Omeprazole [Omeprazole] 20 MG Capsule.Dr) PO SCH (09:00)
[2023-06-27 09:15] LABS: Monocytes # (M) 0.33 k/uL (0-1.0); Neutrophils # (M) 4.67 k/uL (1.3-7.7); Neutrophils % (M) 57 %; Nucleated Red Blood Cells 0 /100 WBC (0-0); Total Cells Counted 100
[2023-06-27] MEDS: DULoxetine HCL 60 MG CAPSULE.DR PO SCH ×2 (10:51→10:55)
[2023-06-27 10:52] LABS: Glucose,Whole Blood 184 mg/dL (70-110)
[2023-06-27] MEDS: PANTOPRAZOLE 40 MG TABLET PO SCH ×2 (10:52→10:53)
[2023-06-27] MEDS: METOPROLOL TARTRATE 25 MG TAB PO SCH (10:52)
[2023-06-27] MEDS: lisinopriL 5 MG TAB PO SCH (10:52)
[2023-06-27] MEDS: ATORVASTATIN 20 MG TAB PO SCH (10:53)
[2023-06-27] MEDS: PIOGLITAZONE 30 MG TAB PO SCH (10:55)
[2023-06-27] MEDS: FINASTERIDE 5 MG TAB PO SCH (10:55)
[2023-06-27] MEDS: TAMSULOSIN 0.4 MG CAP.ER.24H PO SCH ×2 (11:04→21:04)
[2023-06-27] MEDS: INSULIN ASPART (NovoLOG) 100 UNIT/ML VIAL SQ SCH ×4 (11:04→21:04)
[2023-06-27 12:21] LABS: Glucose,Whole Blood 330 mg/dL (70-110)
[2023-06-27 17:32] LABS: Glucose,Whole Blood 340 mg/dL (70-110)
--- NOTE | 2023-06-27 18:27 | P.HPIM ---
History of Present Illness H&P Date: 06/27/23 Chief Complaint: Syncope, hyperglycemic This is a pleasant 68-year-old gentleman passed out at PCPs office after having blood drawn, upon standing up and was incontinent of urine . Blood sugars significantly elevated reported around 500 accompanied by orthostatic hypotension. Patient was sent to the ER. Patient states he has not been checking his blood sugars regularly and "they're usually around 300". States he has not been following his consistent carb diet nor does he eat 3 meals a day, sometimes only 1 meal a day. Does have Meals on Wheels. Minimal water intak e.blood sugar on admission 468 .Acetone positive. Bicarb 23 ,Anion gap 8, BUN 11, creatinine 0.5 to .sodium on admission 1:30 currently 134 , potassium 3.6, magnesium 1.7 Denies chest pain, palpitations or shortness of breath. Reports lightheadedness/dizziness upon standing up. Denies any recent medication changes. Patient has a medical history significant for CAD, CABG, diabetes mellitus, hypertension, [id number]-[id number] with chronic weakness, unchanged and multiple other medical issues. No abdominal or back pain. No confusion. Denies nausea vomiting or diarrhea. Denies abdominal pain. Patient was positive for orthostatic hypotension in the ER and received IV fluid hydration, diabetic ketoacidosis protocol/insulin drip. Review of Systems ROS Statement: Those systems with pertinent positive or pertinent negative responses have been documented in the HPI. ROS Other: All systems not noted in ROS Statement are negative. Past Medical History Past Medical History: Coronary Artery Disease (CAD), Chest Pain / Angina, Diabetes Mellitus, GERD/Reflux, Hyperlipidemia, Hypertension, Musculoskeletal Disorder, Osteoarthritis (OA), Prostate Disorder, Sleep Apnea/CPAP/BIPAP Additional Past Medical History / Comment(s): [id number] SYNDROME, CAU SES PAIN, HAS NUMBNESS IN FEET, neuropathy, WEARS NICOLÁS LEG BRACES. USES CPAP., some recent chest pain & tightness @times History of Any Multi-Drug Resistant Organisms: None Reported Past Surgical History: No Surgical Hx Reported, Cardiac Valve Replacement Additional Past Surgical History / Comment(s): open heart Past Anesthesia/Blood Transfusion Reactions: No Reported Reaction Past Psychological History: No Psychological Hx Reported Smoking Status: Former smoker Past Alcohol Use History: None Reported Past Drug Use History: None Reported - Past Family History Mother Family Medical History: Cancer Additional Family Medical History / Comment(s): BREAST CA Sister(s) Family Medical History: Cancer Additional Family Medical History / Comment(s): SKIN CA Father Family Medical History: Congestive Heart Failure (CHF), Coronary Artery Disease (CAD), Myocardial Infarction (MS) Additional Family Medical History / Comment(s): Myocardial infarction in his early 60s, paternal uncle had myocardial infarction in his early 50s Medications and Allergies Home Medications Medication Instructions Recorded Confirmed Type DULoxetine HCL [Cymbalta] 60 mg PO DAILY 04/16/19 06/26/23 History Finasteride [Proscar] 5 mg PO DAILY 04/16/19 06/26/23 History Insulin Degludec [Tresiba] 64 units SQ DIRECTED 04/16/19 06/26/23 History Mirtazapine [Remeron] 15 mg PO HS 04/16/19 06/26/23 History metFORMIN HCL [Glucophage] 1,000 mg PO BID 04/16/19 06/26/23 History Pioglitazone [Actos] 30 mg PO DAILY 03/04/21 06/26/23 History Atorvastatin [Lipitor] 20 mg PO DAILY 06/26/23 06/26/23 History Metoprolol Tartrate [Lopressor] 25 mg PO DAILY 06/26/23 06/26/23 History Omeprazole 20 mg PO DAILY 06/26/23 06/26/23 History Pantoprazole [Protonix] 40 mg PO DAILY 06/26/23 06/26/23 History Tamsulosin [Flomax] 0.4 mg PO BID 06/26/23 06/26/23 History diazePAM 10 mg PO BID PRN 06/26/23 06/26/23 History lisinopriL [Zestril] 5 mg PO DAILY 06/26/23 06/26/23 History oxyCODONE HCL [oxyCODONE HCL (IR)] 15 mg PO QID 06/26/23 06/26/23 History Allergies Allergy/AdvReac Type Severity Reaction Status Date / Time No Known Allergies Allergy Verified 06/26/23 19:54 Physical Exam Vitals: Vital Signs Temp Pulse Pulse Pulse Pulse Resp BP 06/27/23 10:31 76 16 106/61 06/27/23 09:13 98.2 F 78 16 129/70 06/27/23 06:02 98.4 F 79 18 136/78 06/26/23 20:21 91 16 143/75 06/26/23 18:22 88 102 H 87 BP BP BP Pulse Ox 06/27/23 10:31 97 06/27/23 09:13 98 06/27/23 06:02 98 06/26/23 20:21 96 06/26/23 18:22 141/78 103/39 162/84 Intake and Output 06/27/23 06/27/23 06/27/23 06:59 14:59 22:59 Intake Total 32.981 Balance 32.981 Intake: Intake, IV Titration 32.981 Amount Insulin Regular 100 unit 32.981 In Sodium Chloride 0.9% 100 ml @ 0.05 UNITS/KG/HR 6.185 mls/hr IV .[id number] [facility] Rx#:[id number] PHYSICAL EXAM: VITAL SIGNS: As above GENERAL: Sitting up in bed, no acute distress HEENT: Conjunctivae normal. eyes normal. NECK: Supple, No JVD. No thyroid enlargement. No LNs CARDIOVASCULAR: S1, S2 regular. No murmur RESPIRATION: Unlabored, equal air entry, Breath sounds diminished in the bases. No rhonchi or crackles. No bronchial breathing. ABDOMEN: Soft, nontender . No guarding. no masses noted. Bowel sounds heard. Extremities: Contractures of bilateral hands, No cyanosis, clubbing or edema PSYCHIATRY: Alert and oriented X3, mood and affect normal. NERVOUS SYSTEM: Cranial N 2-12 grossly normal. No focal deficits. Atrophy/muscle weakness of all 4 extremities related to underlying neuropathic disease. Skin: Warm and dry, no rash Results CBC & Chem 7: 06/27/23 04:21 06/27/23 19:11 Labs: Abnormal Lab Results - Last 24 Hours (Table) 06/26/23 06/26/23 06/26/23 Range/Units 20:09 21:12 22:37 RBC (4.30-5.90) m/uL Hgb (13.0-17.5) gm/dL Hct (39.0-53.0) % Sodium (137-145) mmol/L Creatinine (0.66-1.25) mg/dL Glucose (74-99) mg/dL POC Glucose (mg/dL) 375 H 358 H 220 H (70-110) mg/dL Albumin (3.5-5.0) g/dL 06/27/23 06/27/23 06/27/23 Range/Units 00:34 00:37 02:48 RBC (4.30-5.90) m/uL Hgb (13.0-17.5) gm/dL Hct (39.0-53.0) % Sodium 135 L (137-145) mmol/L Creatinine 0.54 L (0.66-1.25) mg/dL Glucose 136 H (74-99) mg/dL POC Glucose (mg/dL) 158 H 111 H (70-110) mg/dL Albumin (3.5-5.0) g/dL 06/27/23 06/27/23 06/27/23 Range/Units 04:11 04:21 04:21 RBC 4.17 L (4.30-5.90) m/uL Hgb 12.8 L (13.0-17.5) gm/dL Hct 37.7 L (39.0-53.0) % Sodium 134 L (137-145) mmol/L Creatinine 0.52 L (0.66-1.25) mg/dL Glucose 132 H (74-99) mg/dL POC Glucose (mg/dL) 128 H (70-110) mg/dL Albumin 3.4 L (3.5-5.0) g/dL 06/27/23 06/27/23 06/27/23 Range/Units 06:04 10:50 12:15 RBC (4.30-5.90) m/uL Hgb (13.0-17.5) gm/dL Hct (39.0-53.0) % Sodium (137-145) mmol/L Creatinine (0.66-1.25) mg/dL Glucose (74-99) mg/dL POC Glucose (mg/dL) 139 H 184 H 330 H (70-110) mg/dL Albumin (3.5-5.0) g/dL 06/27/23 Range/Units 17:30 RBC (4.30-5.90) m/uL Hgb (13.0-17.5) gm/dL Hct (39.0-53.0) % Sodium (137-145) mmol/L Creatinine (0.66-1.25) mg/dL Glucose (74-99) mg/dL POC Glucose (mg/dL) 340 H (70-110) mg/dL Albumin (3.5-5.0) g/dL Assessment and Plan Assessment: Acute DKA Diabetes mellitus type 2, hemoglobin A1c pending Dehydration Syncope, orthostatic hypotensive secondary to the above CAD, history of CABG 2020 Hypertension hyperlipidemia Obstructive sleep apnea syndrome 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 IV fluid hydration.Transitioned to NovoLog sliding scale. Resume tresiba/long-acting insulin .Close monitoring of Accu-Cheks. Hemoglobin A1c ordered. Dietitian consult in place. Orthostatic vital signs every shift ordered. The impression and plan of care has been dictated as directed. : I performed a history and examination of this patient, discussed the same with the dictator. I agree with the dictator's note ,documented as a scribe. Any additional findings or plans will be noted.
[2023-06-27 19:41] LABS: African American GFR (CKD) >90 (>60 ml/min/1.73 sqM); Anion Gap 8 mmol/L; Blood Urea Nitrogen 9 mg/dL (9-20); Carbon Dioxide 27 mmol/L (22-30); Chloride 101 mmol/L (98-107); Glucose 331 mg/dL (74-99); Magnesium 1.8 mg/dL (1.6-2.3); Non-African American GFR(CKD) >90 (>60 ml/min/1.73 sqM); Phosphorus 3.3 mg/dL (2.5-4.5); Potassium 4.5 mmol/L (3.5-5.1); Sodium 136 mmol/L (137-145)
[2023-06-27 21:01] LABS: Glucose,Whole Blood 301 mg/dL (70-110)
[2023-06-27] MEDS: INSULIN DETEMIR (LEVEMIR) 100 UNIT/ML SYR SQ SCH (21:04)
[2023-06-28 05:53] LABS: Glucose,Whole Blood 168 mg/dL (70-110)
[2023-06-28] MEDS: INSULIN ASPART (NovoLOG) 100 UNIT/ML VIAL SQ SCH ×4 (06:30→20:42)
[2023-06-28] MEDS: TAMSULOSIN 0.4 MG CAP.ER.24H PO SCH ×2 (07:48→20:41)
[2023-06-28] MEDS: DULoxetine HCL 60 MG CAPSULE.DR PO SCH (07:48)
[2023-06-28] MEDS: PIOGLITAZONE 30 MG TAB PO SCH (07:48)
[2023-06-28] MEDS: FINASTERIDE 5 MG TAB PO SCH (07:48)
[2023-06-28] MEDS: ATORVASTATIN 20 MG TAB PO SCH (07:49)
[2023-06-28] MEDS: METOPROLOL TARTRATE 25 MG TAB PO SCH (07:52)
[2023-06-28] MEDS: lisinopriL 5 MG TAB PO SCH (07:52)
[2023-06-28] MEDS ORDERED: SODIUM CHLORIDE 0.9% 1,000 ML IV ONE (08:56)
[2023-06-28 10:55] VITALS: BMI 32.8
--- NOTE | 2023-06-28 11:16 | P.PN ---
Subjective Progress Note Date: 06/28/23 H&P Date: 06/27/23 Chief Complaint: Syncope, hyperglycemic This is a pleasant 68-year-old gentleman passed out at PCPs office after having blood drawn, upon standing up and was incontinent of urine . Blood sugars significantly elevated reported around 500 accompanied by orthostatic hypotension. Patient was sent to the ER. Patient states he has not been checking his blood sugars regularly and "they're usually around 300". States he has not been following his consistent carb diet nor does he eat 3 meals a day, sometimes only 1 meal a day. Does have Meals on Wheels. Minimal water intake.blood sugar on admission 468 .Acetone positive. Bicarb 23 ,Anion gap 8, BUN 11, creatinine 0.5 to .sodium on admission 1:30 currently 134 , potassium 3.6, magnesium 1.7 Denies chest pain, palpitations or shortness of breath. Reports lightheadedness/dizziness upon standing up. Denies any recent medication changes. Patient has a medical history significant for CAD, CABG, diabetes mellitus, hypertension, [id number]-Mmydi with chronic weakness, unchanged and multiple other medical issues. No abdominal or back pain. No confusion. Denies nausea vomiting or diarrhea. Denies abdominal pain. Patient was positive for orthostatic hypotension in the ER and received IV fluid hydration, diabetic ketoacidosis protocol/insulin drip. 06/28/2023 transitioned yesterday to sliding scale plus long-acting insulin .blood sugars controlled this morning. Magnesium 1.8, anion gap 8, bicarb 27, phosphorus 3.3, creatinine 0.62. Patient reports he forgot to take his to [facility] for 3-4 days. "Reports he is thirsty and can't get enough water". Orthostatic vital signs pending /Blood pressures soft. Denies chest pain, palpitations or shortness of breath. Denies nausea, vomiting or diarrhea. Denies abdominal pain. Denies lightheadedness or dizziness or focal deficits. Reports he has been up to the bathroom, tolerated exertion well. Objective - Vital Signs Vital signs: Vital Signs Temp 97.5 F L 06/28/23 07:33 Pulse 86 06/28/23 07:33 Resp 16 06/28/23 07:33 BP 131/69 06/28/23 07:33 Pulse Ox 99 06/28/23 07:33 FiO2 Intake & Output 06/27/23 06/28/23 06/28/23 18:59 06:59 18:59 Other: Voiding Method Toilet # Voids 1 - Exam PHYSICAL EXAM: VITAL SIGNS: As above GENERAL: Sitting up in chair, no acute distress HEENT: Conjunctivae normal. eyes normal. NECK: Supple, No JVD. CARDIOVASCULAR: S1, S2 regular. No murmur RESPIRATION: Unlabored, equal air entry, bilateral bases diminished. ABDOMEN: Soft, nontender . No guarding. no masses noted. Bowel sounds heard. Extremities: Contractures of bilateral hands, No cyanosis, clubbing or edema PSYCHIATRY: Alert and oriented X3, mood and affect normal. NERVOUS SYSTEM: Cranial N 2-12 grossly normal. No focal deficits. Atrophy/muscle weakness of all 4 extremities related to underlying neuropathic disease. Skin: Warm and dry, no rash - Labs CBC & Chem 7: 06/27/23 04:21 06/27/23 19:11 Labs: Abnormal Lab Results - Last 24 Hours (Table) 06/27/23 06/27/23 06/27/23 Range/Units 10:50 12:15 17:30 Sodium (137-145) mmol/L Creatinine (0.66-1.25) mg/dL Glucose (74-99) mg/dL POC Glucose (mg/dL) 184 H 330 H 340 H (70-110) mg/dL 06/27/23 06/27/23 06/28/23 Range/Units 19:11 20:59 05:52 Sodium 136 L (137-145) mmol/L Creatinine 0.62 L (0.66-1.25) mg/dL Glucose 331 H (74-99) mg/dL POC Glucose (mg/dL) 301 H 168 H (70-110) mg/dL Assessment and Plan Assessment: Acute DKA, resolved Diabetes mellitus type 2, hemoglobin A1c 13, further diabetic education out patient in clinic with PCP Dehydration Syncope, orthostatic hypotensive secondary to the above CAD, history of CABG 2020 Hypertension hyperlipidemia Obstructive sleep apnea syndrome 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 IV fluid bolus , orthostatic vital signs pending. Reeducated on tresiba/long-acting insulin and the associated risks of missing doses. Diabetic diet education pending as per RD.Close monitoring of Accu-Cheks. Potential discharge later this afternoon or tomorrow pending improvement in blood pressures. The impression and plan of care has been dictated as directed. : I performed a history and examination of this patient, discussed the same with the dictator. I agree with the dictator's note ,documented as a scribe. Any additional findings or plans will be noted.
[2023-06-28 11:40] LABS: Glucose,Whole Blood 219 mg/dL (70-110)
[2023-06-28 14:37] LABS: Basophils # (A) 0.06 X 10*3/uL (0.00-0.10); Basophils % (A) 0.9 %; Eosinophils # (A) 0.21 X 10*3/uL (0.04-0.35); Eosinophils % (A) 3.2 %; HCT 37.6 % (39.6-50.0); HGB 12.3 d/dL (13.0-17.0); Lymphocytes # (A) 2.55 X 10*3/uL (0.90-5.00); Lymphocytes % (A) 39.1 %; MCH 29.6 pg (27.0-32.0); MCHC 32.7 d/dL (32.0-37.0); MCV 90.4 FL (80.0-97.0); Mean Platelet Volume 11.6 FL (9.5-12.2); Monocytes # (A) 0.59 X 10*3/uL (0.20-1.00); NRBC Per 100 WBC 0 X 10*3/uL (0.00-0.01); Neutrophils # (A) 3.06 X 10*3/uL (1.80-7.70); Platelet Count 187 X 10*3/uL (140-440); RBC 4.16 X 10*6/uL (4.40-5.60); RDW 13.4 % (11.5-14.5); WBC 6.52 X 10*3/uL (4.50-10.00)
[2023-06-28 16:34] LABS: Glucose,Whole Blood 223 mg/dL (70-110)
[2023-06-28 20:37] LABS: Glucose,Whole Blood 250 mg/dL (70-110)
[2023-06-28] MEDS: INSULIN DETEMIR (LEVEMIR) 100 UNIT/ML SYR SQ SCH (20:41)
[2023-06-28] MEDS: MIRTAZAPINE 15 MG TAB PO SCH (20:41)
[2023-06-29 00:50] LABS: BUN/Creat Ratio 13.29 Ratio (12.00-20.00); Blood Urea Nitrogen 9.3 mg/dL (9.0-27.0); Carbon Dioxide 24.2 mmol/L (21.6-31.8); Chloride 103 mmol/L (96-109); Glucose 186 mg/dL (70-110); Magnesium 1.9 mg/dL (1.5-2.4); Potassium 3.9 mmol/L (3.5-5.5); Sodium 139 mmol/L (135-145)
[2023-06-29 05:52] LABS: Glucose,Whole Blood 141 mg/dL (70-110)
[2023-06-29] MEDS: INSULIN ASPART (NovoLOG) 100 UNIT/ML VIAL SQ SCH ×2 (06:34→11:30)
[2023-06-29 08:10] VITALS: BP 158/72; PULSE 94; RESP 16; TEMP 97.8
[2023-06-29] MEDS: PANTOPRAZOLE 40 MG TABLET PO SCH (08:17)
[2023-06-29] MEDS: PIOGLITAZONE 30 MG TAB PO SCH (08:17)
[2023-06-29] MEDS: TAMSULOSIN 0.4 MG CAP.ER.24H PO SCH (08:17)
[2023-06-29] MEDS: METOPROLOL TARTRATE 25 MG TAB PO SCH (08:17)
[2023-06-29] MEDS: FINASTERIDE 5 MG TAB PO SCH (08:17)
[2023-06-29] MEDS: lisinopriL 5 MG TAB PO SCH (08:18)
[2023-06-29] MEDS: DULoxetine HCL 60 MG CAPSULE.DR PO SCH (08:18)
[2023-06-29] MEDS: ATORVASTATIN 20 MG TAB PO SCH (08:18)
[2023-06-29 11:25] LABS: Glucose,Whole Blood 281 mg/dL (70-110)
== END 2023-06-29 13:30 | disposition home or self-care (01) | DRG 639 ==
LOC: EC 15:50 → 3SCARD 19:30 → 4SSUR 06-27 07:18
PROVIDERS: ADMIT Family Medicine; ATTEND Family Medicine
DX: E11.10 Type 2 diabetes mellitus with ketoacidosis without coma (principal); G60.0 Hereditary motor and sensory neuropathy; E11.42 Type 2 diabetes mellitus with diabetic polyneuropathy; Z79.4 Long term (current) use of insulin; E66.9 Obesity, unspecified; I10 Essential (primary) hypertension; E78.5 Hyperlipidemia, unspecified; E86.0 Dehydration; I25.10 Atherosclerotic heart disease of native coronary artery without angina pectoris; I95.1 Orthostatic hypotension; M21.379 Foot drop, unspecified foot; M24.549 Contracture, unspecified hand; K21.9 Gastro-esophageal reflux disease without esophagitis; M19.90 Unspecified osteoarthritis, unspecified site; I44.0 Atrioventricular block, first degree; G47.33 Obstructive sleep apnea (adult) (pediatric); Z95.2 Presence of prosthetic heart valve; Z68.33 Body mass index [BMI] 33.0-33.9, adult; Z95.1 Presence of aortocoronary bypass graft; Z79.899 Other long term (current) drug therapy; Z79.84 Long term (current) use of oral hypoglycemic drugs; Z79.82 Long term (current) use of aspirin; Z79.02 Long term (current) use of antithrombotics/antiplatelets; Z87.891 Personal history of nicotine dependence
CPT/HCPCS: 36415; 71046; 71275; 80048; 80051; 80053; 82009; 82565; 82947; 83036; 83735; 84100; 84484; 84520; 85025; 85379; 85610; 85730; 93005; 96360; 96361; 99291

== ENCOUNTER → 2023-12-26 | Outpatient (CLI) | payer MEDICARE ==
--- NOTE | 2023-12-26 15:47 | XR ---
EXAMINATION TYPE: XR abdomen 2V DATE OF EXAM: 12/26/2023 COMPARISON: NONE HISTORY: Pain TECHNIQUE: One view abdominal series FINDINGS: The osseous structures are intact. The bowel gas pattern is nonspecific. Multilevel severe degenerat john disc disease with scoliotic curvature. Retained fecal debris. Bilateral severe hip arthropathy. IMPRESSION: 1. Elevated left hemidiaphragm with dilated bowel loops and retained debris. Pattern is nonspecific p ossibly related to constipation with ileus or partial obstruction.
--- NOTE | 2023-12-26 15:54 | XR ---
EXAMINATION TYPE: XR thoracic spine 2V DATE OF EXAM: 12/26/2023 COMPARISON: NONE HISTORY: Pain TECHNIQUE: 3 views submitted FINDINGS: Alignment is anatomic. There is no compression deformities. Post median sternotomy changes are seen and there is moderate to severe multilevel hypertrophic and degenerative disc disease. Atrial appenda ge clip noted. IMPRESSION: 1. Moderate to severe hypertrophic and degenerative disc disease.
== END | disposition home or self-care (01) ==
LOC: RADXRMAIN 14:38
PROVIDERS: ATTEND Family Medicine
DX: Q79.1 Other congenital malformations of diaphragm (principal); M51.34 Other intervertebral disc degeneration, thoracic region
CPT/HCPCS: 72070; 74019

== ENCOUNTER 2024-09-23 13:29 | Inpatient (IN) | payer MEDICARE ==
--- NOTE | 2024-09-23 14:08 | ED ---
Skin/Abscess/FB HPI - General Chief complaint: Skin/Abscess/Foreign Body Stated complaint: POSS INFECTION Time Seen by Provider: 09/23/24 13:41 Source: patient, RN notes reviewed Mode of arrival: wheelchair Limitations: physical limitation - History of Present Illness Initial comments: This is a 69-year-old male with history of Aqaew[place]-Rfvbg-Yxlxf and diabetes who is presenting to the emergency department with referral from foot and ankle specialist with concern for cellulitis and concern for possible osteomyelitis of the left lateral dorsal foot. Patient states that over the past proximately 1 to 2 months he has noticed that there is a wound to the bottom of his left foot that has been worsening in regard to size and pain. Patient states he has pain with ambulation. He denies recent antibiotic use. Denies fevers, chills, nausea, vomiting, weakness. Patient states that evaluation today by Dr. No was wrist evaluation he had for wound. - Related Data Home Medications Medication Instructions Recorded Confirmed DULoxetine HCL [Cymbalta] 60 mg PO DAILY 04/16/19 06/26/23 Finasteride [Proscar] 5 mg PO DAILY 04/16/19 06/26/23 Insulin Degludec [Tresiba] 64 units SQ DIRECTED 04/16/19 06/26/23 Mirtazapine [Remeron] 15 mg PO HS 04/16/19 06/26/23 metFORMIN HCL [Glucophage] 1,000 mg PO BID 04/16/19 06/26/23 Pioglitazone [Actos] 30 mg PO DAILY 03/04/21 06/26/23 Atorvastatin [Lipitor] 20 mg PO DAILY 06/26/23 06/26/23 Metoprolol Tartrate [Lopressor] 25 mg PO DAILY 06/26/23 06/26/23 Omeprazole 20 mg PO DAILY 06/26/23 06/26/23 Pantoprazole [Protonix] 40 mg PO DAILY 06/26/23 06/26/23 Tamsulosin [Flomax] 0.4 mg PO BID 06/26/23 06/26/23 diazePAM 10 mg PO BID PRN 06/26/23 06/26/23 lisinopriL [Zestril] 5 mg PO DAILY 06/26/23 06/26/23 oxyCODONE HCL [oxyCODONE HCL (IR)] 15 mg PO QID 06/26/23 06/26/23 Allergies Allergy/AdvReac Type Severity Reaction Status Date / Time No Known Allergies Allergy Verified 09/23/24 14:02 Review of Systems ROS Statement: Those systems with pertinent positive or pertinent negative responses have been documented in the HPI. ROS Other: All systems not noted in ROS Statement are negative. Past Medical History Past Medical History: Coronary Artery Disease (CAD), Chest Pain / Angina, Diabetes Mellitus, GERD/Reflux, Hyperlipidemia, Hypertension, Musculoskeletal Disorder, Osteoarthritis (OA), Prostate Disorder, Sleep Apnea/CPAP/BIPAP Additional Past Medical History / Comment(s): [id number] SYNDROME, CAUSES PAIN, HAS NUMBNESS IN FEET, neuropathy, WEARS NICOLÁS LEG BRACES. USES CPAP., some recent chest pain & tightness @times History of Any Multi-Drug Resistant Organisms: None Reported Past Surgical History: No Surgical Hx Reported, Cardiac Valve Replacement Additional Past Surgical History / Comment(s): open heart Past Anesthesia/Blood Transfusion Reactions: No Reported Reaction Past Psychological History: No Psychological Hx Reported Smoking Status: Former smoker Past Alcohol Use History: None Reported Past Drug Use History: None Reported - Past Family History Mother Family Medical History: Cancer Additional Family Medical History / Comment(s): BREAST CA Sister(s) Family Medical History: Cancer Additional Family Medical History / Comment(s): SKIN CA Father Family Medical History: Congestive Heart Failure (CHF), Coronary Artery Disease (CAD), Myocardial Infarction (SD) Additional Family Medical History / Comment(s): Myocardial infarction in his ea rly 60s, paternal uncle had myocardial infarction in his early 50s General Exam Limitations: physical limitation General appearance: alert, in no apparent distress, obese Eye exam: Present: normal appearance, PERRL, EOMI. Absent: scleral icterus, conjunctival injection, periorbital swelling ENT exam: Present: normal exam, mucous membranes moist Respiratory exam: Present: normal lung sounds bilaterally. Absent: respiratory distress, wheezes, rales, rhonchi, stridor Cardiovascular Exam: Present: regular rate, normal rhythm, normal heart sounds. Absent: systolic murmur, diastolic murmur, rubs, gallop, clicks GI/Abdominal exam: Present: soft, normal bowel sounds. Absent: distended, tenderness, guarding, rebound, rigid Extremities exam: Present: normal inspection, full ROM, normal capillary refill, other (right sided upper extremity weakness due to chronic disease). Absent: tenderness, pedal edema, joint swelling, calf tenderness Left Foot/Toe exam: Present: tenderness, swelling, erythema Back exam: Present: normal inspection Expanded Type of lesion: Present: other (ulcer) Distribution of rash: LLE (dorsum of foot) Description of rash: Present: size (0.5 cm), tenderness, erythematous, swelling Course Vital Signs 09/23/24 09/23/24 09/23/24 14:02 14:45 15:58 Temperature 98.4 F Pulse Rate 94 82 77 Respiratory 20 16 18 Rate Blood Pressure 154/78 154/70 O2 Sat by Pulse 94 L 95 96 Oximetry Medical Decision Making - Medical Decision Making Was pt. sent in by a medical professional or institution (, PA, PROSPECT MANAGER, urgent care, hospital, or halfway...) When possible be specific @ -patient was advised by foot and ankle physician specialist to report to the [facility] for concern of possible ostetomyelitis Did you speak to anyone other than the patient for history (EMS, parent, family, police, friend...)? What history was obtained from this source @ -No Did you review nursing and triage notes (agree or disagree)? Why? @ -I reviewed and agree with nursing and triage notes Were old charts reviewed (outside hosp., previous admission, EMS record, old EKG, old radiological studies, urgent care reports/EKG's, halfway records)? Report findings @ -No old charts were reviewed Differential Diagnosis (chest pain, altered mental status, abdominal pain women, abdominal pain men, vaginal bleeding, weakness, fever, dyspnea, syncope, headache, dizziness, GI bleed, back pain, seizure, CVA, palpatations, mental health, musculoskeletal)? @ -Cellulitis, osteomyelitis, venous insufficiency, this list is not all inclusive EKG interpreted by me (3pts min.). @ -none X-rays interpreted by me (1pt min.). @ -XR left foot reveals soft tissue wound without evidence for osteomyelitis with no evidence of acute fracture multifocal degeneration changes of the joints of the foot CT interpreted by me (1pt min.). @ -None done U/S interpreted by me (1pt. min.). @ -None done What testing was considered but not performed or refused? (CT, X-rays, U/S, labs)? Why? @ -None What meds were considered but not given or refused? Why? @ -None Did you discuss the management of the patient with other professionals (professionals i.e. , PA, PROSPECT MANAGER, lab, RT, psych nurse, licensed social worker, electrical laboratory technician, teacher, chief merchandising officer, oil field caser)? Give summary @ -i spoke with internal medicine physician, Dr. Kasper, in regard to the patient's presentation and concern for severe osteomyelitis. She will be admitted to internal medicine with infectious disease on consult and started on IV antibiotics. Was smoking cessation discussed for >3mins.? @ -No Was critical care preformed (if so, how long)? @ -No Were there social determinants of health that impacted care today? How? (Homelessness, low income, unemployed, alcoholism, drug addiction, transportation, low edu. Level, literacy, decrease access to med. care, long term, rehab)? @ -No Was there de-escalation of care discussed even if they declined (Discuss DNR or withdrawal of care, Hospice)? DNR status @ -No What co-morbidities impacted this encounter? (DM, HTN, Smoking, COPD, CAD, Cancer, CVA, ARF, Chemo, Hep., AIDS, mental health diagnosis, sleep apnea, mo rbid obesity)? @ -diabetes, obesity Was patient admitted / discharged? Hospital course, mention meds given and route, prescriptions, significant lab abnormalities, going to OR and other pertinent info. @ -Admitted. 69-year-old male with left dorsal foot wound. Patient's vitals are stable. On my evaluation the patient is noted to have 2+ pitting edema of the left foot with erythema spreading proximally to the ankle. There is a noted approximately 0.5 cm ulceration to the dorsum lateral left foot that is tender to palpation. Pedal pulse intact with Doppler. Patient is provided with dose of pain medication. Labs remarkable for mild leukocytosis with a white count of 11.3, elevated neutrophils 8.6. Mildly elevated lactic acid at 2.2. X-ray unremarkable for osteomyelitis, concern for soft tissue swelling. With clinical concern for severe cellulitis patient will be admitted to internal medicine and started on IV antibiotics with infectious disease on consult. Blood cultures ordered prior to antibiotic initiation. Undiagnosed new problem with uncertain prognosis? @ -No Drug Therapy requiring intensive monitoring for toxicity (Heparin, Nitro, Insulin, Cardizem)? @ -No Were any procedures done? @ -No Diagnosis/symptom? @ -cellulitis, wound Acute, or Chronic, or Acute on Chronic? @ -Default Uncomplicated (without systemic symptoms) or Complicated (systemic symptoms)? @ -Default Side effects of treatment? @ -No Exacerbation, Progression, or Severe Exacerbation? @ -No Poses a threat to life or bodily function? How? (Chest pain, USA, SD, pneumonia, PE, COPD, DKA, ARF, appy, cholecystitis, CVA, Diverticulitis, Homicidal, Suicidal, threat to staff... and all critical care pts) @ -No - Lab Data Result diagrams: 09/23/24 14:38 09/23/24 14:38 Lab Results 09/23/24 09/23/24 09/23/24 Range/Units 14:38 14:38 14:38 WBC 11.3 H (3.8-10.6) k/uL RBC 4.08 L (4.30-5.90) m/uL Hgb 11.8 L (13.0-17.5) gm/dL Hct 36.2 L (39.0-53.0) % MCV 88.7 (80.0-100.0) fL MCH 28.9 (25.0-35.0) pg MCHC 32.6 (31.0-37.0) g/dL RDW 13.6 (11.5-15.5) % Plt Count 270 (150-450) k/uL MPV 8.0 Neutrophils % 76 % Lymphocytes % 13 % Monocytes % 7 % Eosinophils % 0 % Basophils % 0 % Neutrophils # 8.6 H (1.3-7.7) k/uL Lymphocytes # 1.4 (1.0-4.8) k/uL Monocytes # 0.8 (0-1.0) k/uL Eosinophils # 0.0 (0-0.7) k/uL Basophils # 0.0 (0-0.2) k/uL Sodium 134 L (137-145) mmol/L Potassium 5.0 (3.5-5.1) mmol/L Chloride 101 (98-107) mmol/L Carbon Dioxide 28 (22-30) mmol/L Anion Gap 5 mmol/L BUN 13 (9-20) mg/dL Creatinine 0.65 L (0.66-1.25) mg/dL Est GFR (CKD-EPI)AfAm >90 (>60 ml/min/1.73 sqM) Est GFR (CKD-EPI)NonAf >90 (>60 ml/min/1.73 sqM) Glucose 153 H (74-99) mg/dL Lactic Ac Sepsis Rflx Plasma Lactic Acid Chirag 2.2 H* (0.7-2.0) mmol/L Calcium 9.0 (8.4-10.2) mg/dL Total Bilirubin 0.7 (0.2-1.3) mg/dL AST 32 (17-59) U/L ALT 24 (4-49) U/L Alkaline Phosphatase 100 (38-126) U/L C-Reactive Protein 7.2 H (<1.0) mg/dL Total Protein 6.8 (6.3-8.2) g/dL Albumin 3.5 (3.5-5.0) g/dL 09/23/24 Range/Units 15:18 WBC (3.8-10.6) k/uL RBC (4.30-5.90) m/uL Hgb (13.0-17.5) gm/dL Hct (39.0-53.0) % MCV (80.0-100.0) fL MCH (25.0-35.0) pg MCHC (31.0-37.0) g/dL RDW (11.5-15.5) % Plt Count (150-450) k/uL MPV Neutrophils % % Lymphocytes % % Monocytes % % Eosinophils % % Basophils % % Neutrophils # (1.3-7.7) k/uL Lymphocytes # (1.0-4.8) k/uL Monocytes # (0-1.0) k/uL Eosinophils # (0-0.7) k/uL Basophils # (0-0.2) k/uL Sodium (137-145) mmol/L Potassium (3.5-5.1) mmol/L Chloride (98-107) mmol/L Carbon Dioxide (22-30) mmol/L Anion Gap mmol/L BUN (9-20) mg/dL Creatinine (0.66-1.25) mg/dL Est GFR (CKD-EPI)AfAm (>60 ml/min/1.73 sqM) Est GFR (CKD-EPI)NonAf (>60 ml/min/1.73 sqM) Glucose (74-99) mg/dL Lactic Ac Sepsis Rflx Y Plasma Lactic Acid Chirag (0.7-2.0) mmol/L Calcium (8.4-10.2) mg/dL Total Bilirubin (0.2-1.3) mg/dL AST (17-59) U/L ALT (4-49) U/L Alkaline Phosphatase (38-126) U/L C-Reactive Protein (<1.0) mg/dL Total Protein (6.3-8.2) g/dL Albumin (3.5-5.0) g/dL Disposition Clinical Impression: Cellulitis, Wound of foot Disposition: ADMITTED IP TO THIS [facility] Condition: Serious Referrals: Amadeo Kasper DO [Primary Care Provider] - 1-2 days Decision to Admit Reason: Admit from [facility] Decision Date: 09/23/24 Decision Time: 17:30
[2024-09-23] MEDS: HYDROmorphone 1 MG/ML 1 ML SYRINGE IVP STA (14:49)
[2024-09-23 14:56] LABS: Basophils % (A) 0 %; Eosinophils % (A) 0 %; HCT 36.2 % (39.0-53.0); HGB 11.8 gm/dL (13.0-17.5); Lymphocytes # (A) 1.4 k/uL (1.0-4.8); Lymphocytes % (A) 13 %; MCH 28.9 pg (25.0-35.0); MCHC 32.6 g/dL (31.0-37.0); MCV 88.7 fL (80.0-100.0); Monocytes # (A) 0.8 k/uL (0-1.0); Monocytes % (A) 7 %; Neutrophils # (A) 8.6 k/uL (1.3-7.7); Neutrophils % (A) 76 %; Platelet Count 270 k/uL (150-450); RBC 4.08 m/uL (4.30-5.90); RDW 13.6 % (11.5-15.5); WBC 11.3 k/uL (3.8-10.6)
[2024-09-23 15:08] LABS: ALT 24 U/L (4-49); AST 32 U/L (17-59); African American GFR (CKD) >90 (>60 ml/min/1.73 sqM); Albumin 3.5 g/dL (3.5-5.0); Alkaline Phosphatase 100 U/L (38-126); Anion Gap 5 mmol/L; Blood Urea Nitrogen 13 mg/dL (9-20); C Reactive Protein 7.2 mg/dL (<1.0); Carbon Dioxide 28 mmol/L (22-30); Chloride 101 mmol/L (98-107); Glucose 153 mg/dL (74-99); Non-African American GFR(CKD) >90 (>60 ml/min/1.73 sqM); Sodium 134 mmol/L (137-145); Total Bilirubin 0.7 mg/dL (0.2-1.3); Total Protein 6.8 g/dL (6.3-8.2)
--- NOTE | 2024-09-23 15:37 | XR ---
EXAMINATION TYPE: XR foot complete LT DATE OF EXAM: 09/23/2024 3:03 PM COMPARISON: None CLINICAL INDICATION: Male, 69 years old with history of wound, erythema, pain; [facility] TECHNIQUE: XR foot complete LT examined in the AP, oblique, and lateral projections. FINDINGS: No evidence of any acute osseous pathology. Soft tissue swelling present near the fifth metatarsophal angeal joint without evidence for saphenous gas. Wound is present. No evidence of osseous erosion to suggest osteomyelitis. Calcaneal plantar spurring is present. Calcaneal Achilles enthesophyte. Multif ocal degeneration changes throughout the joints of the foot with osteophyte formation and joint space narrowing. IMPRESSION: 1. Soft tissue wound without evidence for osteomyelitis. 2. No evidence of acute fracture. 3. Multifocal degeneration changes throughout the joints of the foot. 4. [facility], , 09/23/2024 3:34 PM
[2024-09-23] MEDS: SODIUM CHLORIDE 0.9% 1,000 ML IV STA (16:01)
[2024-09-23] MEDS ORDERED: VANCOMYCIN IV PER PHARMACY 1 EACH MISC MISCELLANE PRN (17:25)
[2024-09-23] MEDS ORDERED: NALOXONE 0.4 MG/ML 1 ML VIAL IV PRN (17:26)
[2024-09-23] MEDS ORDERED: ONDANSETRON 4 MG/2 ML VIAL IVP PRN (17:26)
[2024-09-23] MEDS: cefTRIAXone IN SWFI 1,000 MG/10 ML SYRINGE IVP STA (18:03)
[2024-09-23] MEDS: MORPHINE SULFATE 4 MG/ML SYRINGE IV PRN (18:04)
[2024-09-23 18:36] LABS: Erythrocyte Sedimentation Rate 103 mm/Hr (0-20)
[2024-09-23 18:48] LABS: Glucose,Whole Blood 108 mg/dL (70-110)
[2024-09-23] MEDS: VANCOMYCIN 2,000 MG in SODIUM CHLORIDE 0.9% 500 ML 500 ML IVPB STA (19:39)
[2024-09-24] MEDS: VANCOMYCIN 2,000 MG in SODIUM CHLORIDE 0.9% 500 ML 500 ML IVPB SCH (07:43)
--- NOTE | 2024-09-24 10:12 | P.CONS ---
History of Present Illness - Reason for Consult Consult date: 09/24/24 wound care - History of Present Illness This is a 69-year-old patient being seen in the emergency room for nonhealing ulceration to the left plantar foot lateral foot. Patient stated that he had noticed some swelling and redness to his foot for approximately 1 month he is seeing his foot and ankle specialist who advised him to go to the emergency department to rule out osteomyelitis. Patient had a x-ray of the foot that did not show signs of osteomyelitis. Patient does have history of diabetes and Charcot foot. Patient has a nonhealing ulceration measuring approximately 0.4 x 0.3 x 1 cm to the left foot plantar aspect lateral. Significant amount of callus noted to the site serosanguineous drainage noted. Review Of Systems: Constitutional: No fever, no chills, no night sweats. No weight change. No weakness, fatigue or lethargy. No daytime sleepiness. Integumentary:reports wounds, no lesions. No rash or pruritus. No unusual bruising. No change in hair or nails. Physical exam: General Appearance: Alert, cooperative, no distress, appears stated age. Skin: See HPI all other Skin color, texture, tugor normal, no rashes or lesions. Neurologic: Alert oriented x3 Assessment: 1. Nonhealing ulceration with muscle involvement without necrosis 2. Diabetic foot ulcer Plan: 1. Apply honey gel dry gauze rolled gauze and secure with paper tape. Nonweight bearing to the left forefoot, may use heel to transfer. Patient would benefit from advanced wound care and wound care setting. We would be happy to see him upon discharge. Patient is agreeable to follow-up and wound care. Thank you for the consultation any questions please contact the wound care center DNP note has been reviewed and discussed with Dr. Amato and the impression and plan of care has been directed as dictated. Past Medical History Past Medical History: Coronary Artery Disease (CAD), Chest Pain / Angina, Diabetes Mellitus, GERD/Reflux, Hyperlipidemia, Hypertension, Musculoskeletal Disorder, Osteoarthritis (OA), Prostate Disorder, Sleep Apnea/CPAP/BIPAP Additional Past Medical History / Comment(s): [id number] SYNDROME, CAUSES PAIN, HAS NUMBNESS IN FEET, neuropathy, WEARS NICOLÁS LEG BRACES. USES CPAP., some recent chest pain & tightness @times History of Any Multi-Drug Resistant Organisms: None Reported Past Surgical History: No Surgical Hx Reported, Cardiac Valve Replacement Additional Past Surgical History / Comment(s): open heart Past Anesthesia/Blood Transfusion Reactions: No Reported Reaction Past Psychological History: No Psychological Hx Reported Smoking Status: Former smoker Past Alcohol Use History: None Reported Additional Past Alcohol Use History / Comment(s): SOBER 22 YEARS, quit smoked 30 yrs. ago-didn't smoke much or for long Past Drug Use History: None Reported Additional Drug Use History / Comment(s): occasional use in past but not anymore - Past Family History Mother Family Medical History: Cancer Additional Family Medical History / Comment(s): BREAST CA Sister(s) Family Medical History: Cancer Additional Family Medical History / Comment(s): SKIN CA Father Family Medical History: Congestive Heart Failure (CHF), Coronary Artery Disease (CAD), Myocardial Infarction (ND) Additional Family Medical History / Comment(s): Myocardial infarction in his early 60s, paternal uncle had myocardial infarction in his early 50s Medications and Allergies Home Medications Medication Instructions Recorded Confirmed Type DULoxetine HCL [Cymbalta] 60 mg PO DAILY 04/16/19 09/23/24 History Finasteride [Proscar] 5 mg PO DAILY 04/16/19 09/23/24 History metFORMIN HCL [Glucophage] 1,000 mg PO BID 04/16/19 09/23/24 History Pioglitazone [Actos] 30 mg PO DAILY 03/04/21 09/23/24 History Omeprazole 20 mg PO DAILY 06/26/23 09/23/24 History Tamsulosin [Flomax] 0.4 mg PO DAILY 06/26/23 09/23/24 History oxyCODONE HCL [oxyCODONE HCL (IR)] 15 mg PO Q6H 06/26/23 09/23/24 History Atorvastatin [Lipitor] 40 mg PO DAILY 09/23/24 09/23/24 History Baclofen 10 mg PO BID 09/23/24 09/23/24 History Celecoxib [CeleBREX] 200 mg PO BID 09/23/24 09/23/24 History lisinopriL [Zestril] 5 mg PO DAILY 09/23/24 09/23/24 History modafiniL [Provigil] 200 mg PO BID 11/19/24 11/19/24 History Insulin Degludec [Tresiba 80 units SQ DAILY 09/24/24 09/24/24 History Flextouch U-200 Pen] Allergies Allergy/AdvReac Type Severity Reaction Status Date / Time No Known Allergies Allergy Verified 09/23/24 18:23 Physical Exam Vitals: Vital Signs Temp Pulse Resp BP Pulse Ox 09/23/24 18:01 99.5 F 79 17 125/73 94 L 09/23/24 15:58 77 18 96 09/23/24 14:45 82 16 154/70 95 09/23/24 14:02 98.4 F 94 20 154/78 94 L Intake and Output 09/23/24 09/24/24 09/24/24 22:59 06:59 14:59 Output Total 200 Balance -200 Output: Urine 200 Other: # Voids 1 Weight 125.191 kg Results CBC & Chem 7: 09/23/24 14:38 09/23/24 14:38 Labs: Abnormal Lab Results - Last 24 Hours (Table) 09/23/24 09/23/24 09/23/24 Range/Units 14:38 14:38 14:38 WBC 11.3 H (3.8-10.6) k/uL RBC 4.08 L (4.30-5.90) m/uL Hgb 11.8 L (13.0-17.5) gm/dL Hct 36.2 L (39.0-53.0) % Neutrophils # 8.6 H (1.3-7.7) k/uL ESR 103 H (0-20) mm/Hr Sodium 134 L (137-145) mmol/L Creatinine 0.65 L (0.66-1.25) mg/dL Glucose 153 H (74-99) mg/dL Plasma Lactic Acid Chirag 2.2 H* (0.7-2.0) mmol/L C-Reactive Protein 7.2 H (<1.0) mg/dL Assessment and Plan (1) 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
[2024-09-24 10:14] LABS: Basophils # (A) 0.05 X 10*3/uL (0.00-0.10); Basophils % (A) 0.5 %; Eosinophils # (A) 0.09 X 10*3/uL (0.04-0.35); Eosinophils % (A) 0.9 %; HCT 35.6 % (39.6-50.0); HGB 11.4 g/dL (13.0-17.0); Lymphocytes # (A) 1.96 X 10*3/uL (0.90-5.00); Lymphocytes % (A) 18.6 %; MCH 28.4 pg (27.0-32.0); MCV 88.8 FL (80.0-97.0); Mean Platelet Volume 10.3 FL (9.5-12.2); Monocytes # (A) 0.87 X 10*3/uL (0.20-1.00); Monocytes % (A) 8.3 %; NRBC Per 100 WBC 0 X 10*3/uL (0.00-0.01); Neutrophils # (A) 7.51 X 10*3/uL (1.80-7.70); Neutrophils % (A) 71.3 %; Platelet Count 298 X 10*3/uL (140-440); RBC 4.01 X 10*6/uL (4.40-5.60); RDW 13.5 % (11.5-14.5); WBC 10.52 X 10*3/uL (4.50-10.00)
[2024-09-24 10:29] LABS: ALT 20 U/L (10-49); AST 20 U/L (14-35); Albumin 3.2 g/dL (3.8-4.9); Albumin/Globulin Ratio 1.03 Ratio (1.60-3.17); Alkaline Phosphatase 95 U/L (41-126); BUN/Creat Ratio 11.83 Ratio (12.00-20.00); Blood Urea Nitrogen 7.1 mg/dL (9.0-27.0); Calcium 8.9 mg/dL (8.7-10.3); Carbon Dioxide 25.2 mmol/L (21.6-31.8); Chloride 102 mmol/L (96-109); Globulin 3.1 g/dL (1.6-3.3); Glucose 136 mg/dL (70-110); Potassium 4.2 mmol/L (3.5-5.5); Sodium 137 mmol/L (135-145); Total Bilirubin 0.4 mg/dL (0.3-1.2); Total Protein 6.3 g/dL (6.2-8.2)
[2024-09-24] MEDS: ACETAMINOPHEN TAB 325 MG TAB PO PRN (10:47)
[2024-09-24] MEDS: TAMSULOSIN 0.4 MG CAP.ER.24H PO SCH (17:54)
[2024-09-24] MEDS: lisinopriL 5 MG TAB PO SCH (17:55)
[2024-09-24] MEDS: FINASTERIDE 5 MG TAB PO SCH (17:55)
[2024-09-24] MEDS: CEFEPIME 2 GM in SODIUM CHLORIDE 0.9% 100 ML IVPB SCH (17:55)
[2024-09-24] MEDS: DULoxetine HCL 60 MG CAPSULE.DR PO SCH (17:55)
[2024-09-24] MEDS: BACLOFEN 10 MG TAB PO SCH (20:01)
[2024-09-24 21:03] LABS: Glucose,Whole Blood 268 mg/dL (70-110)
--- NOTE | 2024-09-24 21:35 | P.CONS ---
History of Present Illness - Reason for Consult Consult date: 09/24/24 Cellulitis of the left foot/wound Requesting physician: Maryellen Sandoval - Chief Complaint Left foot swelling and redness x days - History of Present Illness Patient is a 69-year-old male with a past medical history significant for diabetes mellitus hypertension hyperlipidemia coronary artery disease osteoarthritis presenting to the hospital for evaluation of increasing swelling redness to the right foot area apparently the patient was evaluated in the outpatient setting by his pipe stripper and the patient noted to have significant swelling and redness of the left foot with infected callus on the plantar aspect concern for possible abscess and osteomyelitis for the patient was sent via patient has been complaining of problem with the left foot about 1 to 2 months patient noticed to have increasing swelling of the redness over the last few days patient did have diabetic neuropathy has denies significant pain he did have minimal drainage denies high-grade fever on presentation to the hospital patient was afebrile he did have low-grade fever of 99.5 F last night patient was not tachycardic or hypotensive not hypoxic or need for supplemental oxygen patient did have a white count of 11.3 with a left shift creatinine 0.65 sed rate is 103 CRP 7.2 patient was started on vancomycin and Rocephin infectious disease was consulted for further management of antibiotic therapy Review of Systems Positive point and negatives has been mentioned in the HPI, complete review of systems was performed and all other systems are negative Past Medical History Past Medical History: Coronary Artery Disease (CAD), Chest Pain / Angina, Diabetes Mellitus, GERD/Reflux, Hyperlipidemia, Hypertension, Musculoskeletal Disorder, Osteoarthritis (OA), Prostate Disorder, Sleep Apnea/CPAP/BIPAP Additional Past Medical History / Comment(s): [id number] SYNDROME, CAUSES PAIN, HAS NUMBNESS IN FEET, neuropathy, WEARS NICOLÁS LEG BRACES. USES CPAP., some recent chest pain & tightness @times History of Any Multi-Drug Resistant Organisms: None Reported Past Surgical History: No Surgical Hx Reported, Cardiac Valve Replacement Additional Past Surgical History / Comment(s): open heart Past Anesthesia/Blood Transfusion Reactions: No Reported Reaction Past Psychological History: No Psychological Hx Reported Smoking Status: Former smoker Past Alcohol Use History: None Reported Additional Past Alcohol Use History / Comment(s): SOBER 22 YEARS, quit smoked 30 yrs. ago-didn't smoke much or for long Past Drug Use History: None Reported Additional Drug Use History / Comment(s): occasional use in past but not anymore - Past Family History Mother Family Medical History: Cancer Additional Family Medical History / Comment(s): BREAST CA Sister(s) Family Medical History: Cancer Additional Family Medical History / Comment(s): SKIN CA Father Family Medical History: Congestive Heart Failure (CHF), Coronary Artery Disease (CAD), Myocardial Infarction ([place]) Additional Family Medical History / Comment(s): Myocardial infarction in his early 60s, paternal uncle had myocardial infarction in his early 50s Medications and Allergies Home Medications Medication Instructions Recorded Confirmed Type DULoxetine HCL [Cymbalta] 60 mg PO DAILY 04/16/19 09/23/24 History Finasteride [Proscar] 5 mg PO DAILY 04/16/19 09/23/24 History metFORMIN HCL [Glucophage] 1,000 mg PO BID 04/16/19 09/23/24 History Pioglitazone [Actos] 30 mg PO DAILY 03/04/21 09/23/24 History Omeprazole 20 mg PO DAILY 06/26/23 09/23/24 History Tamsulosin [Flomax] 0.4 mg PO DAILY 06/26/23 09/23/24 History oxyCODONE HCL [oxyCODONE HCL (IR)] 15 mg PO Q6H 06/26/23 09/23/24 History Atorvastatin [Lipitor] 40 mg PO DAILY 09/23/24 09/23/24 History Baclofen 10 mg PO BID 09/23/24 09/23/24 History Celecoxib [CeleBREX] 200 mg PO BID 09/23/24 09/23/24 History lisinopriL [Zestril] 5 mg PO DAILY 09/23/24 09/23/24 History modafiniL [Provigil] 200 mg PO BID 09/23/24 09/23/24 History Insulin Degludec [Tresiba 80 units SQ DAILY 09/24/24 09/24/24 History Flextouch U-200 Pen] Allergies Allergy/AdvReac Type Severity Reaction Status Date / Time No Known Allergies Allergy Verified 09/23/24 18:23 Physical Exam Vitals: Vital Signs Temp Pulse Resp BP Pulse Ox 09/23/24 18:01 99.5 F 79 17 125/73 94 L 09/23/24 15:58 77 18 96 09/23/24 14:45 82 16 154/70 95 09/23/24 14:02 98.4 F 94 20 154/78 94 L Intake and Output 09/23/24 09/24/24 09/24/24 22:59 06:59 14:59 Output Total 200 Balance -200 Output: Urine 200 Other: # Voids 1 Weight 125.191 kg GENERAL DESCRIPTION: Elderly male lying in bed, no distress. No tachypnea or acc essory muscle of respiration use. HEENT: Shows Pallor , no scleral icterus. Oral mucous membrane is dry. No pharyngeal erythema or thrush NECK: Trachea central, no thyromegaly. LUNGS: Unlabored breathing. Clear to auscultation anteriorly. No wheeze or crackle. HEART: S1, S2, regular rate and rhythm. No loud murmur ABDOMEN: Soft, no tenderness , guarding or rigidity, no organomegaly EXTREMITIES: Left foot did have diffuse swelling redness the patient did have wound on the plantar aspect at the base of the fifth toe with some purulent drainage has been cultured wound seems to be deep probing all the way down to the wound SKIN: No rash, no masses palpable. NEUROLOGICAL: The patient is awake, alert, oriented x3, mood and affect normal. Results CBC & Chem 7: 09/24/24 07:06 09/24/24 07:06 Labs: Abnormal Lab Results - Last 24 Hours (Table) 09/23/24 09/23/24 09/23/24 Range/Units 14:38 14:38 14:38 WBC 11.3 H (3.8-10.6) k/uL RBC 4.08 L (4.30-5.90) m/uL Hgb 11.8 L (13.0-17.5) gm/dL Hct 36.2 L (39.0-53.0) % Neutrophils # 8.6 H (1.3-7.7) k/uL ESR 103 H (0-20) mm/Hr Sodium 134 L (137-145) mmol/L Creatinine 0.65 L (0.66-1.25) mg/dL Glucose 153 H (74-99) mg/dL Plasma Lactic Acid Chirag 2.2 H* (0.7-2.0) mmol/L C-Reactive Protein 7.2 H (<1.0) mg/dL 09/24/24 Range/Units 07:06 WBC 10.52 H (3.8-10.6) k/uL RBC 4.01 L (4.30-5.90) m/uL Hgb 11.4 L (13.0-17.5) gm/dL Hct 35.6 L (39.0-53.0) % Neutrophils # (1.3-7.7) k/uL ESR (0-20) mm/Hr Sodium (137-145) mmol/L Creatinine (0.66-1.25) mg/dL Glucose (74-99) mg/dL Plasma Lactic Acid Chirag (0.7-2.0) mmol/L C-Reactive Protein (<1.0) mg/dL Assessment and Plan (1) Diabetic infection of left foot Current Visit: Yes Status: Acute Code(s): E11.628 - TYPE 2 DIABETES MELLITUS WITH OTHER SKIN COMPLICATIONS; L08.9 - LOCAL INFECTION OF THE SKIN AND SUBCUTANEOUS TISSUE, UNSP SNOMED Code(s): 513421223 (2) Type 2 diabetes mellitus with foot ulcer Current Visit: Yes Status: Acute Code(s): E11.621 - TYPE 2 DIABETES MELLITUS WITH FOOT ULCER; L97.509 - NON-PRESSURE CHRONIC ULCER OTH PRT UNSP FOOT W UNSP SEVERITY SNOMED Code(s): 9818057101641 Plan: 1patient presented to hospital with extensive left diabetic foot infection in this patient who did have extensive cellulitis of the left foot likely from an infected callus on the plantar aspect and will need to cover for gram-positive as well as gram-negative pathogen 2-wound culture has been completed they will guide further antibiotic therapy 3-we will check an MRI of the left foot to rule out abscess and osteomyelitis 4-vancomycin pharmacy to dose target trough of 15 while watching kidney fun ction and Vanco trough closely we will switch Rocephin to cefepime for better gram-negative coverage We will follow on clinical condition and cultures to further adjust medication if needed Thank you for this consultation we will follow the patient along with you Dictation was produced using [employer] dictation software. please excuse any grammatical, word or spelling errors. Time with Patient: Greater than 30
[2024-09-24 22:38] LABS: Glucose,Whole Blood 224 mg/dL (70-110)
[2024-09-24] MEDS: INSULIN ASPART (NovoLOG) 100 UNIT/ML VIAL SQ SCH (22:40)
[2024-09-25 06:29] LABS: Glucose,Whole Blood 152 mg/dL (70-110)
[2024-09-25] MEDS ORDERED: INSULIN ASPART (NovoLOG) 100 UNIT/ML VIAL SQ SCH (07:30)
[2024-09-25] MEDS: PIOGLITAZONE 30 MG TAB PO SCH (08:19)
[2024-09-25] MEDS: ATORVASTATIN 40 MG TAB PO SCH (08:19)
[2024-09-25 11:24] LABS: Glucose,Whole Blood 228 mg/dL (70-110)
--- NOTE | 2024-09-25 13:02 | MR ---
EXAMINATION TYPE: MR foot LT wo/w con DATE OF EXAM: 09/25/2024 10:21 AM COMPARISON: CLINICAL INDICATION: Male, 69 years old with history of Diabetic foot infection, abscess, osteomyelit is, Diabetic foot infection, abscess, osteomyelitis. TECHNIQUE: Multiplanar, multisequence MR imaging of the left forefoot was performed administration o f IV gadolinium contrast. MR contrast: IV Contrast: 12.5 mL Gadobutrol FINDINGS: Soft tissue wound near the fifth digit metatarsal head. Intrinsic T1 bone signal is maintai nelson. Streaky edema seen throughout the foot. There is mild reactive edema on T2-weighted sequences ne ar the site of soft tissue wound series 411 image 4. Bony fragments are seen anterior to the ankle mami int somewhat medially possibly representing prior bone injury. Mild degeneration changes throughout t he joints of the foot with osteophyte formation and joint space narrowing. Musculature demonstrates age-appropriate signal and volume. There is no evidence of a joint effusion. There is no evidence of synovitis. There is no evidence of intermetatarsal bursitis. Flexor tendons are intact. Extensor tendons are intact. No evidence of tenosynovitis. Lisfranc ligament proper is intact. Capsular ligaments are intact. IMPRESSION: Cellulitis changes with wound near the fifth digit metatarsal head. No evidence for osteomyelitis or organizing fluid collection. [facility], , 09/25/2024 1:00 PM
--- NOTE | 2024-09-25 13:38 | P.PN ---
Subjective Progress Note Date: 09/25/24 Principal diagnosis: Reason for follow-up is left diabetic foot infection/cellulitis Patient is a 69-year-old male with a past medical history significant for diabetes mellitus hypertension hyperlipidemia coronary artery disease osteoarthritis presenting to the hospital for evaluation of increasing swelling redness to the right foot, patient be diagnosed with infected callus with secondary cellulitis. On today's evaluation that is 09/25/2024, Patient is afebrile this morning patient denies having any chest pain shortness of breath or cough, the patient is currently on room air, patient denies any abdominal pain no diarrhea no nausea no vomiting patient denies pain to the left foot area. No new lab has been repeated today culture from yesterday is growing presumptive MRSA and Enterobacter blood cultures are pending, MRI did shows cellulitic changes no organizing fluid collection or osteomyelitis Objective - Vital Signs Vital signs: Vital Signs Temp 98.4 F 09/25/24 07:53 Pulse 74 09/25/24 07:53 Resp 15 09/25/24 07:53 BP 154/71 09/25/24 07:53 Pulse Ox 98 09/25/24 07:53 FiO2 Intake & Output 09/24/24 09/25/24 09/25/24 18:59 06:59 18:59 Intake Total 240 Output Total 800 Balance -800 240 Intake: Oral 240 Output: Urine 800 Other: Voiding Method Urinal # Voids 1 - Exam GENERAL DESCRIPTION: An elderly male lying in bed in no distress RESPIRATORY SYSTEM: Unlabored breathing , decreased breath sounds at bases HEART: S1 S2 regular rate and rhythm , ABDOMEN: Soft , no tenderness EXTREMITIES: Left foot did have persistent swelling redness with no drainage - Labs CBC & Chem 7: 09/24/24 07:06 09/24/24 07:06 Labs: Abnormal Lab Results - Last 24 Hours (Table) 09/24/24 09/24/24 09/25/24 Range/Units 21:02 22:34 06:28 POC Glucose (mg/dL) 268 H 224 H 152 H (70-110) mg/dL Microbiology - Last 24 Hours (Table) 09/23/24 17:35 Blood Culture - Preliminary Blood 09/23/24 17:43 Blood Culture - Preliminary Blood 09/24/24 11:30 Gram Stain - Preliminary Foot - Left Assessment and Plan (1) Diabetic infection of left foot Current Visit: Yes Status: Acute Code(s): E11.628 - TYPE 2 DIABETES MELLITUS WITH OTHER SKIN COMPLICATIONS; L08.9 - LOCAL INFECTION OF THE SKIN AND SUBCUTANEOUS TISSUE, UNSP SNOMED Code(s): 214860079 (2) Type 2 diabetes mellitus with foot ulcer Current Visit: Yes Status: Acute Code(s): E11.621 - TYPE 2 DIABETES MELLITUS WITH FOOT ULCER; L97.509 - NON-PRESSURE CHRONIC ULCER OTH PRT UNSP FOOT W UNSP SEVERITY SNOMED Code(s): 3125199107986 Plan: 1patient presented to hospital with extensive left diabetic foot infection in this patient who did have extensive cellulitis of the left foot likely from an infected callus on the plantar aspect and will need to cover for gram-positive as well as gram-negative pathogen 2-wound culture has been obtained which is currently growing a presumed MRSA Enterobacter 3-MRI of the left foot with no evidence of abscess and osteomyelitis 4-patient to continue with vancomycin pharmacy to dose target trough of 15 and cefepime while waiting for the culture to finalize Dictation was produced using [employer] dictation software. please excuse any grammatical, word or spelling errors. Time with Patient: Less than 30
[2024-09-25] MEDS: metroNIDAZOLE 500 MG TAB PO SCH (15:52)
[2024-09-25 16:18] LABS: Glucose,Whole Blood 310 mg/dL (70-110)
--- NOTE | 2024-09-25 19:12 | P.HPIM ---
History of Present Illness H&P Date: 09/24/24 This is a 69-year-old male who was admitted for an ulcer on his left heel and midfoot with deep penetration huge eschar was initially seen in the office by his calender let off helper and immediately sent into the hospital for diabetic foot ulceration with cellulitis. He has known to be diabetic at times uncontrolled. He denies any fever nausea or vomiting denies any night sweats and did not know the extent of his foot ulceration. He has had a previous right foot ulceration that had just healed. Review of Systems GENERAL: Patient denies fever. Denies chills. EYES: Denies blurred vision. Denies vision changes. Denies eye pain. EARS, NOSE, MOUTH, & THROAT: Denies headache. Denies sore throat. Denies ear pain. RESPIRATORY: Denies cough. Denies shortness of breath. Denies sputum production. Denies hemoptysis. CARDIOVASCULAR: Denies chest pain or pressure. Denies palpitations. Denies arrhythmias. GASTROINTESTINAL: Denies abdominal pain. Denies diarrhea. Denies constipation. Denies nausea. Denies vomiting. Denies heartburn. Denies blood in the stool. GENITOURINARY: Denies urinary frequency. Denies burning. Denies dysuria. Denies cloudy urine. Denies blood in the urine. MUSCULOSKELETAL: Denies myalgias. Denies joint swelling. Denies decreased range of motion beyond patients baseline. INTEGUMENTARY: Admits to left foot plantar surface ulceration callus and abscess . PSYCHIATRIC: Denies suicidal or homicial ideations. ENDOCRINE: Denies weight change. Denies polydipsia. Denies polyuria. HEMATOLOGIC: Denies bleeding disorders. Past Medical History Past Medical History: Coronary Artery Disease (CAD), Chest Pain / Angina, Di abetes Mellitus, GERD/Reflux, Hyperlipidemia, Hypertension, Musculoskeletal Disorder, Osteoarthritis (OA), Prostate Disorder, Sleep Apnea/CPAP/BIPAP Additional Past Medical History / Comment(s): [id number] SYNDROME, CAUSES PAIN, HAS NUMBNESS IN FEET, neuropathy, WEARS NICOLÁS LEG BRACES. USES CPAP., some recent chest pain & tightness @times History of Any Multi-Drug Resistant Organisms: None Reported Past Surgical History: No Surgical Hx Reported, Cardiac Valve Replacement Additional Past Surgical History / Comment(s): open heart Past Anesthesia/Blood Transfusion Reactions: No Reported Reaction Past Psychological History: No Psychological Hx Reported Smoking Status: Former smoker Past Alcohol Use History: None Reported Additional Past Alcohol Use History / Comment(s): SOBER 22 YEARS, quit smoked 30 yrs. ago-didn't smoke much or for long Past Drug Use History: None Reported Additional Drug Use History / Comment(s): occasional use in past but not anymore - Past Family History Mother Family Medical History: Cancer Additional Family Medical History / Comment(s): BREAST CA Sister(s) Family Medical History: Cancer Additional Family Medical History / Comment(s): SKIN CA Father Family Medical History: Congestive Heart Failure (CHF), Coronary Artery Disease (CAD), Myocardial Infarction ([place]) Additional Family Medical History / Comment(s): Myocardial infarction in his early 60s, paternal uncle had myocardial infarction in his early 50s Medications and Allergies Home Medications Medication Instructions Recorded Confirmed Type DULoxetine HCL [Cymbalta] 60 mg PO DAILY 04/16/19 09/23/24 History Finasteride [Proscar] 5 mg PO DAILY 04/16/19 09/23/24 History metFORMIN HCL [Glucophage] 1,000 mg PO BID 04/16/19 09/23/24 History Pioglitazone [Actos] 30 mg PO DAILY 03/04/21 09/23/24 History Omeprazole 20 mg PO DAILY 06/26/23 09/23/24 History Tamsulosin [Flomax] 0.4 mg PO DAILY 06/26/23 09/23/24 History oxyCODONE HCL [oxyCODONE HCL (IR)] 15 mg PO Q6H 06/26/23 09/23/24 History Atorvastatin [Lipitor] 40 mg PO DAILY 09/23/24 09/23/24 History Baclofen 10 mg PO BID 09/23/24 09/23/24 History Celecoxib [CeleBREX] 200 mg PO BID 09/23/24 09/23/24 History lisinopriL [Zestril] 5 mg PO DAILY 09/23/24 09/23/24 History modafiniL [Provigil] 200 mg PO BID 09/23/24 09/23/24 History Insulin Degludec [Tresiba 80 units SQ DAILY 09/24/24 09/24/24 History Flextouch U-200 Pen] Allergies Allergy/AdvReac Type Severity Reaction Status Date / Time No Known Allergies Allergy Verified 09/23/24 18:23 Physical Exam Vitals: Vital Signs Temp Pulse Resp BP Pulse Ox 09/24/24 19:38 98.3 F 84 18 171/99 95 09/24/24 14:00 75 16 156/83 97 Intake and Output 09/24/24 09/24/24 09/25/24 14:59 22:59 06:59 Output Total 800 Balance -800 Output: Urine 800 Other: Voiding Method Urinal GENERAL: This is a 69-year-old in no apparent distress at the time of examination. Pleasant and cooperative. HEENT: Head is atraumatic, normocephalic. Pupils are equal, round, and reactive to light. Sclerae anicteric. Conjunctivae are clear. Mucus membranes of the mouth are moist. Neck is supple. RESPIRATORY: Clear to auscultation. No wheezes, rales, or rhonchi. No use of accessory muscles. CARDIOVASCULAR: Regular rate and rhythm. S1 and S2 noted. No systolic or diastolic murmur auscultated. No JVD noted. No S3 or S4 noted. GASTROINTESTINAL: No distention noted. Abdomen soft and round. Normal active bowel sounds auscultated x 4 quadrants. No pain or tenderness noted upon palpation. INTEGUMENTARY: Silver dollar size callus abscess to his mid plantar foot with cellulitis noted. EXTREMITIES: 2+ peripheral pulses. No evidence of peripheral edema. No calf tenderness noted. NEUROLOGIC: Cranial nerves II-XII intact. PSYCHIATRIC: Awake, alert, and oriented X 3. Appropriate affect. Intact judgement and insight. Results CBC & Chem 7: 09/24/24 07:06 09/24/24 07:06 Labs: Abnormal Lab Results - Last 24 Hours (Table) 09/24/24 09/24/24 09/24/24 Range/Units 07:06 07:06 21:02 WBC 10.52 H (4.50-10.00) X 10*3/uL RBC 4.01 L (4.40-5.60) X 10*6/uL Hgb 11.4 L (13.0-17.0) g/dL Hct 35.6 L (39.6-50.0) % BUN 7.1 L (9.0-27.0) mg/dL BUN/Creatinine Ratio 11.83 L (12.00-20.00) Ratio Glucose 136 H (70-110) mg/dL POC Glucose (mg/dL) 268 H (70-110) mg/dL Albumin 3.2 L (3.8-4.9) g/dL Albumin/Globulin Ratio 1.03 L (1.60-3.17) Ratio 09/24/24 Range/Units 22:34 WBC (4.50-10.00) X 10*3/uL RBC (4.40-5.60) X 10*6/uL Hgb (13.0-17.0) g/dL Hct (39.6-50.0) % BUN (9.0-27.0) mg/dL BUN/Creatinine Ratio (12.00-20.00) Ratio Glucose (70-110) mg/dL POC Glucose (mg/dL) 224 H (70-110) mg/dL Albumin (3.8-4.9) g/dL Albumin/Globulin Ratio (1.60-3.17) Ratio Microbiology - Last 24 Hours (Table) 09/24/24 11:30 Gram Stain - Preliminary Foot - Left Thrombosis Risk Factor Assmnt - Choose All That Apply Each Risk Factor Represents 2 Points: Age 61-74 years Thrombosis Risk Factor Assessment Total Risk Factor Score: 2 Thrombosis Risk Factor Assessment Level: Low Risk Assessment and Plan (1) Cellulitis Current Visit: Yes Status: Acute Code(s): L03.90 - CELLULITIS, UNSPECIFIED SNOMED Code(s): 237970104 (2) Charcot arthropathy Current Visit: Yes Status: Acute Code(s): M14.60 - CHARCOT'S JOINT, UNSPECIFIED SITE SNOMED Code(s): 697585937 (3) Diabetic infection of left foot Current Visit: Yes Status: Acute Code(s): E11.628 - TYPE 2 DIABETES MELLITUS WITH OTHER SKIN COMPLICATIONS; L08.9 - LOCAL INFECTION OF THE SKIN AND SUBCUTANEOUS TISSUE, UNSP SNOMED Code(s): 041196888 (4) 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 without evidence of necrosis Current Visit: Yes Status: Acute Code(s): L97.525 - NON-PRS CHR ULC OTH PRT L FOOT WITH MSL INVL W/O EVD OF NECR SNOMED Code(s): 99969584548676578 (5) Type 2 diabetes mellitus with foot ulcer Current Visit: Yes Status: Acute Code(s): E11.621 - TYPE 2 DIABETES MELLITUS WITH FOOT ULCER; L97.509 - NON-PRESSURE CHRONIC ULCER OTH PRT UNSP FOOT W UNSP SEVERITY SNOMED Code(s): 9563007529302 (6) Hyperglycemia Current Visit: No Status: Acute Code(s): R73.9 - HYPERGLYCEMIA, UNSPECIFIED SNOMED Code(s): 41868644 Plan: Patient was admitted to the hospital IV antibiotics were started infectious disease consultation currently in progress wound was cultured and sent for path which is currently pending we will continue to follow patient's progress until identification is back MRI of the foot will be obtained to rule out osteomyelitis. Continue diabetic control with insulin sliding scale and his regular doses of medication. Time with Patient: Greater than 30
--- NOTE | 2024-09-25 19:26 | P.PN ---
Subjective Progress Note Date: 09/25/24 Patient is 69-year-old white male was admitted for left infected foot and sugar is being maintained on his regular regimen of insulin and sliding scale of regular insulin he denies any fever cough or congestion he denies any other problems today MRI was negative for osteomyelitis. Objective - Vital Signs Vital signs: Vital Signs Temp 99.3 F 09/25/24 13:10 Pulse 88 09/25/24 13:10 Resp 17 09/25/24 13:10 BP 178/78 09/25/24 13:10 Pulse Ox 97 09/25/24 13:10 FiO2 Intake & Output 09/25/24 09/25/24 09/26/24 06:59 18:59 06:59 Intake Total 240 Balance 240 Intake: Oral 240 Other: # Voids 1 1 - Exam GENERAL: This is a -year-old in no apparent distress at the time of examination. Pleasant and cooperative. HEENT: Head is atraumatic, normocephalic. Pupils are equal, round, and reactive to light. Sclerae anicteric. Conjunctivae are clear. Mucus membranes of the mouth are moist. Neck is supple. RESPIRATORY: Clear to auscultation. No wheezes, rales, or rhonchi. No use of accessory muscles. CARDIOVASCULAR: Regular rate and rhythm. S1 and S2 noted. GASTROINTESTINAL: No distention noted. Abdomen soft and round. Normal active bowel sounds auscultated x 4 quadrants. No pain or tenderness noted upon palpation. INTEGUMENTARY: Skin with large bandage to foot with local surrounding cellulitis noted. EXTREMITIES: Severe Charcot foot in multiple joints. NEUROLOGIC: Cranial nerves II-XII intact. PSYCHIATRIC: Awake, alert, and oriented X 3. Appropriate affect. Intact judgement and insight. - Labs CBC & Chem 7: 09/24/24 07:06 09/24/24 07:06 Labs: Abnormal Lab Results - Last 24 Hours (Table) 09/24/24 09/24/24 09/25/24 Range/Units 21:02 22:34 06:28 POC Glucose (mg/dL) 268 H 224 H 152 H (70-110) mg/dL 09/25/24 09/25/24 Range/Units 11:22 16:16 POC Glucose (mg/dL) 228 H 310 H (70-110) mg/dL Microbiology - Last 24 Hours (Table) 09/24/24 11:30 Gram Stain - Preliminary Foot - Left Wound Culture - Preliminary Enterobacter cloacae Complex Presumptive MRSA 09/23/24 17:35 Blood Culture - Preliminary Blood 09/23/24 17:43 Blood Culture - Preliminary Blood Assessment and Plan (1) Cellulitis Current Visit: Yes Status: Acute Code(s): L03.90 - CELLULITIS, UNSPECIFIED SNOMED Code(s): 627252614 (2) Charcot arthropathy Current Visit: Yes Status: Acute Code(s): M14.60 - CHARCOT'S JOINT, UNSPECIFIED SITE SNOMED Code(s): 681475864 (3) Diabetic infection of left foot Current Visit: Yes Status: Acute Code(s): E11.628 - TYPE 2 DIABETES MELLITUS WITH OTHER SKIN COMPLICATIONS; L08.9 - LOCAL INFECTION OF THE SKIN AND SUBCUTANEOUS TISSUE, UNSP SNOMED Code(s): 600106008 (4) 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 without evidence of necrosis Current Visit: Yes Status: Acute Code(s): L97.525 - NON-PRS CHR ULC OTH PRT L FOOT WITH MSL INVL W/O EVD OF NECR SNOMED Code(s): 94783528686521212 (5) Type 2 diabetes mellitus with foot ulcer Current Visit: Yes Status: Acute Code(s): E11.621 - TYPE 2 DIABETES MELLITUS WITH FOOT ULCER; L97.509 - NON-PRESSURE CHRONIC ULCER OTH PRT UNSP FOOT W UNSP SEVERITY SNOMED Code(s): 7257549910573 (6) Hyperglycemia Current Visit: No Status: Acute Code(s): R73.9 - HYPERGLYCEMIA, UNSPECIFIED SNOMED Code(s): 15872575 (7) Cardiovascular disease Current Visit: Yes Status: Acute Code(s): I25.10 - ATHSCL HEART DISEASE OF [place] CORONARY ARTERY W/O ANG PCTRS SNOMED Code(s): 11560423 Plan: Patient was admitted to the hospital IV antibiotics were started infectious disease consultation currently in progress wound was cultured and sent for path which is currently pending we will continue to follow patient's progress until identification is back. MRI of the foot was negative for osteomyelitis. Continue diabetic control with insulin sliding scale and his regular doses of medication.
[2024-09-25 20:40] LABS: Glucose,Whole Blood 263 mg/dL (70-110)
[2024-09-26 06:45] LABS: Glucose,Whole Blood 204 mg/dL (70-110)
[2024-09-26 07:31] LABS: African American GFR (CKD) >90 (>60 ml/min/1.73 sqM); Non-African American GFR(CKD) >90 (>60 ml/min/1.73 sqM)
[2024-09-26] MEDS: VANCOMYCIN TROUGH DUE 1 EACH MISC MISCELLANE ONE (08:42)
[2024-09-26 11:22] LABS: Glucose,Whole Blood 266 mg/dL (70-110)
--- NOTE | 2024-09-26 13:14 | P.GSCN ---
History of Present Illness History of present illness: 69-year-old diabetic male patient came to the emergency room patient was seen by the Dr. No credit products officer to a left foot plantar and lateral aspect of the foot with some gangrene changes involving the base of the fifth toe marked tenderness and fluctuation noted no history of trauma consulted for surgical intervention Medical history history of diabetes patient had a CABG done in the past Patient was seen in his room neck is supple no bruit appreciated Chest is clear good in both lung. Second sound present Abdomen soft nontender Vascular brachial radial femorals are 1+ left foot has marked tenderness fluctuation involving the lateral aspect of the foot involving the base of the fifth toe most likely patient has a wet gangrene changes Patient had a breakfast in the morning he is n.p.o. plan is a debridement with deep culture and possible fifth toe ray amputation risk and complication discussed Past Medical History Past Medical History: Coronary Artery Disease (CAD), Chest Pain / Angina, Diabetes Mellitus, GERD/Reflux, Hyperlipidemia, Hypertension, Musculoskeletal Disorder, Osteoarthritis (OA), Prostate Disorder, Sleep Apnea/CPAP/BIPAP Additional Past Medical History / Comment(s): [id number] SYNDROME, CAUSES PAIN, HAS NUMBNESS IN FEET, neuropathy, WEARS NICOLÁS LEG BRACES. USES CPAP., some recent chest pain & tightness @times History of Any Multi-Drug Resistant Organisms: None Reported Past Surgical History: No Surgical Hx Reported, Cardiac Valve Replacement Additional Past Surgical History / Comment(s): open heart Past Anesthesia/Blood Transfusion Reactions: No Reported Reaction Past Psychological History: No Psychological Hx Reported Smoking Status: Former smoker Past Alcohol Use History: None Reported Additional Past Alcohol Use History / Comment(s): SOBER 22 YEARS, quit smoked 30 yrs. ago-didn't smoke much or for long Past Drug Use History: None Reported Additional Drug Use History / Comment(s): occasional use in past but not anymore - Past Family History Mother Family Medical History: Cancer Additional Family Medical History / Comment(s): BREAST CA Sister(s) Family Medical History: Cancer Additional Family Medical History / Comment(s): SKIN CA Father Family Medical History: Congestive Heart Failure (CHF), Coronary Artery Disease (CAD), Myocardial Infarction ([place]) Additional Family Medical History / Comment(s): Myocardial infarction in his early 60s, paternal uncle had myocardial infarction in his early 50s Medications and Allergies Home Medications Medication Instructions Recorded Confirmed Type DULoxetine HCL [Cymbalta] 60 mg PO DAILY 04/16/19 09/23/24 History Finasteride [Proscar] 5 mg PO DAILY 04/16/19 09/23/24 History metFORMIN HCL [Glucophage] 1,000 mg PO BID 04/16/19 09/23/24 History Pioglitazone [Actos] 30 mg PO DAILY 03/04/21 09/23/24 History Omeprazole 20 mg PO DAILY 06/26/23 09/23/24 History Tamsulosin [Flomax] 0.4 mg PO DAILY 06/26/23 09/23/24 History oxyCODONE HCL [oxyCODONE HCL (IR)] 15 mg PO Q6H 06/26/23 09/23/24 History Atorvastatin [Lipitor] 40 mg PO DAILY 09/23/24 09/23/24 History Baclofen 10 mg PO BID 09/23/24 09/23/24 History Celecoxib [CeleBREX] 200 mg PO BID 09/23/24 09/23/24 History lisinopriL [Zestril] 5 mg PO DAILY 09/23/24 09/23/24 History modafiniL [Provigil] 200 mg PO BID 09/23/24 09/23/24 History Insulin Degludec [Tresiba 80 units SQ DAILY 09/24/24 09/24/24 History Flextouch U-200 Pen] Allergies Allergy/AdvReac Type Severity Reaction Status Date / Time No Known Allergies Allergy Verified 09/23/24 18:23 Surgical - Exam Vital Signs Temp Pulse Resp BP Pulse Ox 98.4 F 94 20 154/78 94 L 09/23/24 14:02 09/23/24 14:02 09/23/24 14:02 09/23/24 14:02 09/23/24 14:02 Results - Labs 09/24/24 07:06 09/26/24 06:34 Abnormal Lab Results - Last 24 Hours (Table) 09/25/24 09/25/24 09/26/24 Range/Units 16:16 20:38 06:31 Creatinine (0.66-1.25) mg/dL POC Glucose (mg/dL) 310 H 263 H 204 H (70-110) mg/dL 09/26/24 09/26/24 Range/Units 06:34 11:02 Creatinine 0.52 L (0.66-1.25) mg/dL POC Glucose (mg/dL) 266 H (70-110) mg/dL Microbiology - Last 24 Hours (Table) 09/24/24 11:30 Gram Stain - Preliminary Foot - Left Wound Culture - Preliminary Enterobacter hormaechei Presumptive MRSA 09/23/24 17:35 Blood Culture - Preliminary Blood 09/23/24 17:43 Blood Culture - Preliminary Blood Diabetes panel 09/26/24 Range/Units 06:34 Creatinine 0.52 L (0.66-1.25) mg/dL Pituitary panel 09/26/24 Range/Units 06:34 Creatinine 0.52 L (0.66-1.25) mg/dL Adrenal panel 09/26/24 Range/Units 06:34 Creatinine 0.52 L (0.66-1.25) mg/dL
--- NOTE | 2024-09-26 13:27 | P.PN ---
Subjective Progress Note Date: 09/26/24 Principal diagnosis: Reason for follow-up is left diabetic foot infection/cellulitis Patient is a 69-year-old male with a past medical history significant for diabetes mellitus hypertension hyperlipidemia coronary artery disease osteoarthritis presenting to the hospital for evaluation of increasing swelling redness to the right foot, patient be diagnosed with infected callus with secondary cellulitis. On today's evaluation that is 09/26/2024,the patient denies any fever or any chills, patient is breathing comfortably on room air, the patient denies chest pain shortness of breath and no significant cough, patient denies abdominal pain, no nausea vomiting or diarrhea. Denies pain to the left foot area. Patient did have creatinine 0.52 white neutrophils 14.8 culture growing Enterobacter and MRSA MRI did not show any abscess Objective - Vital Signs Vital signs: Vital Signs Temp 98.2 F 09/26/24 07:10 Pulse 71 09/26/24 07:10 Resp 16 09/26/24 07:10 BP 144/72 09/26/24 07:10 Pulse Ox 99 09/26/24 07:10 FiO2 Intake & Output 09/25/24 09/26/24 09/26/24 18:59 06:59 18:59 Other: Voiding Method Urinal Toilet Urinal # Voids 1 1 - Exam GENERAL DESCRIPTION: An elderly male lying in bed in no distress RESPIRATORY SYSTEM: Unlabored breathing , decreased breath sounds at bases HEART: S1 S2 regular rate and rhythm , ABDOMEN: Soft , no tenderness EXTREMITIES: Left foot dorsum redness has improved however the patient has developed a pustule at the bottom of the left fifth toe - Labs CBC & Chem 7: 09/24/24 07:06 09/26/24 06:34 Labs: Abnormal Lab Results - Last 24 Hours (Table) 09/25/24 09/25/24 09/25/24 Range/Units 11: 16:16 20:38 Creatinine (0.66-1.25) mg/dL POC Glucose (mg/dL) 228 H 310 H 263 H (70-110) mg/dL 09/26/24 09/26/24 Range/Units 06:31 06:34 Creatinine 0.52 L (0.66-1.25) mg/dL POC Glucose (mg/dL) 204 H (70-110) mg/dL Microbiology - Last 24 Hours (Table) 09/24/24 11:30 Gram Stain - Preliminary Foot - Left Wound Culture - Preliminary Enterobacter hormaechei Presumptive MRSA 09/23/24 17:35 Blood Culture - Preliminary Blood 09/23/24 17:43 Blood Culture - Preliminary Blood Assessment and Plan (1) Diabetic infection of left foot Current Visit: Yes Status: Acute Code(s): E11.628 - TYPE 2 DIABETES MELLITUS WITH OTHER SKIN COMPLICATIONS; L08.9 - LOCAL INFECTION OF THE SKIN AND SUBCUTANEOUS TISSUE, UNSP SNOMED Code(s): 600337625 (2) Type 2 diabetes mellitus with foot ulcer Current Visit: Yes Status: Acute Code(s): E11.621 - TYPE 2 DIABETES MELLITUS WITH FOOT ULCER; L97.509 - NON-PRESSURE CHRONIC ULCER OTH PRT UNSP FOOT W UNSP SEVERITY SNOMED Code(s): 6252336659300 Plan: 1patient presented to hospital with extensive left diabetic foot infection in this patient who did have extensive cellulitis of the left foot likely from an infected callus on the plantar aspect and will need to cover for gram-positive as well as gram-negative pathogen 2-wound culture has been obtained which is currently growing a presumed MRSA Enterobacter 3-MRI of the left foot with no evidence of abscess and osteomyelitis however clinically there is concern for possible development of the abscess at the base of the left fifth toe for which vascular surgery has been consulted as he will need surgical debridement and deep culture Case was also discussed with the admitting physician 4-patient to continue with vancomycin pharmacy to dose along with cefepime and Flagyl prescription provided to the corrections caseworker Dictation was produced using [employer] dictation software. please excuse any grammatical, word or spelling errors. Time with Patient: Less than 30
[2024-09-26 14:59] LABS: Glucose,Whole Blood 195 mg/dL (70-110)
[2024-09-26] MEDS: IV FLUID CONTINUATION 1,000 ML IV ONE (14:59)
[2024-09-26] MEDS ORDERED: fentaNYL (PF) 50 MCG/ML 2 ML AMP ONE (15:32)
[2024-09-26] MEDS ORDERED: MIDAZOLAM 2 MG/2 ML VIAL ONE (15:32)
[2024-09-26] MEDS ORDERED: KETAMINE HCL IN 0.9 % NACL 50 MG/5 ML SYRINGE ONE (15:32)
[2024-09-26] MEDS ORDERED: PROPOFOL 10 MG/ML 20 ML VIAL IV ONE (15:32)
[2024-09-26] MEDS: LACTATED RINGERS 1,000 ML IV ONE (15:37)
[2024-09-26] MEDS: LIDOCAINE 1% INJ 10MG/ML (20 ML MDV) SQ ONE (15:48)
--- NOTE | 2024-09-26 16:28 | P.PCN ---
Description of Procedure: Preop diagnosis is infected callus left foot plantar aspect involving the dorsum and plantar aspect of the foot with the purulent drainage Postop the same measurement of the wound postdebridement debridement and fifth toe amputation is 5 x 4 x 2 cm Patient was brought to the operating room left foot was prepped and draped in Prestel manner patient has a new infected callus on the plantar aspect of the foot it was involving the fifth digit at metatarsophalangeal joint with blister formation and some drainage and marked tenderness under IV sedation and 1% lidocaine block incision was made on the dorsal aspect of the foot deepened through skin fat and fascia and tendons were divided elliptical incision was extended on the plantar aspect including the infected callus on the plantar aspect which was also excised until we reached the metatarsophalangeal joint the fifth toe was removed ligaments were divided and the plantar tendon was divided there was a digital vessel which was suture-ligated hemostasis well-controlled wound was irrigated with hydroperoxide and saline wound VAC was placed pressure is 125 patient transferred to recovery in satisfied condition we will continue the same antibiotic and pain management
[2024-09-26 17:45] LABS: Glucose,Whole Blood 195 mg/dL (70-110)
[2024-09-26 20:41] LABS: Glucose,Whole Blood 329 mg/dL (70-110)
[2024-09-27 03:56] LABS: African American GFR (CKD) >90 (>60 ml/min/1.73 sqM); Non-African American GFR(CKD) >90 (>60 ml/min/1.73 sqM)
[2024-09-27 06:24] LABS: Glucose,Whole Blood 177 mg/dL (70-110)
--- NOTE | 2024-09-27 10:17 | P.PN ---
Progress Note - Text 69-year-old gentleman history of diabetes patient came with infected callus left foot plantar aspect involving the plantar aspect the foot and the fifth toe due to the ray amputation. Placed a wound VAC patient is on IV antibiotic and care with infectious disease continue with wound VAC follow with you
[2024-09-27 12:12] LABS: Glucose,Whole Blood 297 mg/dL (70-110)
--- NOTE | 2024-09-27 13:23 | P.PN ---
Subjective Progress Note Date: 09/27/24 Principal diagnosis: Reason for follow-up is left diabetic foot infection/cellulitis Patient is a 69-year-old male with a past medical history significant for diabetes mellitus hypertension hyperlipidemia coronary artery disease osteoarthritis presenting to the hospital for evaluation of increasing swelling redness to the right foot, patient be diagnosed with infected callus with secondary cellulitis.Patient was taken to the OR and the patient is status post I&D and left fifth toe amputation done by vascular surgery on 09/26/2024. On today's evaluation that is 09/27/2024,the patient remains to be afebrile, patient is on 3 L nasal cannula supplemental oxygen and denies any shortness of breath no chest pain or cough.Patient denies having any nausea or vomiting, no abdominal pain and no diarrhea, denies pain to the left foot. Patient did have a creatinine 0.46 cultures with Enterobacter and MRSA Objective - Vital Signs Vital signs: Vital Signs Temp 98.4 F 09/27/24 07:05 Pulse 74 09/27/24 07:05 Resp 17 09/27/24 07:05 BP 141/62 09/27/24 07:05 Pulse Ox 99 09/27/24 07:05 FiO2 Intake & Output 09/26/24 09/27/24 09/27/24 18:59 06:59 18:59 Intake Total 300 Output Total 1550 1000 Balance -1250 -1000 Intake: IV 300 Output: Urine 1500 1000 Estimated Blood Loss 50 Other: Voiding Method Toilet Urinal Urinal # Voids 1 # Bowel Movements 1 1 - Exam GENERAL DESCRIPTION: An elderly male lying in bed in no distress RESPIRATORY SYSTEM: Unlabored breathing , decreased breath sounds at bases HEART: S1 S2 regular rate and rhythm , ABDOMEN: Soft , no tenderness EXTREMITIES: Left foot wound is covered with a wound VAC - Labs CBC & Chem 7: 09/24/24 07:06 09/27/24 03:08 Labs: Abnormal Lab Results - Last 24 Hours (Table) 09/24/24 09/26/24 09/26/24 Range/Units 07:06 14:57 17:22 Creatinine (0.66-1.25) mg/dL POC Glucose (mg/dL) 195 H 195 H (70-110) mg/dL Hemoglobin A1c 8.3 H (<=6.0) % 09/26/24 09/27/24 09/27/24 Range/Units 20:39 03:08 06:22 Creatinine 0.46 L (0.66-1.25) mg/dL POC Glucose (mg/dL) 329 H 177 H (70-110) mg/dL Hemoglobin A1c (<=6.0) % Microbiology - Last 24 Hours (Table) 09/24/24 11:30 Gram Stain - Final Foot - Left Wound Culture - Final Enterobacter hormaechei Methicillin resist S. aureus 09/23/24 17:35 Blood Culture - Preliminary Blood 09/23/24 17:43 Blood Culture - Preliminary Blood Assessment and Plan (1) Diabetic infection of left foot Current Visit: Yes Status: Acute Code(s): E11.628 - TYPE 2 DIABETES MELLITUS WITH OTHER SKIN COMPLICATIONS; L08.9 - LOCAL INFECTION OF THE SKIN AND SUBCUTANEOUS TISSUE, UNSP SNOMED Code(s): 808546424 (2) Type 2 diabetes mellitus with foot ulcer Current Visit: Yes Status: Acute Code(s): E11.621 - TYPE 2 DIABETES MELLITUS WITH FOOT ULCER; L97.509 - NON-PRESSURE CHRONIC ULCER OTH PRT UNSP FOOT W UNSP SEVERITY SNOMED Code(s): 7059032036406 Plan: 1patient presented to hospital with extensive left diabetic foot infection in this patient who did have extensive cellulitis of the left foot likely from an infected callus on the plantar aspect and will need to cover for gram-positive as well as gram-negative pathogen 2-wound culture has been obtained which is currently growing a presumed MRSA Enterobacter 3-MRI of the left foot with no evidence of abscess and osteomyelitis however clinically there is concern for possible development of the abscess at the base of the left fifth toe for the patient was evaluated vascular surgery and the patient is status post I&D and left fifth toe amputation 4-patient to continue with vancomycin pharmacy to dose along with cefepime and Flagyl and will monitor his clinical course closely Dictation was produced using [employer] dictation software. please excuse any grammatical, word or spelling errors. Time with Patient: Less than 30
[2024-09-27 17:02] LABS: Glucose,Whole Blood 247 mg/dL (70-110)
[2024-09-27 21:27] LABS: Glucose,Whole Blood 421 mg/dL (70-110)
[2024-09-27] MEDS: HEPARIN SODIUM,PORCINE 5,000 UNIT/ML 1 ML VIAL SQ SCH (21:48)
[2024-09-27] MEDS: FAMOTIDINE 20 MG/2 ML VIAL IV SCH (21:49)
[2024-09-28 04:16] LABS: African American GFR (CKD) >90 (>60 ml/min/1.73 sqM); Non-African American GFR(CKD) >90 (>60 ml/min/1.73 sqM)
[2024-09-28 06:08] LABS: Glucose,Whole Blood 165 mg/dL (70-110)
[2024-09-28] MEDS: metFORMIN 500 MG TAB PO SCH (08:17)
[2024-09-28 09:25] LABS: Basophils # (A) 0.03 X 10*3/uL (0.00-0.10); Basophils % (A) 0.5 %; Eosinophils # (A) 0.58 X 10*3/uL (0.04-0.35); Eosinophils % (A) 8.9 %; HCT 32.7 % (39.6-50.0); HGB 10.3 g/dL (13.0-17.0); Lymphocytes # (A) 1.54 X 10*3/uL (0.90-5.00); Lymphocytes % (A) 23.7 %; MCH 28.2 pg (27.0-32.0); MCHC 31.5 g/dL (32.0-37.0); MCV 89.6 FL (80.0-97.0); Mean Platelet Volume 10.2 FL (9.5-12.2); Monocytes # (A) 0.64 X 10*3/uL (0.20-1.00); Monocytes % (A) 9.8 %; NRBC Per 100 WBC 0 X 10*3/uL (0.00-0.01); Neutrophils # (A) 3.68 X 10*3/uL (1.80-7.70); Neutrophils % (A) 56.6 %; Platelet Count 291 X 10*3/uL (140-440); RBC 3.65 X 10*6/uL (4.40-5.60); RDW 13.3 % (11.5-14.5)
[2024-09-28 10:34] LABS: Blood Urea Nitrogen 8.5 mg/dL (9.0-27.0); Calcium 8.4 mg/dL (8.7-10.3); Carbon Dioxide 29.3 mmol/L (21.6-31.8); Chloride 102 mmol/L (96-109); Glucose 178 mg/dL (70-110); Potassium 3.6 mmol/L (3.5-5.5); Sodium 140 mmol/L (135-145)
[2024-09-28 12:03] LABS: Glucose,Whole Blood 235 mg/dL (70-110)
[2024-09-28] MEDS: FLUTICASONE NASAL 50MCG/SPRAY 16GM BTL EA NOSTRIL SCH (12:19)
[2024-09-28 16:35] LABS: Glucose,Whole Blood 270 mg/dL (70-110)
--- NOTE | 2024-09-28 18:37 | P.PN ---
Subjective Patient is 69-year-old white male was admitted for left infected foot and sugar is being maintained on his regular regimen of insulin and sliding scale of regular insulin he denies any fever cough or congestion he denies any other problems today MRI was negative for osteomyelitis. 09/27 Patient food dressing in place Wound VAC in place Pain is controlled No other new complaints 09/28 distal and lateral left foot wound, with wound VAC is in place, there is little discharge. Her his left foot is swollen. He remains on broad-spectrum antibiotic Wound culture is growing Enterobacter and MRSA Patient has nasal stuffiness, nasal sprays ordered He needs help with 2 staff members to get up, patient will benefit from PT/OT evaluation Objective - Vital Signs Vital signs: Vital Signs Temp 98.1 F 09/28/24 07:01 Pulse 67 09/28/24 07:01 Resp 18 09/28/24 07:01 BP 153/68 09/28/24 07:02 Pulse Ox 94 L 09/28/24 07:01 FiO2 Intake & Output 09/27/24 09/28/24 09/28/24 18:59 06:59 18:59 Intake Total 600 Output Total 700 1900 1000 Balance -700 -1300 -1000 Intake: Intake, IV Titration 600 Amount Cefepime 2 gm In Sodium 100 Chloride 0.9% 100 ml @ 25 mls/hr IVPB Q8HR SUE Rx# :[id number] Vancomycin 2,000 mg In 500 Sodium Chloride 0.9% 500 ml 500 ml @ 167 mls/hr IVPB Q12H SUE Rx#: [id number] Output: Urine 700 1900 1000 Other: Voiding Method Urinal Urinal # Bowel Movements 1 - Exam -GENERAL: The patient is alert and oriented x3, not in any acute distress. Well developed, well nourished. Obese HEENT: Pupils are round and equally reacting to light. EOMI. No scleral icterus. No conjunctival pallor. Normocephalic, atraumatic. No pharyngeal erythema. No thyromegaly. CARDIOVASCULAR: S1 and S2 present. No murmurs, rubs, or gallops. PULMONARY: Chest is clear to auscultation, no wheezing , no crackles. ABDOMEN: Soft, nontender, nondistended, normoactive bowel sounds. No palpable organomegaly. MUSCULOSKELETAL: No joint swelling or deformity. -EXTREMITIES: No cyanosis, clubbing, or pedal edema. Status post amputation of the left lateral toes, with wound VAC in place with mild surrounding cellulitis NEUROLOGICAL: Gross neurological examination did not reveal any focal deficits. SKIN: No rashes. no petechiae. - Labs CBC & Chem 7: 09/28/24 06:49 09/28/24 06:49 Labs: Abnormal Lab Results - Last 24 Hours (Table) 09/27/24 09/27/24 09/28/24 Range/Units 17:01 21:26 03:46 RBC (4.40-5.60) X 10*6/uL Hgb (13.0-17.0) g/dL Hct (39.6-50.0) % MCHC (32.0-37.0) g/dL Eosinophils # (0.04-0.35) X 10*3/uL BUN (9.0-27.0) mg/dL Creatinine 0.54 L (0.66-1.25) mg/dL Glucose (70-110) mg/dL POC Glucose (mg/dL) 247 H 421 H (70-110) mg/dL Calcium (8.7-10.3) mg/dL 09/28/24 09/28/24 09/28/24 Range/Units 06:07 06:49 06:49 RBC 3.65 L (4.40-5.60) X 10*6/uL Hgb 10.3 L (13.0-17.0) g/dL Hct 32.7 L (39.6-50.0) % MCHC 31.5 L (32.0-37.0) g/dL Eosinophils # 0.58 H (0.04-0.35) X 10*3/uL BUN 8.5 L (9.0-27.0) mg/dL Creatinine 0.5 L (0.66-1.25) mg/dL Glucose 178 H (70-110) mg/dL POC Glucose (mg/dL) 165 H (70-110) mg/dL Calcium 8.4 L (8.7-10.3) mg/dL 09/28/24 Range/Units 12:01 RBC (4.40-5.60) X 10*6/uL Hgb (13.0-17.0) g/dL Hct (39.6-50.0) % MCHC (32.0-37.0) g/dL Eosinophils # (0.04-0.35) X 10*3/uL BUN (9.0-27.0) mg/dL Creatinine (0.66-1.25) mg/dL Glucose (70-110) mg/dL POC Glucose (mg/dL) 235 H (70-110) mg/dL Calcium (8.7-10.3) mg/dL Microbiology - Last 24 Hours (Table) 09/26/24 16:13 Gram Stain - Preliminary Foot - Left Wound Culture - Preliminary 09/24/24 11:30 Gram Stain - Final Foot - Left Wound Culture - Final Enterobacter hormaechei Methicillin resist S. aureus Assessment and Plan Assessment: Left foot cellulitis, status post I&D. Wound culture growing MRSA and Enterobacter Diabetes mellitus with hyperglycemia Obesity with BMI of 33.6 Hypertension Hyperlipidemia Diabetes mellitus Chronic anemia Plan: Continue with antibiotics as per ID team Currently on cefepime and IV vancomycin Follow-up culture results Metformin held but glucose is high it may be resumed if needed Continue with the sliding scale Vascular surgery team on the case Labs and medication were reviewed.. Continue same treatment. Continue with symptomatic treatment. Resume home medication. Monitor labs and vitals. DVT and GI prophylaxis. Further recommendations as per clinical course of the patient DVT prophylaxis: Subcutaneous heparin GI Prophylaxis: Pepcid PT/OT: Pending Prognosis is guarded
[2024-09-28] MEDS: FAMOTIDINE 20 MG TAB PO SCH (20:17)
[2024-09-28 20:18] LABS: Glucose,Whole Blood 230 mg/dL (70-110)
--- NOTE | 2024-09-28 21:39 | P.PN ---
Subjective Progress Note Date: 09/28/24 Principal diagnosis: Reason for follow-up is left diabetic foot infection/cellulitis This is a telehealth visit Patient is a 69-year-old male with a past medical history significant for diabetes mellitus hypertension hyperlipidemia coronary artery disease osteoarthritis presenting to the hospital for evaluation of increasing swelling redness to the right foot, patient be diagnosed with infected callus with secondary cellulitis.Patient was taken to the OR and the patient is status post I&D and left fifth toe amputation done by vascular surgery on 09/26/2024. On today's evaluation that is 09/28/2024, the patient continues to be afebrile, the patient is on room air and breathing comfortably, the Pt denies having any chest pain or cough, the patient denies having any abdominal pain no vomiting or any diarrhea and denies pain to the left foot. Patient white count 6.50, creatinine 0.5 Objective - Vital Signs Vital signs: Vital Signs Temp 98.1 F 09/28/24 07:01 Pulse 67 09/28/24 07:01 Resp 18 09/28/24 07:01 BP 153/68 09/28/24 07:02 Pulse Ox 94 L 09/28/24 07:01 FiO2 Intake & Output 09/27/24 09/28/24 09/28/24 18:59 06:59 18:59 Intake Total 600 Output Total 700 1900 Balance -700 -1300 Intake: Intake, IV Titration 600 Amount Cefepime 2 gm In Sodium 100 Chloride 0.9% 100 ml @ 25 mls/hr IVPB Q8HR SUE Rx# :[id number] Vancomycin 2,000 mg In 500 Sodium Chloride 0.9% 500 ml 500 ml @ 167 mls/hr IVPB Q12H SUE Rx#: [id number] Output: Urine 700 1900 Other: Voiding Method Urinal Urinal # Bowel Movements 1 - Exam Elderly male up in the bed in no distress No tachypnea or accessory muscle respiration use Unlabored breathing Left foot wound is covered with a wound VAC Patient is awake alert oriented x 3 - Labs CBC & Chem 7: 09/28/24 06:49 09/28/24 06:49 Labs: Abnormal Lab Results - Last 24 Hours (Table) 09/24/24 09/27/24 09/27/24 Range/Units 07:06 12:11 17:01 RBC (4.40-5.60) X 10*6/uL Hgb (13.0-17.0) g/dL Hct (39.6-50.0) % MCHC (32.0-37.0) g/dL Eosinophils # (0.04-0.35) X 10*3/uL BUN (9.0-27.0) mg/dL Creatinine (0.66-1.25) mg/dL Glucose (70-110) mg/dL POC Glucose (mg/dL) 297 H 247 H (70-110) mg/dL Hemoglobin A1c 8.3 H (<=6.0) % Calcium (8.7-10.3) mg/dL 09/27/24 09/28/24 09/28/24 Range/Units 21:26 03:46 06:07 RBC (4.40-5.60) X 10*6/uL Hgb (13.0-17.0) g/dL Hct (39.6-50.0) % MCHC (32.0-37.0) g/dL Eosinophils # (0.04-0.35) X 10*3/uL BUN (9.0-27.0) mg/dL Creatinine 0.54 L (0.66-1.25) mg/dL Glucose (70-110) mg/dL POC Glucose (mg/dL) 421 H 165 H (70-110) mg/dL Hemoglobin A1c (<=6.0) % Calcium (8.7-10.3) mg/dL 09/28/24 09/28/24 Range/Units 06:49 06:49 RBC 3.65 L (4.40-5.60) X 10*6/uL Hgb 10.3 L (13.0-17.0) g/dL Hct 32.7 L (39.6-50.0) % MCHC 31.5 L (32.0-37.0) g/dL Eosinophils # 0.58 H (0.04-0.35) X 10*3/uL BUN 8.5 L (9.0-27.0) mg/dL Creatinine 0.5 L (0.66-1.25) mg/dL Glucose 178 H (70-110) mg/dL POC Glucose (mg/dL) (70-110) mg/dL Hemoglobin A1c (<=6.0) % Calcium 8.4 L (8.7-10.3) mg/dL Microbiology - Last 24 Hours (Table) 09/26/24 16:13 Gram Stain - Preliminary Foot - Left Wound Culture - Preliminary 09/24/24 11:30 Gram Stain - Final Foot - Left Wound Culture - Final Enterobacter hormaechei Methicillin resist S. aureus Assessment and Plan (1) Diabetic infection of left foot Current Visit: Yes Status: Acute Code(s): E11.628 - TYPE 2 DIABETES MELLITUS WITH OTHER SKIN COMPLICATIONS; L08.9 - LOCAL INFECTION OF THE SKIN AND SUBCUTANEOUS TISSUE, UNSP SNOMED Code(s): 097308047 (2) Type 2 diabetes mellitus with foot ulcer Current Visit: Yes Status: Acute Code(s): E11.621 - TYPE 2 DIABETES MELLITUS WITH FOOT ULCER; L97.509 - NON-PRESSURE CHRONIC ULCER OTH PRT UNSP FOOT W UNSP SEVERITY SNOMED Code(s): 4734361075128 Plan: 1patient presented to hospital with extensive left diabetic foot infection in this patient who did have extensive cellulitis of the left foot likely from an infected callus on the plantar aspect and will need to cover for gram-positive as well as gram-negative pathogen 2-wound culture has been obtained which is currently growing a presumed MRSA Enterobacter 3-MRI of the left foot with no evidence of abscess and osteomyelitis however clinically there is concern for possible development of the abscess at the base of the left fifth toe for the patient was evaluated vascular surgery and the patient is status post I&D and left fifth toe amputation 4-patient to continue with vancomycin pharmacy to dose along with cefepime and Flagyl, we will order PICC line and arrange for outpatient IV antibiotic therapy patient has been thinking about going to correction versus home infusion Dictation was produced using [employer] software. please excuse any grammatical, word or spelling errors. Time with Patient: Less than 30
[2024-09-29 06:22] LABS: Glucose,Whole Blood 183 mg/dL (70-110)
[2024-09-29 06:35] LABS: African American GFR (CKD) >90 (>60 ml/min/1.73 sqM); Non-African American GFR(CKD) >90 (>60 ml/min/1.73 sqM)
[2024-09-29] MEDS: VANCOMYCIN TROUGH DUE 1 EACH MISC MISCELLANE ONE (06:47)
[2024-09-29 08:57] LABS: Basophils # (A) 0.03 X 10*3/uL (0.00-0.10); Basophils % (A) 0.5 %; Eosinophils # (A) 0.51 X 10*3/uL (0.04-0.35); HGB 10.7 g/dL (13.0-17.0); Lymphocytes % (A) 21.9 %; MCH 28.9 pg (27.0-32.0); MCHC 32.4 g/dL (32.0-37.0); MCV 89.2 FL (80.0-97.0); Mean Platelet Volume 10.6 FL (9.5-12.2); Monocytes # (A) 0.59 X 10*3/uL (0.20-1.00); Monocytes % (A) 9.2 %; NRBC Per 100 WBC 0 X 10*3/uL (0.00-0.01); Neutrophils # (A) 3.84 X 10*3/uL (1.80-7.70); Neutrophils % (A) 59.9 %; Platelet Count 295 X 10*3/uL (140-440); RDW 13.2 % (11.5-14.5)
[2024-09-29 12:19] LABS: Glucose,Whole Blood 288 mg/dL (70-110)
--- NOTE | 2024-09-29 12:58 | P.PN ---
Subjective Progress Note Date: 09/29/24 Principal diagnosis: Reason for follow-up is left diabetic foot infection/cellulitis Patient is a 69-year-old male with a past medical history significant for diabetes mellitus hypertension hyperlipidemia coronary artery disease osteoarthritis presenting to the hospital for evaluation of increasing swelling redness to the right foot, patient be diagnosed with infected callus with secondary cellulitis.Patient was taken to the OR and the patient is status post I&D and left fifth toe amputation done by vascular surgery on 09/26/2024. On today's evaluation that is 09/29/2024, Patient is afebrile patient is currently on room air and denies having any shortness of breath, the patient denies any chest pain or cough, the patient denies any nausea vomiting did not have any abdominal pain and no diarrhea and denies pain to the left foot wound daily. Patient white count is 6.40. 0.53 Objective - Vital Signs Vital signs: Vital Signs Temp 98.1 F 09/29/24 07:35 Pulse 73 09/29/24 07:35 Resp 16 09/29/24 07:35 BP 179/74 09/29/24 07:35 Pulse Ox 93 L 09/29/24 07:35 FiO2 Intake & Output 09/28/24 09/29/24 09/29/24 18:59 06:59 18:59 Intake Total 650 Output Total 1000 1000 Balance -1000 -350 Intake: Intake, IV Titration 650 Amount Cefepime 2 gm In Sodium 150 Chloride 0.9% 100 ml @ 25 mls/hr IVPB Q8HR SUE Rx# :[id number] Vancomycin 2,000 mg In 500 Sodium Chloride 0.9% 500 ml 500 ml @ 167 mls/hr IVPB Q12H SUE Rx#: [id number] Output: Urine 1000 1000 Other: Voiding Method Urinal - Exam GENERAL DESCRIPTION: An elderly male lying in bed in no distress RESPIRATORY SYSTEM: Unlabored breathing , decreased breath sounds at bases HEART: S1 S2 regular rate and rhythm , ABDOMEN: Soft , no tenderness EXTREMITIES: Left foot wound is covered with a wound VAC - Labs CBC & Chem 7: 09/29/24 05:57 09/29/24 05:57 Labs: Abnormal Lab Results - Last 24 Hours (Table) 09/28/24 09/28/24 09/28/24 Range/Units 06:49 12:01 16:34 RBC (4.40-5.60) X 10*6/uL Hgb (13.0-17.0) g/dL Hct (39.6-50.0) % Eosinophils # (0.04-0.35) X 10*3/uL BUN 8.5 L (9.0-27.0) mg/dL Creatinine 0.5 L (0.6-1.5) mg/dL Glucose 178 H (70-110) mg/dL POC Glucose (mg/dL) 235 H 270 H (70-110) mg/dL Calcium 8.4 L (8.7-10.3) mg/dL 09/28/24 09/29/24 09/29/24 Range/Units 20:16 05:57 05:57 RBC 3.70 L (4.40-5.60) X 10*6/uL Hgb 10.7 L (13.0-17.0) g/dL Hct 33.0 L (39.6-50.0) % Eosinophils # 0.51 H (0.04-0.35) X 10*3/uL BUN (9.0-27.0) mg/dL Creatinine 0.53 L (0.6-1.5) mg/dL Glucose (70-110) mg/dL POC Glucose (mg/dL) 230 H (70-110) mg/dL Calcium (8.7-10.3) mg/dL 09/29/24 Range/Units 06:20 RBC (4.40-5.60) X 10*6/uL Hgb (13.0-17.0) g/dL Hct (39.6-50.0) % Eosinophils # (0.04-0.35) X 10*3/uL BUN (9.0-27.0) mg/dL Creatinine (0.6-1.5) mg/dL Glucose (70-110) mg/dL POC Glucose (mg/dL) 183 H (70-110) mg/dL Calcium (8.7-10.3) mg/dL Microbiology - Last 24 Hours (Table) 09/26/24 16:13 Gram Stain - Final Foot - Left Wound Culture - Final 09/23/24 17:35 Blood Culture - Final Blood 09/23/24 17:43 Blood Culture - Final Blood Assessment and Plan (1) Diabetic infection of left foot Current Visit: Yes Status: Acute Code(s): E11.628 - TYPE 2 DIABETES MELLITUS WITH OTHER SKIN COMPLICATIONS; L08.9 - LOCAL INFECTION OF THE SKIN AND SUBCUTANEOUS TISSUE, UNSP SNOMED Code(s): 053739079 (2) Type 2 diabetes mellitus with foot ulcer Current Visit: Yes Status: Acute Code(s): E11.621 - TYPE 2 DIABETES MELLITUS WITH FOOT ULCER; L97.509 - NON-PRESSURE CHRONIC ULCER OTH PRT UNSP FOOT W UNSP SEVERITY SNOMED Code(s): 3191536911041 Plan: 1patient presented to hospital with extensive left diabetic foot infection in this patient who did have extensive cellulitis of the left foot likely from an infected callus on the plantar aspect and will need to cover for gram-positive as well as gram-negative pathogen 2-wound culture has been obtained which is currently growing a presumed MRSA Enterobacter 3-MRI of the left foot with no evidence of abscess and osteomyelitis however clinically there is concern for possible development of the abscess at the base of the left fifth toe for the patient was evaluated vascular surgery and the patient is status post I&D and left fifth toe amputation 4-patient currently waiting for PICC line placement and placement, patient to continue with vancomycin pharmacy to dose along with cefepime and Flagyl, plan is for a total of 6 week course of antibiotic therapy Dictation was produced using [employer] dictation software. please excuse any grammatical, word or spelling errors. Time with Patient: Less than 30
--- NOTE | 2024-09-29 13:56 | P.PN ---
Progress Note - Text 69-year-old gentleman history of diabetes patient came with infected callus involving the plantar aspect of the foot and fifth toe with abscess formation patient had a ray amputation done and the culture came back as a with methicillin resistance as a Staph aureus care of infectious disease we placed the wound VAC today will change the wound VAC this should be changed Sunday and Sunday patient is planning to go to the detention will follow- up in the wound clinic next Sunday for change of wound VAC and further recommendation
[2024-09-29] MEDS: INFLUENZA VACC HIGH-DOSE (65+) 180 MCG/0.5 ML SYRINGE IM ONE (14:27)
[2024-09-29] MEDS: traMADol 50 MG TAB PO PRN (16:11)
[2024-09-29 16:27] LABS: Glucose,Whole Blood 280 mg/dL (70-110)
[2024-09-29 20:42] LABS: Glucose,Whole Blood 207 mg/dL (70-110)
[2024-09-30 03:10] VITALS: RESP 16
[2024-09-30 06:36] LABS: Glucose,Whole Blood 198 mg/dL (70-110)
[2024-09-30 12:01] LABS: Glucose,Whole Blood 233 mg/dL (70-110)
--- NOTE | 2024-09-30 13:48 | P.PN ---
Subjective Progress Note Date: 09/30/24 Principal diagnosis: Reason for follow-up is left diabetic foot infection/cellulitis Patient is a 69-year-old male with a past medical history significant for diabetes mellitus hypertension hyperlipidemia coronary artery disease osteoarthritis presenting to the hospital for evaluation of increasing swelling redness to the right foot, patient be diagnosed with infected callus with secondary cellulitis.Patient was taken to the OR and the patient is status post I&D and left fifth toe amputation done by vascular surgery on 09/26/2024. On today's evaluation that is 09/30/2024, patient has been afebrile, patient is breathing comfortably and is currently on room air, patient denies having any significant cough no chest pain, patient denies nausea vomiting or diarrhea and no abdominal pain and denies pain to the left foot wound currently waiting for PICC line placement. No new lab has been obtained today Objective - Vital Signs Vital signs: Vital Signs Temp 97.5 F L 09/30/24 07:20 Pulse 77 09/30/24 07:20 Resp 16 09/30/24 07:20 BP 174/82 09/30/24 07:20 Pulse Ox 91 L 09/30/24 07:20 FiO2 Intake & Output 09/29/24 09/30/24 09/30/24 18:59 06:59 18:59 Intake Total 1200 Output Total 1600 1800 Balance -1600 -600 Intake: Intake, IV Titration 1200 Amount Cefepime 2 gm In Sodium 200 Chloride 0.9% 100 ml @ 25 mls/hr IVPB Q8HR SUE Rx# :[id number] Vancomycin 2,000 mg In 1000 Sodium Chloride 0.9% 500 ml 500 ml @ 167 mls/hr IVPB Q12H SUE Rx#: [id number] Output: Urine 1600 1800 Other: Voiding Method Urinal # Bowel Movements 1 - Exam GENERAL DESCRIPTION: An elderly male lying in bed in no distress RESPIRATORY SYSTEM: Unlabored breathing , decreased breath sounds at bases HEART: S1 S2 regular rate and rhythm , ABDOMEN: Soft , no tenderness EXTREMITIES: Left foot wound is covered with a wound VAC - Labs CBC & Chem 7: 09/29/24 05:57 09/29/24 05:57 Labs: Abnormal Lab Results - Last 24 Hours (Table) 09/29/24 09/29/24 09/29/24 Range/Units 12:17 16:26 20:40 POC Glucose (mg/dL) 288 H 280 H 207 H (70-110) mg/dL 09/30/24 Range/Units 06:34 POC Glucose (mg/dL) 198 H (70-110) mg/dL Microbiology - Last 24 Hours (Table) 09/26/24 16:13 Anaerobic Culture - Preliminary Foot - Left 09/26/24 16:13 Gram Stain - Final Foot - Left Wound Culture - Final Assessment and Plan (1) Diabetic infection of left foot Current Visit: Yes Status: Acute Code(s): E11.628 - TYPE 2 DIABETES MELLITUS WITH OTHER SKIN COMPLICATIONS; L08.9 - LOCAL INFECTION OF THE SKIN AND SUBCU TANEOUS TISSUE, UNSP SNOMED Code(s): 334247166 (2) Type 2 diabetes mellitus with foot ulcer Current Visit: Yes Status: Acute Code(s): E11.621 - TYPE 2 DIABETES MELLITUS WITH FOOT ULCER; L97.509 - NON-PRESSURE CHRONIC ULCER OTH PRT UNSP FOOT W UNSP SEVERITY SNOMED Code(s): 9735637002373 Plan: 1patient presented to hospital with extensive left diabetic foot infection in this patient who did have extensive cellulitis of the left foot likely from an infected callus on the plantar aspect and will need to cover for gram-positive as well as gram-negative pathogen 2-wound culture has been obtained which is currently growing a presumed MRSA Enterobacter 3-MRI of the left foot with no evidence of abscess and osteomyelitis however clinically there is concern for possible development of the abscess at the base of the left fifth toe for the patient was evaluated vascular surgery and the patient is status post I&D and left fifth toe amputation 4-patient currently waiting for PICC line placement hopefully will be done today discussed with the nursing staff, plan is for a 6-week course of vancomycin pharmacy to dose along with cefepime and Flagyl, and close outpatient follow-up Dictation was produced using [employer] dictation software. please excuse any grammatical, word or spelling errors. Time with Patient: Less than 30
--- NOTE | 2024-09-30 14:08 | P.DS ---
Providers Date of admission: 09/26/24 12:33 Expected date of discharge: 09/30/24 Attending physician: Amadeo Kasper Consults: 09/23/24 17:26 Consult Physician Routine Consulting Provider: Marcin Love Consult Reason/Comments: cellulitis of left foot/wound Do you want consulting provider notified?: Yes, Notify in am 09/26/24 12:23 Consult Physician Routine Consulting Provider: Ronal Harry Consult Reason/Comments: left foot abscess, debridemnt and deep cultures Do you want consulting provider notified?: Yes Primary care physician: Amadeo Kasper - Discharge Diagnosis(es) (1) Cellulitis Current Visit: Yes Status: Acute (2) Charcot arthropathy Current Visit: Yes Status: Acute (3) Diabetic infection of left foot Current Visit: Yes Status: Acute (4) 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 He was doing well afebrile placed on IV antibiotics and was cleared for discharge to rehab for further ongoing rehabilitation. Patient was currently on oxycodone 15 mg 4 times daily from his pain specialist a maps and informed consent are done on a monthly basis and I am just resuming his home medications however I did write a prescription because they require this for [facility]. Patient Condition at Discharge: Serious Plan - Discharge Summary Discharge Rx Participant: Yes New Discharge Prescriptions: New metroNIDAZOLE [Flagyl] 500 mg PO TID #90 tab Cefepime [Maxipime] 2 gm IVPB Q8H #105 each Heparin Sodium,Porcine (1 ml) [Heparin Sodium] 5,000 unit SQ Q12HR each Vancomycin HCl in 5 % Dextrose [Vancomycin 1.5 Gram/300 ml-D5w] 2 gm IV Q12HR #70 each Continue DULoxetine HCL [Cymbalta] 60 mg PO DAILY metFORMIN HCL [Glucophage] 1,000 mg PO BID Finasteride [Proscar] 5 mg PO DAILY Tamsulosin [Flomax] 0.4 mg PO DAILY Omeprazole 20 mg PO DAILY lisinopriL [Zestril] 5 mg PO DAILY Insulin Degludec [Tresiba Flextouch U-200 Pen] 80 units SQ DAILY Pioglitazone [Actos] 30 mg PO DAILY oxyCODONE HCL [oxyCODONE HCL (IR)] 15 mg PO Q6H Atorvastatin [Lipitor] 40 mg PO DAILY Baclofen 10 mg PO BID Celecoxib [CeleBREX] 200 mg PO BID modafiniL [Provigil] 200 mg PO BID Discharge Medication List DULoxetine HCL [Cymbalta] 60 mg PO DAILY 04/16/19 [History] Finasteride [Proscar] 5 mg PO DAILY 04/16/19 [History] metFORMIN HCL [Glucophage] 1,000 mg PO BID 04/16/19 [History] Pioglitazone [Actos] 30 mg PO DAILY 03/04/21 [History] Omeprazole 20 mg PO DAILY 06/26/23 [History] Tamsulosin [Flomax] 0.4 mg PO DAILY 06/26/23 [History] oxyCODONE HCL [oxyCODONE HCL (IR)] 15 mg PO Q6H 06/26/23 [History] Atorvastatin [Lipitor] 40 mg PO DAILY 09/23/24 [History] Baclofen 10 mg PO BID 09/23/24 [History] Celecoxib [CeleBREX] 200 mg PO BID 09/23/24 [History] lisinopriL [Zestril] 5 mg PO DAILY 09/23/24 [History] modafiniL [Provigil] 200 mg PO BID 09/23/24 [History] Insulin Degludec [Tresiba Flextouch U-200 Pen] 80 units SQ DAILY 09/24/24 [History] Cefepime [Maxipime] 2 gm IVPB Q8H #105 each 09/30/24 [Rx] Heparin Sodium,Porcine (1 ml) [Heparin Sodium] 5,000 unit SQ Q12HR each 09/30/24 [Rx] Vancomycin HCl in 5 % Dextrose [Vancomycin 1.5 Gram/300 ml-D5w] 2 gm IV Q12HR #70 each 09/30/24 [Rx] metroNIDAZOLE [Flagyl] 500 mg PO TID #90 tab 09/30/24 [Rx] Follow up Appointment(s)/Referral(s): [facility] [NON-STAFF] - 10/06/24 3:15 pm Marcin Love MD [STAFF PHYSICIAN] - 1 Week [facility] Visiting Nurse, [NON-STAFF] - As Needed Amadeo Kasper DO [Primary Care Provider] - 2 Weeks Ambulatory/Diagnostic Orders: Basic Metabolic Panel [LAB.AMB] Location: None Selected C Reactive Protein [LAB.AMB] Location: None Selected Complete Blood Count w/diff [LAB.AMB] Location: None Selected Erythrocyte Sedimentation Rate [LAB.AMB] Location: None Selected Discharge Disposition: TRANSFER TO SNF/ECF
--- NOTE | 2024-09-30 14:10 | P.PN ---
Subjective Progress Note Date: 09/29/24 Patient is 69-year-old white male was admitted for left infected foot and sugar is being maintained on his regular regimen of insulin and sliding scale of regular insulin he denies any fever cough or congestion he denies any other problems today MRI was negative for osteomyelitis. He underwent amputation of his fourth and fifth digit with a wound VAC placement he is doing well postop discharge planning is in place Objective - Vital Signs Vital signs: Vital Signs Temp 97.8 F 09/29/24 19:57 Pulse 79 09/29/24 19:57 Resp 17 09/29/24 19:57 BP 175/75 09/29/24 19:57 Pulse Ox 96 09/29/24 19:57 FiO2 Intake & Output 09/29/24 09/29/24 09/30/24 06:59 18:59 06:59 Intake Total 650 Output Total 1000 1600 Balance -350 -1600 Intake: Intake, IV Titration 650 Amount Cefepime 2 gm In Sodium 150 Chloride 0.9% 100 ml @ 25 mls/hr IVPB Q8HR SUE Rx# :[id number] Vancomycin 2,000 mg In 500 Sodium Chloride 0.9% 500 ml 500 ml @ 167 mls/hr IVPB Q12H SUE Rx#: [id number] Output: Urine 1000 1600 Other: Voiding Method Urinal Urinal # Bowel Movements 1 - Exam GENERAL: This is a -year-old in no apparent distress at the time of examination. Pleasant and cooperative. HEENT: Head is atraumatic, normocephalic. Pupils are equal, round, and reactive to light. Sclerae anicteric. Conjunctivae are clear. Mucus membranes of the mouth are moist. Neck is supple. RESPIRATORY: Clear to auscultation. No wheezes, rales, or rhonchi. No use of accessory muscles. CARDIOVASCULAR: Regular rate and rhythm. S1 and S2 noted. GASTROINTESTINAL: No distention noted. Abdomen soft and round. Normal active bowel sounds auscultated x 4 quadrants. No pain or tenderness noted upon palpation. INTEGUMENTARY: Skin with large bandage to foot with local surrounding cellulitis noted. EXTREMITIES: Severe Charcot foot in multiple joints. NEUROLOGIC: Cranial nerves II-XII intact. PSYCHIATRIC: Awake, alert, and oriented X 3. Appropriate affect. Intact judgement and insight. - Labs CBC & Chem 7: 09/29/24 05:57 09/29/24 05:57 Labs: Abnormal Lab Results - Last 24 Hours (Table) 09/29/24 09/29/24 09/29/24 Range/Units 05:57 05:57 06:20 RBC 3.70 L (4.40-5.60) X 10*6/uL Hgb 10.7 L (13.0-17.0) g/dL Hct 33.0 L (39.6-50.0) % Eosinophils # 0.51 H (0.04-0.35) X 10*3/uL Creatinine 0.53 L (0.66-1.25) mg/dL POC Glucose (mg/dL) 183 H (70-110) mg/dL 09/29/24 09/29/24 09/29/24 Range/Units 12:17 16:26 20:40 RBC (4.40-5.60) X 10*6/uL Hgb (13.0-17.0) g/dL Hct (39.6-50.0) % Eosinophils # (0.04-0.35) X 10*3/uL Creatinine (0.66-1.25) mg/dL POC Glucose (mg/dL) 288 H 280 H 207 H (70-110) mg/dL Microbiology - Last 24 Hours (Table) 09/26/24 16:13 Anaerobic Culture - Preliminary Foot - Left 09/26/24 16:13 Gram Stain - Final Foot - Left Wound Culture - Final 09/23/24 17:35 Blood Culture - Final Blood 09/23/24 17:43 Blood Culture - Final Blood Assessment and Plan (1) Cellulitis Current Visit: Yes Status: Acute Code(s): L03.90 - CELLULITIS, UNSPECIFIED SNOMED Code(s): 026948104 (2) Charcot arthropathy Current Visit: Yes Status: Acute Code(s): M14.60 - CHARCOT'S JOINT, UNSPECIFIED SITE SNOMED Code(s): 241124810 (3) Diabetic infection of left foot Current Visit: Yes Status: Acute Code(s): E11.628 - TYPE 2 DIABETES MELLITUS WITH OTHER SKIN COMPLICATIONS; L08.9 - LOCAL INFECTION OF THE SKIN AND SUBCUTANEOUS TISSUE, UNSP SNOMED Code(s): 137841265 (4) 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 without evidence of necrosis Current Visit: Yes Status: Acute Code(s): L97.525 - NON-PRS CHR ULC OTH PRT L FOOT WITH MSL INVL W/O EVD OF NECR SNOMED Code(s): 48461217080950734 (5) Type 2 diabetes mellitus with foot ulcer Current Visit: Yes Status: Acute Code(s): E11.621 - TYPE 2 DIABETES MELLITUS WITH FOOT ULCER; L97.509 - NON-PRESSURE CHRONIC ULCER OTH PRT UNSP FOOT W UNSP SEVERITY SNOMED Code(s): 2082212539153 (6) Hyperglycemia Current Visit: No Status: Acute Code(s): R73.9 - HYPERGLYCEMIA, UNSPECIFIED SNOMED Code(s): 85911805 (7) Cardiovascular disease Current Visit: Yes Status: Acute Code(s): I25.10 - ATHSCL HEART DISEASE OF [place] CORONARY ARTERY W/O ANG PCTRS SNOMED Code(s): 68033433 Plan: Patient was admitted to the hospital IV antibiotics were started infectious disease consultation currently in progress wound was cultured and sent for path which is currently pending we will continue to follow patient's progress until identification is back. MRI of the foot was negative for osteomyelitis. Continue diabetic control with insulin sliding scale and his regular doses of medication. Continue postoperative care continue wound VAC. Will go ahead and do discharge planning for inpatient rehabilitation services.
[2024-09-30 15:50] VITALS: BP 183/74; PULSE 80; TEMP 98.2
[2024-09-30] MEDS: amLODIPine 5 MG TAB PO STA (16:32)
== END 2024-09-30 16:36 | DRG 256 ==
LOC: EC 13:29 → SUPCPDRO 13:29 → 4SSUR 15:55 → OBSVTOIN 09-26 12:33
PROVIDERS: ADMIT Family Medicine; ATTEND Family Medicine
PROC: 0Y6Y0Z0 Detachment at Left 5th Toe, Complete, Open Approach (ICD-10-PCS; principal; 2024-09-26 07:30)
PROC: 02HV33Z Insertion of Infusion Device into Superior Vena Cava, Percutaneous Approach (ICD-10-PCS; 2024-09-29)
DX: E11.51 Type 2 diabetes mellitus with diabetic peripheral angiopathy without gangrene (principal); L02.612 Cutaneous abscess of left foot; L03.116 Cellulitis of left lower limb; L97.425 Non-pressure chronic ulcer of left heel and midfoot with muscle involvement without evidence of necrosis; L97.525 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 without evidence of necrosis; I70.245 Atherosclerosis of native arteries of left leg with ulceration of other part of foot; I70.244 Atherosclerosis of native arteries of left leg with ulceration of heel and midfoot; E11.42 Type 2 diabetes mellitus with diabetic polyneuropathy; E11.610 Type 2 diabetes mellitus with diabetic neuropathic arthropathy; E11.621 Type 2 diabetes mellitus with foot ulcer; E11.65 Type 2 diabetes mellitus with hyperglycemia; E11.628 Type 2 diabetes mellitus with other skin complications; E11.69 Type 2 diabetes mellitus with other specified complication; Z79.4 Long term (current) use of insulin; Z68.33 Body mass index [BMI] 33.0-33.9, adult; I10 Essential (primary) hypertension; E66.9 Obesity, unspecified; D64.9 Anemia, unspecified; G60.0 Hereditary motor and sensory neuropathy; I25.10 Atherosclerotic heart disease of native coronary artery without angina pectoris; E78.5 Hyperlipidemia, unspecified; G47.30 Sleep apnea, unspecified; Z79.891 Long term (current) use of opiate analgesic; Z79.1 Long term (current) use of non-steroidal anti-inflammatories (NSAID); Z79.84 Long term (current) use of oral hypoglycemic drugs; Z79.899 Other long term (current) drug therapy; Z95.1 Presence of aortocoronary bypass graft; Z87.891 Personal history of nicotine dependence; B95.62 Methicillin resistant Staphylococcus aureus infection as the cause of diseases classified elsewhere; B96.89 Other specified bacterial agents as the cause of diseases classified elsewhere; L84 Corns and callosities
CPT/HCPCS: 36415; 36573; 80048; 80053; 80202; 82565; 83036; 83605; 85025; 85652; 86140; 87040; 87070; 87075; 87077; 87186; 87205; 90662; 96361; 96365; 96375; 96376; 99285

== ENCOUNTER 2024-10-30 12:30 | Emergency (ER) | payer MEDICARE ==
[2024-10-30 12:38] VITALS: RESP 18; TEMP 98.5
[2024-10-30] MEDS: DEXAMETHASONE SOD PHOSPHATE 10 MG/ML 1 ML VIAL IVP STA (13:18)
[2024-10-30] MEDS: diphenhydrAMINE 50 MG/ML 1 ML VIAL IVP STA (13:20)
[2024-10-30] MEDS: METOCLOPRAMIDE 5 MG/ML 2 ML VIAL IVP STA (13:21)
--- NOTE | 2024-10-30 13:45 | ED ---
Headache HPI - General Chief Complaint: Headache Stated Complaint: Hypertension, headache Time Seen by Provider: 10/30/24 12:40 Mode of arrival: EMS Limitations: physical limitation - History of Present Illness Initial Comments: 69-year-old male with past medical history of osteomyelitis, hypertension, diabetes who presents emergency department with high blood pressure. He is currently at [facility]. Reports that he has had a headache for the past 3 weeks. He has been taking Percocet for the headache but it continues to come back. He denies history of migraines. Reports that his blood pressure has been running high. He states that he previously took lisinopril 5 mg and had previously difficult to control blood pressure. Now that he is at rehab his blood pr essures have been running over 200 systolic. They increased his lisinopril from 5 mg to 20 mg. They also added chlorthalidone 25 mg daily. Patient denies any neck stiffness. No visual changes. No photophobia. No other alleviating, precipitating or modifying factors - Related Data Home Medications Medication Instructions Recorded Confirmed DULoxetine HCL [Cymbalta] 60 mg PO DAILY 04/16/19 10/30/24 Finasteride [Proscar] 5 mg PO DAILY 04/16/19 10/30/24 metFORMIN HCL [Glucophage] 1,000 mg PO BID 04/16/19 10/30/24 Omeprazole 20 mg PO DAILY 06/26/23 10/30/24 Tamsulosin [Flomax] 0.4 mg PO DAILY 06/26/23 10/30/24 oxyCODONE HCL [oxyCODONE HCL (IR)] 15 mg PO Q6H PRN 06/26/23 10/30/24 Atorvastatin [Lipitor] 40 mg PO HS 09/23/24 10/30/24 Baclofen 10 mg PO BID 09/23/24 10/30/24 modafiniL [Provigil] 200 mg PO DAILY 09/23/24 10/30/24 0.9 % Sodium Chloride [Sodium 10 ml IV Q12H 10/30/24 10/30/24 Chloride Flush] 0.9 % Sodium Chloride [Sodium 10 ml IV Q8H 10/30/24 10/30/24 Chloride Flush] Acetaminophen [Tylenol] 650 mg PO Q4H PRN 10/30/24 10/30/24 Chlorthalidone [Hygroton] 25 mg PO DAILY 10/30/24 10/30/24 Empagliflozin [Jardiance] 10 mg PO DAILY 10/30/24 10/30/24 Insulin Glargine,Hum.rec.anlog 72 units SQ DAILY 10/30/24 10/30/24 [Lantus Solostar Pen] Melatonin 10 mg PO HS PRN 10/30/24 10/30/24 lisinopriL [Zestril] 20 mg PO BID 10/30/24 10/30/24 Previous Rx's Medication Instructions Recorded Cefepime [Maxipime] 2 gm IVPB Q8H #105 each 09/30/24 Heparin Sodium,Porcine (1 ml) 5,000 unit SQ Q12HR each 09/30/24 [Heparin Sodium] Vancomycin HCl in 5 % Dextrose 2 gm IV Q12HR #70 each 09/30/24 [Vancomycin 1.5 Gram/300 ml-D5w] metroNIDAZOLE [Flagyl] 500 mg PO TID #90 tab 09/30/24 Allergies Allergy/AdvReac Type Severity Reaction Status Date / Time No Known Allergies Allergy Verified 10/30/24 16:31 Review of Systems ROS Statement: Those systems with pertinent positive or pertinent negative responses have been documented in the HPI. ROS Other: All systems not noted in ROS Statement are negative. Past Medical History Past Medical History: Coronary Artery Disease (CAD), Chest Pain / Angina, Diabetes Mellitus, GERD/Reflux, Hyperlipidemia, Hypertension, Musculoskeletal Disorder, Osteoarthritis (OA), Prostate Disorder, Sleep Apnea/CPAP/BIPAP Additional Past Medical History / Comment(s): [id number] SYNDROME, CAUSES PAIN, HAS NUMBNESS IN FEET, neuropathy, WEARS NICOLÁS LEG BRACES. USES CPAP., some recent chest pain & tightness @times History of Any Multi-Drug Resistant Organisms: MRSA Date of last positivie culture/infection: 09/24/24 MDRO Source:: left foot Past Surgical History: No Surgical Hx Reported, Cardiac Valve Replacement Additional Past Surgical History / Comment(s): open heart, left 5th toe amputation Past Anesthesia/Blood Transfusion Reactions: No Reported Reaction Past Psychological History: No Psychological Hx Reported Smoking Status: Former smoker Past Alcohol Use History: None Reported Past Drug Use History: None Reported - Past Family History Mother Family Medical History: Cancer Additional Family Medical History / Comment(s): BREAST CA Sister(s) Family Medical History: Cancer Additional Family Medical History / Comment(s): SKIN CA Father Family Medical History: Congestive Heart Failure (CHF), Coronary Artery Disease (CAD), Myocardial Infarction (CO) Additional Family Medical History / Comment(s): Myocardial infarction in his early 60s, paternal uncle had myocardial infarction in his early 50s General Exam Limitations: no limitations General appearance: alert, in no apparent distress Head exam: Present: atraumatic, normocephalic, normal inspection Eye exam: Present: normal appearance, PERRL, EOMI. Absent: scleral icterus, conjunctival injection, periorbital swelling ENT exam: Present: normal exam, mucous membranes moist Neck exam: Present: normal inspection. Absent: tenderness, meningismus, lymphadenopathy Respiratory exam: Present: normal lung sounds bilaterally. Absent: respiratory distress, wheezes, rales, rhonchi, stridor Cardiovascular Exam: Present: regular rate, normal rhythm, normal heart sounds. Absent: systolic murmur, diastolic murmur, rubs, gallop, clicks GI/Abdominal exam: Present: soft, normal bowel sounds. Absent: distended, tenderness, guarding, rebound, rigid Extremities exam: Present: normal inspection, full ROM, normal capillary refill. Absent: tenderness, pedal edema, joint swelling, calf tenderness Back exam: Present: normal inspection Neurological exam: Present: alert, oriented X3, CN II-XII intact Psychiatric exam: Present: normal affect, normal mood Skin exam: Present: warm, dry, intact, normal color. Absent: rash Course Vital Signs 10/30/24 10/30/24 10/30/24 12:33 13:50 15:17 Temperature 98.5 F Pulse Rate 84 82 84 Respiratory 18 18 18 Rate Blood Pressure 179/86 184/81 179/83 O2 Sat by Pulse 94 L 95 94 L Oximetry 10/30/24 16:03 Temperature Pulse Rate 93 Respiratory 18 Rate Blood Pressure 169/81 O2 Sat by Pulse 94 L Oximetry Medical Decision Making - Medical Decision Making Was pt. sent in by a medical professional or institution (, PA, GLOVE STITCHER, urgent care, hospital, or senior care...) When possible be specific @ -Patient sent in from his ECF Did you speak to anyone other than the patient for history (EMS, parent, family, police, friend...)? What history was obtained from this source @ -Spoke with EMS for history Did you review nursing and triage notes (agree or disagree)? Why? @ -I reviewed and agree with nursing and triage notes Were old charts reviewed (outside hosp., previous admission, EMS record, old EKG, old radiological studies, urgent care reports/EKG's, senior care records)? Report findings @ -No old charts were reviewed Differential Diagnosis (chest pain, altered mental status, abdominal pain women, abdominal pain men, vaginal bleeding, weakness, fever, dyspnea, syncope, headache, dizziness, GI bleed, back pain, seizure, CVA, palpatations, mental health, musculoskeletal)? @ -Differential Headache: Migraine, tension, cluster, carbon monoxide, central venous thrombosis, pension karma temporal arteritis, acute closure glaucoma, intercranial hemorrhage, mastoiditis, sinusitis, head injury, this is not meant to be an all-inclusive list. EKG interpreted by me (3pts min.). @ -Yes and demonstrates sinus rhythm with a rate of 83. AK interval 247. QRS 115. QTc of 460. No acute ST segment elevations or depressions X-rays interpreted by me (1pt min.). @ -None done CT interpreted by me (1pt min.). @ -Yes and demonstrates no acute process U/S interpreted by me (1pt. min.). @ -None done What testing was considered but not performed or refused? (CT, X-rays, U/S, labs)? Why? @ -None What meds were considered but not given or refused? Why? @ -None Did you discuss the management of the patient with other professionals (professionals i.e. , PA, GLOVE ST[employer]ER, lab, RT, psych nurse, social organization professor, saw man, teacher, state wildlife officer, bottle caser)? Give summary @ -Called and spoke with the director at the patient's ECF. Instructed that they must adjust the patient's blood pressure medications or consult cardiology if they are having difficulty controlling the patient's blood pressure however patient's blood pressure is within normal limits at this time Was smoking cessation discussed for >3mins.? @ -No Was critical care preformed (if so, how long)? @ -No Were there social determinants of health that impacted care today? How? (Homelessness, low income, unemployed, alcoholism, drug addiction, transportation, low edu. Level, literacy, decrease access to med. care, longterm, rehab)? @ -Patient currently in rehab Was there de-escalation of care discussed even if they declined (Discuss DNR or withdrawal of care, Hospice)? DNR status @ -No What co-morbidities impacted this encounter? (DM, HTN, Smoking, COPD, CAD, Cancer, CVA, ARF, Chemo, Hep., AIDS, mental health diagnosis, sleep apnea, morbid obesity)? @ -Hypertension, diabetes Was patient admitted / discharged? Hospital course, mention meds given and route, prescriptions, significant lab abnormalities, going to OR and other pertinent info. @ -Upon arrival patient seen and evaluated in bed 9. Thorough history and physical exam was performed. IV was established. Laboratory studies are conducted. CT was performed. Patient was given a migraine cocktail. He is reevaluated and states that his headache is resolved. I did discuss possible adjustments to his medications. I informed him that it is difficult for me to initiate changes in the emergency department as I will be unable to follow the patient. Adjustments are best made by his rehab team or by cardiology. I did call over to the rehab facility and notify them that adjustments need to be made. Patient will be discharged at this time. Instructed to return for any new or worsening symptoms Undiagnosed new problem with uncertain prognosis? @ -No Drug Therapy requiring intensive monitoring for toxicity (Heparin, Nitro, Insulin, Cardizem)? @ -No Were any procedures done? @ -No Diagnosis/symptom? @ -Acute cephalgia, accelerated hypertension Acute, or Chronic, or Acute on Chronic? @ -Acute Uncomplicated (without systemic symptoms) or Complicated (systemic symptoms)? @ -Complicated Side effects of treatment? @ -No Exacerbation, Progression, or Severe Exacerbation? @ -No Poses a threat to life or bodily function? How? (Chest pain, USA, CO, pneumonia, PE, COPD, DKA, ARF, appy, cholecystitis, CVA, Diverticulitis, Homicidal, Suic idal, threat to staff... and all critical care pts) @ -No - Lab Data Result diagrams: 10/30/24 13:17 10/30/24 13:17 Lab Results 10/30/24 10/30/24 10/30/24 Range/Units 13:17 13:17 13:17 WBC 8.3 (3.8-10.6) k/uL RBC 4.71 (4.30-5.90) m/uL Hgb 13.3 (13.0-17.5) gm/dL Hct 40.9 (39.0-53.0) % MCV 86.8 (80.0-100.0) fL MCH 28.2 (25.0-35.0) pg MCHC 32.4 (31.0-37.0) g/dL RDW 14.7 (11.5-15.5) % Plt Count 272 (150-450) k/uL MPV 8.3 Neutrophils % (Manual) 63 % Lymphocytes % (Manual) 30 % Monocytes % (Manual) 4 % Eosinophils % (Manual) 2 % Basophils % (Manual) 1 % Neutrophils # (Manual) 5.23 (1.3-7.7) k/uL Lymphocytes # (Manual) 2.49 (1.0-4.8) k/uL Monocytes # (Manual) 0.33 (0-1.0) k/uL Eosinophils # (Manual) 0.17 (0-0.7) k/uL Basophils # (Manual) 0.08 (0-0.2) k/uL Nucleated RBCs 0 (0-0) /100 WBC Manual Slide Review Performed Stomatocytes Present Sodium 138 (137-145) mmol/L Potassium 3.8 (3.5-5.1) mmol/L Chloride 101 (98-107) mmol/L Carbon Dioxide 31 H (22-30) mmol/L Anion Gap 6 mmol/L BUN 16 (9-20) mg/dL Creatinine 0.56 L (0.66-1.25) mg/dL Est GFR (CKD-EPI)AfAm >90 (>60 ml/min/1.73 sqM) Est GFR (CKD-EPI)NonAf >90 (>60 ml/min/1.73 sqM) Glucose 72 L (74-99) mg/dL Calcium 9.8 (8.4-10.2) mg/dL Total Bilirubin 0.4 (0.2-1.3) mg/dL AST 40 (17-59) U/L ALT 34 (4-49) U/L Alkaline Phosphatase 84 (38-126) U/L Troponin I 0.025 (0.000-0.034) ng/mL Total Protein 7.4 (6.3-8.2) g/dL Albumin 4.2 (3.5-5.0) g/dL TSH 1.460 (0.465-4.680) mIU/L Disposition Clinical Impression: Hypertension, Headache Disposition: HOME SELF-CARE Condition: Stable Instructions (If sedation given, give patient instructions): Acute Headache (ED) Additional Instructions: The CT scan of your head was normal. Your blood work was within normal limits. Your blood pressure remained in the 170s systolic. I do feel that you need further medication adjustment to control your blood pressure better. I recommend discontinuing lisinopril as this medication does not appear to help your blood pressure at all. They may consider starting Norvasc instead. Return to the emergency department for any new or worsening symptoms Is patient prescribed a controlled substance at d/c from ED?: No Referrals: Amadeo Kasper DO [Primary Care Provider] - 1-2 days Time of Disposition: 15:42
[2024-10-30 13:49] LABS: ALT 34 U/L (4-49); AST 40 U/L (17-59); African American GFR (CKD) >90 (>60 ml/min/1.73 sqM); Albumin 4.2 g/dL (3.5-5.0); Alkaline Phosphatase 84 U/L (38-126); Anion Gap 6 mmol/L; Blood Urea Nitrogen 16 mg/dL (9-20); Calcium 9.8 mg/dL (8.4-10.2); Carbon Dioxide 31 mmol/L (22-30); Chloride 101 mmol/L (98-107); Glucose 72 mg/dL (74-99); Non-African American GFR(CKD) >90 (>60 ml/min/1.73 sqM); Potassium 3.8 mmol/L (3.5-5.1); Sodium 138 mmol/L (137-145); Total Bilirubin 0.4 mg/dL (0.2-1.3); Total Protein 7.4 g/dL (6.3-8.2)
[2024-10-30] MEDS: MAGNESIUM SULFATE-D5W PMX 1 GM in DEXTROSE/WATER 1 100ML.BAG IVPB ONE (13:49)
[2024-10-30 14:11] LABS: HCT 40.9 % (39.0-53.0); HGB 13.3 gm/dL (13.0-17.5); MCH 28.2 pg (25.0-35.0); MCHC 32.4 g/dL (31.0-37.0); MCV 86.8 fL (80.0-100.0); Mean Platelet Volume 8.3; Platelet Count 272 k/uL (150-450); RBC 4.71 m/uL (4.30-5.90); RDW 14.7 % (11.5-15.5); WBC 8.3 k/uL (3.8-10.6)
--- NOTE | 2024-10-30 14:17 | CT ---
EXAMINATION TYPE: CT brain wo con CT DLP: 1243.4 mGycm, Automated exposure control for dose reduction was used. DATE OF EXAM: 10/30/2024 2:12 PM COMPARISON: Prior CT Brain from 11/25/2015 . CLINICAL INDICATION:Male, 69 years old with history of headache x 3 weeks, Headache x 3 weeks TECHNIQUE: Brain: Multiple axial CT images of the brain were obtained without IV contrast. . Coronal and sagitta l reformats reviewed. FINDINGS: Brain: Extra-axial spaces: No abnormal extra-axial fluid collections. Ventricular system: Within normal limits Cerebral parenchyma: Age-appropriate cerebral volume loss. No acute intraparenchymal hemorrhage or ma ss effect. The upton-white junction is well differentiated. Scattered hypoattenuating areas are seen within the periventricular white matter. Cerebellum: Stable calcification within the right cerebellum. Mass effect: No evidence of midline shift. Intracranial vasculature: Atherosclerotic calcifications of the intracranial vessels. Soft tissues: Normal. Calvarium/osseous structures: No depressed skull fracture. Paranasal sinuses and mastoid air cells: The mastoid air cells are clear. Minimal mucosal thickening of the inferior left maxillary sinus. Right maxillary sinus 6 mm mucus retention cyst. The remaining paranasal sinuses are clear. Hypoplastic appearance of the right frontal sinus. Visualized orbits: Bilateral aphakia IMPRESSION: 1. No acute intracranial process. 2. Nonspecific white matter changes, likely secondary to chronic small vessel ischemic disease. [facility], , 10/30/2024 2:14 PM
[2024-10-30 14:28] LABS: Basophils # (M) 0.08 k/uL (0-0.2); Eosinophils # (M) 0.17 k/uL (0-0.7); Lymphocytes # (M) 2.49 k/uL (1.0-4.8); Monocytes # (M) 0.33 k/uL (0-1.0); Neutrophils # (M) 5.23 k/uL (1.3-7.7); Neutrophils % (M) 63 %; Nucleated Red Blood Cells 0 /100 WBC (0-0); Total Cells Counted 100
[2024-10-30 14:30] LABS: Stomatocytes Present
[2024-10-30] MEDS: cloNIDine HCL 0.1 MG TAB PO STA (16:06)
[2024-10-30] MEDS: KETOROLAC 15 MG/ML 1 ML VIAL IVP STA (16:08)
[2024-10-30 22:20] VITALS: BP 169/81; PULSE 93
== END 2024-10-30 16:27 | disposition home or self-care (01) ==
LOC: EC 12:30
DX: R51.9 Headache, unspecified (principal); I10 Essential (primary) hypertension; E11.9 Type 2 diabetes mellitus without complications; Z87.891 Personal history of nicotine dependence
CPT/HCPCS: 36415; 93005; 80053; 84443; 84484; 85025; 70450; 99285; 96365; 96375 ×3; J1200; J1100; J2765; J3475